=== PATIENT | female | born 1945 | race African-American/Black ===

== ENCOUNTER 2019-12-16 10:31 | Inpatient (IN) | payer BC, MEDICARE ==
[~2019-12-16] VITALS: Ht 157.5 cm; Wt 82.4 kg
[~2019-12-16 10:31] MED LIST: GLYB2.5T2 PO; LISI1TAB37 PO; LORA10TA68 PO; LOVA20TA2 PO; METF500T16 PO; ONDA4TAB7 PO; OXYC1TAB15 PO; RANI-376 PO
[2019-12-16] MEDS ORDERED: IV NORMAL SALINE 1000ML BAG 1,000 ML IV ONE ×2 (11:15→15:15)
[2019-12-16] MEDS ORDERED: PIPERACILLIN/TAZOBACTAM 3.375 GM in IV NORMAL SALINE 50ML 50 ML IV ONE (11:15)
[2019-12-16 11:18] LABS: BASO # 0.1 x10^3/uL (0.0-0.2); BASO % 1 % (0-3); EOS % 0 % (0-3); HEMATOCRIT 30.5 % (36.0-47.0); LYMPH # 1.4 x10^3/uL (1.0-4.8); LYMPH % 7 % (24-48); MEAN CORPUSCULAR HEMOGLOBIN 30 pg (25-35); MEAN CORPUSCULAR HGB CONC 33 g/dL (31-37); MEAN CORPUSCULAR VOLUME 93 fL (79-100); MONO # 0.7 x10^3/uL (0.0-1.1); MONO % 4 % (0-9); NEUT # 16.3 x10^3/uL (1.8-7.7); NEUT % 88 % (31-73); PLATELET COUNT 464 x10^3/uL (140-400); RED CELL DISTRIBUTION WIDTH 14.7 % (11.5-14.5); WHITE BLOOD COUNT 18.5 x10^3/uL (4.0-11.0)
[2019-12-16 11:25] LABS: BILIRUBIN,URINE LARGE (NEG); CLARITY,URINE CLOUDY; COLOR,URINE ORANGE; NITRITE,URINE NEGATIVE (NEG); PROTEIN,URINE 30 mg/dL (NEG-TRACE)
[2019-12-16 11:29] LABS: CALCIUM 8.5 mg/dL (8.5-10.1); CREATININE 1.3 mg/dL (0.6-1.0); GFR 48.4
[2019-12-16 11:35] LABS: ALBUMIN 1.9 g/dL (3.4-5.0); ALBUMIN/GLOBULIN RATIO 0.3 (1.0-1.7); TOTAL BILIRUBIN 0.5 mg/dL (0.2-1.0); TOTAL PROTEIN 7.5 g/dL (6.4-8.2)
[2019-12-16 11:48] LABS: BACTERIA,URINE MANY /HPF (0-FEW); HYALINE CASTS, URINE MANY /HPF; RBC,URINE OCC /HPF (0-2)
--- NOTE | 2019-12-16 12:04 | RAD ---
Examination: 2 views of the right ankle and 3 views of the right foot HISTORY: History of infection COMPARISON: None available FINDINGS: There is mild displaced oblique fracture of the distal fibula above the level of the ankle joint. Moderate joint space loss identified in the ankle joint and the tarsometatarsal and metatarsophalangeal joints. Small inferior calcaneal enthesophyte identified. Probable amputation changes identified in the distal phalanx of the second toe however examination is limited due to positioning. Moderate amount of air identified in the soft tissue of the forefoot. IMPRESSION: 1. Moderate amount of soft tissue identified identified in the forefoot. Soft tissue infection/osteomyelitis not completely excluded. Recommend MRI for further evaluation. 2. Mild displaced oblique fracture of the distal fibula. Electronically signed by: Kenneth Hammond MD (12/16/2019 12:00 PM) [id number]
[2019-12-16 12:17] LABS: % BANDS 6 % (0-9); % LYMPHS 8 % (24-48); % MONOS 4 % (0-10); % SEGS 82 % (35-66); PLT ESTIMATE INCREASED (ADEQUATE)
--- NOTE | 2019-12-16 13:16 | PHYS DOC ---
Past Medical History Past Medical History: Hypertension Past Surgical History: Cholecystectomy, Hysterectomy Smoking Status: Former Smoker Alcohol Use: Occasionally Drug Use: None General Adult EDM: Chief Complaint: WEAKNESS/GENERALIZED HPI: HPI: Patient is 74-year-old female who presents to the emergency room after falling and not being able to get up. Patient states that she used her walker yesterday and her knee buckled under her. She fell onto the ground and was not able to get herself back up. She states she typically walks fine. She denies any pain. Of note patient also has necrotic toes. Patient states that she feels like they have been healing. They have been this way for months. She states the wound on her heel is finally healing. She feels like she is taking care of her self fine. She states she used to be a diabetic but she is cured. Review of Systems: Review of Systems: General: Denies fever, chills, sweats, fatigue Eyes: Denies drainage, blurred vision, eye redness HENT: Denies rhinorrhea, sore throat, earache Respiratory: Denies cough, shortness of breath, wheezing Cardiac: Denies edema, palpitations, chest pain GI: Denies abdominal pain, Nausea, vomiting MSK: Denies back pain, neck pain Skin: Denies rash, jaundice Neuro: Denies headache, dizziness reports generalized weakness Psychiatric: Denies SI/HI Heart Score: Risk Factors: Risk Factors: DM, Current or recent (<one month) smoker, HTN, HLP, family history of CAD, obesity. Risk Scores: Score 0 - 3: 2.5% MACE over next 6 weeks - Discharge Home Score 4 - 6: 20.3% MACE over next 6 weeks - Admit for Clinical Observation Score 7 - 10: 72.7% MACE over next 6 weeks - Early Invasive Strategies Current Medications: Current Medications Medications (Trade) Dose Ordered Sig/Arnaud Start Time Stop Time Status Last Admin Dose Admin Piperacillin Sod/ Tazobactam Sod 3.375 gm/Sodium Chloride 50 ml @ 100 mls/hr 1X ONCE 12/16/19 11:15 12/16/19 11:44 DC 12/16/19 11:26 100 MLS/HR Sodium Chloride 1,000 ml @ 1,000 mls/hr 1X ONCE 12/16/19 11:15 12/16/19 12:14 DC 12/16/19 11:25 1,000 MLS/HR Allergies: Allergies: Allergies Coded Allergies Type Severity Reaction Last Updated Verified No Known Drug Allergies 01/18/16 No Physical Exam: PE: General: Awake, alert, NAD. Well Nourished, well hydrated. Cooperative HEENT: Atraumatic, EOMI, PERRL, airway patent, moist oral mucosa Neck: Supple, trachea midline Respiratory: CTA bilaterally, normal effort, no wheezing/crackles CV: RRR, no murmur, cap refill <2 GI: Soft, nondistended, nontender, no masses MSK: No obvious deformities Skin: Warm, dry. R ankle: 3x4cm scabbed over deep wound. R foot: 1st toe with erythema, swelling, foul drainage. 2nd and 3rd toe necrotic and bone visible. 4th toe with erythema. Neuro: A&O x3, speech NL, sensory and motor grossly intact, no focal deficits Psych: Normal affect, normal mood, not suicidal or homicidal Current Patient Data: Labs: Laboratory Tests Test 12/16/19 11:04 White Blood Count 18.5 x10^3/uL (4.0-11.0) H Red Blood Count 3.30 x10^6/uL (3.50-5.40) L Hemoglobin 10.0 g/dL (12.0-15.5) L Hematocrit 30.5 % (36.0-47.0) L Mean Corpuscular Volume 93 fL (79-100) Mean Corpuscular Hemoglobin 30 pg (25-35) Mean Corpuscular Hemoglobin Concent 33 g/dL (31-37) Red Cell Distribution Width 14.7 % (11.5-14.5) H Platelet Count 464 x10^3/uL (140-400) H Neutrophils (%) (Auto) 88 % (31-73) H Lymphocytes (%) (Auto) 7 % (24-48) L Monocytes (%) (Auto) 4 % (0-9) Eosinophils (%) (Auto) 0 % (0-3) Basophils (%) (Auto) 1 % (0-3) Neutrophils # (Auto) 16.3 x10^3/uL (1.8-7.7) H Lymphocytes # (Auto) 1.4 x10^3/uL (1.0-4.8) Monocytes # (Auto) 0.7 x10^3/uL (0.0-1.1) Eosinophils # (Auto) 0.0 x10^3/uL (0.0-0.7) Basophils # (Auto) 0.1 x10^3/uL (0.0-0.2) Segmented Neutrophils % 82 % (35-66) H Band Neutrophils % 6 % (0-9) Lymphocytes % 8 % (24-48) L Monocytes % 4 % (0-10) Platelet Estimate Increased (ADEQUATE) Urine Collection Type U cath Urine Color [place] Urine Clarity Cloudy Urine pH 5.0 (<5.0-8.0) Urine Specific [place] 1.025 (1.000-1.030) Urine Protein 30 mg/dL (NEG-TRACE) Urine Glucose (UA) Negative mg/dL (NEG) Urine Ketones (Stick) Trace mg/dL (NEG) Urine Blood Negative (NEG) Urine Nitrite Negative (NEG) Urine Bilirubin Large (NEG) Urine Urobilinogen Dipstick 1.0 mg/dL (0.2 mg/dL) Urine Leukocyte Esterase Trace (NEG) Urine RBC Occ /HPF (0-2) Urine WBC 5-10 /HPF (0-4) Urine Bacteria Many /HPF (0-FEW) Urine Hyaline Casts Many /HPF Sodium Level 143 mmol/L (136-145) Potassium Level 4.0 mmol/L (3.5-5.1) Chloride Level 104 mmol/L (98-107) Carbon Dioxide Level 22 mmol/L (21-32) Anion Gap 17 (6-14) H Blood Urea Nitrogen 32 mg/dL (7-20) H Creatinine 1.3 mg/dL (0.6-1.0) H Estimated GFR (Cockcroft-Gault) 48.4 BUN/Creatinine Ratio 25 (6-20) H Glucose Level 225 mg/dL (70-99) H Calcium Level 8.5 mg/dL (8.5-10.1) Total Bilirubin 0.5 mg/dL (0.2-1.0) Aspartate Amino Transferase (AST) 25 U/L (15-37) Alanine Aminotransferase (ALT) 34 U/L (14-59) Alkaline Phosphatase 135 U/L (46-116) H Creatine Kinase 33 U/L (26-192) Troponin I Quantitative < 0.017 ng/mL (0.000-0.055) Total Protein 7.5 g/dL (6.4-8.2) Albumin 1.9 g/dL (3.4-5.0) L Albumin/Globulin Ratio 0.3 (1.0-1.7) L Laboratory Tests 12/16/19 11:04 Laboratory Tests 12/16/19 11:04 Vital Signs: Vital Signs Date Time Temp Pulse Resp B/P (MAP) Pulse Ox O2 Delivery O2 Flow Rate FiO2 12/16/19 11:15 97.8 84 18 139/66 (90) 98 Room Air 97.8 EKG: EKG: [] Radiology/Procedures: Radiology/Procedures: [] Course & Med Decision Making: Course & Med Decision Making Pertinent Labs and Imaging studies reviewed. (See chart for details) Patient 74-year-old female who presents the emergency room after falling and being on the ground for 24 hours. Patient is not taking any medications because she feels that she no longer has diabetes. Patient's right foot has necrotic toes and a deep likely pressure ulcer that is scabbed over on the right heel. This time I am concerned that she is unable to take care of herself at home. X- rays were done of the foot and ankle. Patient was given Zosyn for necrotic toes. I discussed the case with Dr. Franklin the on-call orthopedic surgeon who will evaluate the patient. Patient will be admitted to Dr. stephens. Black Disclaimer: Black Disclaimer: This electronic medical record was generated, in whole or in part, using a voice recognition dictation system. Departure Departure Impression: Primary Impression: Necrotic toes Additional Impressions: Wound infection Weakness Disposition: ADMITTED INPATIENT Condition: STABLE Referrals: SHERRIE ZAMBRANO MD (PCP) Justicifation of Admission Dx: Justifications for Admission: Justification of Admission Dx: Yes DUNCAN MERCER MD Dec 16, 2019 13:15
[2019-12-16 15:00] VITALS: BP 159/70
[2019-12-16] MEDS ORDERED: DEXTROSE 50% 25 GM / 50ML DISP.SYRIN. IV PRN (15:15)
[2019-12-16] MEDS ORDERED: PIP/TAZO PER PHARMACY MC PRN (15:15)
--- NOTE | 2019-12-16 15:57 | EKG ---
[facility] [address] [place] [address] Test Date: 2019-12-16 Test Time: 10:37:27 Pat Name: MICHEAL WANG Department: Room: Gender: F [employer]: : 1945 Requested By: DUNCAN MERCER Order Number: [id number] Reading MD: Measurements Intervals [place] Rate: 84 P: 56 DC: 142 QRS: -1 QRSD: 78 T: 36 QT: 378 QTc: 450 Interpretive Statements SINUS RHYTHM LEFTWARD AXIS QRS(T) CONTOUR ABNORMALITY CONSISTENT WITH INFERIOR INFARCT PROBABLY OLD ABNORMAL ECG RI6.02 No previous ECG available for comparison
[2019-12-16] MEDS ORDERED: oxyCODONE/APAP 5/325 1 TAB TABLET PO SCH (16:00)
[2019-12-16] MEDS ORDERED: hydroCHLOROthiazide 12.5 MG CAPSULE PO SCH (16:00)
[2019-12-16] MEDS ORDERED: CETIRIZINE HCL 10 MG TABLET. PO SCH (16:00)
[2019-12-16] MEDS ORDERED: LISINOPRIL 20 MG TABLET PO SCH (16:00)
[2019-12-16] MEDS: INSULIN LISPRO 300 UNITS/3 ML VIAL. SQ SCH (16:48)
[2019-12-16] MEDS: ONDANSETRON ODT 4 MG TAB.RAPDIS. PO SCH ×2 (16:53→23:21)
[2019-12-16] MEDS: PIPERACILLIN/TAZOBACTAM 2.25 GM in IV NORMAL SALINE 50ML 50 ML IV SCH ×2 (17:26→23:21)
--- NOTE | 2019-12-16 17:38 | PDOC1 ---
History and Physical Date of Admission Date of Admission DATE: 12/16/19 TIME: 17:33 Source Source: Chart review, Patient History of Present Illness History of Present Illness Ms. Patton, is 74-year-old female who presents to the emergency room after falling and not being able to get up. Patient states that she used her walker yesterday and her knee buckled under her. She fell onto the ground and was not able to get herself back up. She states she typically walks fine. She denies any pain. Of note patient also has necrotic toes. Patient states that she feels like they have been healing. They have been this way for months. She s tates the wound on her heel is finally healing. She feels like she is taking care of herself fine. She states she used to be a diabeti Past Medical History Past Medical History she reports no current history, she bought a book "curing diabetes' and she cured herself of her diabetes, "I have no chronic medical problems" Cardiovascular: HTN Endocrine: Diabetes Social History Smoke: Quit (years ago) ALCOHOL: none (since her htday 3 mos ago) Drugs: None Current Problem List Problem List Problems Medical Problems: (1) Necrotic toes Status: Acute (2) Weakness Status: Acute (3) Wound infection Status: Acute Current Medications Current Medications Current Medications Piperacillin Sod/ Tazobactam Sod 3.375 gm/Sodium Chloride 50 ml @ 100 mls/hr 1X ONCE IV Last administered on 12/16/19at 11:26; Start 12/16/19 at 11:15; Stop 12/16/19 at 11:44; Status DC Sodium Chloride 1,000 ml @ 1,000 mls/hr 1X ONCE IV Last administered on 12/16/19at 11:25; Start 12/16/19 at 11:15; Stop 12/16/19 at 12:14; Status DC Oxycodone/ Acetaminophen (Percocet 5/325) 1 tab Q4HRS PO ; Start 12/16/19 at 16:00 Lisinopril (Prinivil) 20 mg DAILY PO ; Start 12/16/19 at 16:00; Stop 12/16/19 at 16:22; Status DC Cetirizine HCl (ZyrTEC) 10 mg DAILY PO ; Start 12/16/19 at 16:00; Stop 12/16/19 at 16:22; Status DC Atorvastatin Calcium (Lipitor) 5 mg QHS PO ; Start 12/16/19 at 21:00; Stop 12/16/19 at 16:22; Status DC Ondansetron HCl (Zofran Odt) 4 mg Q6HRS PO ; Start 12/16/19 at 18:00 Non-Formulary Medication (Ranitidine Hcl (Zantac)) 1 tab BID PO ; Start 12/16/19 at 21:00; Stop 12/16/19 at 16:22; Status DC Piperacillin Sod/ Tazobactam Sod (Zosyn Per Pharmacy) 1 each PRN DAILY PRN MC SEE COMMENTS; Start 12/16/19 at 15:15 Sodium Chloride 1,000 ml @ 100 mls/hr 1X ONCE IV Last administered on 12/16/19at 16:43; Start 12/16/19 at 15:15; Stop 12/17/19 at 01:14 Insulin Human Lispro (HumaLOG) 0-9 UNITS TIDWMEALS SQ Last administered on 12/16/19at 16:48; Start 12/16/19 at 17:00 Dextrose (Dextrose 50%-Water Syringe) 12.5 gm PRN Q15MIN PRN IV SEE COMMENTS; Start 12/16/19 at 15:15 Insulin Glargine (Lantus Syringe) 10 unit QHS SQ ; Start 12/16/19 at 21:00 Piperacillin Sod/ Tazobactam Sod 3.375 gm/Sodium Chloride 50 ml @ 100 mls/hr Q6HRS IV ; Start 12/16/19 at 18:00; Status Cancel Piperacillin Sod/ Tazobactam Sod 2.25 gm/Sodium Chloride 50 ml @ 100 mls/hr Q6HRS IV Last administered on 12/16/19at 17:26; Start 12/16/19 at 18:00 Hydrochlorothiazide (Microzide) 12.5 mg DAILY PO ; Start 12/16/19 at 16:00; Stop 12/16/19 at 16:22; Status DC Active Scripts Active Zofran (Ondansetron Hcl) 4 Mg Tablet 1 Tab PO Q6HRS Percocet 5-325 Mg Tablet (Oxycodone/Acetaminophen) 1 Each Tablet 1-2 Tab PO Q4-6HRS Allergies Allergies: Coded Allergies: No Known Drug Allergies (Unverified , 01/18/16) ROS General: YES: Chills, Fatigue; No: Night Sweats, Malaise, Appetite, Other Physical Exam Physical Exam cantankerous General: Alert, Oriented X3, Cooperative, No acute distress HEENT: Atraumatic, PERRLA Lungs: Clear to auscultation Heart: S1S2, RRR Skin: Other (distal 1/3, of forefoot is black and complete eschar, and looks like it has been that way for awhile. 3 toes nearly auto amputated, ) Vitals Vitals Vital Signs Date Time Temp Pulse Resp B/P (MAP) Pulse Ox O2 Delivery O2 Flow Rate FiO2 12/16/19 15:00 97.9 70 18 159/70 (99) 100 Room Air 97.9 Labs Labs Laboratory Tests Test 12/16/19 11:04 12/16/19 16:40 White Blood Count 18.5 x10^3/uL (4.0-11.0) Red Blood Count 3.30 x10^6/uL (3.50-5.40) Hemoglobin 10.0 g/dL (12.0-15.5) Hematocrit 30.5 % (36.0-47.0) Mean Corpuscular Volume 93 fL (79-100) Mean Corpuscular Hemoglobin 30 pg (25-35) Mean Corpuscular Hemoglobin Concent 33 g/dL (31-37) Red Cell Distribution Width 14.7 % (11.5-14.5) Platelet Count 464 x10^3/uL (140-400) Neutrophils (%) (Auto) 88 % (31-73) Lymphocytes (%) (Auto) 7 % (24-48) Monocytes (%) (Auto) 4 % (0-9) Eosinophils (%) (Auto) 0 % (0-3) Basophils (%) (Auto) 1 % (0-3) Neutrophils # (Auto) 16.3 x10^3/uL (1.8-7.7) Lymphocytes # (Auto) 1.4 x10^3/uL (1.0-4.8) Monocytes # (Auto) 0.7 x10^3/uL (0.0-1.1) Eosinophils # (Auto) 0.0 x10^3/uL (0.0-0.7) Basophils # (Auto) 0.1 x10^3/uL (0.0-0.2) Segmented Neutrophils % 82 % (35-66) Band Neutrophils % 6 % (0-9) Lymphocytes % 8 % (24-48) Monocytes % 4 % (0-10) Platelet Estimate Increased (ADEQUATE) Urine Collection Type U cath Urine Color [place] Urine Clarity Cloudy Urine pH 5.0 (<5.0-8.0) Urine Specific [place] 1.025 (1.000-1.030) Urine Protein 30 mg/dL (NEG-TRACE) Urine Glucose (UA) Negative mg/dL (NEG) Urine Ketones (Stick) Trace mg/dL (NEG) Urine Blood Negative (NEG) Urine Nitrite Negative (NEG) Urine Bilirubin Large (NEG) Urine Urobilinogen Dipstick 1.0 mg/dL (0.2 mg/dL) Urine Leukocyte Esterase Trace (NEG) Urine RBC Occ /HPF (0-2) Urine WBC 5-10 /HPF (0-4) Urine Bacteria Many /HPF (0-FEW) Urine Hyaline Casts Many /HPF Sodium Level 143 mmol/L (136-145) Potassium Level 4.0 mmol/L (3.5-5.1) Chloride Level 104 mmol/L (98-107) Carbon Dioxide Level 22 mmol/L (21-32) Anion Gap 17 (6-14) Blood Urea Nitrogen 32 mg/dL (7-20) Creatinine 1.3 mg/dL (0.6-1.0) Estimated GFR (Cockcroft-Gault) 48.4 BUN/Creatinine Ratio 25 (6-20) Glucose Level 225 mg/dL (70-99) Calcium Level 8.5 mg/dL (8.5-10.1) Total Bilirubin 0.5 mg/dL (0.2-1.0) Aspartate Amino Transf (AST/SGOT) 25 U/L (15-37) Alanine Aminotransferase (ALT/SGPT) 34 U/L (14-59) Alkaline Phosphatase 135 U/L (46-116) Creatine Kinase 33 U/L (26-192) Troponin I Quantitative < 0.017 ng/mL (0.000-0.055) Total Protein 7.5 g/dL (6.4-8.2) Albumin 1.9 g/dL (3.4-5.0) Albumin/Globulin Ratio 0.3 (1.0-1.7) Glucose (Fingerstick) 192 mg/dL (70-99) Laboratory Tests Test 12/16/19 11:04 12/16/19 16:40 White Blood Count 18.5 x10^3/uL (4.0-11.0) Red Blood Count 3.30 x10^6/uL (3.50-5.40) Hemoglobin 10.0 g/dL (12.0-15.5) Hematocrit 30.5 % (36.0-47.0) Mean Corpuscular Volume 93 fL (79-100) Mean Corpuscular Hemoglobin 30 pg (25-35) Mean Corpuscular Hemoglobin Concent 33 g/dL (31-37) Red Cell Distribution Width 14.7 % (11.5-14.5) Platelet Count 464 x10^3/uL (140-400) Neutrophils (%) (Auto) 88 % (31-73) Lymphocytes (%) (Auto) 7 % (24-48) Monocytes (%) (Auto) 4 % (0-9) Eosinophils (%) (Auto) 0 % (0-3) Basophils (%) (Auto) 1 % (0-3) Neutrophils # (Auto) 16.3 x10^3/uL (1.8-7.7) Lymphocytes # (Auto) 1.4 x10^3/uL (1.0-4.8) Monocytes # (Auto) 0.7 x10^3/uL (0.0-1.1) Eosinophils # (Auto) 0.0 x10^3/uL (0.0-0.7) Basophils # (Auto) 0.1 x10^3/uL (0.0-0.2) Segmented Neutrophils % 82 % (35-66) Band Neutrophils % 6 % (0-9) Lymphocytes % 8 % (24-48) Monocytes % 4 % (0-10) Platelet Estimate Increased (ADEQUATE) Urine Collection Type U cath Urine Color [place] Urine Clarity Cloudy Urine pH 5.0 (<5.0-8.0) Urine Specific [place] 1.025 (1.000-1.030) Urine Protein 30 mg/dL (NEG-TRACE) Urine Glucose (UA) Negative mg/dL (NEG) Urine Ketones (Stick) Trace mg/dL (NEG) Urine Blood Negative (NEG) Urine Nitrite Negative (NEG) Urine Bilirubin Large (NEG) Urine Urobilinogen Dipstick 1.0 mg/dL (0.2 mg/dL) Urine Leukocyte Esterase Trace (NEG) Urine RBC Occ /HPF (0-2) Urine WBC 5-10 /HPF (0-4) Urine Bacteria Many /HPF (0-FEW) Urine Hyaline Casts Many /HPF Sodium Level 143 mmol/L (136-145) Potassium Level 4.0 mmol/L (3.5-5.1) Chloride Level 104 mmol/L (98-107) Carbon Dioxide Level 22 mmol/L (21-32) Anion Gap 17 (6-14) Blood Urea Nitrogen 32 mg/dL (7-20) Creatinine 1.3 mg/dL (0.6-1.0) Estimated GFR (Cockcroft-Gault) 48.4 BUN/Creatinine Ratio 25 (6-20) Glucose Level 225 mg/dL (70-99) Calcium Level 8.5 mg/dL (8.5-10.1) Total Bilirubin 0.5 mg/dL (0.2-1.0) Aspartate Amino Transf (AST/SGOT) 25 U/L (15-37) Alanine Aminotransferase (ALT/SGPT) 34 U/L (14-59) Alkaline Phosphatase 135 U/L (46-116) Creatine Kinase 33 U/L (26-192) Troponin I Quantitative < 0.017 ng/mL (0.000-0.055) Total Protein 7.5 g/dL (6.4-8.2) Albumin 1.9 g/dL (3.4-5.0) Albumin/Globulin Ratio 0.3 (1.0-1.7) Glucose (Fingerstick) 192 mg/dL (70-99) VTE Prophylaxis Ordered VTE Prophylaxis Devices: No VTE Pharmacological Prophylaxi: Yes Assessment/Plan Assessment/Plan fall, weakness, cannot walk, will order pt and ot DM2, poor control she is off meds, denies any problem cognitive decline or other, she denies any med problem eschar foot and toes, ischemic injury, dry gangrene, consult ortho, is malodorous, IV zosyn given, will contineu admit Justicifation of Admission Dx: Justifications for Admission: Justification of Admission Dx: Yes SYED ROSADO MD Dec 16, 2019 17:38
[2019-12-16] MEDS ORDERED: HEPARIN for SUB-Q USE 5,000 UNIT/ML VIAL. SQ ONE (17:45)
[2019-12-16] MEDS ORDERED: PIPERACILLIN/TAZOBACTAM 3.375 GM in IV NORMAL SALINE 50ML 50 ML IV SCH (18:00)
[2019-12-16] MEDS: oxyCODONE/APAP 5/325 1 TAB TABLET PO PRN ×2 (18:47→23:22)
[2019-12-16 19:00] VITALS: BP 138/66
[2019-12-16] MEDS: INSULIN GLARGINE SYRINGE. SQ SCH (20:33)
[2019-12-16] MEDS ORDERED: NON FORMULARY ITEM (Ranitidine Hcl (Zantac) 1 TAB) PO SCH (21:00)
[2019-12-16] MEDS ORDERED: ATORVASTATIN CALCIUM 10 MG TABLET. PO SCH (21:00)
[2019-12-16 23:00] VITALS: BP 113/62
[2019-12-17 03:00] VITALS: BP 140/96
[2019-12-17] MEDS: ONDANSETRON ODT 4 MG TAB.RAPDIS. PO SCH ×3 (06:00→17:14)
[2019-12-17] MEDS: PIPERACILLIN/TAZOBACTAM 2.25 GM in IV NORMAL SALINE 50ML 50 ML IV SCH ×4 (06:29→23:58)
[2019-12-17 07:59] VITALS: BP 123/66
[2019-12-17 08:20] LABS: BASO # 0.1 x10^3/uL (0.0-0.2); BASO % 0 % (0-3); EOS # 0.2 x10^3/uL (0.0-0.7); EOS % 1 % (0-3); HEMATOCRIT 28.1 % (36.0-47.0); HEMOGLOBIN 9.1 g/dL (12.0-15.5); LYMPH # 1.6 x10^3/uL (1.0-4.8); LYMPH % 12 % (24-48); MEAN CORPUSCULAR HEMOGLOBIN 30 pg (25-35); MEAN CORPUSCULAR HGB CONC 32 g/dL (31-37); MEAN CORPUSCULAR VOLUME 91 fL (79-100); MONO # 0.5 x10^3/uL (0.0-1.1); MONO % 4 % (0-9); NEUT # 10.6 x10^3/uL (1.8-7.7); NEUT % 82 % (31-73); PLATELET COUNT 409 x10^3/uL (140-400); RED BLOOD COUNT 3.09 x10^6/uL (3.50-5.40); RED CELL DISTRIBUTION WIDTH 14.6 % (11.5-14.5); WHITE BLOOD COUNT 12.9 x10^3/uL (4.0-11.0)
[2019-12-17] MEDS: INSULIN LISPRO 300 UNITS/3 ML VIAL. SQ SCH ×3 (08:24→17:13)
[2019-12-17] MEDS: MORPHINE SULFATE 4 MG/ML VIAL. IV PRN (08:33)
[2019-12-17 08:38] LABS: ALBUMIN 1.4 g/dL (3.4-5.0); ALBUMIN/GLOBULIN RATIO 0.3 (1.0-1.7); CALCIUM 7.8 mg/dL (8.5-10.1); CREATININE 1.8 mg/dL (0.6-1.0); GFR 33.3; POTASSIUM 3.5 mmol/L (3.5-5.1); TOTAL BILIRUBIN 0.4 mg/dL (0.2-1.0); TOTAL PROTEIN 6.9 g/dL (6.4-8.2)
[2019-12-17] MEDS: IV RINGERS,LACTATED 1000ML 1,000 ML IV SCH ×2 (10:24→21:30)
--- NOTE | 2019-12-17 10:29 | PDOC ---
PROGRESS NOTES Date of Service: DATE: 12/17/19 TIME: 10:27 Chief Complaint Chief Complaint falls, worsening weakness, cannot walk, DM2, poor control she is off meds, denies any problem cognitive decline eschar foot and toes, ischemic injury, dry gangrene, consult ortho, History of Present Illness History of Present Illness I discussed with her that her best benefit may be a BKA, she thnks these gangrenous areas over her achillies and on her forefoot will heal with time, I told her that is very unlikely and her best benefit would be an aggressive surgery, waiting for Ortho eval. Vitals Vitals Vital Signs Date Time Temp Pulse Resp B/P (MAP) Pulse Ox O2 Delivery O2 Flow Rate FiO2 12/17/19 09:00 16 Room Air 12/17/19 07:59 97.4 65 123/66 (85) 97 97.4 Physical Exam General: Alert, Oriented X3, Cooperative, No acute distress Heart: Normal S1 Lungs: Wheezing Extremities: No clubbing, No cyanosis Skin: No breakdown, Other (distal 1/3, of forefoot is black and complete eschar, and looks like it has been that way for awhile. 3 toes nearly auto amputated, ) Labs LABS Laboratory Tests Test 12/16/19 11:04 12/16/19 16:40 12/16/19 20:18 12/17/19 07:37 White Blood Count 18.5 x10^3/uL (4.0-11.0) Red Blood Count 3.30 x10^6/uL (3.50-5.40) Hemoglobin 10.0 g/dL (12.0-15.5) Hematocrit 30.5 % (36.0-47.0) Mean Corpuscular Volume 93 fL (79-100) Mean Corpuscular Hemoglobin 30 pg (25-35) Mean Corpuscular Hemoglobin Concent 33 g/dL (31-37) Red Cell Distribution Width 14.7 % (11.5-14.5) Platelet Count 464 x10^3/uL (140-400) Neutrophils (%) (Auto) 88 % (31-73) Lymphocytes (%) (Auto) 7 % (24-48) Monocytes (%) (Auto) 4 % (0-9) Eosinophils (%) (Auto) 0 % (0-3) Basophils (%) (Auto) 1 % (0-3) Neutrophils # (Auto) 16.3 x10^3/uL (1.8-7.7) Lymphocytes # (Auto) 1.4 x10^3/uL (1.0-4.8) Monocytes # (Auto) 0.7 x10^3/uL (0.0-1.1) Eosinophils # (Auto) 0.0 x10^3/uL (0.0-0.7) Basophils # (Auto) 0.1 x10^3/uL (0.0-0.2) Segmented Neutrophils % 82 % (35-66) Band Neutrophils % 6 % (0-9) Lymphocytes % 8 % (24-48) Monocytes % 4 % (0-10) Platelet Estimate Increased (ADEQUATE) Urine Collection Type U cath Urine Color Randall Urine Clarity Cloudy Urine pH 5.0 (<5.0-8.0) Urine Specific [place] 1.025 (1.000-1.030) Urine Protein 30 mg/dL (NEG-TRACE) Urine Glucose (UA) Negative mg/dL (NEG) Urine Ketones (Stick) Trace mg/dL (NEG) Urine Blood Negative (NEG) Urine Nitrite Negative (NEG) Urine Bilirubin Large (NEG) Urine Urobilinogen Dipstick 1.0 mg/dL (0.2 mg/dL) Urine Leukocyte Esterase Trace (NEG) Urine RBC Occ /HPF (0-2) Urine WBC 5-10 /HPF (0-4) Urine Bacteria Many /HPF (0-FEW) Urine Hyaline Casts Many /HPF Sodium Level 143 mmol/L (136-145) Potassium Level 4.0 mmol/L (3.5-5.1) Chloride Level 104 mmol/L (98-107) Carbon Dioxide Level 22 mmol/L (21-32) Anion Gap 17 (6-14) Blood Urea Nitrogen 32 mg/dL (7-20) Creatinine 1.3 mg/dL (0.6-1.0) Estimated GFR (Cockcroft-Gault) 48.4 BUN/Creatinine Ratio 25 (6-20) Glucose Level 225 mg/dL (70-99) Calcium Level 8.5 mg/dL (8.5-10.1) Total Bilirubin 0.5 mg/dL (0.2-1.0) Aspartate Amino Transf (AST/SGOT) 25 U/L (15-37) Alanine Aminotransferase (ALT/SGPT) 34 U/L (14-59) Alkaline Phosphatase 135 U/L (46-116) Creatine Kinase 33 U/L (26-192) Troponin I Quantitative < 0.017 ng/mL (0.000-0.055) Total Protein 7.5 g/dL (6.4-8.2) Albumin 1.9 g/dL (3.4-5.0) Albumin/Globulin Ratio 0.3 (1.0-1.7) Glucose (Fingerstick) 192 mg/dL (70-99) 166 mg/dL (70-99) 226 mg/dL (70-99) Test 12/17/19 07:50 White Blood Count 12.9 x10^3/uL (4.0-11.0) Red Blood Count 3.09 x10^6/uL (3.50-5.40) Hemoglobin 9.1 g/dL (12.0-15.5) Hematocrit 28.1 % (36.0-47.0) Mean Corpuscular Volume 91 fL (79-100) Mean Corpuscular Hemoglobin 30 pg (25-35) Mean Corpuscular Hemoglobin Concent 32 g/dL (31-37) Red Cell Distribution Width 14.6 % (11.5-14.5) Platelet Count 409 x10^3/uL (140-400) Neutrophils (%) (Auto) 82 % (31-73) Lymphocytes (%) (Auto) 12 % (24-48) Monocytes (%) (Auto) 4 % (0-9) Eosinophils (%) (Auto) 1 % (0-3) Basophils (%) (Auto) 0 % (0-3) Neutrophils # (Auto) 10.6 x10^3/uL (1.8-7.7) Lymphocytes # (Auto) 1.6 x10^3/uL (1.0-4.8) Monocytes # (Auto) 0.5 x10^3/uL (0.0-1.1) Eosinophils # (Auto) 0.2 x10^3/uL (0.0-0.7) Basophils # (Auto) 0.1 x10^3/uL (0.0-0.2) Sodium Level 139 mmol/L (136-145) Potassium Level 3.5 mmol/L (3.5-5.1) Chloride Level 104 mmol/L (98-107) Carbon Dioxide Level 25 mmol/L (21-32) Anion Gap 10 (6-14) Blood Urea Nitrogen 42 mg/dL (7-20) Creatinine 1.8 mg/dL (0.6-1.0) Estimated GFR (Cockcroft-Gault) 33.3 BUN/Creatinine Ratio 23 (6-20) Glucose Level 235 mg/dL (70-99) Calcium Level 7.8 mg/dL (8.5-10.1) Total Bilirubin 0.4 mg/dL (0.2-1.0) Aspartate Amino Transf (AST/SGOT) 26 U/L (15-37) Alanine Aminotransferase (ALT/SGPT) 29 U/L (14-59) Alkaline Phosphatase 104 U/L (46-116) Total Protein 6.9 g/dL (6.4-8.2) Albumin 1.4 g/dL (3.4-5.0) Albumin/Globulin Ratio 0.3 (1.0-1.7) Review of Systems Review of Systems no pain weakness Assessment and Plan Assessmemt and Plan Problems Medical Problems: (1) Necrotic toes Status: Acute (2) Weakness Status: Acute (3) Wound infection Status: Acute Comment Review of Relevant I have reviewed the following items da (where applicable) has been applied. Labs Laboratory Tests Test 12/16/19 11:04 12/16/19 16:40 12/16/19 20:18 12/17/19 07:37 White Blood Count 18.5 x10^3/uL (4.0-11.0) Red Blood Count 3.30 x10^6/uL (3.50-5.40) Hemoglobin 10.0 g/dL (12.0-15.5) Hematocrit 30.5 % (36.0-47.0) Mean Corpuscular Volume 93 fL (79-100) Mean Corpuscular Hemoglobin 30 pg (25-35) Mean Corpuscular Hemoglobin Concent 33 g/dL (31-37) Red Cell Distribution Width 14.7 % (11.5-14.5) Platelet Count 464 x10^3/uL (140-400) Neutrophils (%) (Auto) 88 % (31-73) Lymphocytes (%) (Auto) 7 % (24-48) Monocytes (%) (Auto) 4 % (0-9) Eosinophils (%) (Auto) 0 % (0-3) Basophils (%) (Auto) 1 % (0-3) Neutrophils # (Auto) 16.3 x10^3/uL (1.8-7.7) Lymphocytes # (Auto) 1.4 x10^3/uL (1.0-4.8) Monocytes # (Auto) 0.7 x10^3/uL (0.0-1.1) Eosinophils # (Auto) 0.0 x10^3/uL (0.0-0.7) Basophils # (Auto) 0.1 x10^3/uL (0.0-0.2) Segmented Neutrophils % 82 % (35-66) Band Neutrophils % 6 % (0-9) Lymphocytes % 8 % (24-48) Monocytes % 4 % (0-10) Platelet Estimate Increased (ADEQUATE) Urine Collection Type U cath Urine Color Randall Urine Clarity Cloudy Urine pH 5.0 (<5.0-8.0) Urine Specific [place] 1.025 (1.000-1.030) Urine Protein 30 mg/dL (NEG-TRACE) Urine Glucose (UA) Negative mg/dL (NEG) Urine Ketones (Stick) Trace mg/dL (NEG) Urine Blood Negative (NEG) Urine Nitrite Negative (NEG) Urine Bilirubin Large (NEG) Urine Urobilinogen Dipstick 1.0 mg/dL (0.2 mg/dL) Urine Leukocyte Esterase Trace (NEG) Urine RBC Occ /HPF (0-2) Urine WBC 5-10 /HPF (0-4) Urine Bacteria Many /HPF (0-FEW) Urine Hyaline Casts Many /HPF Sodium Level 143 mmol/L (136-145) Potassium Level 4.0 mmol/L (3.5-5.1) Chloride Level 104 mmol/L (98-107) Carbon Dioxide Level 22 mmol/L (21-32) Anion Gap 17 (6-14) Blood Urea Nitrogen 32 mg/dL (7-20) Creatinine 1.3 mg/dL (0.6-1.0) Estimated GFR (Cockcroft-Gault) 48.4 BUN/Creatinine Ratio 25 (6-20) Glucose Level 225 mg/dL (70-99) Calcium Level 8.5 mg/dL (8.5-10.1) Total Bilirubin 0.5 mg/dL (0.2-1.0) Aspartate Amino Transf (AST/SGOT) 25 U/L (15-37) Alanine Aminotransferase (ALT/SGPT) 34 U/L (14-59) Alkaline Phosphatase 135 U/L (46-116) Creatine Kinase 33 U/L (26-192) Troponin I Quantitative < 0.017 ng/mL (0.000-0.055) Total Protein 7.5 g/dL (6.4-8.2) Albumin 1.9 g/dL (3.4-5.0) Albumin/Globulin Ratio 0.3 (1.0-1.7) Glucose (Fingerstick) 192 mg/dL (70-99) 166 mg/dL (70-99) 226 mg/dL (70-99) Test 12/17/19 07:50 White Blood Count 12.9 x10^3/uL (4.0-11.0) Red Blood Count 3.09 x10^6/uL (3.50-5.40) Hemoglobin 9.1 g/dL (12.0-15.5) Hematocrit 28.1 % (36.0-47.0) Mean Corpuscular Volume 91 fL (79-100) Mean Corpuscular Hemoglobin 30 pg (25-35) Mean Corpuscular Hemoglobin Concent 32 g/dL (31-37) Red Cell Distribution Width 14.6 % (11.5-14.5) Platelet Count 409 x10^3/uL (140-400) Neutrophils (%) (Auto) 82 % (31-73) Lymphocytes (%) (Auto) 12 % (24-48) Monocytes (%) (Auto) 4 % (0-9) Eosinophils (%) (Auto) 1 % (0-3) Basophils (%) (Auto) 0 % (0-3) Neutrophils # (Auto) 10.6 x10^3/uL (1.8-7.7) Lymphocytes # (Auto) 1.6 x10^3/uL (1.0-4.8) Monocytes # (Auto) 0.5 x10^3/uL (0.0-1.1) Eosinophils # (Auto) 0.2 x10^3/uL (0.0-0.7) Basophils # (Auto) 0.1 x10^3/uL (0.0-0.2) Sodium Level 139 mmol/L (136-145) Potassium Level 3.5 mmol/L (3.5-5.1) Chloride Level 104 mmol/L (98-107) Carbon Dioxide Level 25 mmol/L (21-32) Anion Gap 10 (6-14) Blood Urea Nitrogen 42 mg/dL (7-20) Creatinine 1.8 mg/dL (0.6-1.0) Estimated GFR (Cockcroft-Gault) 33.3 BUN/Creatinine Ratio 23 (6-20) Glucose Level 235 mg/dL (70-99) Calcium Level 7.8 mg/dL (8.5-10.1) Total Bilirubin 0.4 mg/dL (0.2-1.0) Aspartate Amino Transf (AST/SGOT) 26 U/L (15-37) Alanine Aminotransferase (ALT/SGPT) 29 U/L (14-59) Alkaline Phosphatase 104 U/L (46-116) Total Protein 6.9 g/dL (6.4-8.2) Albumin 1.4 g/dL (3.4-5.0) Albumin/Globulin Ratio 0.3 (1.0-1.7) Laboratory Tests Test 12/16/19 11:04 12/16/19 16:40 12/16/19 20:18 12/17/19 07:37 White Blood Count 18.5 x10^3/uL (4.0-11.0) Red Blood Count 3.30 x10^6/uL (3.50-5.40) Hemoglobin 10.0 g/dL (12.0-15.5) Hematocrit 30.5 % (36.0-47.0) Mean Corpuscular Volume 93 fL (79-100) Mean Corpuscular Hemoglobin 30 pg (25-35) Mean Corpuscular Hemoglobin Concent 33 g/dL (31-37) Red Cell Distribution Width 14.7 % (11.5-14.5) Platelet Count 464 x10^3/uL (140-400) Neutrophils (%) (Auto) 88 % (31-73) Lymphocytes (%) (Auto) 7 % (24-48) Monocytes (%) (Auto) 4 % (0-9) Eosinophils (%) (Auto) 0 % (0-3) Basophils (%) (Auto) 1 % (0-3) Neutrophils # (Auto) 16.3 x10^3/uL (1.8-7.7) Lymphocytes # (Auto) 1.4 x10^3/uL (1.0-4.8) Monocytes # (Auto) 0.7 x10^3/uL (0.0-1.1) Eosinophils # (Auto) 0.0 x10^3/uL (0.0-0.7) Basophils # (Auto) 0.1 x10^3/uL (0.0-0.2) Segmented Neutrophils % 82 % (35-66) Band Neutrophils % 6 % (0-9) Lymphocytes % 8 % (24-48) Monocytes % 4 % (0-10) Platelet Estimate Increased (ADEQUATE) Urine Collection Type U cath Urine Color [place] Urine Clarity Cloudy Urine pH 5.0 (<5.0-8.0) Urine Specific [place] 1.025 (1.000-1.030) Urine Protein 30 mg/dL (NEG-TRACE) Urine Glucose (UA) Negative mg/dL (NEG) Urine Ketones (Stick) Trace mg/dL (NEG) Urine Blood Negative (NEG) Urine Nitrite Negative (NEG) Urine Bilirubin Large (NEG) Urine Urobilinogen Dipstick 1.0 mg/dL (0.2 mg/dL) Urine Leukocyte Esterase Trace (NEG) Urine RBC Occ /HPF (0-2) Urine WBC 5-10 /HPF (0-4) Urine Bacteria Many /HPF (0-FEW) Urine Hyaline Casts Many /HPF Sodium Level 143 mmol/L (136-145) Potassium Level 4.0 mmol/L (3.5-5.1) Chloride Level 104 mmol/L (98-107) Carbon Dioxide Level 22 mmol/L (21-32) Anion Gap 17 (6-14) Blood Urea Nitrogen 32 mg/dL (7-20) Creatinine 1.3 mg/dL (0.6-1.0) Estimated GFR (Cockcroft-Gault) 48.4 BUN/Creatinine Ratio 25 (6-20) Glucose Level 225 mg/dL (70-99) Calcium Level 8.5 mg/dL (8.5-10.1) Total Bilirubin 0.5 mg/dL (0.2-1.0) Aspartate Amino Transf (AST/SGOT) 25 U/L (15-37) Alanine Aminotransferase (ALT/SGPT) 34 U/L (14-59) Alkaline Phosphatase 135 U/L (46-116) Creatine Kinase 33 U/L (26-192) Troponin I Quantitative < 0.017 ng/mL (0.000-0.055) Total Protein 7.5 g/dL (6.4-8.2) Albumin 1.9 g/dL (3.4-5.0) Albumin/Globulin Ratio 0.3 (1.0-1.7) Glucose (Fingerstick) 192 mg/dL (70-99) 166 mg/dL (70-99) 226 mg/dL (70-99) Test 12/17/19 07:50 White Blood Count 12.9 x10^3/uL (4.0-11.0) Red Blood Count 3.09 x10^6/uL (3.50-5.40) Hemoglobin 9.1 g/dL (12.0-15.5) Hematocrit 28.1 % (36.0-47.0) Mean Corpuscular Volume 91 fL (79-100) Mean Corpuscular Hemoglobin 30 pg (25-35) Mean Corpuscular Hemoglobin Concent 32 g/dL (31-37) Red Cell Distribution Width 14.6 % (11.5-14.5) Platelet Count 409 x10^3/uL (140-400) Neutrophils (%) (Auto) 82 % (31-73) Lymphocytes (%) (Auto) 12 % (24-48) Monocytes (%) (Auto) 4 % (0-9) Eosinophils (%) (Auto) 1 % (0-3) Basophils (%) (Auto) 0 % (0-3) Neutrophils # (Auto) 10.6 x10^3/uL (1.8-7.7) Lymphocytes # (Auto) 1.6 x10^3/uL (1.0-4.8) Monocytes # (Auto) 0.5 x10^3/uL (0.0-1.1) Eosinophils # (Auto) 0.2 x10^3/uL (0.0-0.7) Basophils # (Auto) 0.1 x10^3/uL (0.0-0.2) Sodium Level 139 mmol/L (136-145) Potassium Level 3.5 mmol/L (3.5-5.1) Chloride Level 104 mmol/L (98-107) Carbon Dioxide Level 25 mmol/L (21-32) Anion Gap 10 (6-14) Blood Urea Nitrogen 42 mg/dL (7-20) Creatinine 1.8 mg/dL (0.6-1.0) Estimated GFR (Cockcroft-Gault) 33.3 BUN/Creatinine Ratio 23 (6-20) Glucose Level 235 mg/dL (70-99) Calcium Level 7.8 mg/dL (8.5-10.1) Total Bilirubin 0.4 mg/dL (0.2-1.0) Aspartate Amino Transf (AST/SGOT) 26 U/L (15-37) Alanine Aminotransferase (ALT/SGPT) 29 U/L (14-59) Alkaline Phosphatase 104 U/L (46-116) Total Protein 6.9 g/dL (6.4-8.2) Albumin 1.4 g/dL (3.4-5.0) Albumin/Globulin Ratio 0.3 (1.0-1.7) Medications Current Medications Piperacillin Sod/ Tazobactam Sod 3.375 gm/Sodium Chloride 50 ml @ 100 mls/hr 1X ONCE IV Last administered on 12/16/19at 11:26; Start 12/16/19 at 11:15; Stop 12/16/19 at 11:44; Status DC Sodium Chloride 1,000 ml @ 1,000 mls/hr 1X ONCE IV Last administered on 12/16/19at 11:25; Start 12/16/19 at 11:15; Stop 12/16/19 at 12:14; Status DC Oxycodone/ Acetaminophen (Percocet 5/325) 1 tab Q4HRS PO ; Start 12/16/19 at 16:00; Stop 12/16/19 at 18:36; Status DC Lisinopril (Prinivil) 20 mg DAILY PO ; Start 12/16/19 at 16:00; Stop 12/16/19 at 16:22; Status DC Cetirizine HCl (ZyrTEC) 10 mg DAILY PO ; Start 12/16/19 at 16:00; Stop 12/16/19 at 16:22; Status DC Atorvastatin Calcium (Lipitor) 5 mg QHS PO ; Start 12/16/19 at 21:00; Stop 12/16/19 at 16:22; Status DC Ondansetron HCl (Zofran Odt) 4 mg Q6HRS PO Last administered on 12/16/19at 23:21; Start 12/16/19 at 18:00 Non-Formulary Medication (Ranitidine Hcl (Zantac)) 1 tab BID PO ; Start 12/16/19 at 21:00; Stop 12/16/19 at 16:22; Status DC Piperacillin Sod/ Tazobactam Sod (Zosyn Per Pharmacy) 1 each PRN DAILY PRN MC SEE COMMENTS; Start 12/16/19 at 15:15 Sodium Chloride 1,000 ml @ 100 mls/hr 1X ONCE IV Last administered on 12/16/19at 16:43; Start 12/16/19 at 15:15; Stop 12/17/19 at 01:14; Status DC Insulin Human Lispro (HumaLOG) 0-9 UNITS TIDWMEALS SQ Last administered on 12/17/19at 08:24; Start 12/16/19 at 17:00 Dextrose (Dextrose 50%-Water Syringe) 12.5 gm PRN Q15MIN PRN IV SEE COMMENTS; Start 12/16/19 at 15:15 Insulin Glargine (Lantus Syringe) 10 unit QHS SQ Last administered on 12/16/19at 20:33; Start 12/16/19 at 21:00 Piperacillin Sod/ Tazobactam Sod 3.375 gm/Sodium Chloride 50 ml @ 100 mls/hr Q6HRS IV ; Start 12/16/19 at 18:00; Status Cancel Piperacillin Sod/ Tazobactam Sod 2.25 gm/Sodium Chloride 50 ml @ 100 mls/hr Q6HRS IV Last administered on 12/17/19at 06:29; Start 12/16/19 at 18:00 Hydrochlorothiazide (Microzide) 12.5 mg DAILY PO ; Start 12/16/19 at 16:00; Stop 12/16/19 at 16:22; Status DC Heparin Sodium (Porcine) (Heparin Sodium) 5,000 unit 1X ONCE SQ Last administered on 12/16/19at 17:50; Start 12/16/19 at 17:45; Stop 12/16/19 at 17:46; Status DC Oxycodone/ Acetaminophen (Percocet 5/325) 1 tab PRN Q4HRS PRN PO PAIN Last administered on 12/16/19at 23:22; Start 12/16/19 at 18:45 Morphine Sulfate (Morphine Sulfate) 4 mg PRN Q2HR PRN IV PAIN Last administered on 12/17/19at 08:33; Start 12/16/19 at 19:45 Ringer's Solution 1,000 ml @ 100 mls/hr Q10H IV Last administered on 12/17/19at 10:24; Start 12/17/19 at 10:30 Active Scripts Active Zofran (Ondansetron Hcl) 4 Mg Tablet 1 Tab PO Q6HRS Percocet 5-325 Mg Tablet (Oxycodone/Acetaminophen) 1 Each Tablet 1-2 Tab PO Q4-6HRS Vitals/I & O Vital Sign - Last 24 Hours 12/16/19 12/16/19 12/16/19 12/16/19 11:15 12:04 13:04 14:04 Temp 97.8 97.8 Pulse 84 76 74 74 Resp 18 23 23 20 B/P (MAP) 139/66 (90) Pulse Ox 98 98 98 98 O2 Delivery Room Air 12/16/19 12/16/19 12/16/19 12/16/19 14:34 15:00 18:15 18:47 Temp 97.9 97.9 Pulse 72 70 Resp 20 18 16 B/P (MAP) 159/70 (99) Pulse Ox 98 100 O2 Delivery Room Air Room Air Room Air 12/16/19 12/16/19 12/16/19 12/16/19 19:00 19:47 20:00 23:00 Temp 98.2 98.4 98.2 98.4 Pulse 71 75 Resp 18 14 18 B/P (MAP) 138/66 (90) 113/62 (79) Pulse Ox 95 97 O2 Delivery Room Air Room Air Room Air Room Air 12/16/19 12/17/19 12/17/19 12/17/19 23:22 00:30 03:00 07:59 Temp 98.5 97.4 98.5 97.4 Pulse 68 65 Resp 16 16 18 16 B/P (MAP) 140/96 (111) 123/66 (85) Pulse Ox 96 97 O2 Delivery Room Air Room Air Room Air Room Air 12/17/19 12/17/19 12/17/19 08:00 08:33 09:00 Resp 16 16 O2 Delivery Room Air Room Air Room Air Intake and Output 12/16/19 12/16/19 12/17/19 15:00 23:00 07:00 Intake Total 2830 ml 500 ml Balance 2830 ml 500 ml Justicifation of Admission Dx: Justifications for Admission: Justification of Admission Dx: Yes SYED ROSADO MD Dec 17, 2019 10:29
[2019-12-17 11:02] VITALS: BP 98/47
--- NOTE | 2019-12-17 13:51 | PDOC2 ---
CONSULT Date of Consult Date of Consult DATE: 12/17/19 TIME: 13:46 Reason for Consult Reason for Consult: necrotic toes and foot Referring Physician Referring Physician: Lester Identification/Chief Complaint Chief Complaint fell and couldn't get up Source Source: Caregiver, Chart review, Patient History of Present Illness Reason for Visit: 74 year old who fell at home and couldn't get up. Despite the fact that her forefoot is black and her toes nearly autoamputated, she thinks things are healing and is not willing to consent to amputation surgery. As best she can recall the foot started to get bad about 2 months ago after a pedicure. She still had a piece of skin or nail that was bothering her and she cut it herself "too short". She is very concerned about the full-thickness ulceration over the Achilles, and thinks that if we would "cut that open, or cut it out" (the ulcer) on the back of her leg, that her toes would then heal. I spoke to her at length about my recommendation for below-knee amputation and the reasons that lower level amputation would not heal, but she is just not ready to proceed with consent for that. I also spoke by phone to the patient's 94-year-old mother whom the patient lives with, and discussed my recommendations and reasoning. Past Medical History Cardiovascular: HTN Endocrine: Diabetes Social History Quit (years ago) ALCOHOL: none (since her htday 3 mos ago) Drugs: None Lives: with Family Current Problem List Problem List Problems Medical Problems: (1) Necrotic toes Status: Acute (2) Weakness Status: Acute (3) Wound infection Status: Acute Current Medications Current Medications Current Medications Piperacillin Sod/ Tazobactam Sod 3.375 gm/Sodium Chloride 50 ml @ 100 mls/hr 1X ONCE IV Last administered on 12/16/19at 11:26; Start 12/16/19 at 11:15; Stop 12/16/19 at 11:44; Status DC Sodium Chloride 1,000 ml @ 1,000 mls/hr 1X ONCE IV Last administered on 12/16/19at 11:25; Start 12/16/19 at 11:15; Stop 12/16/19 at 12:14; Status DC Oxycodone/ Acetaminophen (Percocet 5/325) 1 tab Q4HRS PO ; Start 12/16/19 at 16:00; Stop 12/16/19 at 18:36; Status DC Lisinopril (Prinivil) 20 mg DAILY PO ; Start 12/16/19 at 16:00; Stop 12/16/19 at 16:22; Status DC Cetirizine HCl (ZyrTEC) 10 mg DAILY PO ; Start 12/16/19 at 16:00; Stop 12/16/19 at 16:22; Status DC Atorvastatin Calcium (Lipitor) 5 mg QHS PO ; Start 12/16/19 at 21:00; Stop 12/16/19 at 16:22; Status DC Ondansetron HCl (Zofran Odt) 4 mg Q6HRS PO Last administered on 12/16/19at 23:21; Start 12/16/19 at 18:00 Non-Formulary Medication (Ranitidine Hcl (Zantac)) 1 tab BID PO ; Start 12/16/19 at 21:00; Stop 12/16/19 at 16:22; Status DC Piperacillin Sod/ Tazobactam Sod (Zosyn Per Pharmacy) 1 each PRN DAILY PRN MC SEE COMMENTS; Start 12/16/19 at 15:15 Sodium Chloride 1,000 ml @ 100 mls/hr 1X ONCE IV Last administered on 12/16/19 at 16:43; Start 12/16/19 at 15:15; Stop 12/17/19 at 01:14; Status DC Insulin Human Lispro (HumaLOG) 0-9 UNITS TIDWMEALS SQ Last administered on 12/17/19at 08:24; Start 12/16/19 at 17:00 Dextrose (Dextrose 50%-Water Syringe) 12.5 gm PRN Q15MIN PRN IV SEE COMMENTS; Start 12/16/19 at 15:15 Insulin Glargine (Lantus Syringe) 10 unit QHS SQ Last administered on 12/16/19at 20:33; Start 12/16/19 at 21:00 Piperacillin Sod/ Tazobactam Sod 3.375 gm/Sodium Chloride 50 ml @ 100 mls/hr Q6HRS IV ; Start 12/16/19 at 18:00; Status Cancel Piperacillin Sod/ Tazobactam Sod 2.25 gm/Sodium Chloride 50 ml @ 100 mls/hr Q6HRS IV Last administered on 12/17/19at 11:35; Start 12/16/19 at 18:00 Hydrochlorothiazide (Microzide) 12.5 mg DAILY PO ; Start 12/16/19 at 16:00; Stop 12/16/19 at 16:22; Status DC Heparin Sodium (Porcine) (Heparin Sodium) 5,000 unit 1X ONCE SQ Last administered on 12/16/19at 17:50; Start 12/16/19 at 17:45; Stop 12/16/19 at 17:46; Status DC Oxycodone/ Acetaminophen (Percocet 5/325) 1 tab PRN Q4HRS PRN PO PAIN Last administered on 12/16/19at 23:22; Start 12/16/19 at 18:45 Morphine Sulfate (Morphine Sulfate) 4 mg PRN Q2HR PRN IV PAIN Last administered on 12/17/19at 08:33; Start 12/16/19 at 19:45 Ringer's Solution 1,000 ml @ 100 mls/hr Q10H IV Last administered on 12/17/19at 10:24; Start 12/17/19 at 10:30 Active Scripts Active Zofran (Ondansetron Hcl) 4 Mg Tablet 1 Tab PO Q6HRS Percocet 5-325 Mg Tablet (Oxycodone/Acetaminophen) 1 Each Tablet 1-2 Tab PO Q4-6HRS Allergies Allergies: Coded Allergies: No Known Drug Allergies (Unverified , 01/18/16) ROS Review of System General: Denies fever. Admits to chills and fatigue. Also reports thirst. Eyes: Denies drainage, blurred vision, eye redness HENT: Denies rhinorrhea, sore throat, earache Respiratory: Denies cough, shortness of breath, wheezing Cardiac: Denies edema, palpitations, chest pain GI: Denies abdominal pain, Nausea, vomiting MSK: Denies back pain, neck pain Skin: Denies rash, jaundice Neuro: Denies headache, dizziness reports generalized weakness Psychiatric: Denies SI/HI Physical Exam General: Alert, Cooperative, Other (multiple missing teeth, not quite edentulous) HEENT: Atraumatic Lungs: Normal air movement Heart: Regular rate Abdomen: Soft Extremities: Other (The right foot has grossly normal alignment. The second third and fourth toes are completely necrotic with dry gangrene into the midfoot dorsally and plantarly. There is an odor but not severeI dont believe theres wet gangrene or gas. There is some ischemia and discoloration of the great toe and fifth toe and they are also likely nonviable. Despite the lateral malleolus fracture, there is minimal lateral malleolus swelling or tenderness. There is no ankle joint deformity. There is full-thickness dry gangrene along the plantar aspect of the foot with some overlying loose skin, and unfortunately the proximal extent of the dry gangrene on the plantar foot would prevent transm etatarsal amputation. There is a full-thickness ulceration with dry necrotic blackened tissue at the Achilles, possible tendon involvement. Pulses are not palpable. She reports slight light touch sensation. I believe these gangrene and ulcer changes are related more to diabetic ischemia than to diabetic neuropathy.) Neuro: Normal speech, Normal tone Psych/Mental Status: Mood NL Vitals VITALS Vital Signs Date Time Temp Pulse Resp B/P (MAP) Pulse Ox O2 Delivery O2 Flow Rate FiO2 12/17/19 11:02 97.8 71 16 98/47 (64) 95 Room Air 97.8 Labs Labs Laboratory Tests Test 12/16/19 11:04 12/16/19 16:40 12/16/19 20:18 12/17/19 07:37 White Blood Count 18.5 x10^3/uL (4.0-11.0) Red Blood Count 3.30 x10^6/uL (3.50-5.40) Hemoglobin 10.0 g/dL (12.0-15.5) Hematocrit 30.5 % (36.0-47.0) Mean Corpuscular Volume 93 fL (79-100) Mean Corpuscular Hemoglobin 30 pg (25-35) Mean Corpuscular Hemoglobin Concent 33 g/dL (31-37) Red Cell Distribution Width 14.7 % (11.5-14.5) Platelet Count 464 x10^3/uL (140-400) Neutrophils (%) (Auto) 88 % (31-73) Lymphocytes (%) (Auto) 7 % (24-48) Monocytes (%) (Auto) 4 % (0-9) Eosinophils (%) (Auto) 0 % (0-3) Basophils (%) (Auto) 1 % (0-3) Neutrophils # (Auto) 16.3 x10^3/uL (1.8-7.7) Lymphocytes # (Auto) 1.4 x10^3/uL (1.0-4.8) Monocytes # (Auto) 0.7 x10^3/uL (0.0-1.1) Eosinophils # (Auto) 0.0 x10^3/uL (0.0-0.7) Basophils # (Auto) 0.1 x10^3/uL (0.0-0.2) Segmented Neutrophils % 82 % (35-66) Band Neutrophils % 6 % (0-9) Lymphocytes % 8 % (24-48) Monocytes % 4 % (0-10) Platelet Estimate Increased (ADEQUATE) Urine Collection Type U cath Urine Color [place] Urine Clarity Cloudy Urine pH 5.0 (<5.0-8.0) Urine Specific [place] 1.025 (1.000-1.030) Urine Protein 30 mg/dL (NEG-TRACE) Urine Glucose (UA) Negative mg/dL (NEG) Urine Ketones (Stick) Trace mg/dL (NEG) Urine Blood Negative (NEG) Urine Nitrite Negative (NEG) Urine Bilirubin Large (NEG) Urine Urobilinogen Dipstick 1.0 mg/dL (0.2 mg/dL) Urine Leukocyte Esterase Trace (NEG) Urine RBC Occ /HPF (0-2) Urine WBC 5-10 /HPF (0-4) Urine Bacteria Many /HPF (0-FEW) Urine Hyaline Casts Many /HPF Sodium Level 143 mmol/L (136-145) Potassium Level 4.0 mmol/L (3.5-5.1) Chloride Level 104 mmol/L (98-107) Carbon Dioxide Level 22 mmol/L (21-32) Anion Gap 17 (6-14) Blood Urea Nitrogen 32 mg/dL (7-20) Creatinine 1.3 mg/dL (0.6-1.0) Estimated GFR (Cockcroft-Gault) 48.4 BUN/Creatinine Ratio 25 (6-20) Glucose Level 225 mg/dL (70-99) Calcium Level 8.5 mg/dL (8.5-10.1) Total Bilirubin 0.5 mg/dL (0.2-1.0) Aspartate Amino Transf (AST/SGOT) 25 U/L (15-37) Alanine Aminotransferase (ALT/SGPT) 34 U/L (14-59) Alkaline Phosphatase 135 U/L (46-116) Creatine Kinase 33 U/L (26-192) Troponin I Quantitative < 0.017 ng/mL (0.000-0.055) Total Protein 7.5 g/dL (6.4-8.2) Albumin 1.9 g/dL (3.4-5.0) Albumin/Globulin Ratio 0.3 (1.0-1.7) Glucose (Fingerstick) 192 mg/dL (70-99) 166 mg/dL (70-99) 226 mg/dL (70-99) Test 12/17/19 07:50 12/17/19 11:38 White Blood Count 12.9 x10^3/uL (4.0-11.0) Red Blood Count 3.09 x10^6/uL (3.50-5.40) Hemoglobin 9.1 g/dL (12.0-15.5) Hematocrit 28.1 % (36.0-47.0) Mean Corpuscular Volume 91 fL (79-100) Mean Corpuscular Hemoglobin 30 pg (25-35) Mean Corpuscular Hemoglobin Concent 32 g/dL (31-37) Red Cell Distribution Width 14.6 % (11.5-14.5) Platelet Count 409 x10^3/uL (140-400) Neutrophils (%) (Auto) 82 % (31-73) Lymphocytes (%) (Auto) 12 % (24-48) Monocytes (%) (Auto) 4 % (0-9) Eosinophils (%) (Auto) 1 % (0-3) Basophils (%) (Auto) 0 % (0-3) Neutrophils # (Auto) 10.6 x10^3/uL (1.8-7.7) Lymphocytes # (Auto) 1.6 x10^3/uL (1.0-4.8) Monocytes # (Auto) 0.5 x10^3/uL (0.0-1.1) Eosinophils # (Auto) 0.2 x10^3/uL (0.0-0.7) Basophils # (Auto) 0.1 x10^3/uL (0.0-0.2) Sodium Level 139 mmol/L (136-145) Potassium Level 3.5 mmol/L (3.5-5.1) Chloride Level 104 mmol/L (98-107) Carbon Dioxide Level 25 mmol/L (21-32) Anion Gap 10 (6-14) Blood Urea Nitrogen 42 mg/dL (7-20) Creatinine 1.8 mg/dL (0.6-1.0) Estimated GFR (Cockcroft-Gault) 33.3 BUN/Creatinine Ratio 23 (6-20) Glucose Level 235 mg/dL (70-99) Calcium Level 7.8 mg/dL (8.5-10.1) Total Bilirubin 0.4 mg/dL (0.2-1.0) Aspartate Amino Transf (AST/SGOT) 26 U/L (15-37) Alanine Aminotransferase (ALT/SGPT) 29 U/L (14-59) Alkaline Phosphatase 104 U/L (46-116) Total Protein 6.9 g/dL (6.4-8.2) Albumin 1.4 g/dL (3.4-5.0) Albumin/Globulin Ratio 0.3 (1.0-1.7) Glucose (Fingerstick) 127 mg/dL (70-99) Laboratory Tests Test 12/16/19 16:40 12/16/19 20:18 12/17/19 07:37 12/17/19 07:50 Glucose (Fingerstick) 192 mg/dL (70-99) 166 mg/dL (70-99) 226 mg/dL (70-99) White Blood Count 12.9 x10^3/uL (4.0-11.0) Red Blood Count 3.09 x10^6/uL (3.50-5.40) Hemoglobin 9.1 g/dL (12.0-15.5) Hematocrit 28.1 % (36.0-47.0) Mean Corpuscular Volume 91 fL (79-100) Mean Corpuscular Hemoglobin 30 pg (25-35) Mean Corpuscular Hemoglobin Concent 32 g/dL (31-37) Red Cell Distribution Width 14.6 % (11.5-14.5) Platelet Count 409 x10^3/uL (140-400) Neutrophils (%) (Auto) 82 % (31-73) Lymphocytes (%) (Auto) 12 % (24-48) Monocytes (%) (Auto) 4 % (0-9) Eosinophils (%) (Auto) 1 % (0-3) Basophils (%) (Auto) 0 % (0-3) Neutrophils # (Auto) 10.6 x10^3/uL (1.8-7.7) Lymphocytes # (Auto) 1.6 x10^3/uL (1.0-4.8) Monocytes # (Auto) 0.5 x10^3/uL (0.0-1.1) Eosinophils # (Auto) 0.2 x10^3/uL (0.0-0.7) Basophils # (Auto) 0.1 x10^3/uL (0.0-0.2) Sodium Level 139 mmol/L (136-145) Potassium Level 3.5 mmol/L (3.5-5.1) Chloride Level 104 mmol/L (98-107) Carbon Dioxide Level 25 mmol/L (21-32) Anion Gap 10 (6-14) Blood Urea Nitrogen 42 mg/dL (7-20) Creatinine 1.8 mg/dL (0.6-1.0) Estimated GFR (Cockcroft-Gault) 33.3 BUN/Creatinine Ratio 23 (6-20) Glucose Level 235 mg/dL (70-99) Calcium Level 7.8 mg/dL (8.5-10.1) Total Bilirubin 0.4 mg/dL (0.2-1.0) Aspartate Amino Transf (AST/SGOT) 26 U/L (15-37) Alanine Aminotransferase (ALT/SGPT) 29 U/L (14-59) Alkaline Phosphatase 104 U/L (46-116) Total Protein 6.9 g/dL (6.4-8.2) Albumin 1.4 g/dL (3.4-5.0) Albumin/Globulin Ratio 0.3 (1.0-1.7) Test 12/17/19 11:38 Glucose (Fingerstick) 127 mg/dL (70-99) Images Images Report reviewed, images independently reviewed, right ankle and right foot. Swelling, distal fibula fracture, osteopenia. PATIENT: MICHEAL WANG ACCOUNT: [id number] : 1945 LOCATION: ER AGE: 74 SEX: F EXAM STATUS: PRE ER ORD. PHYSICIAN: DUNCAN MERCER MD REASON: infection PROCEDURE: ANKLE RIGHT 2V Examination: 2 views of the right ankle and 3 views of the right foot HISTORY: History of infection COMPARISON: None available FINDINGS: There is mild displaced oblique fracture of the distal fibula above the level of the ankle joint. Moderate joint space loss identified in the ankle joint and the tarsometatarsal and metatarsophalangeal joints. Small inferior calcaneal enthesophyte identified. Probable amputation changes identified in the distal phalanx of the second toe however examination is limited due to positioning. Moderate amount of air identified in the soft tissue of the forefoot. IMPRESSION: 1. Moderate amount of soft tissue identified identified in the forefoot. Soft tissue infection/osteomyelitis not completely excluded. Recommend MRI for further evaluation. 2. Mild displaced oblique fracture of the distal fibula. Electronically signed by: Kenneth Hammond MD (12/16/2019 12:00 PM) [id number] DICTATED and SIGNED BY: KENNETH HAMMOND MD DATE: 12/16/19 1200 Assessment/Plan Assessment/Plan necrotic toes and forefoot. open wound with exposed Achilles lateral malleolus fracture probably will need BKA. Will order vascular studies to assess if she can heal a BKA I spoke to the patient at length. My recommendation is below-knee amputation. I understand this is a lot to process, especially since her expectation was limb preservation, maybe losing 2 toes. Her idea of excising the Achilles ulcer and allowing the forefoot and toes to heal is not a reasonable approach. She does not seem demented or confused about this, but she's not willing to consent to surgery at this time. She is still dehydrated with elevated BUN and creatinine. Her vascular study has been done, but not yet reported. I am NOT recommending surgery tomorrow. It is to her benefit to have her blood sugar under better control, be rehydrated, and also to consent to surgery. I offered her a second opinion with vascular surgery but she did not seem very interested in that. She did ask about photographs or images of how a below-knee amputation prosthesis would look. I printed out several images from the Internet of patients with BKA prostheses, and printed and gave her the [facility] below- knee amputation patient guide. I spoke at length to the patient's mother by telephone about my recommendations. I will speak to her further and hopefully she will consent to below-knee amputation which we can do Thursday or Thursday if she agrees. She can have the second opinion if she desires. TERRA GAYLE MD Dec 17, 2019 13:50
[2019-12-17] MEDS: oxyCODONE/APAP 5/325 1 TAB TABLET PO PRN ×2 (14:18→21:46)
[2019-12-17 15:18] VITALS: BP 115/53
[2019-12-17 19:11] VITALS: BP 134/61
[2019-12-17] MEDS: LACTOBACILLUS RHAMNOSUS GG 1 CAPSULE. PO SCH (21:31)
[2019-12-17] MEDS: INSULIN GLARGINE SYRINGE. SQ SCH (21:35)
[2019-12-17 23:10] VITALS: BP 129/58
--- NOTE | 2019-12-18 00:40 | RAD ---
INDICATION: Reason: necrotic foot, assess proximal flow and potential for healing, BKA / Spl. Instructions: / History: COMPARISON: None. FINDINGS: Spectral Doppler, grayscale and color ultrasound images obtained through right leg arterial system. Calcific atherosclerosis is seen within the vasculature. Triphasic waveform within the right common femoral artery with monophasic waveforms seen within the superficial femoral as well as the popliteal artery with tardus parvus morphology and poor flow. There is very little flow seen within the posterior tibial artery with a very monophasic waveform. No flow is seen within the peroneal artery. IMPRESSION: * Multifocal atherosclerotic disease with progressive severe peripheral vascular disease with monophasic waveforms seen within the superficial femoral and popliteal artery with tardus parvus waveform consistent with hemodynamically significant stenosis. Within the calf some of the vessels have no flow. Electronically signed by: oRnal Anguiano MD (12/18/2019 12:38 AM) [id number]
[2019-12-18 02:35] VITALS: BP 143/68
[2019-12-18 05:43] LABS: HEMOGLOBIN A1C 8.2 % (4.8-5.6)
[2019-12-18] MEDS: ONDANSETRON ODT 4 MG TAB.RAPDIS. PO SCH ×4 (06:05→17:15)
[2019-12-18] MEDS: PIPERACILLIN/TAZOBACTAM 2.25 GM in IV NORMAL SALINE 50ML 50 ML IV SCH ×3 (06:06→17:44)
[2019-12-18] MEDS: oxyCODONE/APAP 5/325 1 TAB TABLET PO PRN ×3 (07:31→21:29)
[2019-12-18] MEDS: IV RINGERS,LACTATED 1000ML 1,000 ML IV SCH ×2 (07:31→14:28)
[2019-12-18 07:59] VITALS: BP 147/65
[2019-12-18] MEDS: INSULIN LISPRO 300 UNITS/3 ML VIAL. SQ SCH ×3 (08:00→16:45)
[2019-12-18] MEDS: LACTOBACILLUS RHAMNOSUS GG 1 CAPSULE. PO SCH ×2 (09:38→21:22)
[2019-12-18 11:59] VITALS: BP 133/58
--- NOTE | 2019-12-18 13:34 | PDOC ---
PROGRESS NOTES Date of Service: DATE: 12/18/19 TIME: 13:32 Chief Complaint Chief Complaint falls, worsening weakness, cannot walk, DM2, poor control she is off meds, denies any problem cognitive decline - dementia likely eschar foot and toes, ischemic injury, dry gangrene, - needs BKA, History of Present Illness History of Present Illness She did not recall what she spoke with Dr. Olivo about yesterday when I reminded her she said "no, we are not doing that" so, I asked her what she wanted to do, and she gave me a long discussion of "medicine to heal" I told her again, it wont heal. maybe 25 minute talk, gangrenous areas over her achillies and on her forefoot Vitals Vitals Vital Signs Date Time Temp Pulse Resp B/P (MAP) Pulse Ox O2 Delivery O2 Flow Rate FiO2 12/18/19 13:26 16 Room Air 12/18/19 11:59 97.7 74 133/58 (83) 97 97.7 Physical Exam General: Alert, Cooperative, Other (multiple missing teeth, not quite edentulous) Heart: Regular rate Lungs: Wheezing Abdomen: Soft Extremities: Other (The right foot has grossly normal alignment. The second third and fourth toes are completely necrotic with dry gangrene into the midfoot dorsally and plantarly. There is an odor but not severeI dont believe theres wet gangrene or gas. There is some ischemia and discoloration of the great toe and fifth toe and they are also likely nonviable. Despite the lateral malleolus fracture, there is minimal lateral malleolus swelling or tenderness. There is n o ankle joint deformity. There is full-thickness dry gangrene along the plantar aspect of the foot with some overlying loose skin, and unfortunately the proximal extent of the dry gangrene on the plantar foot would prevent transmetatarsal amputation. There is a full-thickness ulceration with dry necrotic blackened tissue at the Achilles, possible tendon involvement. Pulses are not palpable. She reports slight light touch sensation. I believe these gangrene and ulcer changes are related more to diabetic ischemia than to diabetic neuropathy.) Skin: No breakdown, Other (distal 1/3, of forefoot is black and complete eschar, and looks like it has been that way for awhile. 3 toes nearly auto amputated, ) Labs LABS Laboratory Tests Test 12/17/19 17:05 12/17/19 20:16 12/18/19 07:56 12/18/19 08:05 Glucose (Fingerstick) 197 mg/dL (70-99) 135 mg/dL (70-99) 92 mg/dL (70-99) C-Reactive Protein, Quantitative 99.8 mg/L (0-3.3) Test 12/18/19 12:18 Glucose (Fingerstick) 144 mg/dL (70-99) Review of Systems Review of Systems mikaela was able to stand today for the first time, Assessment and Plan Assessmemt and Plan Problems Medical Problems: (1) Necrotic toes Status: Acute (2) Weakness Status: Acute (3) Wound infection Status: Acute Comment Review of Relevant I have reviewed the following items da (where applicable) has been applied. Labs Laboratory Tests Test 12/16/19 16:40 12/16/19 20:18 12/17/19 07:37 12/17/19 07:50 Glucose (Fingerstick) 192 mg/dL (70-99) 166 mg/dL (70-99) 226 mg/dL (70-99) White Blood Count 12.9 x10^3/uL (4.0-11.0) Red Blood Count 3.09 x10^6/uL (3.50-5.40) Hemoglobin 9.1 g/dL (12.0-15.5) Hematocrit 28.1 % (36.0-47.0) Mean Corpuscular Volume 91 fL (79-100) Mean Corpuscular Hemoglobin 30 pg (25-35) Mean Corpuscular Hemoglobin Concent 32 g/dL (31-37) Red Cell Distribution Width 14.6 % (11.5-14.5) Platelet Count 409 x10^3/uL (140-400) Neutrophils (%) (Auto) 82 % (31-73) Lymphocytes (%) (Auto) 12 % (24-48) Monocytes (%) (Auto) 4 % (0-9) Eosinophils (%) (Auto) 1 % (0-3) Basophils (%) (Auto) 0 % (0-3) Neutrophils # (Auto) 10.6 x10^3/uL (1.8-7.7) Lymphocytes # (Auto) 1.6 x10^3/uL (1.0-4.8) Monocytes # (Auto) 0.5 x10^3/uL (0.0-1.1) Eosinophils # (Auto) 0.2 x10^3/uL (0.0-0.7) Basophils # (Auto) 0.1 x10^3/uL (0.0-0.2) Sodium Level 139 mmol/L (136-145) Potassium Level 3.5 mmol/L (3.5-5.1) Chloride Level 104 mmol/L (98-107) Carbon Dioxide Level 25 mmol/L (21-32) Anion Gap 10 (6-14) Blood Urea Nitrogen 42 mg/dL (7-20) Creatinine 1.8 mg/dL (0.6-1.0) Estimated GFR (Cockcroft-Gault) 33.3 BUN/Creatinine Ratio 23 (6-20) Glucose Level 235 mg/dL (70-99) Hemoglobin A1c 8.2 % (4.8-5.6) Calcium Level 7.8 mg/dL (8.5-10.1) Total Bilirubin 0.4 mg/dL (0.2-1.0) Aspartate Amino Transf (AST/SGOT) 26 U/L (15-37) Alanine Aminotransferase (ALT/SGPT) 29 U/L (14-59) Alkaline Phosphatase 104 U/L (46-116) Total Protein 6.9 g/dL (6.4-8.2) Albumin 1.4 g/dL (3.4-5.0) Albumin/Globulin Ratio 0.3 (1.0-1.7) Test 12/17/19 11:38 12/17/19 17:05 12/17/19 20:16 12/18/19 07:56 Glucose (Fingerstick) 127 mg/dL (70-99) 197 mg/dL (70-99) 135 mg/dL (70-99) 92 mg/dL (70-99) Test 12/18/19 08:05 12/18/19 12:18 C-Reactive Protein, Quantitative 99.8 mg/L (0-3.3) Glucose (Fingerstick) 144 mg/dL (70-99) Laboratory Tests Test 12/17/19 17:05 8/15/20 20:16 12/18/19 07:56 12/18/19 08:05 Glucose (Fingerstick) 197 mg/dL (70-99) 135 mg/dL (70-99) 92 mg/dL (70-99) C-Reactive Protein, Quantitative 99.8 mg/L (0-3.3) Test 12/18/19 12:18 Glucose (Fingerstick) 144 mg/dL (70-99) Microbiology 12/16/19 Blood Culture - Preliminary, Resulted NO GROWTH AFTER 2 DAYS Medications Current Medications Piperacillin Sod/ Tazobactam Sod 3.375 gm/Sodium Chloride 50 ml @ 100 mls/hr 1X ONCE IV Last administered on 12/16/19at 11:26; Start 12/16/19 at 11:15; Stop 12/16/19 at 11:44; Status DC Sodium Chloride 1,000 ml @ 1,000 mls/hr 1X ONCE IV Last administered on 12/16/19at 11:25; Start 12/16/19 at 11:15; Stop 12/16/19 at 12:14; Status DC Oxycodone/ Acetaminophen (Percocet 5/325) 1 tab Q4HRS PO ; Start 12/16/19 at 16:00; Stop 12/16/19 at 18:36; Status DC Lisinopril (Prinivil) 20 mg DAILY PO ; Start 12/16/19 at 16:00; Stop 12/16/19 at 16:22; Status DC Cetirizine HCl (ZyrTEC) 10 mg DAILY PO ; Start 12/16/19 at 16:00; Stop 12/16/19 at 16:22; Status DC Atorvastatin Calcium (Lipitor) 5 mg QHS PO ; Start 12/16/19 at 21:00; Stop 12/16/19 at 16:22; Status DC Ondansetron HCl (Zofran Odt) 4 mg Q6HRS PO Last administered on 12/18/19at 06:05; Start 12/16/19 at 18:00 Non-Formulary Medication (Ranitidine Hcl (Zantac)) 1 tab BID PO ; Start 12/16/19 at 21:00; Stop 12/16/19 at 16:22; Status DC Piperacillin Sod/ Tazobactam Sod (Zosyn Per Pharmacy) 1 each PRN DAILY PRN MC SEE COMMENTS; Start 12/16/19 at 15:15 Sodium Chloride 1,000 ml @ 100 mls/hr 1X ONCE IV Last administered on 12/16/19at 16:43; Start 12/16/19 at 15:15; Stop 12/17/19 at 01:14; Status DC Insulin Human Lispro (HumaLOG) 0-9 UNITS TIDWMEALS SQ Last administered on 12/17/19at 17:13; Start 12/16/19 at 17:00 Dextrose (Dextrose 50%-Water Syringe) 12.5 gm PRN Q15MIN PRN IV SEE COMMENTS; Start 12/16/19 at 15:15 Insulin Glargine (Lantus Syringe) 10 unit QHS SQ Last administered on 12/17/19at 21:35; Start 12/16/19 at 21:00 Piperacillin Sod/ Tazobactam Sod 3.375 gm/Sodium Chloride 50 ml @ 100 mls/hr Q6HRS IV ; Start 12/16/19 at 18:00; Status Cancel Piperacillin Sod/ Tazobactam Sod 2.25 gm/Sodium Chloride 50 ml @ 100 mls/hr Q6HRS IV Last administered on 12/18/19at 11:32; Start 12/16/19 at 18:00 Hydrochlorothiazide (Microzide) 12.5 mg DAILY PO ; Start 12/16/19 at 16:00; Stop 12/16/19 at 16:22; Status DC Heparin Sodium (Porcine) (Heparin Sodium) 5,000 unit 1X ONCE SQ Last administered on 12/16/19at 17:50; Start 12/16/19 at 17:45; Stop 12/16/19 at 17:46; Status DC Oxycodone/ Acetaminophen (Percocet 5/325) 1 tab PRN Q4HRS PRN PO PAIN Last administered on 12/18/19at 12:24; Start 12/16/19 at 18:45 Morphine Sulfate (Morphine Sulfate) 4 mg PRN Q2HR PRN IV PAIN Last administered on 12/17/19at 08:33; Start 12/16/19 at 19:45 Ringer's Solution 1,000 ml @ 100 mls/hr Q10H IV Last administered on 12/18/19at 07:31; Start 12/17/19 at 10:30 Lactobacillus Rhamnosus (Culturelle) 1 cap BID PO Last administered on 12/18/19at 09:38; Start 12/17/19 at 21:00 Active Scripts Active Zofran (Ondansetron Hcl) 4 Mg Tablet 1 Tab PO Q6HRS Percocet 5-325 Mg Tablet (Oxycodone/Acetaminophen) 1 Each Tablet 1-2 Tab PO Q4-6HRS Vitals/I & O Vital Sign - Last 24 Hours 12/17/19 12/17/19 12/17/19 12/17/19 14:18 15:18 19:11 20:00 Temp 97.6 97.7 97.6 97.7 Pulse 68 70 Resp 16 18 18 B/P (MAP) 115/53 (73) 134/61 (85) Pulse Ox 94 97 O2 Delivery Room Air Room Air Room Air Room Air 12/17/19 12/17/19 12/17/19 12/18/19 21:46 22:46 23:10 02:35 Temp 98.3 98.5 98.3 98.5 Pulse 65 70 Resp 16 16 18 18 B/P (MAP) 129/58 (81) 143/68 (93) Pulse Ox 97 97 96 95 O2 Delivery Room Air Room Air Room Air Room Air 12/18/19 12/18/19 12/18/19 12/18/19 07:31 07:59 08:00 09:09 Temp 97.8 97.8 Pulse 75 Resp 16 18 16 B/P (MAP) 147/65 (92) Pulse Ox 95 O2 Delivery Room Air Room Air Room Air Room Air 12/18/19 12/18/19 12/18/19 11:59 12:24 13:26 Temp 97.7 97.7 Pulse 74 Resp 18 16 16 B/P (MAP) 133/58 (83) Pulse Ox 97 O2 Delivery Room Air Room Air Room Air Intake and Output 12/17/19 12/17/19 12/18/19 15:00 23:00 07:00 Intake Total 250 ml Balance 250 ml Justicifation of Admission Dx: Justifications for Admission: Justification of Admission Dx: Yes SYED ROSADO MD Dec 18, 2019 13:34
[2019-12-18 15:27] LABS: HEMATOCRIT 30.7 % (36.0-47.0); HEMOGLOBIN 9.9 g/dL (12.0-15.5); RED BLOOD COUNT 3.34 x10^6/uL (3.50-5.40); WHITE BLOOD COUNT 13.5 x10^3/uL (4.0-11.0)
[2019-12-18 15:37] LABS: ALBUMIN 1.4 g/dL (3.4-5.0); ALBUMIN/GLOBULIN RATIO 0.2 (1.0-1.7); CALCIUM 8.2 mg/dL (8.5-10.1); CREATININE 1.5 mg/dL (0.6-1.0); GFR 41.1; POTASSIUM 3.2 mmol/L (3.5-5.1); TOTAL BILIRUBIN 0.4 mg/dL (0.2-1.0); TOTAL PROTEIN 7.1 g/dL (6.4-8.2)
[2019-12-18 15:59] VITALS: BP 138/46
[2019-12-18 19:22] VITALS: BP 116/62
[2019-12-18] MEDS: INSULIN GLARGINE SYRINGE. SQ SCH (21:28)
[2019-12-18 23:00] VITALS: BP 122/70
[2019-12-19] MEDS: PIPERACILLIN/TAZOBACTAM 2.25 GM in IV NORMAL SALINE 50ML 50 ML IV SCH ×5 (00:09→23:21)
[2019-12-19 03:05] VITALS: BP 146/71
[2019-12-19] MEDS: IV RINGERS,LACTATED 1000ML 1,000 ML IV SCH ×3 (03:08→23:21)
[2019-12-19 05:32] LABS: CALCIUM 7.4 mg/dL (8.5-10.1); CREATININE 1.1 mg/dL (0.6-1.0); GFR 58.7; POTASSIUM 3.6 mmol/L (3.5-5.1)
[2019-12-19] MEDS: ONDANSETRON ODT 4 MG TAB.RAPDIS. PO SCH ×3 (05:50→11:43)
[2019-12-19] MEDS: INSULIN LISPRO 300 UNITS/3 ML VIAL. SQ SCH ×3 (08:00→17:00)
[2019-12-19 08:38] VITALS: BP 143/62
[2019-12-19] MEDS: LACTOBACILLUS RHAMNOSUS GG 1 CAPSULE. PO SCH ×2 (09:14→19:42)
[2019-12-19 11:00] VITALS: BP 138/96
--- NOTE | 2019-12-19 11:49 | PDOC2 ---
CONSULT Date of Service Date of Service DATE: 12/19/19 TIME: 11:30 Reason for Consult Reason for Consult: PVD, Right foot gangrene Referring Physician Referring Physician: Dr. Franklin Identification/Chief Complaint Chief Complaint Right ankle pain Source Source: Chart review, Patient History of Present Illness Reason for Visit: This is a 74-year-old female who presented to the emergency room after sustaining a fall, she was noted to have necrotic toes on her right foot as well as an ankle ulceration with necrosis. Patient states that approximately 3 mo nths ago she went to the [facility] a pedicure when she got home she noted a piece of skin that was loose she states she trimmed this and noted some bleeding. She states this was healing fine, so she decided to get another pedicure and was instructed to see a doctor with regards to her foot. She denies any pain in her foot or toes. She does complain of pain in her ankle with some limited mobility. She denies any recent fever, chills or fatigue. States she is able to walk with minimal assistance. She states she has had diabetes in the past but not currently being treated for such. Patient was seen and evaluated by orthopedics and they are recommending a below-knee amputation. We have been asked to see the patient with regards to an abnormal arterial ultrasound. Patient's arterial ultrasound demonstrates triphasic waveform within the right common femoral artery with monophasic waveforms seen distally. There is very little flow seen within the posterior tibial artery with a very monophasic waveform. No flow is seen within the peroneal artery. She does not want an amputation of her leg. She denies any recent fever, chills or fatigue. She denies any visual disturbances. She denies any nausea or vomiting and states she is in "fine health". Past Medical History Cardiovascular: HTN Endocrine: Diabetes Past Surgical History Past Surgical History: Cholecystectomy, Hysterectomy Social History No ALCOHOL: none (since her birhtday 3 mos ago) Drugs: None Lives: with Family Current Problem List Problem List Problems Medical Problems: (1) Necrotic toes Status: Acute (2) Weakness Status: Acute (3) Wound infection Status: Acute Current Medications Current Medications Current Medications Piperacillin Sod/ Tazobactam Sod 3.375 gm/Sodium Chloride 50 ml @ 100 mls/hr 1X ONCE IV Last administered on 12/16/19at 11:26; Start 12/16/19 at 11:15; Stop 12/16/19 at 11:44; Status DC Sodium Chloride 1,000 ml @ 1,000 mls/hr 1X ONCE IV Last administered on 12/16/19at 11:25; Start 12/16/19 at 11:15; Stop 12/16/19 at 12:14; Status DC Oxycodone/ Acetaminophen (Percocet 5/325) 1 tab Q4HRS PO ; Start 12/16/19 at 16:00; Stop 12/16/19 at 18:36; Status DC Lisinopril (Prinivil) 20 mg DAILY PO ; Start 12/16/19 at 16:00; Stop 12/16/19 at 16:22; Status DC Cetirizine HCl (ZyrTEC) 10 mg DAILY PO ; Start 12/16/19 at 16:00; Stop 12/16/19 at 16:22; Status DC Atorvastatin Calcium (Lipitor) 5 mg QHS PO ; Start 12/16/19 at 21:00; Stop 12/16/19 at 16:22; Status DC Ondansetron HCl (Zofran Odt) 4 mg Q6HRS PO Last administered on 12/19/19at 05:50; Start 12/16/19 at 18:00 Non-Formulary Medication (Ranitidine Hcl (Zantac)) 1 tab BID PO ; Start 12/16/19 at 21:00; Stop 12/16/19 at 16:22; Status DC Piperacillin Sod/ Tazobactam Sod (Zosyn Per Pharmacy) 1 each PRN DAILY PRN [facility] SEE COMMENTS; Start 12/16/19 at 15:15 Sodium Chloride 1,000 ml @ 100 mls/hr 1X ONCE IV Last administered on 12/15at 16:43; Start 12/16/19 at 15:15; Stop 12/17/19 at 01:14; Status DC Insulin Human Lispro (HumaLOG) 0-9 UNITS TIDWMEALS SQ Last administered on 12/18/19at 16:45; Start 12/16/19 at 17:00 Dextrose (Dextrose 50%-Water Syringe) 12.5 gm PRN Q15MIN PRN IV SEE COMMENTS; Start 12/16/19 at 15:15 Insulin Glargine (Lantus Syringe) 10 unit QHS SQ Last administered on 12/18/19at 21:28; Start 12/16/19 at 21:00 Piperacillin Sod/ Tazobactam Sod 3.375 gm/Sodium Chloride 50 ml @ 100 mls/hr Q6HRS IV ; Start 12/16/19 at 18:00; Status Cancel Piperacillin Sod/ Tazobactam Sod 2.25 gm/Sodium Chloride 50 ml @ 100 mls/hr Q6HRS IV Last administered on 12/19/19at 05:50; Start 12/16/19 at 18:00 Hydrochlorothiazide (Microzide) 12.5 mg DAILY PO ; Start 12/16/19 at 16:00; Stop 12/16/19 at 16:22; Status DC Heparin Sodium (Porcine) (Heparin Sodium) 5,000 unit 1X ONCE SQ Last administered on 12/16/19at 17:50; Start 12/16/19 at 17:45; Stop 12/16/19 at 17:46; Status DC Oxycodone/ Acetaminophen (Percocet 5/325) 1 tab PRN Q4HRS PRN PO PAIN Last administered on 12/18/19at 21:29; Start 12/16/19 at 18:45 Morphine Sulfate (Morphine Sulfate) 4 mg PRN Q2HR PRN IV PAIN Last administered on 12/17/19at 08:33; Start 12/16/19 at 19:45 Ringer's Solution 1,000 ml @ 100 mls/hr Q10H IV Last administered on 12/19/19at 03:08; Start 12/17/19 at 10:30 Lactobacillus Rhamnosus (Culturelle) 1 cap BID PO Last administered on 12/19/19a t 09:14; Start 12/17/19 at 21:00 Active Scripts Active Zofran (Ondansetron Hcl) 4 Mg Tablet 1 Tab PO Q6HRS Percocet 5-325 Mg Tablet (Oxycodone/Acetaminophen) 1 Each Tablet 1-2 Tab PO Q4-6HRS Allergies Allergies: Coded Allergies: No Known Drug Allergies (Unverified , 01/18/16) ROS Review of System Constitutional: Denies fever or chills Eyes: Denies any visual disturbances HENT: Denies nasal congestion or sore throat Respiratory: Denies cough or shortness of breath Cardiovascular: Denies any palpitations or chest pain GI: Denies abdominal pain, nausea, vomiting, bloody stools or diarrhea : Denies dysuria or hematuria Musculoskeletal: As per HPI Integument: As per HPI Neurologic: No gross deficits Endocrine: Diabetes Physical Exam Physical Exam Gen.: Alert and oriented -3. Cardiac: Heart rate regular. Normal carotid pulses. Lungs: CTA, nonlabored respirations. Abdomen: Soft, nontender, nondistended, no palpable masses. Extremities: 2+ bilateral radial and femoral pulses, 2+ left DP pulse, unable to appreciate right DP or PT. Skin: Forefoot necrosis with gangrene to include toes 1-3, plantar necrosis to include all toes. Necrotic ulcer overlying Achilles tendon with fluctuance. Erythema and swelling in forefoot. Malodorous. Neurological: Motor function with limited right foot dorsiflexion. Sensation intact Vitals VITALS Vital Signs Date Time Temp Pulse Resp B/P (MAP) Pulse Ox O2 Delivery O2 Flow Rate FiO2 12/19/19 08:38 99.0 78 20 143/62 (89) 93 Room Air 99.0 Labs Labs Laboratory Tests Test 12/17/19 11:38 12/17/19 17:05 12/17/19 20:16 12/18/19 07:56 Glucose (Fingerstick) 127 mg/dL (70-99) 197 mg/dL (70-99) 135 mg/dL (70-99) 92 mg/dL (70-99) Test 12/18/19 08:05 12/18/19 12:18 12/18/19 16:21 12/18/19 20:38 White Blood Count 13.5 x10^3/uL (4.0-11.0) Red Blood Count 3.34 x10^6/uL (3.50-5.40) Hemoglobin 9.9 g/dL (12.0-15.5) Hematocrit 30.7 % (36.0-47.0) Mean Corpuscular Volume 92 fL (79-100) Mean Corpuscular Hemoglobin 30 pg (25-35) Mean Corpuscular Hemoglobin Concent 32 g/dL (31-37) Red Cell Distribution Width 15.0 % (11.5-14.5) Platelet Count 432 x10^3/uL (140-400) Sodium Level 139 mmol/L (136-145) Potassium Level 3.2 mmol/L (3.5-5.1) Chloride Level 103 mmol/L (98-107) Carbon Dioxide Level 23 mmol/L (21-32) Anion Gap 13 (6-14) Blood Urea Nitrogen 34 mg/dL (7-20) Creatinine 1.5 mg/dL (0.6-1.0) Estimated GFR (Cockcroft-Gault) 41.1 BUN/Creatinine Ratio 23 (6-20) Glucose Level 83 mg/dL (70-99) Calcium Level 8.2 mg/dL (8.5-10.1) Total Bilirubin 0.4 mg/dL (0.2-1.0) Aspartate Amino Transf (AST/SGOT) 15 U/L (15-37) Alanine Aminotransferase (ALT/SGPT) 23 U/L (14-59) Alkaline Phosphatase 110 U/L (46-116) C-Reactive Protein, Quantitative 99.8 mg/L (0-3.3) Total Protein 7.1 g/dL (6.4-8.2) Albumin 1.4 g/dL (3.4-5.0) Albumin/Globulin Ratio 0.2 (1.0-1.7) Glucose (Fingerstick) 144 mg/dL (70-99) 172 mg/dL (70-99) 123 mg/dL (70-99) Test 12/19/19 04:00 12/19/19 08:07 Sodium Level 140 mmol/L (136-145) Potassium Level 3.6 mmol/L (3.5-5.1) Chloride Level 105 mmol/L (98-107) Carbon Dioxide Level 24 mmol/L (21-32) Anion Gap 11 (6-14) Blood Urea Nitrogen 26 mg/dL (7-20) Creatinine 1.1 mg/dL (0.6-1.0) Estimated GFR (Cockcroft-Gault) 58.7 Glucose Level 90 mg/dL (70-99) Calcium Level 7.4 mg/dL (8.5-10.1) Glucose (Fingerstick) 85 mg/dL (70-99) Laboratory Tests Test 12/18/19 12:18 12/18/19 16:21 12/18/19 20:38 12/19/19 04:00 Glucose (Fingerstick) 144 mg/dL (70-99) 172 mg/dL (70-99) 123 mg/dL (70-99) Sodium Level 140 mmol/L (136-145) Potassium Level 3.6 mmol/L (3.5-5.1) Chloride Level 105 mmol/L (98-107) Carbon Dioxide Level 24 mmol/L (21-32) Anion Gap 11 (6-14) Blood Urea Nitrogen 26 mg/dL (7-20) Creatinine 1.1 mg/dL (0.6-1.0) Estimated GFR (Cockcroft-Gault) 58.7 Glucose Level 90 mg/dL (70-99) Calcium Level 7.4 mg/dL (8.5-10.1) Test 12/19/19 08:07 Glucose (Fingerstick) 85 mg/dL (70-99) Images Images Reviewed Assessment/Plan Assessment/Plan 74-year-old female with right foot ischemia and necrotic toes extending into forefoot. Ultrasound demonstrates diminished arterial flow in the lower extremity below the knee. Agree that she has significant tissue loss and may benefit from left below-knee amputation. It is uncertain if she has enough arterial flow to heal a left below-knee amputation and may benefit from angiogram and percutaneous intervention in the event she is willing to proceed with the amputation or debridement. I discussed at length with the patient the severity of her disease and necrosis and she is still at this point unwilling to consider amputation. I discussed with her that forefoot amputation may not be reasonable considering the amount of tissue loss on the plantar surface of her foot. In addition she has a large necrotic ulcer overlying her achilles tendon with some limited function. Recommend continued antibiotics and protective measures will add Rooke boot. Will discuss history and physical examination with Dr. Kruger, he will review images and we will make additional recommendations. JAVON SOARES APRN Dec 19, 2019 11:49
[2019-12-19 15:00] VITALS: BP 158/54
[2019-12-19] MEDS ORDERED: IOHEXOL 350 MG/ML 100 ML VIAL. IV ONE (15:00)
[2019-12-19] MEDS ORDERED: ONDANSETRON ODT 4 MG TAB.RAPDIS. PO PRN (15:00)
--- NOTE | 2019-12-19 15:41 | PDOC ---
Provider Note Provider Note I reviewed the CTA AARO. She has diffuse atherosclerotic plaque. She has at least 2 areas of high grade stenosis of the right SFA. There is also segmental occlusion of the left tibioperoneal trunk. She had in-line flow via left AT to the foot. She would likely benefit from angiogram and possible intervention to augment healing potential of a right below knee amputation if she agrees in the future. I will discuss with her and her mother. 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 Justicifation of Admission Dx: Justifications for Admission: Justification of Admission Dx: Yes ANDRAE ARCHER MD Dec 19, 2019 15:41
--- NOTE | 2019-12-19 17:10 | PDOC ---
PROGRESS NOTES Date of Service: DATE: 12/19/19 TIME: 17:05 Chief Complaint Chief Complaint falls, worsening weakness, cannot walk, DM2, poor control she is off meds, denies any problem cognitive decline - dementia likely eschar foot and toes, ischemic injury, dry gangrene, - needs BKA, History of Present Illness History of Present Illness Spoke with patient at bedside about the prognosis of her right foot. She is adimant about wanting to pursue other option to preserve and heal her foot. I discussed with patient that her best option is to proceed with right BKA, and she would be agreeable to this only as a last resort. I tried for some time to i mpart onto the patient that we are at the point of last resort. Vitals Vitals Vital Signs Date Time Temp Pulse Resp B/P (MAP) Pulse Ox O2 Delivery O2 Flow Rate FiO2 12/19/19 15:00 99.5 79 24 158/54 (88) 96 Room Air 99.5 Physical Exam General: Alert, Cooperative, Other (multiple missing teeth, not quite edentulous) Heart: Regular rate Lungs: Wheezing Abdomen: Soft Extremities: Other (The right foot has grossly normal alignment. The second t hird and fourth toes are completely necrotic with dry gangrene into the midfoot dorsally and plantarly. There is an odor but not severeI dont believe theres wet gangrene or gas. There is some ischemia and discoloration of the great toe and fifth toe and they are also likely nonviable. Despite the lateral malleolus fracture, there is minimal lateral malleolus swelling or tenderness. There is no ankle joint deformity. There is full-thickness dry gangrene along the plantar aspect of the foot with some overlying loose skin, and unfortunately the proximal extent of the dry gangrene on the plantar foot would prevent transmetatarsal amputation. There is a full-thickness ulceration with dry necrotic blackened tissue at the Achilles, possible tendon involvement. Pulses are not palpable. She reports slight light touch sensation. I believe these gangrene and ulcer changes are related more to diabetic ischemia than to diabetic neuropathy.) Skin: No breakdown, Other (distal 1/3, of forefoot is black and complete eschar, and looks like it has been that way for awhile. 3 toes nearly auto amputated, ) Labs LABS Laboratory Tests Test 12/18/19 20:38 12/19/19 04:00 12/19/19 08:07 12/19/19 11:29 Glucose (Fingerstick) 123 mg/dL (70-99) 85 mg/dL (70-99) 118 mg/dL (70-99) Sodium Level 140 mmol/L (136-145) Potassium Level 3.6 mmol/L (3.5-5.1) Chloride Level 105 mmol/L (98-107) Carbon Dioxide Level 24 mmol/L (21-32) Anion Gap 11 (6-14) Blood Urea Nitrogen 26 mg/dL (7-20) Creatinine 1.1 mg/dL (0.6-1.0) Estimated GFR (Cockcroft-Gault) 58.7 Glucose Level 90 mg/dL (70-99) Calcium Level 7.4 mg/dL (8.5-10.1) Test 12/19/19 16:49 Glucose (Fingerstick) 143 mg/dL (70-99) Review of Systems Review of Systems Right foot weakness. No foot pain, no fever, no nausea. Assessment and Plan Assessmemt and Plan Problems Medical Problems: (1) Necrotic toes Status: Acute (2) Weakness Status: Acute (3) Wound infection Status: Acute Comment Review of Relevant I have reviewed the following items da (where applicable) has been applied. Labs Laboratory Tests Test 12/17/19 20:16 12/18/19 07:56 12/18/19 08:05 12/18/19 12:18 Glucose (Fingerstick) 135 mg/dL (70-99) 92 mg/dL (70-99) 144 mg/dL (70-99) White Blood Count 13.5 x10^3/uL (4.0-11.0) Red Blood Count 3.34 x10^6/uL (3.50-5.40) Hemoglobin 9.9 g/dL (12.0-15.5) Hematocrit 30.7 % (36.0-47.0) Mean Corpuscular Volume 92 fL (79-100) Mean Corpuscular Hemoglobin 30 pg (25-35) Mean Corpuscular Hemoglobin Concent 32 g/dL (31-37) Red Cell Distribution Width 15.0 % (11.5-14.5) Platelet Count 432 x10^3/uL (140-400) Sodium Level 139 mmol/L (136-145) Potassium Level 3.2 mmol/L (3.5-5.1) Chloride Level 103 mmol/L (98-107) Carbon Dioxide Level 23 mmol/L (21-32) Anion Gap 13 (6-14) Blood Urea Nitrogen 34 mg/dL (7-20) Creatinine 1.5 mg/dL (0.6-1.0) Estimated GFR (Cockcroft-Gault) 41.1 BUN/Creatinine Ratio 23 (6-20) Glucose Level 83 mg/dL (70-99) Calcium Level 8.2 mg/dL (8.5-10.1) Total Bilirubin 0.4 mg/dL (0.2-1.0) Aspartate Amino Transf (AST/SGOT) 15 U/L (15-37) Alanine Aminotransferase (ALT/SGPT) 23 U/L (14-59) Alkaline Phosphatase 110 U/L (46-116) C-Reactive Protein, Quantitative 99.8 mg/L (0-3.3) Total Protein 7.1 g/dL (6.4-8.2) Albumin 1.4 g/dL (3.4-5.0) Albumin/Globulin Ratio 0.2 (1.0-1.7) 25-Hydroxy Vitamin D Total 20.2 ng/mL (30-100) Test 12/18/19 16:21 12/18/19 20:38 12/19/19 04:00 12/19/19 08:07 Glucose (Fingerstick) 172 mg/dL (70-99) 123 mg/dL (70-99) 85 mg/dL (70-99) Sodium Level 140 mmol/L (136-145) Potassium Level 3.6 mmol/L (3.5-5.1) Chloride Level 105 mmol/L (98-107) Carbon Dioxide Level 24 mmol/L (21-32) Anion Gap 11 (6-14) Blood Urea Nitrogen 26 mg/dL (7-20) Creatinine 1.1 mg/dL (0.6-1.0) Estimated GFR (Cockcroft-Gault) 58.7 Glucose Level 90 mg/dL (70-99) Calcium Level 7.4 mg/dL (8.5-10.1) Test 12/19/19 11:29 12/19/19 16:49 Glucose (Fingerstick) 118 mg/dL (70-99) 143 mg/dL (70-99) Laboratory Tests Test 12/18/19 20:38 12/19/19 04:00 12/19/19 08:07 12/19/19 11:29 Glucose (Fingerstick) 123 mg/dL (70-99) 85 mg/dL (70-99) 118 mg/dL (70-99) Sodium Level 140 mmol/L (136-145) Potassium Level 3.6 mmol/L (3.5-5.1) Chloride Level 105 mmol/L (98-107) Carbon Dioxide Level 24 mmol/L (21-32) Anion Gap 11 (6-14) Blood Urea Nitrogen 26 mg/dL (7-20) Creatinine 1.1 mg/dL (0.6-1.0) Estimated GFR (Cockcroft-Gault) 58.7 Glucose Level 90 mg/dL (70-99) Calcium Level 7.4 mg/dL (8.5-10.1) Test 12/19/19 16:49 Glucose (Fingerstick) 143 mg/dL (70-99) Microbiology 12/16/19 Blood Culture - Preliminary, Resulted NO GROWTH AFTER 3 DAYS Medications Current Medications Piperacillin Sod/ Tazobactam Sod 3.375 gm/Sodium Chloride 50 ml @ 100 mls/hr 1X ONCE IV Last administered on 12/16/19at 11:26; Start 12/16/19 at 11:15; Stop 12/16/19 at 11:44; Status DC Sodium Chloride 1,000 ml @ 1,000 mls/hr 1X ONCE IV Last administered on 12/15at 11:25; Start 12/16/19 at 11:15; Stop 12/16/19 at 12:14; Status DC Oxycodone/ Acetaminophen (Percocet 5/325) 1 tab Q4HRS PO ; Start 12/16/19 at 16:00; Stop 12/16/19 at 18:36; Status DC Lisinopril (Prinivil) 20 mg DAILY PO ; Start 12/16/19 at 16:00; Stop 12/16/19 at 16:22; Status DC Cetirizine HCl (ZyrTEC) 10 mg DAILY PO ; Start 12/16/19 at 16:00; Stop 12/16/19 at 16:22; Status DC Atorvastatin Calcium (Lipitor) 5 mg QHS PO ; Start 12/16/19 at 21:00; Stop 12/16/19 at 16:22; Status DC Ondansetron HCl (Zofran Odt) 4 mg Q6HRS PO Last administered on 12/19/19at 05:50; Start 12/16/19 at 18:00; Stop 12/19/19 at 14:48; Status DC Non-Formulary Medication (Ranitidine Hcl (Zantac)) 1 tab BID PO ; Start 12/16/19 at 21:00; Stop 12/16/19 at 16:22; Status DC Piperacillin Sod/ Tazobactam Sod (Zosyn Per Pharmacy) 1 each PRN DAILY PRN MC SEE COMMENTS; Start 12/16/19 at 15:15 Sodium Chloride 1,000 ml @ 100 mls/hr 1X ONCE IV Last administered on 12/16/19at 16:43; Start 12/16/19 at 15:15; Stop 12/17/19 at 01:14; Status DC Insulin Human Lispro (HumaLOG) 0-9 UNITS TIDWMEALS SQ Last administered on 12/18/19at 16:45; Start 12/16/19 at 17:00 Dextrose (Dextrose 50%-Water Syringe) 12.5 gm PRN Q15MIN PRN IV SEE COMMENTS; Start 12/16/19 at 15:15 Insulin Glargine (Lantus Syringe) 10 unit QHS SQ Last administered on 12/18/19at 21:28; Start 12/16/19 at 21:00 Piperacillin Sod/ Tazobactam Sod 3.375 gm/Sodium Chloride 50 ml @ 100 mls/hr Q6HRS IV ; Start 12/16/19 at 18:00; Status Cancel Piperacillin Sod/ Tazobactam Sod 2.25 gm/Sodium Chloride 50 ml @ 100 mls/hr Q6HRS IV Last administered on 12/19/19at 16:43; Start 12/16/19 at 18:00 Hydrochlorothiazide (Microzide) 12.5 mg DAILY PO ; Start 12/16/19 at 16:00; Stop 12/16/19 at 16:22; Status DC Heparin Sodium (Porcine) (Heparin Sodium) 5,000 unit 1X ONCE SQ Last administered on 12/16/19at 17:50; Start 12/16/19 at 17:45; Stop 12/16/19 at 17:46; Status DC Oxycodone/ Acetaminophen (Percocet 5/325) 1 tab PRN Q4HRS PRN PO PAIN Last administered on 12/18/19at 21:29; Start 12/16/19 at 18:45 Morphine Sulfate (Morphine Sulfate) 4 mg PRN Q2HR PRN IV PAIN Last administered on 12/17/19at 08:33; Start 12/16/19 at 19:45 Ringer's Solution 1,000 ml @ 100 mls/hr Q10H IV Last administered on 12/19/19at 11:57; Start 12/17/19 at 10:30 Lactobacillus Rhamnosus (Culturelle) 1 cap BID PO Last administered on 12/19/19at 09:14; Start 12/17/19 at 21:00 Ondansetron HCl (Zofran Odt) 4 mg PRN Q6HRS PRN PO NAUSEA; Start 12/19/19 at 15:00 Iohexol (Omnipaque 350 Mg/ml) 80 ml 1X ONCE IV Last administered on 12/19/19at 15:08; Start 12/19/19 at 15:00; Stop 12/19/19 at 15:01; Status DC Active Scripts Active Zofran (Ondansetron Hcl) 4 Mg Tablet 1 Tab PO Q6HRS Percocet 5-325 Mg Tablet (Oxycodone/Acetaminophen) 1 Each Tablet 1-2 Tab PO Q4-6HRS Vitals/I & O Vital Sign - Last 24 Hours 12/18/19 12/18/19 12/18/19 12/18/19 19:22 20:00 21:29 22:29 Temp 98.8 98.8 Pulse 73 Resp 20 16 16 B/P (MAP) 116/62 (80) Pulse Ox 91 91 91 O2 Delivery Room Air Room Air Room Air Room Air 12/18/19 12/19/19 12/19/19 12/19/19 23:00 03:05 08:00 08:38 Temp 98.4 98.5 99.0 98.4 98.5 99.0 Pulse 68 78 78 Resp 18 16 20 B/P (MAP) 122/70 (87) 146/71 (96) 143/62 (89) Pulse Ox 95 93 93 O2 Delivery Room Air Room Air Room Air Room Air 12/19/19 12/19/19 11:00 15:00 Temp 98.8 99.5 98.8 99.5 Pulse 77 79 Resp 20 24 B/P (MAP) 138/96 (110) 158/54 (88) Pulse Ox 95 96 O2 Delivery Room Air Room Air Intake and Output 12/18/19 12/18/19 12/19/19 15:00 23:00 07:00 Intake Total 120 ml 200 ml 500 ml Balance 120 ml 200 ml 500 ml Justicifation of Admission Dx: Justifications for Admission: Justification of Admission Dx: Yes KRISHAN GARBER MD Dec 19, 2019 17:10
[2019-12-19 19:00] VITALS: BP 117/47
[2019-12-19] MEDS: oxyCODONE/APAP 5/325 1 TAB TABLET PO PRN (19:43)
[2019-12-19] MEDS: INSULIN GLARGINE SYRINGE. SQ SCH (19:46)
[2019-12-19 23:00] VITALS: BP 119/57
[2019-12-20] VITALS (16 sets, daily range): BP systolic 124–166; BP diastolic 55–111
[2019-12-20 04:51] LABS: BASO # 0.1 x10^3/uL (0.0-0.2); BASO % 0 % (0-3); EOS # 0.3 x10^3/uL (0.0-0.7); EOS % 2 % (0-3); HEMATOCRIT 26.7 % (36.0-47.0); HEMOGLOBIN 8.8 g/dL (12.0-15.5); LYMPH # 2.3 x10^3/uL (1.0-4.8); LYMPH % 16 % (24-48); MEAN CORPUSCULAR HEMOGLOBIN 30 pg (25-35); MEAN CORPUSCULAR HGB CONC 33 g/dL (31-37); MEAN CORPUSCULAR VOLUME 91 fL (79-100); MONO # 0.8 x10^3/uL (0.0-1.1); MONO % 6 % (0-9); NEUT # 10.9 x10^3/uL (1.8-7.7); NEUT % 76 % (31-73); PLATELET COUNT 333 x10^3/uL (140-400); RED BLOOD COUNT 2.93 x10^6/uL (3.50-5.40); RED CELL DISTRIBUTION WIDTH 14.8 % (11.5-14.5); WHITE BLOOD COUNT 14.2 x10^3/uL (4.0-11.0)
[2019-12-20 05:07] LABS: CALCIUM 7.6 mg/dL (8.5-10.1); CREATININE 0.9 mg/dL (0.6-1.0); GFR 74.1; POTASSIUM 3.3 mmol/L (3.5-5.1)
[2019-12-20] MEDS: PIPERACILLIN/TAZOBACTAM 2.25 GM in IV NORMAL SALINE 50ML 50 ML IV SCH ×3 (06:05→16:43)
[2019-12-20] MEDS: INSULIN LISPRO 300 UNITS/3 ML VIAL. SQ SCH ×3 (07:53→17:00)
[2019-12-20] MEDS: LACTOBACILLUS RHAMNOSUS GG 1 CAPSULE. PO SCH ×2 (07:54→20:16)
[2019-12-20] MEDS: IV RINGERS,LACTATED 1000ML 1,000 ML IV SCH (08:10)
[2019-12-20 08:11] LABS: PROTHROMBIN TIME PATIENT 16.1 SEC (11.7-14.0)
--- NOTE | 2019-12-20 08:11 | PDOC ---
Provider Note Date of Service: DATE: 12/20/19 TIME: 08:06 Provider Note Provider Note Vascular S: Patient seen and examined in room. States her right foot pain is 4/10, no pain left foot. O: Awake and alert VSS, afebrile Right foot unchanged, extensive gangrene into forefoot and over Achilles tendon. Mild erythema in forefoot. Left foot warm, 1+ DP. Callous plantar surface. Item Value Date Time Hemoglobin 8.8 g/dL L 12/20/19 0300 White Blood Count 14.2 x10^3/uL H 12/20/19 0300 Hematocrit 26.7 % L 12/20/19 0300 Creatinine 0.9 mg/dL 12/20/19 0300 A/P: PVD, Right foot gangrene. Diabetes CTA reviewed: She has diffuse atherosclerotic plaque. She has at least 2 areas of high grade stenosis of the right SFA. There is also segmental occlusion of the left tibioperoneal trunk. She had in-line flow via left AT to the foot. She would likely benefit from angiogram and possible intervention to augment healing potential of a right below knee amputation if she agrees in the future. Discussed with patient and she is willing to proceed. Scheduled with IR, tent atively planned for today. Creatinine improved. Continue protective measures to right foot. Will make additional recommendations pending Angiogram. Justicifation of Admission Dx: Justifications for Admission: Justification of Admission Dx: Yes JAVON SOARES APRN Dec 20, 2019 08:11
[2019-12-20] MEDS: MORPHINE SULFATE 4 MG/ML VIAL. IV PRN (08:33)
--- NOTE | 2019-12-20 08:46 | RAD ---
EXAM: CTA abdomen, pelvis and lower extremities with and without contrast. HISTORY: Right foot gangrene, left lower extremity wound. TECHNIQUE: CT of the abdomen, pelvis and lower extremities was performed before and after the intravenous administration of iodinated contrast. Three-dimensional reconstructions were also performed. One or more of the following individualized dose reduction techniques were utilized for this examination: 1. Automated exposure control. 2. Adjustment of the mA and/or kV according to patient size. 3. Use of iterative reconstruction technique. COMPARISON: None. FINDINGS: There are small bilateral pleural effusions with bibasilar atelectasis. Bone windows demonstrate an oblique nondisplaced fracture of the right lateral malleolus. There is extensive soft tissue gas throughout the plantar soft tissues of the right forefoot and midfoot, extending into the interosseous spaces of the first through fourth rays. There are changes of left first metatarsal osteotomy. The gallbladder is surgically absent. The liver, adrenal glands, pancreas, spleen and kidneys are unremarkable. There are no pathologically enlarged lymph nodes. The uterus is surgically absent. Fluid throughout the colon is consistent with diarrhea. Sigmoid diverticulosis is mild. There is no small bowel obstruction. Uncalcified plaquing within the celiac axis does not result in hemodynamically significant stenosis. The superior and inferior mesenteric artery are patent. There is severe stenosis at the origin of the left renal artery. There is only mild stenosis at the origin of the right renal artery. There is mild infrarenal abdominal aortic ectasia without aneurysmal dilatation. Maximum diameter is 2.0 cm. There are moderate to severe diffuse atherosclerotic calcifications of the aortoiliac systems. There is multifocal mild stenosis within the external and internal iliac arteries. Both common femoral arteries are moderately diseased without significant stenosis. There is multifocal severe stenosis of the superficial femoral arteries on the right greater than left. There is a focal severe stenosis within the right proximal popliteal artery. There are moderate stenoses more distally. There is multifocal mild to moderate stenosis in the left popliteal artery. On the right, there is severe stenosis within the tibioperoneal trunk. There also appears to be severe stenosis at the origin of the anterior tibial artery. All 3 runoff vessels are patent more distally. The dorsalis pedis and common plantar arteries are patent. On the left, the tibioperoneal trunk is occluded. The posterior tibial and peroneal arteries reconstitute just distal to this and are patent through the ankle. The dorsalis pedis and common plantar arteries are patent. IMPRESSION: 1. Multifocal severe stenoses within the right superficial femoral and popliteal arteries. 2. Multifocal moderate to severe stenoses within the left superficial femoral artery. 3. The tibioperoneal trunks are severely stenotic on the right and occluded on the left. Beyond proximal stenoses, all 3 runoff vessels are patent bilaterally. 4. Extensive soft tissue gas throughout the right forefoot and midfoot consistent with gangrene/fasciitis. 5. Nondisplaced fracture of the right lateral malleolus. 6. Severe stenosis at the origin of the left renal artery. Mild stenosis on the right. 7. Correlate for diarrhea. Electronically signed by: Isela Cuevas MD (12/20/2019 8:43 AM) [id number]
[2019-12-20] MEDS ORDERED: LIDOCAINE WITH 8.4% SOD BICARB 3 ML DISP.SYRIN. ONE (11:59)
[2019-12-20] MEDS ORDERED: IODIXANOL 320 MG/ML 100 ML VIAL. ONE (11:59)
[2019-12-20] MEDS ORDERED: HEPARIN for ARTERIAL LINE 1,500 ML ONE (11:59)
[2019-12-20] MEDS ORDERED: MIDAZOLAM HCL/PF 2 MG/2 ML VIAL. ONE (12:34)
[2019-12-20] MEDS ORDERED: HEPARIN for IV BOLUS 10,000 UNIT/10 ML VIAL. ONE (12:34)
[2019-12-20] MEDS ORDERED: fentaNYL PF VIAL 100 MCG/2 ML VIAL ONE (12:34)
[2019-12-20] MEDS ORDERED: IODIXANOL 320 MG/ML 100 ML VIAL. IART ONE (13:30)
[2019-12-20] MEDS ORDERED: HEPARIN for IV BOLUS 10,000 UNIT/10 ML VIAL. IV ONE (13:30)
[2019-12-20] MEDS ORDERED: MIDAZOLAM HCL/PF 2 MG/2 ML VIAL. IV ONE (13:30)
[2019-12-20] MEDS ORDERED: LIDOCAINE WITH 8.4% SOD BICARB 3 ML DISP.SYRIN. IJ ONE (13:30)
[2019-12-20] MEDS ORDERED: fentaNYL PF VIAL 100 MCG/2 ML VIAL IV ONE (13:30)
[2019-12-20] MEDS ORDERED: CONTRAST GIVEN. MC PRN (13:45)
--- NOTE | 2019-12-20 15:54 | PDOC ---
PROGRESS NOTES Date of Service: DATE: 12/20/19 TIME: 15:37 Chief Complaint Chief Complaint falls, worsening weakness, cannot walk, DM2, poor control she is off meds, denies any problem cognitive decline - dementia likely eschar foot and toes, ischemic injury, dry gangrene ( needs BKA) History of Present Illness History of Present Illness Patient reportedly with 2 stents to her right SFA. She denies any significant pain. Vitals Vitals Vital Signs Date Time Temp Pulse Resp B/P (MAP) Pulse Ox O2 Delivery O2 Flow Rate FiO2 12/20/19 15:00 98.3 67 18 141/60 (87) 98 Room Air 98.3 12/20/19 14:03 2.0 Physical Exam General: Alert, Cooperative, Other (multiple missing teeth, not quite edentulous) Heart: Regular rate Lungs: Wheezing Abdomen: Soft Extremities: Other (The right foot has grossly normal alignment. The second third and fourth toes are completely necrotic with dry gangrene into the midfoot dorsally and plantarly. There is an odor but not severeI dont believe theres wet gangrene or gas. There is some ischemia and discoloration of the great toe and fifth toe and they are also likely nonviable. Despite the lateral malleolus fracture, there is minimal lateral malleolus swelling or tenderness. There is no ankle joint deformity. There is full-thickness dry gangrene along the plantar aspect of the foot with some overlying loose skin, and unfortunately the proximal extent of the dry gangrene on the plantar foot would prevent transmetatarsal amputation. There is a full-thickness ulceration with dry necrotic blackened tissue at the Achilles, possible tendon involvement. Pulses are not palpable. She reports slight light touch sensation. I believe these gangrene and ulcer changes are related more to diabetic ischemia than to diabetic neuropathy.) Skin: No breakdown, Other (distal 1/3, of forefoot is black and complete eschar, and looks like it has been that way for awhile. 3 toes nearly auto amputated, ) Labs LABS Laboratory Tests Test 12/19/19 16:49 12/19/19 19:41 12/20/19 03:00 12/20/19 07:22 Glucose (Fingerstick) 143 mg/dL (70-99) 146 mg/dL (70-99) 85 mg/dL (70-99) White Blood Count 14.2 x10^3/uL (4.0-11.0) Red Blood Count 2.93 x10^6/uL (3.50-5.40) Hemoglobin 8.8 g/dL (12.0-15.5) Hematocrit 26.7 % (36.0-47.0) Mean Corpuscular Volume 91 fL (79-100) Mean Corpuscular Hemoglobin 30 pg (25-35) Mean Corpuscular Hemoglobin Concent 33 g/dL (31-37) Red Cell Distribution Width 14.8 % (11.5-14.5) Platelet Count 333 x10^3/uL (140-400) Neutrophils (%) (Auto) 76 % (31-73) Lymphocytes (%) (Auto) 16 % (24-48) Monocytes (%) (Auto) 6 % (0-9) Eosinophils (%) (Auto) 2 % (0-3) Basophils (%) (Auto) 0 % (0-3) Neutrophils # (Auto) 10.9 x10^3/uL (1.8-7.7) Lymphocytes # (Auto) 2.3 x10^3/uL (1.0-4.8) Monocytes # (Auto) 0.8 x10^3/uL (0.0-1.1) Eosinophils # (Auto) 0.3 x10^3/uL (0.0-0.7) Basophils # (Auto) 0.1 x10^3/uL (0.0-0.2) Prothrombin Time 16.1 SEC (11.7-14.0) Prothromb Time International Ratio 1.3 (0.8-1.1) Activated Partial Thromboplast Time 47 SEC (24-38) Sodium Level 142 mmol/L (136-145) Potassium Level 3.3 mmol/L (3.5-5.1) Chloride Level 106 mmol/L (98-107) Carbon Dioxide Level 27 mmol/L (21-32) Anion Gap 9 (6-14) Blood Urea Nitrogen 17 mg/dL (7-20) Creatinine 0.9 mg/dL (0.6-1.0) Estimated GFR (Cockcroft-Gault) 74.1 Glucose Level 78 mg/dL (70-99) Calcium Level 7.6 mg/dL (8.5-10.1) Test 12/20/19 11:23 Glucose (Fingerstick) 71 mg/dL (70-99) Review of Systems Review of Systems Right foot weakness. No foot pain, no fever, no nausea. Assessment and Plan Assessmemt and Plan Problems Medical Problems: (1) Necrotic toes Status: Acute (2) Weakness Status: Acute (3) Wound infection Status: Acute (4) Severe malnutrition Status: Acute (5) DORA - vasomotor nephropathy Status: Acute Comment Review of Relevant I have reviewed the following items da (where applicable) has been applied. Labs Laboratory Tests Test 12/18/19 16:21 12/18/19 20:38 12/19/19 04:00 12/19/19 08:07 Glucose (Fingerstick) 172 mg/dL (70-99) 123 mg/dL (70-99) 85 mg/dL (70-99) Sodium Level 140 mmol/L (136-145) Potassium Level 3.6 mmol/L (3.5-5.1) Chloride Level 105 mmol/L (98-107) Carbon Dioxide Level 24 mmol/L (21-32) Anion Gap 11 (6-14) Blood Urea Nitrogen 26 mg/dL (7-20) Creatinine 1.1 mg/dL (0.6-1.0) Estimated GFR (Cockcroft-Gault) 58.7 Glucose Level 90 mg/dL (70-99) Calcium Level 7.4 mg/dL (8.5-10.1) Test 12/19/19 11:29 12/19/19 16:49 12/19/19 19:41 12/20/19 03:00 Glucose (Fingerstick) 118 mg/dL (70-99) 143 mg/dL (70-99) 146 mg/dL (70-99) White Blood Count 14.2 x10^3/uL (4.0-11.0) Red Blood Count 2.93 x10^6/uL (3.50-5.40) Hemoglobin 8.8 g/dL (12.0-15.5) Hematocrit 26.7 % (36.0-47.0) Mean Corpuscular Volume 91 fL (79-100) Mean Corpuscular Hemoglobin 30 pg (25-35) Mean Corpuscular Hemoglobin Concent 33 g/dL (31-37) Red Cell Distribution Width 14.8 % (11.5-14.5) Platelet Count 333 x10^3/uL (140-400) Neutrophils (%) (Auto) 76 % (31-73) Lymphocytes (%) (Auto) 16 % (24-48) Monocytes (%) (Auto) 6 % (0-9) Eosinophils (%) (Auto) 2 % (0-3) Basophils (%) (Auto) 0 % (0-3) Neutrophils # (Auto) 10.9 x10^3/uL (1.8-7.7) Lymphocytes # (Auto) 2.3 x10^3/uL (1.0-4.8) Monocytes # (Auto) 0.8 x10^3/uL (0.0-1.1) Eosinophils # (Auto) 0.3 x10^3/uL (0.0-0.7) Basophils # (Auto) 0.1 x10^3/uL (0.0-0.2) Prothrombin Time 16.1 SEC (11.7-14.0) Prothromb Time International Ratio 1.3 (0.8-1.1) Activated Partial Thromboplast Time 47 SEC (24-38) Sodium Level 142 mmol/L (136-145) Potassium Level 3.3 mmol/L (3.5-5.1) Chloride Level 106 mmol/L (98-107) Carbon Dioxide Level 27 mmol/L (21-32) Anion Gap 9 (6-14) Blood Urea Nitrogen 17 mg/dL (7-20) Creatinine 0.9 mg/dL (0.6-1.0) Estimated GFR (Cockcroft-Gault) 74.1 Glucose Level 78 mg/dL (70-99) Calcium Level 7.6 mg/dL (8.5-10.1) Test 12/20/19 07:22 12/20/19 11:23 Glucose (Fingerstick) 85 mg/dL (70-99) 71 mg/dL (70-99) Laboratory Tests Test 12/19/19 16:49 12/19/19 19:41 12/20/19 03:00 12/20/19 07:22 Glucose (Fingerstick) 143 mg/dL (70-99) 146 mg/dL (70-99) 85 mg/dL (70-99) White Blood Count 14.2 x10^3/uL (4.0-11.0) Red Blood Count 2.93 x10^6/uL (3.50-5.40) Hemoglobin 8.8 g/dL (12.0-15.5) Hematocrit 26.7 % (36.0-47.0) Mean Corpuscular Volume 91 fL (79-100) Mean Corpuscular Hemoglobin 30 pg (25-35) Mean Corpuscular Hemoglobin Concent 33 g/dL (31-37) Red Cell Distribution Width 14.8 % (11.5-14.5) Platelet Count 333 x10^3/uL (140-400) Neutrophils (%) (Auto) 76 % (31-73) Lymphocytes (%) (Auto) 16 % (24-48) Monocytes (%) (Auto) 6 % (0-9) Eosinophils (%) (Auto) 2 % (0-3) Basophils (%) (Auto) 0 % (0-3) Neutrophils # (Auto) 10.9 x10^3/uL (1.8-7.7) Lymphocytes # (Auto) 2.3 x10^3/uL (1.0-4.8) Monocytes # (Auto) 0.8 x10^3/uL (0.0-1.1) Eosinophils # (Auto) 0.3 x10^3/uL (0.0-0.7) Basophils # (Auto) 0.1 x10^3/uL (0.0-0.2) Prothrombin Time 16.1 SEC (11.7-14.0) Prothromb Time International Ratio 1.3 (0.8-1.1) Activated Partial Thromboplast Time 47 SEC (24-38) Sodium Level 142 mmol/L (136-145) Potassium Level 3.3 mmol/L (3.5-5.1) Chloride Level 106 mmol/L (98-107) Carbon Dioxide Level 27 mmol/L (21-32) Anion Gap 9 (6-14) Blood Urea Nitrogen 17 mg/dL (7-20) Creatinine 0.9 mg/dL (0.6-1.0) Estimated GFR (Cockcroft-Gault) 74.1 Glucose Level 78 mg/dL (70-99) Calcium Level 7.6 mg/dL (8.5-10.1) Test 12/20/19 11:23 Glucose (Fingerstick) 71 mg/dL (70-99) Microbiology 12/16/19 Blood Culture - Preliminary, Resulted NO GROWTH AFTER 4 DAYS Medications Current Medications Piperacillin Sod/ Tazobactam Sod 3.375 gm/Sodium Chloride 50 ml @ 100 mls/hr 1X ONCE IV Last administered on 12/16/19at 11:26; Start 12/16/19 at 11:15; Stop 12/16/19 at 11:44; Status DC Sodium Chloride 1,000 ml @ 1,000 mls/hr 1X ONCE IV Last administered on 12/16/19at 11:25; Start 12/16/19 at 11:15; Stop 12/16/19 at 12:14; Status DC Oxycodone/ Acetaminophen (Percocet 5/325) 1 tab Q4HRS PO ; Start 12/16/19 at 16:00; Stop 12/16/19 at 18:36; Status DC Lisinopril (Prinivil) 20 mg DAILY PO ; Start 12/16/19 at 16:00; Stop 12/16/19 at 16:22; Status DC Cetirizine HCl (ZyrTEC) 10 mg DAILY PO ; Start 12/16/19 at 16:00; Stop 12/16/19 at 16:22; Status DC Atorvastatin Calcium (Lipitor) 5 mg QHS PO ; Start 12/16/19 at 21:00; Stop 12/16/19 at 16:22; Status DC Ondansetron HCl (Zofran Odt) 4 mg Q6HRS PO Last administered on 12/19/19at 05:50; Start 12/16/19 at 18:00; Stop 12/19/19 at 14:48; Status DC Non-Formulary Medication (Ranitidine Hcl (Zantac)) 1 tab BID PO ; Start 12/16/19 at 21:00; Stop 12/16/19 at 16:22; Status DC Piperacillin Sod/ Tazobactam Sod (Zosyn Per Pharmacy) 1 each PRN DAILY PRN MC SEE COMMENTS; Start 12/16/19 at 15:15 Sodium Chloride 1,000 ml @ 100 mls/hr 1X ONCE IV Last administered on 12/16/19at 16:43; Start 12/16/19 at 15:15; Stop 12/17/19 at 01:14; Status DC Insulin Human Lispro (HumaLOG) 0-9 UNITS TIDWMEALS SQ Last administered on 12/18/19at 16:45; Start 12/16/19 at 17:00 Dextrose (Dextrose 50%-Water Syringe) 12.5 gm PRN Q15MIN PRN IV SEE COMMENTS; Start 12/16/19 at 15:15 Insulin Glargine (Lantus Syringe) 10 unit QHS SQ Last administered on 12/19/19at 19:46; Start 12/16/19 at 21:00 Piperacillin Sod/ Tazobactam Sod 3.375 gm/Sodium Chloride 50 ml @ 100 mls/hr Q6HRS IV ; Start 12/16/19 at 18:00; Status Cancel Piperacillin Sod/ Tazobactam Sod 2.25 gm/Sodium Chloride 50 ml @ 100 mls/hr Q6HRS IV Last administered on 12/20/19at 11:16; Start 12/16/19 at 18:00 Hydrochlorothiazide (Microzide) 12.5 mg DAILY PO ; Start 12/16/19 at 16:00; Stop 12/16/19 at 16:22; Status DC Heparin Sodium (Porcine) (Heparin Sodium) 5,000 unit 1X ONCE SQ Last administered on 12/16/19at 17:50; Start 12/16/19 at 17:45; Stop 12/16/19 at 17:46; Status DC Oxycodone/ Acetaminophen (Percocet 5/325) 1 tab PRN Q4HRS PRN PO PAIN Last administered on 12/19/19at 19:43; Start 12/16/19 at 18:45 Morphine Sulfate (Morphine Sulfate) 4 mg PRN Q2HR PRN IV PAIN Last administered on 12/20/19at 08:33; Start 12/16/19 at 19:45 Ringer's Solution 1,000 ml @ 100 mls/hr Q10H IV Last administered on 12/20/19at 08:10; Start 12/17/19 at 10:30 Lactobacillus Rhamnosus (Culturelle) 1 cap BID PO Last administered on 12/19/19at 19:42; Start 12/17/19 at 21:00 Ondansetron HCl (Zofran Odt) 4 mg PRN Q6HRS PRN PO NAUSEA; Start 12/19/19 at 15:00 Iohexol (Omnipaque 350 Mg/ml) 80 ml 1X ONCE IV Last administered on 12/19/19at 15:08; Start 12/19/19 at 15:00; Stop 12/19/19 at 15:01; Status DC Lidocaine HCl (Buffered Lidocaine 1%) 3 ml STK-MED ONCE .ROUTE ; Start 12/20/19 at 11:59; Stop 12/20/19 at 11:59; Status DC Iodixanol (Visipaque 320) 100 ml STK-MED ONCE .ROUTE ; Start 12/20/19 at 11:59; Stop 12/20/19 at 11:59; Status DC Heparin Sodium/ Sodium Chloride 1,500 ml @ As Directed STK-MED ONCE .ROUTE ; Start 12/20/19 at 11:59; Stop 12/20/19 at 11:59; Status DC Midazolam HCl (Versed) 2 mg STK-MED ONCE .ROUTE ; Start 12/20/19 at 12:34; Stop 12/20/19 at 12:34; Status DC Fentanyl Citrate (Fentanyl 2ml Vial) 100 mcg STK-MED ONCE .ROUTE ; Start 12/20/19 at 12:34; Stop 12/20/19 at 12:34; Status DC Heparin Sodium (Porcine) (Heparin Sodium) 10,000 unit STK-MED ONCE .ROUTE ; Start 12/20/19 at 12:34; Stop 12/20/19 at 12:34; Status DC Heparin Sodium/ Sodium Chloride (HEPARIN for ARTERIAL LINE FLUSH) 1,000 unit 1X ONCE IART Last administered on 12/20/19at 13:56; Start 12/20/19 at 13:30; Stop 12/20/19 at 13:42; Status DC Heparin Sodium/ Sodium Chloride (HEPARIN for ARTERIAL LINE FLUSH) 1,000 unit 1X ONCE IART Last administered on 12/20/19at 13:57; Start 12/20/19 at 13:30; Stop 12/20/19 at 13:42; Status DC Lidocaine HCl (Buffered Lidocaine 1%) 3 ml 1X ONCE IJ Last administered on 12/20/19at 13:55; Start 12/20/19 at 13:30; Stop 12/20/19 at 13:42; Status DC Midazolam HCl (Versed) 2 mg 1X ONCE IV Last administered on 12/20/19 13:58; Start 12/20/19 at 13:30; Stop 12/20/19 at 13:42; Status DC Fentanyl Citrate (Fentanyl 2ml Vial) 100 mcg 1X ONCE IV Last administered on 12/20/19 13:58; Start 12/20/19 at 13:30; Stop 12/20/19 at 13:42; Status DC Iodixanol (Visipaque 320) 100 ml 1X ONCE IART Last administered on 12/20/19at 13:55; Start 12/20/19 at 13:30; Stop 12/20/19 at 13:42; Status DC Heparin Sodium (Porcine) (Heparin Sodium) 5,000 unit 1X ONCE IV Last administered on 12/20/19 13:59; Start 12/20/19 at 13:30; Stop 12/20/19 at 13:4 2; Status DC Heparin Sodium/ Sodium Chloride (HEPARIN for ARTERIAL LINE FLUSH) 1,000 unit 1X ONCE IV Last administered on 12/20/19at 13:57; Start 12/20/19 at 13:30; Stop 12/20/19 at 13:42; Status DC Info (CONTRAST GIVEN -- Rx MONITORING) 1 each PRN DAILY PRN MC SEE COMMENTS; Start 12/20/19 at 13:45; Stop 12/22/19 at 13:44 Active Scripts Active Zofran (Ondansetron Hcl) 4 Mg Tablet 1 Tab PO Q6HRS Percocet 5-325 Mg Tablet (Oxycodone/Acetaminophen) 1 Each Tablet 1-2 Tab PO Q4-6HRS Vitals/I & O Vital Sign - Last 24 Hours 12/19/19 12/19/19 12/19/19 12/19/19 19:00 19:43 20:00 20:43 Temp 99.8 99.8 Pulse 79 Resp 18 16 14 B/P (MAP) 117/47 (70) Pulse Ox 94 O2 Delivery Room Air Room Air Room Air Room Air 12/19/19 12/20/19 12/20/19 12/20/19 23:00 03:00 07:00 07:47 Temp 98.3 98.7 98.4 98.3 98.7 98.4 Pulse 65 70 75 Resp 18 18 18 B/P (MAP) 119/57 (77) 140/61 (87) 143/66 (91) Pulse Ox 98 98 95 O2 Delivery Room Air Room Air Room Air Room Air 12/20/19 12/20/19 12/20/19 12/20/19 08:33 09:36 11:00 13:58 Temp 97.8 97.8 Pulse 73 Resp 16 20 B/P (MAP) 138/78 (98) Pulse Ox 95 95 98 100 O2 Delivery Room Air Room Air Room Air Nasal Cannula O2 Flow Rate 2.0 12/20/19 12/20/19 14:03 15:00 Temp 98.3 98.3 Pulse 69 67 Resp 18 B/P (MAP) 141/60 (87) Pulse Ox 100 98 O2 Delivery Nasal Cannula Room Air O2 Flow Rate 2.0 Intake and Output 12/19/19 12/19/19 12/20/19 15:00 23:00 07:00 Intake Total 200 ml 800 ml Balance 200 ml 800 ml Justicifation of Admission Dx: Justifications for Admission: Justification of Admission Dx: Yes KRISHAN GARBER MD Dec 20, 2019 15:54
--- NOTE | 2019-12-20 16:27 | RAD ---
12/20/2019 1. Pelvic angiogram 2. Right lower extremity angiography including injections from the common femoral artery, superficial femoral artery, and tibial peroneal trunk 3. Treatment for segment mid right SFA C2 with placement of self-expanding stent 4. Treatment of chronic CT O at the junction of the right SFA and popliteal artery with placement of self-expanding stent 5. Balloon angioplasty of the tibial peroneal trunk Indication: Patient is a 74-year-old female with a large necrotic wound. Prior CTA demonstrates multifocal stenoses in the right SFA and tibial peroneal trunk Discussion The procedure was explained in its entirety to the patient or the patients designated operations support representative by a member of the treatment team, including a discussion of the risks, benefits and commonly accepted alternatives to the procedure, as well as the expected consequences of no therapy whatsoever. Discussion of the risks included, but was not limited to, those that are most frequent and those that are rare but possibly severe or life-threatening, as well as the possibility of unforeseen complications. All elements of maximal sterile barrier technique including the use of a cap, mask, sterile gown, sterile gloves, large sterile sheet, appropriate hand hygiene, and 2% chlorhexidine for cutaneous antisepsis (or acceptable alternative antiseptic per current guidelines) were followed for this procedure. Left groin is prepped and draped using sterile barrier technique. 1% lidocaine was administered for local anesthesia. Ultrasound demonstrates left common femoral artery calcified patent. The artery was accessed using micropuncture technique and direct ultrasound guidance. Reference ultrasound images were saved the medical record. A 5 Welsh vascular sheath was placed. An Omni flush catheter was advanced into the inferior abdominal aorta. Pelvic angiography was performed demonstrating no hemodynamically significant stenosis. Tortuosity of the distal bowel aorta noted. Omni flush catheter was directed into the right common femoral artery. Right lower extremity angiography was performed. There is mild stenosis of the proximal SFA does not appear to be flow-limiting. There is a chronic total occlusion of the mid right SFA with multiple collaterals. CT pelvis very short segment. There is no other chronic total occlusion at the junction of the SFA and [id number] popliteal artery. There is high-grade stenosis of the tibial peroneal trunk extending into the posterior tibial artery. Otherwise runoff vessels appear relatively intact. The occlusions and stenoses were traversed. A 6 mm x 80 mm self expanding stent was placed in the mid right SFA. This is post dilated to 6 mm. A 6 mm x 3 cm self-expanding stent was placed in the distalmost SFA extending to the [id number] popliteal artery, again post dilated to 6 mm. Balloon angioplasty of the tibial peroneal trunk was performed with 3 mm balloon. This resulted in significantly improved morphology and flow. Relatively robust flow to the foot was seen following intervention. Angiography of the left lower extremity was performed demonstrating the puncture site in the mid left common femoral artery without significant narrowing. Left SFA is irregular without high-grade stenosis. There is single vessel runoff to the left foot via the anterior tibial artery and dorsalis pedis artery. A minx device was deployed. Hemostasis was achieved. No immediate complications were identified. Total fluoroscopy time:: 18.1 Minutes Dose area product: 157 Gycm2 The procedures performed under conscious sedation including continuous cardiopulmonary monitoring via dedicated sedation nurse. Cehf-di-heic sedation time: 87 minutes Impression: 1. Chronic total occlusion mid right SFA, and at the junction of the SFA and popliteal artery treated with placement of self-expanding stents 2. Balloon angioplasty of the tibial peroneal trunk 3. Left lower extremity angiography demonstrates single vessel runoff via the anterior tibial artery/dorsalis pedis artery
[2019-12-20] MEDS: oxyCODONE/APAP 5/325 1 TAB TABLET PO PRN (20:17)
[2019-12-20] MEDS: INSULIN GLARGINE SYRINGE. SQ SCH (21:01)
[2019-12-21] MEDS: PIPERACILLIN/TAZOBACTAM 2.25 GM in IV NORMAL SALINE 50ML 50 ML IV SCH ×5 (00:02→23:32)
[2019-12-21 03:00] VITALS: BP 130/51
[2019-12-21 07:00] VITALS: BP 137/55
[2019-12-21 07:26] LABS: BASO % 0 % (0-3); EOS # 0.2 x10^3/uL (0.0-0.7); EOS % 2 % (0-3); HEMOGLOBIN 8.3 g/dL (12.0-15.5); LYMPH # 1.8 x10^3/uL (1.0-4.8); LYMPH % 14 % (24-48); MEAN CORPUSCULAR HEMOGLOBIN 30 pg (25-35); MEAN CORPUSCULAR HGB CONC 33 g/dL (31-37); MEAN CORPUSCULAR VOLUME 91 fL (79-100); MONO # 0.8 x10^3/uL (0.0-1.1); MONO % 6 % (0-9); NEUT # 10.2 x10^3/uL (1.8-7.7); NEUT % 78 % (31-73); PLATELET COUNT 320 x10^3/uL (140-400); RED BLOOD COUNT 2.76 x10^6/uL (3.50-5.40); RED CELL DISTRIBUTION WIDTH 14.8 % (11.5-14.5); WHITE BLOOD COUNT 13.2 x10^3/uL (4.0-11.0)
[2019-12-21] MEDS: INSULIN LISPRO 300 UNITS/3 ML VIAL. SQ SCH ×3 (07:54→16:52)
[2019-12-21 08:09] LABS: CALCIUM 7.6 mg/dL (8.5-10.1); CREATININE 0.8 mg/dL (0.6-1.0); GFR 84.8; POTASSIUM 3.2 mmol/L (3.5-5.1)
--- NOTE | 2019-12-21 08:15 | PDOC ---
Provider Note Date of Service: DATE: 12/21/19 TIME: 08:11 Provider Note Provider Note Vascular Angiogram 12/20/2019 Impression: 1. Chronic total occlusion mid right SFA, and at the junction of the SFA and popliteal artery treated with placement of self-expanding stents 2. Balloon angioplasty of the tibial peroneal trunk 3. Left lower extremity angiography demonstrates single vessel runoff via the anterior tibial artery/dorsalis pedis artery Patient is status post angiogram. Angioplasty performed. The patient should have adequate perfusion to heal a right below-knee amputation. Will defer to Ortho. At present patient is still refusing below-knee amputation. Patient has single-vessel runoff to her left foot, she does have a small callus on the plantar surface. Recommend protective measures and continue to monitor this closely. We will sign off. Justicifation of Admission Dx: Justifications for Admission: Justification of Admission Dx: Yes JAVON SOARES LEAKAGE TESTER Dec 21, 2019 08:15
[2019-12-21] MEDS: LACTOBACILLUS RHAMNOSUS GG 1 CAPSULE. PO SCH ×2 (08:46→21:27)
[2019-12-21] MEDS: CLOPIDOGREL BISULFATE 75 MG TABLET PO SCH (08:46)
[2019-12-21] MEDS: oxyCODONE/APAP 5/325 1 TAB TABLET PO PRN ×3 (08:46→21:27)
[2019-12-21 11:00] VITALS: BP 149/66
[2019-12-21] MEDS: NYSTATIN TOPICAL POWDER 15GM BOTTLE. TP SCH ×2 (12:12→21:00)
[2019-12-21 15:00] VITALS: BP 133/67
[2019-12-21 19:00] VITALS: BP 145/59
--- NOTE | 2019-12-21 19:01 | PDOC ---
PROGRESS NOTES Date of Service: DATE: 12/21/19 TIME: 19:01 Chief Complaint Chief Complaint falls, worsening weakness, cannot walk, DM2, poor control she is off meds, denies any problem cognitive decline - dementia likely eschar foot and toes, ischemic injury, dry gangrene ( needs BKA) History of Present Illness History of Present Illness Patient reportedly with 2 stents to her right SFA. She denies any significant pain. Vitals Vitals Vital Signs Date Time Temp Pulse Resp B/P (MAP) Pulse Ox O2 Delivery O2 Flow Rate FiO2 12/21/19 15:34 97 Room Air 12/21/19 15:00 98.3 68 16 133/67 (89) 98.3 12/20/19 14:03 2.0 Physical Exam General: Alert, Cooperative, Other (multiple missing teeth, not quite edentulous) Heart: Regular rate Lungs: Wheezing Abdomen: Soft Extremities: Other (The right foot has grossly normal alignment. The second third and fourth toes are completely necrotic with dry gangrene into the midfoot dorsally and plantarly. There is an odor but not severeI dont believe theres wet gangrene or gas. There is some ischemia and discoloration of the great toe and fifth toe and they are also likely nonviable. Despite the lateral malleolus fracture, there is minimal lateral malleolus swelling or tenderness. There is no ankle joint deformity. There is full-thickness dry gangrene along the plantar aspect of the foot with some overlying loose skin, and unfortunately the proximal extent of the dry gangrene on the plantar foot would prevent tra nsmetatarsal amputation. There is a full-thickness ulceration with dry necrotic blackened tissue at the Achilles, possible tendon involvement. Pulses are not palpable. She reports slight light touch sensation. I believe these gangrene and ulcer changes are related more to diabetic ischemia than to diabetic neuropathy.) Skin: No breakdown, Other (distal 1/3, of forefoot is black and complete eschar, and looks like it has been that way for awhile. 3 toes nearly auto amputated, ) Labs LABS Laboratory Tests Test 12/20/19 20:19 12/21/19 03:00 12/21/19 07:49 12/21/19 07:55 Glucose (Fingerstick) 126 mg/dL (70-99) 68 mg/dL (70-99) 70 mg/dL (70-99) White Blood Count 13.2 x10^3/uL (4.0-11.0) Red Blood Count 2.76 x10^6/uL (3.50-5.40) Hemoglobin 8.3 g/dL (12.0-15.5) Hematocrit 25.0 % (36.0-47.0) Mean Corpuscular Volume 91 fL (79-100) Mean Corpuscular Hemoglobin 30 pg (25-35) Mean Corpuscular Hemoglobin Concent 33 g/dL (31-37) Red Cell Distribution Width 14.8 % (11.5-14.5) Platelet Count 320 x10^3/uL (140-400) Neutrophils (%) (Auto) 78 % (31-73) Lymphocytes (%) (Auto) 14 % (24-48) Monocytes (%) (Auto) 6 % (0-9) Eosinophils (%) (Auto) 2 % (0-3) Basophils (%) (Auto) 0 % (0-3) Neutrophils # (Auto) 10.2 x10^3/uL (1.8-7.7) Lymphocytes # (Auto) 1.8 x10^3/uL (1.0-4.8) Monocytes # (Auto) 0.8 x10^3/uL (0.0-1.1) Eosinophils # (Auto) 0.2 x10^3/uL (0.0-0.7) Basophils # (Auto) 0.0 x10^3/uL (0.0-0.2) Sodium Level 142 mmol/L (136-145) Potassium Level 3.2 mmol/L (3.5-5.1) Chloride Level 106 mmol/L (98-107) Carbon Dioxide Level 27 mmol/L (21-32) Anion Gap 9 (6-14) Blood Urea Nitrogen 11 mg/dL (7-20) Creatinine 0.8 mg/dL (0.6-1.0) Estimated GFR (Cockcroft-Gault) 84.8 Glucose Level 57 mg/dL (70-99) Calcium Level 7.6 mg/dL (8.5-10.1) Test 12/21/19 11:46 12/21/19 16:50 Glucose (Fingerstick) 97 mg/dL (70-99) 140 mg/dL (70-99) Assessment and Plan Assessmemt and Plan Problems Medical Problems: (1) Necrotic toes Status: Acute (2) Weakness Status: Acute (3) Wound infection Status: Acute Comment Review of Relevant I have reviewed the following items da (where applicable) has been applied. Labs Laboratory Tests Test 12/19/19 19:41 12/20/19 03:00 12/20/19 07:22 12/20/19 11:23 Glucose (Fingerstick) 146 mg/dL (70-99) 85 mg/dL (70-99) 71 mg/dL (70-99) White Blood Count 14.2 x10^3/uL (4.0-11.0) Red Blood Count 2.93 x10^6/uL (3.50-5.40) Hemoglobin 8.8 g/dL (12.0-15.5) Hematocrit 26.7 % (36.0-47.0) Mean Corpuscular Volume 91 fL (79-100) Mean Corpuscular Hemoglobin 30 pg (25-35) Mean Corpuscular Hemoglobin Concent 33 g/dL (31-37) Red Cell Distribution Width 14.8 % (11.5-14.5) Platelet Count 333 x10^3/uL (140-400) Neutrophils (%) (Auto) 76 % (31-73) Lymphocytes (%) (Auto) 16 % (24-48) Monocytes (%) (Auto) 6 % (0-9) Eosinophils (%) (Auto) 2 % (0-3) Basophils (%) (Auto) 0 % (0-3) Neutrophils # (Auto) 10.9 x10^3/uL (1.8-7.7) Lymphocytes # (Auto) 2.3 x10^3/uL (1.0-4.8) Monocytes # (Auto) 0.8 x10^3/uL (0.0-1.1) Eosinophils # (Auto) 0.3 x10^3/uL (0.0-0.7) Basophils # (Auto) 0.1 x10^3/uL (0.0-0.2) Prothrombin Time 16.1 SEC (11.7-14.0) Prothromb Time International Ratio 1.3 (0.8-1.1) Activated Partial Thromboplast Time 47 SEC (24-38) Sodium Level 142 mmol/L (136-145) Potassium Level 3.3 mmol/L (3.5-5.1) Chloride Level 106 mmol/L (98-107) Carbon Dioxide Level 27 mmol/L (21-32) Anion Gap 9 (6-14) Blood Urea Nitrogen 17 mg/dL (7-20) Creatinine 0.9 mg/dL (0.6-1.0) Estimated GFR (Cockcroft-Gault) 74.1 Glucose Level 78 mg/dL (70-99) Calcium Level 7.6 mg/dL (8.5-10.1) Test 12/20/19 16:47 12/20/19 20:19 12/21/19 03:00 12/21/19 07:49 Glucose (Fingerstick) 125 mg/dL (70-99) 126 mg/dL (70-99) 68 mg/dL (70-99) White Blood Count 13.2 x10^3/uL (4.0-11.0) Red Blood Count 2.76 x10^6/uL (3.50-5.40) Hemoglobin 8.3 g/dL (12.0-15.5) Hematocrit 25.0 % (36.0-47.0) Mean Corpuscular Volume 91 fL (79-100) Mean Corpuscular Hemoglobin 30 pg (25-35) Mean Corpuscular Hemoglobin Concent 33 g/dL (31-37) Red Cell Distribution Width 14.8 % (11.5-14.5) Platelet Count 320 x10^3/uL (140-400) Neutrophils (%) (Auto) 78 % (31-73) Lymphocytes (%) (Auto) 14 % (24-48) Monocytes (%) (Auto) 6 % (0-9) Eosinophils (%) (Auto) 2 % (0-3) Basophils (%) (Auto) 0 % (0-3) Neutrophils # (Auto) 10.2 x10^3/uL (1.8-7.7) Lymphocytes # (Auto) 1.8 x10^3/uL (1.0-4.8) Monocytes # (Auto) 0.8 x10^3/uL (0.0-1.1) Eosinophils # (Auto) 0.2 x10^3/uL (0.0-0.7) Basophils # (Auto) 0.0 x10^3/uL (0.0-0.2) Sodium Level 142 mmol/L (136-145) Potassium Level 3.2 mmol/L (3.5-5.1) Chloride Level 106 mmol/L (98-107) Carbon Dioxide Level 27 mmol/L (21-32) Anion Gap 9 (6-14) Blood Urea Nitrogen 11 mg/dL (7-20) Creatinine 0.8 mg/dL (0.6-1.0) Estimated GFR (Cockcroft-Gault) 84.8 Glucose Level 57 mg/dL (70-99) Calcium Level 7.6 mg/dL (8.5-10.1) Test 12/21/19 07:55 12/21/19 11:46 12/21/19 16:50 Glucose (Fingerstick) 70 mg/dL (70-99) 97 mg/dL (70-99) 140 mg/dL (70-99) Laboratory Tests Test 12/20/19 20:19 12/21/19 03:00 12/21/19 07:49 12/21/19 07:55 Glucose (Fingerstick) 126 mg/dL (70-99) 68 mg/dL (70-99) 70 mg/dL (70-99) White Blood Count 13.2 x10^3/uL (4.0-11.0) Red Blood Count 2.76 x10^6/uL (3.50-5.40) Hemoglobin 8.3 g/dL (12.0-15.5) Hematocrit 25.0 % (36.0-47.0) Mean Corpuscular Volume 91 fL (79-100) Mean Corpuscular Hemoglobin 30 pg (25-35) Mean Corpuscular Hemoglobin Concent 33 g/dL (31-37) Red Cell Distribution Width 14.8 % (11.5-14.5) Platelet Count 320 x10^3/uL (140-400) Neutrophils (%) (Auto) 78 % (31-73) Lymphocytes (%) (Auto) 14 % (24-48) Monocytes (%) (Auto) 6 % (0-9) Eosinophils (%) (Auto) 2 % (0-3) Basophils (%) (Auto) 0 % (0-3) Neutrophils # (Auto) 10.2 x10^3/uL (1.8-7.7) Lymphocytes # (Auto) 1.8 x10^3/uL (1.0-4.8) Monocytes # (Auto) 0.8 x10^3/uL (0.0-1.1) Eosinophils # (Auto) 0.2 x10^3/uL (0.0-0.7) Basophils # (Auto) 0.0 x10^3/uL (0.0-0.2) Sodium Level 142 mmol/L (136-145) Potassium Level 3.2 mmol/L (3.5-5.1) Chloride Level 106 mmol/L (98-107) Carbon Dioxide Level 27 mmol/L (21-32) Anion Gap 9 (6-14) Blood Urea Nitrogen 11 mg/dL (7-20) Creatinine 0.8 mg/dL (0.6-1.0) Estimated GFR (Cockcroft-Gault) 84.8 Glucose Level 57 mg/dL (70-99) Calcium Level 7.6 mg/dL (8.5-10.1) Test 12/21/19 11:46 12/21/19 16:50 Glucose (Fingerstick) 97 mg/dL (70-99) 140 mg/dL (70-99) Microbiology 12/16/19 Blood Culture - Final, Complete NO GROWTH AFTER 5 DAYS Medications Current Medications Piperacillin Sod/ Tazobactam Sod 3.375 gm/Sodium Chloride 50 ml @ 100 mls/hr 1X ONCE IV Last administered on 12/16/19at 11:26; Start 12/16/19 at 11:15; Stop 12/16/19 at 11:44; Status DC Sodium Chloride 1,000 ml @ 1,000 mls/hr 1X ONCE IV Last administered on 12/16/19at 11:25; Start 12/16/19 at 11:15; Stop 12/16/19 at 12:14; Status DC Oxycodone/ Acetaminophen (Percocet 5/325) 1 tab Q4HRS PO ; Start 12/16/19 at 16:00; Stop 12/16/19 at 18:36; Status DC Lisinopril (Prinivil) 20 mg DAILY PO ; Start 12/16/19 at 16:00; Stop 12/16/19 at 16:22; Status DC Cetirizine HCl (ZyrTEC) 10 mg DAILY PO ; Start 12/16/19 at 16:00; Stop 12/16/19 at 16:22; Status DC Atorvastatin Calcium (Lipitor) 5 mg QHS PO ; Start 12/16/19 at 21:00; Stop 12/16/19 at 16:22; Status DC Ondansetron HCl (Zofran Odt) 4 mg Q6HRS PO Last administered on 12/19/19at 05:50; Start 12/16/19 at 18:00; Stop 12/19/19 at 14:48; Status DC Non-Formulary Medication (Ranitidine Hcl (Zantac)) 1 tab BID PO ; Start 12/16/19 at 21:00; Stop 12/16/19 at 16:22; Status DC Piperacillin Sod/ Tazobactam Sod (Zosyn Per Pharmacy) 1 each PRN DAILY PRN MC SEE COMMENTS; Start 12/16/19 at 15:15 Sodium Chloride 1,000 ml @ 100 mls/hr 1X ONCE IV Last administered on 12/16/19at 16:43; Start 12/16/19 at 15:15; Stop 12/17/19 at 01:14; Status DC Insulin Human Lispro (HumaLOG) 0-9 UNITS TIDWMEALS SQ Last administered on 12/18/19at 16:45; Start 12/16/19 at 17:00 Dextrose (Dextrose 50%-Water Syringe) 12.5 gm PRN Q15MIN PRN IV SEE COMMENTS; Start 12/16/19 at 15:15 Insulin Glargine (Lantus Syringe) 10 unit QHS SQ Last administered on 12/20/19at 21:01; Start 12/16/19 at 21:00 Piperacillin Sod/ Tazobactam Sod 3.375 gm/Sodium Chloride 50 ml @ 100 mls/hr Q6HRS IV ; Start 12/16/19 at 18:00; Status Cancel Piperacillin Sod/ Tazobactam Sod 2.25 gm/Sodium Chloride 50 ml @ 100 mls/hr Q6HRS IV Last administered on 12/21/19at 16:16; Start 12/16/19 at 18:00 Hydrochlorothiazide (Microzide) 12.5 mg DAILY PO ; Start 12/16/19 at 16:00; Stop 12/16/19 at 16:22; Status DC Heparin Sodium (Porcine) (Heparin Sodium) 5,000 unit 1X ONCE SQ Last administered on 12/16/19at 17:50; Start 12/16/19 at 17:45; Stop 12/16/19 at 17:46; Status DC Oxycodone/ Acetaminophen (Percocet 5/325) 1 tab PRN Q4HRS PRN PO PAIN Last administered on 12/21/19at 14:44; Start 12/16/19 at 18:45 Morphine Sulfate (Morphine Sulfate) 4 mg PRN Q2HR PRN IV PAIN Last administered on 12/20/19at 08:33; Start 12/16/19 at 19:45 Ringer's Solution 1,000 ml @ 100 mls/hr Q10H IV Last administered on 12/20/19at 08:10; Start 12/17/19 at 10:30; Stop 12/20/19 at 15:47; Status DC Lactobacillus Rhamnosus (Culturelle) 1 cap BID PO Last administered on 12/21/19at 08:46; Start 12/17/19 at 21:00 Ondansetron HCl (Zofran Odt) 4 mg PRN Q6HRS PRN PO NAUSEA; Start 12/19/19 at 15:00 Iohexol (Omnipaque 350 Mg/ml) 80 ml 1X ONCE IV Last administered on 12/19/19at 15:08; Start 12/19/19 at 15:00; Stop 12/19/19 at 15:01; Status DC Lidocaine HCl (Buffered Lidocaine 1%) 3 ml STK-MED ONCE .ROUTE ; Start 12/20/19 at 11:59; Stop 12/20/19 at 11:59; Status DC Iodixanol (Visipaque 320) 100 ml STK-MED ONCE .ROUTE ; Start 12/20/19 at 11:59; Stop 12/20/19 at 11:59; Status DC Heparin Sodium/ Sodium Chloride 1,500 ml @ As Directed STK-MED ONCE .ROUTE ; Start 12/20/19 at 11:59; Stop 12/20/19 at 11:59; Status DC Midazolam HCl (Versed) 2 mg STK-MED ONCE .ROUTE ; Start 12/20/19 at 12:34; Stop 12/20/19 at 12:34; Status DC Fentanyl Citrate (Fentanyl 2ml Vial) 100 mcg STK-MED ONCE .ROUTE ; Start 12/20/19 at 12:34; Stop 12/20/19 at 12:34; Status DC Heparin Sodium (Porcine) (Heparin Sodium) 10,000 unit STK-MED ONCE .ROUTE ; Start 12/20/19 at 12:34; Stop 12/20/19 at 12:34; Status DC Heparin Sodium/ Sodium Chloride (HEPARIN for ARTERIAL LINE FLUSH) 1,000 unit 1X ONCE IART Last administered on 12/20/19at 13:56; Start 12/20/19 at 13:30; Stop 12/20/19 at 13:42; Status DC Heparin Sodium/ Sodium Chloride (HEPARIN for ARTERIAL LINE FLUSH) 1,000 unit 1X ONCE IART Last administered on 12/20/19at 13:57; Start 12/20/19 at 13:30; Stop 12/20/19 at 13:42; Status DC Lidocaine HCl (Buffered Lidocaine 1%) 3 ml 1X ONCE IJ Last administered on 12/20/19at 13:55; Start 12/20/19 at 13:30; Stop 12/20/19 at 13:42; Status DC Midazolam HCl (Versed) 2 mg 1X ONCE IV Last administered on 12/20/19at 13:58; Start 12/20/19 at 13:30; Stop 12/20/19 at 13:42; Status DC Fentanyl Citrate (Fentanyl 2ml Vial) 100 mcg 1X ONCE IV Last administered on 12/20/19at 13:58; Start 12/20/19 at 13:30; Stop 12/20/19 at 13:42; Status DC Iodixanol (Visipaque 320) 100 ml 1X ONCE IART Last administered on 12/20/19at 13:55; Start 12/20/19 at 13:30; Stop 12/20/19 at 13:42; Status DC Heparin Sodium (Porcine) (Heparin Sodium) 5,000 unit 1X ONCE IV Last administered on 12/20/19at 13:59; Start 12/20/19 at 13:30; Stop 12/20/19 at 13:42; Status DC Heparin Sodium/ Sodium Chloride (HEPARIN for ARTERIAL LINE FLUSH) 1,000 unit 1X ONCE IV Last administered on 12/20/19at 13:57; Start 12/20/19 at 13:30; Stop 12/20/19 at 13:42; Status DC Info (CONTRAST GIVEN -- Rx MONITORING) 1 each PRN DAILY PRN MC SEE COMMENTS; Start 12/20/19 at 13:45; Stop 12/22/19 at 13:44 Clopidogrel Bisulfate (Plavix) 75 mg DAILYWBKFT PO Last administered on 12/21/19at 08:46; Start 12/21/19 at 08:00 Nystatin (Nystop) 1 maryam BID TP Last administered on 12/21/19at 12:12; Start 12/21/19 at 12:00 Active Scripts Active Zofran (Ondansetron Hcl) 4 Mg Tablet 1 Tab PO Q6HRS Percocet 5-325 Mg Tablet (Oxycodone/Acetaminophen) 1 Each Tablet 1-2 Tab PO Q 4-6HRS Vitals/I & O Vital Sign - Last 24 Hours 12/20/19 12/20/19 12/20/19 12/20/19 20:00 20:17 21:32 23:00 Temp 98.4 98.4 Pulse 75 Resp 14 16 24 B/P (MAP) 124/55 (78) Pulse Ox 95 O2 Delivery Room Air Room Air Room Air Room Air 12/21/19 12/21/19 12/21/19 12/21/19 03:00 07:00 07:50 08:46 Temp 98.4 98.4 98.4 98.4 Pulse 68 72 Resp 16 18 B/P (MAP) 130/51 (77) 137/55 (82) Pulse Ox 97 96 96 O2 Delivery Room Air Room Air Room Air Room Air 12/21/19 12/21/19 12/21/19 12/21/19 09:33 11:00 14:44 15:00 Temp 98.3 98.3 98.3 98.3 Pulse 69 68 Resp 18 16 B/P (MAP) 149/66 (93) 133/67 (89) Pulse Ox 96 97 97 98 O2 Delivery Room Air Room Air Room Air Room Air 12/21/19 15:34 Pulse Ox 97 O2 Delivery Room Air Intake and Output 12/20/19 12/20/19 12/21/19 15:00 23:00 07:00 Intake Total 800 ml 200 ml Balance 800 ml 200 ml Justicifation of Admission Dx: Justifications for Admission: Justification of Admission Dx: Yes KRISHAN GARBER MD Dec 21, 2019 19:01
[2019-12-21] MEDS: INSULIN GLARGINE SYRINGE. SQ SCH (21:54)
[2019-12-21 23:00] VITALS: BP 104/83
[2019-12-22 03:00] VITALS: BP 147/61
[2019-12-22 06:03] LABS: CALCIUM 6.9 mg/dL (8.5-10.1); CREATININE 0.8 mg/dL (0.6-1.0); GFR 84.8; POTASSIUM 3.2 mmol/L (3.5-5.1)
[2019-12-22] MEDS: PIPERACILLIN/TAZOBACTAM 2.25 GM in IV NORMAL SALINE 50ML 50 ML IV SCH ×3 (06:34→18:08)
[2019-12-22 07:00] VITALS: BP 168/47
[2019-12-22 07:31] LABS: BASO % 0 % (0-3); EOS # 0.3 x10^3/uL (0.0-0.7); EOS % 3 % (0-3); HEMATOCRIT 25.1 % (36.0-47.0); HEMOGLOBIN 8.3 g/dL (12.0-15.5); LYMPH # 1.7 x10^3/uL (1.0-4.8); LYMPH % 15 % (24-48); MEAN CORPUSCULAR HEMOGLOBIN 30 pg (25-35); MEAN CORPUSCULAR HGB CONC 33 g/dL (31-37); MEAN CORPUSCULAR VOLUME 90 fL (79-100); MONO # 0.7 x10^3/uL (0.0-1.1); MONO % 7 % (0-9); NEUT # 8.5 x10^3/uL (1.8-7.7); NEUT % 76 % (31-73); PLATELET COUNT 319 x10^3/uL (140-400); RED BLOOD COUNT 2.78 x10^6/uL (3.50-5.40); WHITE BLOOD COUNT 11.2 x10^3/uL (4.0-11.0)
[2019-12-22] MEDS: INSULIN LISPRO 300 UNITS/3 ML VIAL. SQ SCH ×3 (08:00→16:35)
[2019-12-22] MEDS: CLOPIDOGREL BISULFATE 75 MG TABLET PO SCH (09:31)
[2019-12-22] MEDS: LACTOBACILLUS RHAMNOSUS GG 1 CAPSULE. PO SCH ×2 (09:31→21:11)
[2019-12-22] MEDS: NYSTATIN TOPICAL POWDER 15GM BOTTLE. TP SCH ×2 (09:32→21:12)
[2019-12-22] MEDS: oxyCODONE/APAP 5/325 1 TAB TABLET PO PRN ×3 (09:45→21:11)
[2019-12-22 11:00] VITALS: BP 144/66
--- NOTE | 2019-12-22 12:33 | PDOC ---
PROGRESS NOTES Date of Service: DATE: 12/22/19 TIME: 12:29 Chief Complaint Chief Complaint falls, worsening weakness, cannot walk, DM2, poor control she is off meds, denies any problem cognitive decline - dementia likely eschar foot and toes, ischemic injury, dry gangrene ( needs BKA) History of Present Illness History of Present Illness Patient has been working with physical therapy, and managed 3 steps unassisted today. Her goals remain the same, to walk on her own without any amputation. We discussed the difficulty that we will have placing her in a longterm facility with her foot in its current condition. Vitals Vitals Vital Signs Date Time Temp Pulse Resp B/P (MAP) Pulse Ox O2 Delivery O2 Flow Rate FiO2 12/22/19 11:00 98.6 84 18 144/66 (92) 98 Room Air 98.6 Physical Exam General: Alert, Cooperative, Other (multiple missing teeth, not quite edentulous) Heart: Regular rate Lungs: Wheezing Abdomen: Soft Extremities: Other (The right foot has grossly normal alignment. The second third and fourth toes are completely necrotic with dry gangrene into the midfoot dorsally and plantarly. There is an odor but not severeI dont believe theres wet gangrene or gas. There is some ischemia and discoloration of the great toe and fifth toe and they are also likely nonviable. Despite the lateral malleolus fracture, there is minimal lateral malleolus swelling or tenderness. There is no ankle joint deformity. There is full-thickness dry gangrene along the sarita ntar aspect of the foot with some overlying loose skin, and unfortunately the proximal extent of the dry gangrene on the plantar foot would prevent transmetatarsal amputation. There is a full-thickness ulceration with dry necrotic blackened tissue at the Achilles, possible tendon involvement. Pulses are not palpable. She reports slight light touch sensation. I believe these gangrene and ulcer changes are related more to diabetic ischemia than to diabetic neuropathy.) Skin: No breakdown, Other (distal 1/3, of forefoot is black and complete eschar, and looks like it has been that way for awhile. 3 toes nearly auto amputated, ) Labs LABS Laboratory Tests Test 12/21/19 16:50 12/21/19 21:25 12/22/19 04:45 12/22/19 07:52 Glucose (Fingerstick) 140 mg/dL (70-99) 134 mg/dL (70-99) 133 mg/dL (70-99) White Blood Count 11.2 x10^3/uL (4.0-11.0) Red Blood Count 2.78 x10^6/uL (3.50-5.40) Hemoglobin 8.3 g/dL (12.0-15.5) Hematocrit 25.1 % (36.0-47.0) Mean Corpuscular Volume 90 fL (79-100) Mean Corpuscular Hemoglobin 30 pg (25-35) Mean Corpuscular Hemoglobin Concent 33 g/dL (31-37) Red Cell Distribution Width 15.0 % (11.5-14.5) Platelet Count 319 x10^3/uL (140-400) Neutrophils (%) (Auto) 76 % (31-73) Lymphocytes (%) (Auto) 15 % (24-48) Monocytes (%) (Auto) 7 % (0-9) Eosinophils (%) (Auto) 3 % (0-3) Basophils (%) (Auto) 0 % (0-3) Neutrophils # (Auto) 8.5 x10^3/uL (1.8-7.7) Lymphocytes # (Auto) 1.7 x10^3/uL (1.0-4.8) Monocytes # (Auto) 0.7 x10^3/uL (0.0-1.1) Eosinophils # (Auto) 0.3 x10^3/uL (0.0-0.7) Basophils # (Auto) 0.0 x10^3/uL (0.0-0.2) Sodium Level 139 mmol/L (136-145) Potassium Level 3.2 mmol/L (3.5-5.1) Chloride Level 104 mmol/L (98-107) Carbon Dioxide Level 27 mmol/L (21-32) Anion Gap 8 (6-14) Blood Urea Nitrogen 9 mg/dL (7-20) Creatinine 0.8 mg/dL (0.6-1.0) Estimated GFR (Cockcroft-Gault) 84.8 Glucose Level 173 mg/dL (70-99) Calcium Level 6.9 mg/dL (8.5-10.1) Test 12/22/19 11:32 Glucose (Fingerstick) 137 mg/dL (70-99) Review of Systems Review of Systems Denies pain, denies fever, denies chills, denies nausea. Assessment and Plan Assessmemt and Plan Problems Medical Problems: (1) Necrotic toes Status: Acute (2) Weakness Status: Acute (3) Wound infection Status: Acute (4) Severe Malnutrition Status: Acute on Chronic (5) DORA Vasomotor Nephropathy Status: Acute Plan: Patient requires further inpatient stay for further management and recommendations for safe plan of care. Comment Review of Relevant I have reviewed the following items da (where applicable) has been applied. Labs Laboratory Tests Test 12/20/19 16:47 12/20/19 20:19 12/21/19 03:00 12/21/19 07:49 Glucose (Fingerstick) 125 mg/dL (70-99) 126 mg/dL (70-99) 68 mg/dL (70-99) White Blood Count 13.2 x10^3/uL (4.0-11.0) Red Blood Count 2.76 x10^6/uL (3.50-5.40) Hemoglobin 8.3 g/dL (12.0-15.5) Hematocrit 25.0 % (36.0-47.0) Mean Corpuscular Volume 91 fL (79-100) Mean Corpuscular Hemoglobin 30 pg (25-35) Mean Corpuscular Hemoglobin Concent 33 g/dL (31-37) Red Cell Distribution Width 14.8 % (11.5-14.5) Platelet Count 320 x10^3/uL (140-400) Neutrophils (%) (Auto) 78 % (31-73) Lymphocytes (%) (Auto) 14 % (24-48) Monocytes (%) (Auto) 6 % (0-9) Eosinophils (%) (Auto) 2 % (0-3) Basophils (%) (Auto) 0 % (0-3) Neutrophils # (Auto) 10.2 x10^3/uL (1.8-7.7) Lymphocytes # (Auto) 1.8 x10^3/uL (1.0-4.8) Monocytes # (Auto) 0.8 x10^3/uL (0.0-1.1) Eosinophils # (Auto) 0.2 x10^3/uL (0.0-0.7) Basophils # (Auto) 0.0 x10^3/uL (0.0-0.2) Sodium Level 142 mmol/L (136-145) Potassium Level 3.2 mmol/L (3.5-5.1) Chloride Level 106 mmol/L (98-107) Carbon Dioxide Level 27 mmol/L (21-32) Anion Gap 9 (6-14) Blood Urea Nitrogen 11 mg/dL (7-20) Creatinine 0.8 mg/dL (0.6-1.0) Estimated GFR (Cockcroft-Gault) 84.8 Glucose Level 57 mg/dL (70-99) Calcium Level 7.6 mg/dL (8.5-10.1) Test 12/21/19 07:55 12/21/19 11:46 12/21/19 16:50 12/21/19 21:25 Glucose (Fingerstick) 70 mg/dL (70-99) 97 mg/dL (70-99) 140 mg/dL (70-99) 134 mg/dL (70-99) Test 12/22/19 04:45 12/22/19 07:52 12/22/19 11:32 White Blood Count 11.2 x10^3/uL (4.0-11.0) Red Blood Count 2.78 x10^6/uL (3.50-5.40) Hemoglobin 8.3 g/dL (12.0-15.5) Hematocrit 25.1 % (36.0-47.0) Mean Corpuscular Volume 90 fL (79-100) Mean Corpuscular Hemoglobin 30 pg (25-35) Mean Corpuscular Hemoglobin Concent 33 g/dL (31-37) Red Cell Distribution Width 15.0 % (11.5-14.5) Platelet Count 319 x10^3/uL (140-400) Neutrophils (%) (Auto) 76 % (31-73) Lymphocytes (%) (Auto) 15 % (24-48) Monocytes (%) (Auto) 7 % (0-9) Eosinophils (%) (Auto) 3 % (0-3) Basophils (%) (Auto) 0 % (0-3) Neutrophils # (Auto) 8.5 x10^3/uL (1.8-7.7) Lymphocytes # (Auto) 1.7 x10^3/uL (1.0-4.8) Monocytes # (Auto) 0.7 x10^3/uL (0.0-1.1) Eosinophils # (Auto) 0.3 x10^3/uL (0.0-0.7) Basophils # (Auto) 0.0 x10^3/uL (0.0-0.2) Sodium Level 139 mmol/L (136-145) Potassium Level 3.2 mmol/L (3.5-5.1) Chloride Level 104 mmol/L (98-107) Carbon Dioxide Level 27 mmol/L (21-32) Anion Gap 8 (6-14) Blood Urea Nitrogen 9 mg/dL (7-20) Creatinine 0.8 mg/dL (0.6-1.0) Estimated GFR (Cockcroft-Gault) 84.8 Glucose Level 173 mg/dL (70-99) Calcium Level 6.9 mg/dL (8.5-10.1) Glucose (Fingerstick) 133 mg/dL (70-99) 137 mg/dL (70-99) Laboratory Tests Test 12/21/19 16:50 12/21/19 21:25 12/22/19 04:45 12/22/19 07:52 Glucose (Fingerstick) 140 mg/dL (70-99) 134 mg/dL (70-99) 133 mg/dL (70-99) White Blood Count 11.2 x10^3/uL (4.0-11.0) Red Blood Count 2.78 x10^6/uL (3.50-5.40) Hemoglobin 8.3 g/dL (12.0-15.5) Hematocrit 25.1 % (36.0-47.0) Mean Corpuscular Volume 90 fL (79-100) Mean Corpuscular Hemoglobin 30 pg (25-35) Mean Corpuscular Hemoglobin Concent 33 g/dL (31-37) Red Cell Distribution Width 15.0 % (11.5-14.5) Platelet Count 319 x10^3/uL (140-400) Neutrophils (%) (Auto) 76 % (31-73) Lymphocytes (%) (Auto) 15 % (24-48) Monocytes (%) (Auto) 7 % (0-9) Eosinophils (%) (Auto) 3 % (0-3) Basophils (%) (Auto) 0 % (0-3) Neutrophils # (Auto) 8.5 x10^3/uL (1.8-7.7) Lymphocytes # (Auto) 1.7 x10^3/uL (1.0-4.8) Monocytes # (Auto) 0.7 x10^3/uL (0.0-1.1) Eosinophils # (Auto) 0.3 x10^3/uL (0.0-0.7) Basophils # (Auto) 0.0 x10^3/uL (0.0-0.2) Sodium Level 139 mmol/L (136-145) Potassium Level 3.2 mmol/L (3.5-5.1) Chloride Level 104 mmol/L (98-107) Carbon Dioxide Level 27 mmol/L (21-32) Anion Gap 8 (6-14) Blood Urea Nitrogen 9 mg/dL (7-20) Creatinine 0.8 mg/dL (0.6-1.0) Estimated GFR (Cockcroft-Gault) 84.8 Glucose Level 173 mg/dL (70-99) Calcium Level 6.9 mg/dL (8.5-10.1) Test 12/22/19 11:32 Glucose (Fingerstick) 137 mg/dL (70-99) Microbiology 12/16/19 Blood Culture - Final, Complete NO GROWTH AFTER 5 DAYS Medications Current Medications Piperacillin Sod/ Tazobactam Sod 3.375 gm/Sodium Chloride 50 ml @ 100 mls/hr 1X ONCE IV Last administered on 12/16/19at 11:26; Start 12/16/19 at 11:15; Stop 12/16/19 at 11:44; Status DC Sodium Chloride 1,000 ml @ 1,000 mls/hr 1X ONCE IV Last administered on 12/16/19at 11:25; Start 12/16/19 at 11:15; Stop 12/16/19 at 12:14; Status DC Oxycodone/ Acetaminophen (Percocet 5/325) 1 tab Q4HRS PO ; Start 12/16/19 at 16:00; Stop 12/16/19 at 18:36; Status DC Lisinopril (Prinivil) 20 mg DAILY PO ; Start 12/16/19 at 16:00; Stop 12/16/19 at 16:22; Status DC Cetirizine HCl (ZyrTEC) 10 mg DAILY PO ; Start 12/16/19 at 16:00; Stop 12/16/19 at 16:22; Status DC Atorvastatin Calcium (Lipitor) 5 mg QHS PO ; Start 12/16/19 at 21:00; Stop 12/16/19 at 16:22; Status DC Ondansetron HCl (Zofran Odt) 4 mg Q6HRS PO Last administered on 12/19/19at 05:50; Start 12/16/19 at 18:00; Stop 12/19/19 at 14:48; Status DC Non-Formulary Medication (Ranitidine Hcl (Zantac)) 1 tab BID PO ; Start 12/16/19 at 21:00; Stop 12/16/19 at 16:22; Status DC Piperacillin Sod/ Tazobactam Sod (Zosyn Per Pharmacy) 1 each PRN DAILY PRN MC SEE COMMENTS; Start 12/16/19 at 15:15 Sodium Chloride 1,000 ml @ 100 mls/hr 1X ONCE IV Last administered on 12/16/19 at 16:43; Start 12/16/19 at 15:15; Stop 12/17/19 at 01:14; Status DC Insulin Human Lispro (HumaLOG) 0-9 UNITS TIDWMEALS SQ Last administered on 12/18/19at 16:45; Start 12/16/19 at 17:00 Dextrose (Dextrose 50%-Water Syringe) 12.5 gm PRN Q15MIN PRN IV SEE COMMENTS; Start 12/16/19 at 15:15 Insulin Glargine (Lantus Syringe) 10 unit QHS SQ Last administered on 12/21/19at 21:54; Start 12/16/19 at 21:00 Piperacillin Sod/ Tazobactam Sod 3.375 gm/Sodium Chloride 50 ml @ 100 mls/hr Q6HRS IV ; Start 12/16/19 at 18:00; Status Cancel Piperacillin Sod/ Tazobactam Sod 2.25 gm/Sodium Chloride 50 ml @ 100 mls/hr Q6HRS IV Last administered on 12/22/19at 06:34; Start 12/16/19 at 18:00 Hydrochlorothiazide (Microzide) 12.5 mg DAILY PO ; Start 12/16/19 at 16:00; Stop 12/16/19 at 16:22; Status DC Heparin Sodium (Porcine) (Heparin Sodium) 5,000 unit 1X ONCE SQ Last administered on 12/16/19at 17:50; Start 12/16/19 at 17:45; Stop 12/16/19 at 17:46; Status DC Oxycodone/ Acetaminophen (Percocet 5/325) 1 tab PRN Q4HRS PRN PO PAIN Last administered on 12/22/19at 09:45; Start 12/16/19 at 18:45 Morphine Sulfate (Morphine Sulfate) 4 mg PRN Q2HR PRN IV PAIN Last administered on 12/20/19at 08:33; Start 12/16/19 at 19:45 Ringer's Solution 1,000 ml @ 100 mls/hr Q10H IV Last administered on 12/20/19at 08:10; Start 12/17/19 at 10:30; Stop 12/20/19 at 15:47; Status DC Lactobacillus Rhamnosus (Culturelle) 1 cap BID PO Last administered on 12/22/19at 09:31; Start 12/17/19 at 21:00 Ondansetron HCl (Zofran Odt) 4 mg PRN Q6HRS PRN PO NAUSEA; Start 12/19/19 at 15:00 Iohexol (Omnipaque 350 Mg/ml) 80 ml 1X ONCE IV Last administered on 12/19/19at 15:08; Start 12/19/19 at 15:00; Stop 12/19/19 at 15:01; Status DC Lidocaine HCl (Buffered Lidocaine 1%) 3 ml STK-MED ONCE .ROUTE ; Start 12/20/19 at 11:59; Stop 12/20/19 at 11:59; Status DC Iodixanol (Visipaque 320) 100 ml STK-MED ONCE .ROUTE ; Start 12/20/19 at 11:59; Stop 12/20/19 at 11:59; Status DC Heparin Sodium/ Sodium Chloride 1,500 ml @ As Directed STK-MED ONCE .ROUTE ; Start 12/20/19 at 11:59; Stop 12/20/19 at 11:59; Status DC Midazolam HCl (Versed) 2 mg STK-MED ONCE .ROUTE ; Start 12/20/19 at 12:34; Stop 12/20/19 at 12:34; Status DC Fentanyl Citrate (Fentanyl 2ml Vial) 100 mcg STK-MED ONCE .ROUTE ; Start 12/20/19 at 12:34; Stop 12/20/19 at 12:34; Status DC Heparin Sodium (Porcine) (Heparin Sodium) 10,000 unit STK-MED ONCE .ROUTE ; Start 12/20/19 at 12:34; Stop 12/20/19 at 12:34; Status DC Heparin Sodium/ Sodium Chloride (HEPARIN for ARTERIAL LINE FLUSH) 1,000 unit 1X ONCE IART Last administered on 12/20/19at 13:56; Start 12/20/19 at 13:30; Stop 12/20/19 at 13:42; Status DC Heparin Sodium/ Sodium Chloride (HEPARIN for ARTERIAL LINE FLUSH) 1,000 unit 1X ONCE IART Last administered on 12/20/19at 13:57; Start 12/20/19 at 13:30; Stop 12/20/19 at 13:42; Status DC Lidocaine HCl (Buffered Lidocaine 1%) 3 ml 1X ONCE IJ Last administered on 12/20/19at 13:55; Start 12/20/19 at 13:30; Stop 12/20/19 at 13:42; Status DC Midazolam HCl (Versed) 2 mg 1X ONCE IV Last administered on 12/20/19at 13:58; Start 12/20/19 at 13:30; Stop 12/20/19 at 13:42; Status DC Fentanyl Citrate (Fentanyl 2ml Vial) 100 mcg 1X ONCE IV Last administered on 12/20/19at 13:58; Start 12/20/19 at 13:30; Stop 12/20/19 at 13:42; Status DC Iodixanol (Visipaque 320) 100 ml 1X ONCE IART Last administered on 12/20/19at 13:55; Start 12/20/19 at 13:30; Stop 12/20/19 at 13:42; Status DC Heparin Sodium (Porcine) (Heparin Sodium) 5,000 unit 1X ONCE IV Last administered on 12/20/19at 13:59; Start 12/20/19 at 13:30; Stop 12/20/19 at 13:42; Status DC Heparin Sodium/ Sodium Chloride (HEPARIN for ARTERIAL LINE FLUSH) 1,000 unit 1X ONCE IV Last administered on 12/20/19at 13:57; Start 12/20/19 at 13:30; Stop 12/20/19 at 13:42; Status DC Info (CONTRAST GIVEN -- Rx MONITORING) 1 each PRN DAILY PRN MC SEE COMMENTS; Start 12/20/19 at 13:45; Stop 12/22/19 at 13:44 Clopidogrel Bisulfate (Plavix) 75 mg DAILYWBKFT PO Last administered on 12/22/19at 09:31; Start 12/21/19 at 08:00 Nystatin (Nystop) 1 maryam BID TP Last administered on 12/22/19at 09:32; Start 12/21/19 at 12:00 Active Scripts Active Zofran (Ondansetron Hcl) 4 Mg Tablet 1 Tab PO Q6HRS Percocet 5-325 Mg Tablet (Oxycodone/Acetaminophen) 1 Each Tablet 1-2 Tab PO Q4-6HRS Vitals/I & O Vital Sign - Last 24 Hours 12/21/19 12/21/19 12/21/19 12/21/19 14:44 15:00 15:34 19:00 Temp 98.3 98.7 98.3 98.7 Pulse 68 76 Resp 16 16 B/P (MAP) 133/67 (89) 145/59 (87) Pulse Ox 97 98 97 96 O2 Delivery Room Air Room Air Room Air Room Air 12/21/19 12/21/19 12/21/19 12/21/19 20:00 21:27 22:27 23:00 Temp 98.7 98.7 Pulse 78 Resp 16 B/P (MAP) 104/83 (90) Pulse Ox 97 O2 Delivery Room Air Room Air Room Air Room Air 12/22/19 12/22/19 12/22/19 12/22/19 03:00 07:00 09:45 10:45 Temp 98.7 98.6 98.7 98.6 Pulse 72 82 Resp 16 18 B/P (MAP) 147/61 (89) 168/47 (87) Pulse Ox 98 96 O2 Delivery Room Air Room Air Room Air Room Air 12/22/19 11:00 Temp 98.6 98.6 Pulse 84 Resp 18 B/P (MAP) 144/66 (92) Pulse Ox 98 O2 Delivery Room Air Intake and Output 12/21/19 12/21/19 12/22/19 15:00 23:00 07:00 Intake Total 150 ml 250 ml Balance 150 ml 250 ml Justicifation of Admission Dx: Justifications for Admission: Justification of Admission Dx: Yes KRISHAN GARBER MD Dec 22, 2019 12:33
[2019-12-22 15:00] VITALS: BP 130/64
--- NOTE | 2019-12-22 15:43 | NUR ---
Wound/Ostomy Care Wound Type/Assessment: Consult for right foot DFU, right Achilles DFU and left great toe DFU. R foot is blackened, necrotic, soft area to plantar foot with brown drainage, foul smell. R achilles has slough and eschar, black, foul smelling. Left great toe with darken callous. coccyx/buttocks is pink but not open, calazime applied for protection. Treatment Recommendations/Plan: All wounds painted with Betadine. Right foot was covered with abd and kerlix and Rooke boot. Left great toe JONNY. Education provided: Attempted to educate pt on risk for sepsis if she refuses surgery, pt is in denial about severity of her foot wound and wants to obtain second opinion to save her foot. PU ulcer prevention education done as well. Offloading surface/device: Purple wedge, pillows to elevate legs, Rooke boot to right foot. Recommended Referrals/Tests: pt is refusing vascular/ortho recommendations for BKA. Per pt,she would like to transfer to a different hospital/facility where they don,t recommend amputation to her right foot as she believes she can heal it. Discharge Recommendations for dressings:
--- NOTE | 2019-12-22 16:21 | NUR ---
will follow up tomorrow 12/22, will have Dr. Jacquelin nowak.
[2019-12-22 19:47] VITALS: BP 128/62
[2019-12-22] MEDS ORDERED: INSULIN LISPRO 300 UNITS/3 ML VIAL. SQ ONE (21:15)
[2019-12-22] MEDS: INSULIN GLARGINE SYRINGE. SQ SCH (21:19)
[2019-12-22 23:34] VITALS: BP 137/59
[2019-12-23] MEDS: PIPERACILLIN/TAZOBACTAM 2.25 GM in IV NORMAL SALINE 50ML 50 ML IV SCH ×4 (00:14→17:49)
[2019-12-23 03:23] VITALS: BP 150/71
[2019-12-23] MEDS: oxyCODONE/APAP 5/325 1 TAB TABLET PO PRN ×5 (06:33→22:35)
[2019-12-23 07:00] VITALS: BP 172/79
[2019-12-23] MEDS: INSULIN LISPRO 300 UNITS/3 ML VIAL. SQ SCH ×3 (08:00→17:00)
[2019-12-23] MEDS: MULTIVITAMIN with MINERAL TABLET. PO SCH (08:33)
[2019-12-23] MEDS: CLOPIDOGREL BISULFATE 75 MG TABLET PO SCH (08:33)
[2019-12-23] MEDS: LACTOBACILLUS RHAMNOSUS GG 1 CAPSULE. PO SCH ×2 (08:33→20:56)
[2019-12-23] MEDS: NYSTATIN TOPICAL POWDER 15GM BOTTLE. TP SCH ×2 (08:34→21:06)
[2019-12-23 10:05] LABS: BASO # 0.1 x10^3/uL (0.0-0.2); BASO % 1 % (0-3); EOS # 0.2 x10^3/uL (0.0-0.7); EOS % 2 % (0-3); HEMOGLOBIN 8.4 g/dL (12.0-15.5); LYMPH # 1.7 x10^3/uL (1.0-4.8); LYMPH % 14 % (24-48); MEAN CORPUSCULAR HEMOGLOBIN 30 pg (25-35); MEAN CORPUSCULAR HGB CONC 33 g/dL (31-37); MEAN CORPUSCULAR VOLUME 90 fL (79-100); MONO # 0.7 x10^3/uL (0.0-1.1); MONO % 5 % (0-9); NEUT # 10.1 x10^3/uL (1.8-7.7); NEUT % 79 % (31-73); PLATELET COUNT 386 x10^3/uL (140-400); RED BLOOD COUNT 2.79 x10^6/uL (3.50-5.40); RED CELL DISTRIBUTION WIDTH 14.9 % (11.5-14.5); WHITE BLOOD COUNT 12.8 x10^3/uL (4.0-11.0)
[2019-12-23 10:15] LABS: CALCIUM 7.4 mg/dL (8.5-10.1); CREATININE 0.7 mg/dL (0.6-1.0); POTASSIUM 3.4 mmol/L (3.5-5.1)
[2019-12-23 11:00] VITALS: BP 113/56
--- NOTE | 2019-12-23 14:18 | PDOC ---
PROGRESS NOTES Date of Service: DATE: 12/23/19 TIME: 14:03 Chief Complaint Chief Complaint falls, worsening weakness, cannot walk, DM2, poor control she is off meds, denies any problem cognitive decline - dementia likely eschar foot and toes, ischemic injury, dry gangrene ( needs BKA) History of Present Illness History of Present Illness I met with patient, her mother, case management, licensed social worker, and her brother and [id number] via phone to discuss her options since she is declining definitive treatment for her necrotic foot. Patient remains adamant about not having foot amputation. Greater than 35 minutes was spent counseling and coordinating her care. She denies significant pain, denies fever, denies chills, denies nausea. Vitals Vitals Vital Signs Date Time Temp Pulse Resp B/P (MAP) Pulse Ox O2 Delivery O2 Flow Rate FiO2 12/23/19 11:40 Room Air 12/23/19 11:00 98.7 88 20 113/56 (75) 95 98.7 Physical Exam General: Alert, Cooperative, Other (multiple missing teeth, not quite edentulous) Heart: Regular rate Lungs: Wheezing Abdomen: Soft Extremities: Other (The right foot has grossly normal alignment. The second third and fourth toes are completely necrotic with dry gangrene into the midfoot dorsally and plantarly. There is an odor but not severeI dont believe theres wet gangrene or gas. There is some ischemia and discoloration of the great toe and fifth toe and they are also likely nonviable. Despite the lateral malleolus fracture, there is minimal lateral malleolus swelling or tenderness. There is no ankle joint deformity. There is full-thickness dry gangrene along the plantar aspect of the foot with some overlying loose skin, and unfortunately the proximal extent of the dry gangrene on the plantar foot would prevent transmetatarsal amputation. There is a full-thickness ulceration with dry necrotic blackened tissue at the Achilles, possible tendon involvement. Pulses are not palpable. She reports slight light touch sensation. I believe these gangrene and ulcer changes are related more to diabetic ischemia than to diabetic neuropathy.) Skin: No breakdown, Other (distal 1/3, of forefoot is black and complete eschar, and looks like it has been that way for awhile. 3 toes nearly auto amputated, ) Labs LABS Laboratory Tests Test 12/22/19 16:30 12/22/19 20:41 12/23/19 08:13 12/23/19 09:15 Glucose (Fingerstick) 176 mg/dL (70-99) 249 mg/dL (70-99) 123 mg/dL (70-99) White Blood Count 12.8 x10^3/uL (4.0-11.0) Red Blood Count 2.79 x10^6/uL (3.50-5.40) Hemoglobin 8.4 g/dL (12.0-15.5) Hematocrit 25.0 % (36.0-47.0) Mean Corpuscular Volume 90 fL (79-100) Mean Corpuscular Hemoglobin 30 pg (25-35) Mean Corpuscular Hemoglobin Concent 33 g/dL (31-37) Red Cell Distribution Width 14.9 % (11.5-14.5) Platelet Count 386 x10^3/uL (140-400) Neutrophils (%) (Auto) 79 % (31-73) Lymphocytes (%) (Auto) 14 % (24-48) Monocytes (%) (Auto) 5 % (0-9) Eosinophils (%) (Auto) 2 % (0-3) Basophils (%) (Auto) 1 % (0-3) Neutrophils # (Auto) 10.1 x10^3/uL (1.8-7.7) Lymphocytes # (Auto) 1.7 x10^3/uL (1.0-4.8) Monocytes # (Auto) 0.7 x10^3/uL (0.0-1.1) Eosinophils # (Auto) 0.2 x10^3/uL (0.0-0.7) Basophils # (Auto) 0.1 x10^3/uL (0.0-0.2) Sodium Level 140 mmol/L (136-145) Potassium Level 3.4 mmol/L (3.5-5.1) Chloride Level 104 mmol/L (98-107) Carbon Dioxide Level 30 mmol/L (21-32) Anion Gap 6 (6-14) Blood Urea Nitrogen 7 mg/dL (7-20) Creatinine 0.7 mg/dL (0.6-1.0) Estimated GFR (Cockcroft-Gault) 99.0 Glucose Level 132 mg/dL (70-99) Calcium Level 7.4 mg/dL (8.5-10.1) Test 12/23/19 11:40 Glucose (Fingerstick) 152 mg/dL (70-99) Assessment and Plan Assessmemt and Plan Problems Medical Problems: (1) Necrotic toes Status: Acute (2) Weakness Status: Acute (3) Wound infection Status: Acute Plan:Counseled patient on her poor prognosis if she does not proceed with surge ry. I offered the option of pursuing second opinions at other outside facilities should she require inpatient treatment in the future. Patient was offered home health, but she would need to pay [id number] if she requires [id number] care. Greater than 50% of my time, and roughly 35 minutes, was spent counseling coordinating patient's care Comment Review of Relevant I have reviewed the following items da (where applicable) has been applied. Labs Laboratory Tests Test 12/21/19 16:50 12/21/19 21:25 12/22/19 04:45 12/22/19 07:52 Glucose (Fingerstick) 140 mg/dL (70-99) 134 mg/dL (70-99) 133 mg/dL (70-99) White Blood Count 11.2 x10^3/uL (4.0-11.0) Red Blood Count 2.78 x10^6/uL (3.50-5.40) Hemoglobin 8.3 g/dL (12.0-15.5) Hematocrit 25.1 % (36.0-47.0) Mean Corpuscular Volume 90 fL (79-100) Mean Corpuscular Hemoglobin 30 pg (25-35) Mean Corpuscular Hemoglobin Concent 33 g/dL (31-37) Red Cell Distribution Width 15.0 % (11.5-14.5) Platelet Count 319 x10^3/uL (140-400) Neutrophils (%) (Auto) 76 % (31-73) Lymphocytes (%) (Auto) 15 % (24-48) Monocytes (%) (Auto) 7 % (0-9) Eosinophils (%) (Auto) 3 % (0-3) Basophils (%) (Auto) 0 % (0-3) Neutrophils # (Auto) 8.5 x10^3/uL (1.8-7.7) Lymphocytes # (Auto) 1.7 x10^3/uL (1.0-4.8) Monocytes # (Auto) 0.7 x10^3/uL (0.0-1.1) Eosinophils # (Auto) 0.3 x10^3/uL (0.0-0.7) Basophils # (Auto) 0.0 x10^3/uL (0.0-0.2) Sodium Level 139 mmol/L (136-145) Potassium Level 3.2 mmol/L (3.5-5.1) Chloride Level 104 mmol/L (98-107) Carbon Dioxide Level 27 mmol/L (21-32) Anion Gap 8 (6-14) Blood Urea Nitrogen 9 mg/dL (7-20) Creatinine 0.8 mg/dL (0.6-1.0) Estimated GFR (Cockcroft-Gault) 84.8 Glucose Level 173 mg/dL (70-99) Calcium Level 6.9 mg/dL (8.5-10.1) Test 12/22/19 11:32 12/22/19 16:30 12/22/19 20:41 12/23/19 08:13 Glucose (Fingerstick) 137 mg/dL (70-99) 176 mg/dL (70-99) 249 mg/dL (70-99) 123 mg/dL (70-99) Test 12/23/19 09:15 12/23/19 11:40 White Blood Count 12.8 x10^3/uL (4.0-11.0) Red Blood Count 2.79 x10^6/uL (3.50-5.40) Hemoglobin 8.4 g/dL (12.0-15.5) Hematocrit 25.0 % (36.0-47.0) Mean Corpuscular Volume 90 fL (79-100) Mean Corpuscular Hemoglobin 30 pg (25-35) Mean Corpuscular Hemoglobin Concent 33 g/dL (31-37) Red Cell Distribution Width 14.9 % (11.5-14.5) Platelet Count 386 x10^3/uL (140-400) Neutrophils (%) (Auto) 79 % (31-73) Lymphocytes (%) (Auto) 14 % (24-48) Monocytes (%) (Auto) 5 % (0-9) Eosinophils (%) (Auto) 2 % (0-3) Basophils (%) (Auto) 1 % (0-3) Neutrophils # (Auto) 10.1 x10^3/uL (1.8-7.7) Lymphocytes # (Auto) 1.7 x10^3/uL (1.0-4.8) Monocytes # (Auto) 0.7 x10^3/uL (0.0-1.1) Eosinophils # (Auto) 0.2 x10^3/uL (0.0-0.7) Basophils # (Auto) 0.1 x10^3/uL (0.0-0.2) Sodium Level 140 mmol/L (136-145) Potassium Level 3.4 mmol/L (3.5-5.1) Chloride Level 104 mmol/L (98-107) Carbon Dioxide Level 30 mmol/L (21-32) Anion Gap 6 (6-14) Blood Urea Nitrogen 7 mg/dL (7-20) Creatinine 0.7 mg/dL (0.6-1.0) Estimated GFR (Cockcroft-Gault) 99.0 Glucose Level 132 mg/dL (70-99) Calcium Level 7.4 mg/dL (8.5-10.1) Glucose (Fingerstick) 152 mg/dL (70-99) Laboratory Tests Test 12/22/19 16:30 12/22/19 20:41 12/23/19 08:13 12/23/19 09:15 Glucose (Fingerstick) 176 mg/dL (70-99) 249 mg/dL (70-99) 123 mg/dL (70-99) White Blood Count 12.8 x10^3/uL (4.0-11.0) Red Blood Count 2.79 x10^6/uL (3.50-5.40) Hemoglobin 8.4 g/dL (12.0-15.5) Hematocrit 25.0 % (36.0-47.0) Mean Corpuscular Volume 90 fL (79-100) Mean Corpuscular Hemoglobin 30 pg (25-35) Mean Corpuscular Hemoglobin Concent 33 g/dL (31-37) Red Cell Distribution Width 14.9 % (11.5-14.5) Platelet Count 386 x10^3/uL (140-400) Neutrophils (%) (Auto) 79 % (31-73) Lymphocytes (%) (Auto) 14 % (24-48) Monocytes (%) (Auto) 5 % (0-9) Eosinophils (%) (Auto) 2 % (0-3) Basophils (%) (Auto) 1 % (0-3) Neutrophils # (Auto) 10.1 x10^3/uL (1.8-7.7) Lymphocytes # (Auto) 1.7 x10^3/uL (1.0-4.8) Monocytes # (Auto) 0.7 x10^3/uL (0.0-1.1) Eosinophils # (Auto) 0.2 x10^3/uL (0.0-0.7) Basophils # (Auto) 0.1 x10^3/uL (0.0-0.2) Sodium Level 140 mmol/L (136-145) Potassium Level 3.4 mmol/L (3.5-5.1) Chloride Level 104 mmol/L (98-107) Carbon Dioxide Level 30 mmol/L (21-32) Anion Gap 6 (6-14) Blood Urea Nitrogen 7 mg/dL (7-20) Creatinine 0.7 mg/dL (0.6-1.0) Estimated GFR (Cockcroft-Gault) 99.0 Glucose Level 132 mg/dL (70-99) Calcium Level 7.4 mg/dL (8.5-10.1) Test 12/23/19 11:40 Glucose (Fingerstick) 152 mg/dL (70-99) Microbiology 12/16/19 Blood Culture - Final, Complete NO GROWTH AFTER 5 DAYS Medications Current Medications Piperacillin Sod/ Tazobactam Sod 3.375 gm/Sodium Chloride 50 ml @ 100 mls/hr 1X ONCE IV Last administered on 12/16/19at 11:26; Start 12/16/19 at 11:15; Stop 12/16/19 at 11:44; Status DC Sodium Chloride 1,000 ml @ 1,000 mls/hr 1X ONCE IV Last administered on 12/16/19at 11:25; Start 12/16/19 at 11:15; Stop 12/16/19 at 12:14; Status DC Oxycodone/ Acetaminophen (Percocet 5/325) 1 tab Q4HRS PO ; Start 12/16/19 at 16:00; Stop 12/16/19 at 18:36; Status DC Lisinopril (Prinivil) 20 mg DAILY PO ; Start 12/16/19 at 16:00; Stop 12/16/19 at 16:22; Status DC Cetirizine HCl (ZyrTEC) 10 mg DAILY PO ; Start 12/16/19 at 16:00; Stop 12/16/19 at 16:22; Status DC Atorvastatin Calcium (Lipitor) 5 mg QHS PO ; Start 12/16/19 at 21:00; Stop 12/16/19 at 16:22; Status DC Ondansetron HCl (Zofran Odt) 4 mg Q6HRS PO Last administered on 12/19/19at 05:50; Start 12/16/19 at 18:00; Stop 12/19/19 at 14:48; Status DC Non-Formulary Medication (Ranitidine Hcl (Zantac)) 1 tab BID PO ; Start 12/16/19 at 21:00; Stop 12/16/19 at 16:22; Status DC Piperacillin Sod/ Tazobactam Sod (Zosyn Per Pharmacy) 1 each PRN DAILY PRN MC SEE COMMENTS; Start 12/16/19 at 15:15 Sodium Chloride 1,000 ml @ 100 mls/hr 1X ONCE IV Last administered on 12/16/19at 16:43; Start 12/16/19 at 15:15; Stop 12/17/19 at 01:14; Status DC Insulin Human Lispro (HumaLOG) 0-9 UNITS TIDWMEALS SQ Last administered on 12/18/19at 16:45; Start 12/16/19 at 17:00 Dextrose (Dextrose 50%-Water Syringe) 12.5 gm PRN Q15MIN PRN IV SEE COMMENTS; Start 12/16/19 at 15:15 Insulin Glargine (Lantus Syringe) 10 unit QHS SQ Last administered on 12/22/19at 21:19; Start 12/16/19 at 21:00 Piperacillin Sod/ Tazobactam Sod 3.375 gm/Sodium Chloride 50 ml @ 100 mls/hr Q6HRS IV ; Start 12/16/19 at 18:00; Status Cancel Piperacillin Sod/ Tazobactam Sod 2.25 gm/Sodium Chloride 50 ml @ 100 mls/hr Q6HRS IV Last administered on 12/23/19at 12:48; Start 12/16/19 at 18:00 Hydrochlorothiazide (Microzide) 12.5 mg DAILY PO ; Start 12/16/19 at 16:00; Stop 12/16/19 at 16:22; Status DC Heparin Sodium (Porcine) (Heparin Sodium) 5,000 unit 1X ONCE SQ Last administered on 12/16/19at 17:50; Start 12/16/19 at 17:45; Stop 12/16/19 at 17:46; Status DC Oxycodone/ Acetaminophen (Percocet 5/325) 1 tab PRN Q4HRS PRN PO PAIN Last administered on 12/23/19at 10:40; Start 12/16/19 at 18:45 Morphine Sulfate (Morphine Sulfate) 4 mg PRN Q2HR PRN IV PAIN Last administered on 12/20/19at 08:33; Start 12/16/19 at 19:45 Ringer's Solution 1,000 ml @ 100 mls/hr Q10H IV Last administered on 12/20/19at 08:10; Start 12/17/19 at 10:30; Stop 12/20/19 at 15:47; Status DC Lactobacillus Rhamnosus (Culturelle) 1 cap BID PO Last administered on 12/23/19at 08:33; Start 12/17/19 at 21:00 Ondansetron HCl (Zofran Odt) 4 mg PRN Q6HRS PRN PO NAUSEA; Start 12/19/19 at 15:00 Iohexol (Omnipaque 350 Mg/ml) 80 ml 1X ONCE IV Last administered on 12/19/19at 15:08; Start 12/19/19 at 15:00; Stop 12/19/19 at 15:01; Status DC Lidocaine HCl (Buffered Lidocaine 1%) 3 ml STK-MED ONCE .ROUTE ; Start 12/20/19 at 11:59; Stop 12/20/19 at 11:59; Status DC Iodixanol (Visipaque 320) 100 ml STK-MED ONCE .ROUTE ; Start 12/20/19 at 11:59; Stop 12/20/19 at 11:59; Status DC Heparin Sodium/ Sodium Chloride 1,500 ml @ As Directed STK-MED ONCE .ROUTE ; Start 12/20/19 at 11:59; Stop 12/20/19 at 11:59; Status DC Midazolam HCl (Versed) 2 mg STK-MED ONCE .ROUTE ; Start 12/20/19 at 12:34; Stop 12/20/19 at 12:34; Status DC Fentanyl Citrate (Fentanyl 2ml Vial) 100 mcg STK-MED ONCE .ROUTE ; Start 12/20/19 at 12:34; Stop 12/20/19 at 12:34; Status DC Heparin Sodium (Porcine) (Heparin Sodium) 10,000 unit STK-MED ONCE .ROUTE ; Start 12/20/19 at 12:34; Stop 12/20/19 at 12:34; Status DC Heparin Sodium/ Sodium Chloride (HEPARIN for ARTERIAL LINE FLUSH) 1,000 unit 1X ONCE IART Last administered on 12/20/19at 13:56; Start 12/20/19 at 13:30; Stop 12/20/19 at 13:42; Status DC Heparin Sodium/ Sodium Chloride (HEPARIN for ARTERIAL LINE FLUSH) 1,000 unit 1X ONCE IART Last administered on 12/20/19at 13:57; Start 12/20/19 at 13:30; Stop 12/20/19 at 13:42; Status DC Lidocaine HCl (Buffered Lidocaine 1%) 3 ml 1X ONCE IJ Last administered on 12/20/19at 13:55; Start 12/20/19 at 13:30; Stop 12/20/19 at 13:42; Status DC Midazolam HCl (Versed) 2 mg 1X ONCE IV Last administered on 12/20/19at 13:58; Start 12/20/19 at 13:30; Stop 12/20/19 at 13:42; Status DC Fentanyl Citrate (Fentanyl 2ml Vial) 100 mcg 1X ONCE IV Last administered on 12/20/19at 13:58; Start 12/20/19 at 13:30; Stop 12/20/19 at 13:42; Status DC Iodixanol (Visipaque 320) 100 ml 1X ONCE IART Last administered on 12/20/19at 13:55; Start 12/20/19 at 13:30; Stop 12/20/19 at 13:42; Status DC Heparin Sodium (Porcine) (Heparin Sodium) 5,000 unit 1X ONCE IV Last administered on 12/20/19at 13:59; Start 12/20/19 at 13:30; Stop 12/20/19 at 13:42; Status DC Heparin Sodium/ Sodium Chloride (HEPARIN for ARTERIAL LINE FLUSH) 1,000 unit 1X ONCE IV Last administered on 12/20/19at 13:57; Start 12/20/19 at 13:30; Stop 12/20/19 at 13:42; Status DC Info (CONTRAST GIVEN -- Rx MONITORING) 1 each PRN DAILY PRN MC SEE COMMENTS; Start 12/20/19 at 13:45; Stop 12/22/19 at 13:44; Status DC Clopidogrel Bisulfate (Plavix) 75 mg DAILYWBKFT PO Last administered on 12/23/19at 08:33; Start 12/21/19 at 08:00 Nystatin (Nystop) 1 maryam BID TP Last administered on 12/23/19at 08:34; Start 12/21/19 at 12:00 Multivitamins (Thera M Plus) 1 tab DAILY PO Last administered on 12/23/19at 08:33; Start 12/23/19 at 09:00 Insulin Human Lispro (HumaLOG) 3 units 1X ONCE SQ Last administered on 12/22/19at 21:15; Start 12/22/19 at 21:15; Stop 12/22/19 at 21:16; Status DC Active Scripts Active Zofran (Ondansetron Hcl) 4 Mg Tablet 1 Tab PO Q6HRS Percocet 5-325 Mg Tablet (Oxycodone/Acetaminophen) 1 Each Tablet 1-2 Tab PO Q4-6HRS Vitals/I & O Vital Sign - Last 24 Hours 12/22/19 12/22/19 12/22/19 12/22/19 15:00 16:25 17:25 19:47 Temp 98.6 99.7 98.6 99.7 Pulse 78 89 Resp 18 18 B/P (MAP) 130/64 (86) 128/62 (84) Pulse Ox 97 96 O2 Delivery Room Air Room Air Room Air Room Air 12/22/19 12/22/19 12/22/19 12/22/19 20:00 21:11 22:11 23:34 Temp 98.7 98.7 Pulse 78 Resp 18 B/P (MAP) 137/59 (85) Pulse Ox 97 O2 Delivery Room Air Room Air Room Air Room Air 12/23/19 12/23/19 12/23/19 12/23/19 03:23 06:33 07:00 07:30 Temp 98.8 98.7 98.8 98.7 Pulse 80 86 Resp 18 18 B/P (MAP) 150/71 (97) 172/79 (110) Pulse Ox 97 O2 Delivery Room Air Room Air Room Air Room Air 12/23/19 12/23/19 12/23/19 12/23/19 08:00 10:40 11:00 11:40 Temp 98.7 98.7 Pulse 88 Resp 20 B/P (MAP) 113/56 (75) Pulse Ox 95 O2 Delivery Room Air Room Air Room Air Room Air Intake and Output 12/22/19 12/22/19 12/23/19 15:00 23:00 07:00 Intake Total 180 ml Balance 180 ml Justicifation of Admission Dx: Justifications for Admission: Justification of Admission Dx: Yes KRISHAN AGRBER MD Dec 23, 2019 14:18
[2019-12-23 15:00] VITALS: BP 134/56
--- NOTE | 2019-12-23 15:13 | PDOC2 ---
Chief Complaint: Chief Complaint: Pt fell and presented to ER where gangrenous foot ulcer was diagnosed with leukocytosis. Problems: (1) Gangrene associated with type 2 diabetes mellitus (2) Gangrene due to arterial insufficiency (3) Wound infection (4) Necrotic toes Vital Signs: Vital Signs: Vital Signs Date Time Temp Pulse Resp B/P (MAP) Pulse Ox O2 Delivery O2 Flow Rate FiO2 12/22/19 07:00 98.6 82 18 168/47 (87) 96 Room Air 98.6 Vital Signs Date Time Temp Pulse Resp B/P (MAP) Pulse Ox O2 Delivery O2 Flow Rate FiO2 12/23/19 11:40 Room Air 12/23/19 11:00 98.7 88 20 113/56 (75) 95 98.7 Allergies: Allergies: Allergies Coded Allergies Type Severity Reaction Last Updated Verified No Known Drug Allergies 01/18/16 No Medications: Home Meds Active Scripts Ondansetron Hcl (ZOFRAN) 4 Mg Tablet, 1 TAB PO Q6HRS, #13 TAB Prov:CARLOZ LEGER MD 11/15/15 Oxycodone/Apap 5-325 (PERCOCET 5-325 MG TABLET ) 1 Each Tablet, 1-2 TAB PO Q4- 6HRS, #23 TAB Prov:CARLOZ LEGER MD 11/15/15 Discontinued Reported Medications Lisinopril/Hydrochlorothiazide (LISINOPRIL-HCTZ 20-12.5 MG TAB) 1 Each Tablet, 1 TAB PO DAILY, #30 TAB 5 Refills 11/15/15 Lovastatin (LOVASTATIN) 20 Mg Tablet, 10 MG PO HS, TAB 11/15/15 Metformin Hcl (METFORMIN HCL) 500 Mg Tablet, 1 TAB PO BID, #60 TAB 3 Refills 11/15/15 Ranitidine Hcl (ZANTAC) 150 Mg Tablet, 1 TAB PO BID, #60 TAB 3 Refills 11/15/15 Loratadine (CLARITIN) 10 Mg Tablet, 1 TAB PO DAILY, #30 TAB 5 Refills 11/15/15 Glyburide (GLYBURIDE) 2.5 Mg Tablet, 1 TAB PO DAILY, #30 TAB 5 Refills 11/15/15 Date of Onset 74 yo admitted several days ago due to gangrenous right forefoot after pt presented to ED due to weakness and a fall. She has a history of diabetes. She states she cured the diabetes and no longer has it. PMH type 2 diabetes, HTN Family History Cousin has diabetes and has had toes amputated Physical Exam - Wound #1 Wound Exam Location of Modifier: Right Body Site: Foot Associated Signs/Symptoms: Hot, Drainage, Bruising, Odor Drainage Amount: Minimal Drainage Description: Serosanguineous Odor: Foul Odor (Odor is appreciated immediately upon entering the room) Surrounding Tissue Appearance: edematous (Pitting edema, warm to touch, dusky all the way up her ankle to distal pretibial leg) Wound Description: skin (Skin is actually mostly intact but absolutely black with fluctuance on plantar forefoot. The distal second toe is dangling, attached only by some thick, hard skin) Grade Olivarez: 4 Photograph Taken: Yes A/P Severe right forefoot gangrene with involvement of the plantar foot all the way to the heel. There is gangrene of the posterior heel/achilles tendon as well. The angiography shows extensive RLE atherosclorosis. I agree with consultants that BKA is the only viable option. I explained this to the pt. I explained to her that without the amputation there is no good option we can offer. Just giving antibiotics will not be helpful and therefore is not an option we can offer. I explained that without appropriate treatment, including amputation, she could in a few days to a few weeks. She stated: "I don't believe that. It is just some skin and I can live with that and I don't appreciate your scare tactics. The patient states she knows that "everyone of you think I will without an amputation but I don't think so." I believe this patient does not believe and has a thought process that precludes her from understanding. I spoke with her cousin Sharon and sent her a photo per smart phone. Sharon and the pt's mother have both told the patient she should go ahead and accept the amputation. Ms. English yan stated that "This is the first time I have considered getting an amputation" and wants to talk with the surgeon. We dressed the wound with absorptive dressings and I will communicate this update with Dr Franklin or his partners. Problems: (1) Gangrene associated with type 2 diabetes mellitus (2) Gangrene due to arterial insufficiency (3) Wound infection (4) Necrotic toes JOHNNY RODRIGUEZ MD Dec 23, 2019 15:13
[2019-12-23 19:15] VITALS: BP 134/71
[2019-12-23] MEDS: INSULIN GLARGINE SYRINGE. SQ SCH (21:05)
[2019-12-23 23:30] VITALS: BP 140/58
[2019-12-24] MEDS: PIPERACILLIN/TAZOBACTAM 2.25 GM in IV NORMAL SALINE 50ML 50 ML IV SCH ×4 (00:09→18:11)
[2019-12-24 03:00] VITALS: BP 144/65
[2019-12-24] MEDS: oxyCODONE/APAP 5/325 1 TAB TABLET PO PRN ×3 (06:48→20:48)
[2019-12-24 06:56] LABS: CREATININE 0.8 mg/dL (0.6-1.0); GFR 84.8; POTASSIUM 3.8 mmol/L (3.5-5.1)
[2019-12-24 07:00] VITALS: BP 162/77
[2019-12-24 07:31] LABS: BASO # 0.1 x10^3/uL (0.0-0.2); BASO % 1 % (0-3); EOS # 0.3 x10^3/uL (0.0-0.7); EOS % 2 % (0-3); HEMATOCRIT 24.1 % (36.0-47.0); LYMPH # 2.5 x10^3/uL (1.0-4.8); LYMPH % 21 % (24-48); MEAN CORPUSCULAR HEMOGLOBIN 30 pg (25-35); MEAN CORPUSCULAR HGB CONC 33 g/dL (31-37); MEAN CORPUSCULAR VOLUME 90 fL (79-100); MONO # 0.6 x10^3/uL (0.0-1.1); MONO % 5 % (0-9); NEUT # 8.3 x10^3/uL (1.8-7.7); NEUT % 71 % (31-73); PLATELET COUNT 398 x10^3/uL (140-400); RED BLOOD COUNT 2.68 x10^6/uL (3.50-5.40); WHITE BLOOD COUNT 11.7 x10^3/uL (4.0-11.0)
[2019-12-24] MEDS: INSULIN LISPRO 300 UNITS/3 ML VIAL. SQ SCH ×3 (08:00→18:40)
[2019-12-24] MEDS: LACTOBACILLUS RHAMNOSUS GG 1 CAPSULE. PO SCH ×2 (09:02→20:47)
[2019-12-24] MEDS: CLOPIDOGREL BISULFATE 75 MG TABLET PO SCH (09:02)
[2019-12-24] MEDS: MULTIVITAMIN with MINERAL TABLET. PO SCH (09:02)
[2019-12-24] MEDS: NYSTATIN TOPICAL POWDER 15GM BOTTLE. TP SCH ×2 (09:03→20:49)
[2019-12-24 11:00] VITALS: BP 150/70
[2019-12-24 15:00] VITALS: BP 115/52
[2019-12-24] MEDS ORDERED: ACETAMINOPHEN 325 MG TABLET. PO PRN (15:30)
--- NOTE | 2019-12-24 17:27 | PDOC ---
GENERAL General: Patient examined chart reviewed today is hospital day 9 for this patient with a nonhealing right foot gangrene for which she has been extremely reluctant to proceed with definitive treatment. She has under gone right lower extremity angioplasty this week with successful vascularization in preparation for a right below the knee amputation. She tells me she is feeling fine still ambivalent about proceeding with amputation. She has a strong relationship with her boyfriend of 1 year and she is hoping that he will be able to see her through this. She has a lot of stories tonight about how she met him. We will reconsult Dr. Motley to evaluate for right below the knee amputation for definitive treatment for the necrotic right foot. We will continue current management otherwise. Total time today is 30 minutes with greater than 50% in counseling and coordination of care most of which in discussion with patient. Problems: (1) Gangrene associated with type 2 diabetes mellitus (2) Gangrene due to arterial insufficiency VITAL SIGNS Vital Signs/I&O: Vital Signs Date Time Temp Pulse Resp B/P (MAP) Pulse Ox O2 Delivery O2 Flow Rate FiO2 12/24/19 15:00 98.7 82 18 115/52 (73) 94 Room Air 98.7 I & O 12/23/19 12/23/19 12/24/19 15:00 23:00 07:00 Intake Total 250 ml Balance 250 ml In general the patient is pleasant alert and oriented x3 no acute distress HEENT exam is unremarkable Chest is clear to auscultation Heart S1-S2 normal regular rate and rhythm no murmurs or gallops are noted Abdomen soft nontender nondistended no masses organomegaly noted Extremity exam is notable for that her right lower extremity is in a [place] boot which was not removed ALLERGIES Allergies: Allergies Coded Allergies Type Severity Reaction Last Updated Verified No Known Drug Allergies 01/18/16 No MEDS Medications: Current Medications Medications (Trade) Dose Ordered Sig/Arnaud Start Time Stop Time Status Last Admin Dose Admin Acetaminophen (Tylenol) 650 mg PRN Q4HRS PRN 12/24/19 15:30 Atorvastatin Calcium (Lipitor) 5 mg QHS 12/16/19 21:00 12/16/19 16:22 DC Cetirizine HCl (ZyrTEC) 10 mg DAILY 12/16/19 16:00 12/16/19 16:22 DC Clopidogrel Bisulfate (Plavix) 75 mg DAILYWBKFT 12/21/19 08:00 12/24/19 09:02 Dextrose (Dextrose 50%-Water Syringe) 12.5 gm PRN Q15MIN PRN 12/16/19 15:15 Fentanyl Citrate (Fentanyl 2ml Vial) 100 mcg 1X ONCE 12/20/19 13:30 12/20/19 13:42 DC 12/20/19 13:58 Heparin Sodium (Porcine) (Heparin Sodium) 5,000 unit 1X ONCE 12/20/19 13:30 12/20/19 13:42 DC 12/20/19 13:59 Heparin Sodium/ Sodium Chloride (HEPARIN for ARTERIAL LINE FLUSH) 1,000 unit 1X ONCE 12/20/19 13:30 12/20/19 13:42 DC 12/20/19 13:57 Hydrochlorothiazide (Microzide) 12.5 mg DAILY 12/16/19 16:00 12/16/19 16:22 DC Info (CONTRAST GIVEN -- Rx MONITORING) 1 each PRN DAILY PRN 12/20/19 13:45 12/22/19 13:44 DC Insulin Glargine (Lantus Syringe) 10 unit QHS 12/16/19 21:00 12/23/19 21:05 Insulin Human Lispro (HumaLOG) 3 units 1X ONCE 12/22/19 21:15 12/22/19 21:16 DC 12/22/19 21:15 Iodixanol (Visipaque 320) 100 ml 1X ONCE 12/20/19 13:30 12/20/19 13:42 DC 12/20/19 13:55 Iohexol (Omnipaque 350 Mg/ml) 80 ml 1X ONCE 12/19/19 15:00 12/19/19 15:01 DC 12/19/19 15:08 Lactobacillus Rhamnosus (Culturelle) 1 cap BID 12/17/19 21:00 12/24/19 09:02 Lidocaine HCl (Buffered Lidocaine 1%) 3 ml 1X ONCE 12/20/19 13:30 12/20/19 13:42 DC 12/20/19 13:55 Lisinopril (Prinivil) 20 mg DAILY 12/16/19 16:00 12/16/19 16:22 DC Midazolam HCl (Versed) 2 mg 1X ONCE 12/20/19 13:30 12/20/19 13:42 DC 12/20/19 13:58 Morphine Sulfate (Morphine Sulfate) 4 mg PRN Q2HR PRN 12/16/19 19:45 12/20/19 08:33 Multivitamins (Thera M Plus) 1 tab DAILY 12/23/19 09:00 12/24/19 09:02 Non-Formulary Medication (Ranitidine Hcl (Zantac)) 1 tab BID 12/16/19 21:00 12/16/19 16:22 DC Nystatin (Nystop) 1 maryam BID 12/21/19 12:00 12/24/19 09:03 Ondansetron HCl (Zofran Odt) 4 mg PRN Q6HRS PRN 12/19/19 15:00 Oxycodone/ Acetaminophen (Percocet 5/325) 1 tab PRN Q4HRS PRN 12/16/19 18:45 12/24/19 14:50 Piperacillin Sod/ Tazobactam Sod (Zosyn Per Pharmacy) 1 each PRN DAILY PRN 12/16/19 15:15 Piperacillin Sod/ Tazobactam Sod 2.25 gm/Sodium Chloride 50 ml @ 100 mls/hr Q6HRS 12/16/19 18:00 12/24/19 13:41 Piperacillin Sod/ Tazobactam Sod 3.375 gm/Sodium Chloride 50 ml @ 100 mls/hr Q6HRS 12/16/19 18:00 Cancel Ringer's Solution 1,000 ml @ 100 mls/hr Q10H 12/17/19 10:30 12/20/19 15:47 DC 12/20/19 08:10 Sodium Chloride 1,000 ml @ 100 mls/hr 1X ONCE 12/16/19 15:15 12/17/19 01:14 DC 12/16/19 16:43 LAB Lab: Laboratory Tests Test 12/23/19 20:42 12/24/19 06:10 12/24/19 07:50 12/24/19 13:51 Glucose (Fingerstick) 161 mg/dL (70-99) H 97 mg/dL (70-99) 110 mg/dL (70-99) H White Blood Count 11.7 x10^3/uL (4.0-11.0) H Red Blood Count 2.68 x10^6/uL (3.50-5.40) L Hemoglobin 8.0 g/dL (12.0-15.5) L Hematocrit 24.1 % (36.0-47.0) L Mean Corpuscular Volume 90 fL (79-100) Mean Corpuscular Hemoglobin 30 pg (25-35) Mean Corpuscular Hemoglobin Concent 33 g/dL (31-37) Red Cell Distribution Width 15.0 % (11.5-14.5) H Platelet Count 398 x10^3/uL (140-400) Neutrophils (%) (Auto) 71 % (31-73) Lymphocytes (%) (Auto) 21 % (24-48) L Monocytes (%) (Auto) 5 % (0-9) Eosinophils (%) (Auto) 2 % (0-3) Basophils (%) (Auto) 1 % (0-3) Neutrophils # (Auto) 8.3 x10^3/uL (1.8-7.7) H Lymphocytes # (Auto) 2.5 x10^3/uL (1.0-4.8) Monocytes # (Auto) 0.6 x10^3/uL (0.0-1.1) Eosinophils # (Auto) 0.3 x10^3/uL (0.0-0.7) Basophils # (Auto) 0.1 x10^3/uL (0.0-0.2) Sodium Level 142 mmol/L (136-145) Potassium Level 3.8 mmol/L (3.5-5.1) Chloride Level 106 mmol/L (98-107) Carbon Dioxide Level 28 mmol/L (21-32) Anion Gap 8 (6-14) Blood Urea Nitrogen 12 mg/dL (7-20) Creatinine 0.8 mg/dL (0.6-1.0) Estimated GFR (Cockcroft-Gault) 84.8 Glucose Level 96 mg/dL (70-99) Calcium Level 7.0 mg/dL (8.5-10.1) L Test 12/24/19 17:13 Glucose (Fingerstick) 155 mg/dL (70-99) H Laboratory Tests 12/24/19 06:10 Laboratory Tests 12/24/19 06:10 ASSESSMENT & PLAN A&P Plan as noted above This note was created using Dragon [employer] and may have omissions and/or errors due to the nature of real-time voice oil lease operator. Justicifation of Admission Dx: Justifications for Admission: Justification of Admission Dx: Yes GERARDO MONK MD Dec 24, 2019 17:27
[2019-12-24 19:00] VITALS: BP 142/63
--- NOTE | 2019-12-24 19:24 | PDOC ---
PROGRESS NOTES Date of Service DATE: 12/24/19 TIME: 18:51 Subjective Subjective Problems overnight: Kaya stated that she has decided to go on with amputation of her ankle and voiced many concerns about how she was going to get around later as she lives alone and would have to have somebody look after her at night and on further discussion with her she expected and entire team of doctors to come in today to discuss her treatment. She seems to be in no distress but was very scattered as I was talking to her Objective Vital Signs Vital Signs Date Time Temp Pulse Resp B/P (MAP) Pulse Ox O2 Delivery O2 Flow Rate FiO2 12/24/19 16:00 94 Room Air 12/24/19 15:00 98.7 82 18 115/52 (73) 98.7 12/20/19 14:03 2.0 Physical Exam On examination of her right foot and ankle she has necrotic toes and a full- thickness skin defect over her distal Achilles with necrosis Labs Laboratory Tests Test 12/22/19 20:41 12/23/19 08:13 12/23/19 09:15 12/23/19 11:40 Glucose (Fingerstick) 249 mg/dL (70-99) 123 mg/dL (70-99) 152 mg/dL (70-99) White Blood Count 12.8 x10^3/uL (4.0-11.0) Red Blood Count 2.79 x10^6/uL (3.50-5.40) Hemoglobin 8.4 g/dL (12.0-15.5) Hematocrit 25.0 % (36.0-47.0) Mean Corpuscular Volume 90 fL (79-100) Mean Corpuscular Hemoglobin 30 pg (25-35) Mean Corpuscular Hemoglobin Concent 33 g/dL (31-37) Red Cell Distribution Width 14.9 % (11.5-14.5) Platelet Count 386 x10^3/uL (140-400) Neutrophils (%) (Auto) 79 % (31-73) Lymphocytes (%) (Auto) 14 % (24-48) Monocytes (%) (Auto) 5 % (0-9) Eosinophils (%) (Auto) 2 % (0-3) Basophils (%) (Auto) 1 % (0-3) Neutrophils # (Auto) 10.1 x10^3/uL (1.8-7.7) Lymphocytes # (Auto) 1.7 x10^3/uL (1.0-4.8) Monocytes # (Auto) 0.7 x10^3/uL (0.0-1.1) Eosinophils # (Auto) 0.2 x10^3/uL (0.0-0.7) Basophils # (Auto) 0.1 x10^3/uL (0.0-0.2) Sodium Level 140 mmol/L (136-145) Potassium Level 3.4 mmol/L (3.5-5.1) Chloride Level 104 mmol/L (98-107) Carbon Dioxide Level 30 mmol/L (21-32) Anion Gap 6 (6-14) Blood Urea Nitrogen 7 mg/dL (7-20) Creatinine 0.7 mg/dL (0.6-1.0) Estimated GFR (Cockcroft-Gault) 99.0 Glucose Level 132 mg/dL (70-99) Calcium Level 7.4 mg/dL (8.5-10.1) Test 12/23/19 16:53 12/23/19 20:42 12/24/19 06:10 12/24/19 07:50 Glucose (Fingerstick) 148 mg/dL (70-99) 161 mg/dL (70-99) 97 mg/dL (70-99) White Blood Count 11.7 x10^3/uL (4.0-11.0) Red Blood Count 2.68 x10^6/uL (3.50-5.40) Hemoglobin 8.0 g/dL (12.0-15.5) Hematocrit 24.1 % (36.0-47.0) Mean Corpuscular Volume 90 fL (79-100) Mean Corpuscular Hemoglobin 30 pg (25-35) Mean Corpuscular Hemoglobin Concent 33 g/dL (31-37) Red Cell Distribution Width 15.0 % (11.5-14.5) Platelet Count 398 x10^3/uL (140-400) Neutrophils (%) (Auto) 71 % (31-73) Lymphocytes (%) (Auto) 21 % (24-48) Monocytes (%) (Auto) 5 % (0-9) Eosinophils (%) (Auto) 2 % (0-3) Basophils (%) (Auto) 1 % (0-3) Neutrophils # (Auto) 8.3 x10^3/uL (1.8-7.7) Lymphocytes # (Auto) 2.5 x10^3/uL (1.0-4.8) Monocytes # (Auto) 0.6 x10^3/uL (0.0-1.1) Eosinophils # (Auto) 0.3 x10^3/uL (0.0-0.7) Basophils # (Auto) 0.1 x10^3/uL (0.0-0.2) Sodium Level 142 mmol/L (136-145) Potassium Level 3.8 mmol/L (3.5-5.1) Chloride Level 106 mmol/L (98-107) Carbon Dioxide Level 28 mmol/L (21-32) Anion Gap 8 (6-14) Blood Urea Nitrogen 12 mg/dL (7-20) Creatinine 0.8 mg/dL (0.6-1.0) Estimated GFR (Cockcroft-Gault) 84.8 Glucose Level 96 mg/dL (70-99) Calcium Level 7.0 mg/dL (8.5-10.1) Test 12/24/19 13:51 12/24/19 17:13 Glucose (Fingerstick) 110 mg/dL (70-99) 155 mg/dL (70-99) Laboratory Tests Test 12/23/19 20:42 12/24/19 06:10 12/24/19 07:50 12/24/19 13:51 Glucose (Fingerstick) 161 mg/dL (70-99) 97 mg/dL (70-99) 110 mg/dL (70-99) White Blood Count 11.7 x10^3/uL (4.0-11.0) Red Blood Count 2.68 x10^6/uL (3.50-5.40) Hemoglobin 8.0 g/dL (12.0-15.5) Hematocrit 24.1 % (36.0-47.0) Mean Corpuscular Volume 90 fL (79-100) Mean Corpuscular Hemoglobin 30 pg (25-35) Mean Corpuscular Hemoglobin Concent 33 g/dL (31-37) Red Cell Distribution Width 15.0 % (11.5-14.5) Platelet Count 398 x10^3/uL (140-400) Neutrophils (%) (Auto) 71 % (31-73) Lymphocytes (%) (Auto) 21 % (24-48) Monocytes (%) (Auto) 5 % (0-9) Eosinophils (%) (Auto) 2 % (0-3) Basophils (%) (Auto) 1 % (0-3) Neutrophils # (Auto) 8.3 x10^3/uL (1.8-7.7) Lymphocytes # (Auto) 2.5 x10^3/uL (1.0-4.8) Monocytes # (Auto) 0.6 x10^3/uL (0.0-1.1) Eosinophils # (Auto) 0.3 x10^3/uL (0.0-0.7) Basophils # (Auto) 0.1 x10^3/uL (0.0-0.2) Sodium Level 142 mmol/L (136-145) Potassium Level 3.8 mmol/L (3.5-5.1) Chloride Level 106 mmol/L (98-107) Carbon Dioxide Level 28 mmol/L (21-32) Anion Gap 8 (6-14) Blood Urea Nitrogen 12 mg/dL (7-20) Creatinine 0.8 mg/dL (0.6-1.0) Estimated GFR (Cockcroft-Gault) 84.8 Glucose Level 96 mg/dL (70-99) Calcium Level 7.0 mg/dL (8.5-10.1) Test 12/24/19 17:13 Glucose (Fingerstick) 155 mg/dL (70-99) Assessment Assessment Gangrenous right foot and ulceration over distal Achilles, previous vascular intervention Plan Plan of Care I was called by Dr. Roper to evaluate the patient as they were doing wound care and finally talked her into below knee amputation as was previously recommended after her admission a week prior. As this was the first that I had assessed the patient after Dr. Franklin previously evaluating her and vascular surgery performing an intervention to improve her circulation to the right lower extremity, I noted some concerning observations by her previous providers including Dr. Andre in the emergency department that reported that the patient stated that she had diabetes but was now cured and that the right foot has been getting a lot better despite clearly black necrotic toes and a nonhealing wound on her ankle over the Achilles tendon. Likewise Dr. Roper observed that she frequently displays magical thinking. I discussed at length with her the previous providers documentation that a below knee amputation was recommended and vascular surgery felt that after their intervention that an amputation would heal at that level but signed off on her further care. I therefore discussed at length with her that I think below-knee amputation is certainly reasonable based on the appearance of the foot and the other provider's recommendations. She seemed to have no comprehension of what the procedure entails or what she would go through afterward so I spent over 30 minutes discussing with her the procedure itself and described what length of the bone cut would be performed that about a handsbreadth below the tibial tubercle and that her stump would be a little bit longer than that based on muscle and skin brought around for padding. Further we then talked about getting the stump to heal up and getting any swelling out of the area likely with a stump dip tanker and eventually fitting a prosthesis. We also discussed the increased energy requirements of ambulation with the prosthesis, specifically that it would take about 40% more energy to walk around in this condition with a prosthesis than what she was doing prior to her foot condition. This may require reevaluation of her preparations for daily activities. I had to clarify multiple times as I went along with this discussion the specific points that I had just made. Frankly, she seemed to be somewhat detached from reality and very scattered from the subject of her amputation and expected challenges through her recovery. For example, after I got done describing the amputation and answering her question that her leg lengths would be equal after the prosthetic fitting, she described that she was having her ankle removed. I had previously explained repeatedly what the procedure was like the specific length of her leg and stump and she insisted that she was told before that only her ankle would be removed. I again had to explain repeatedly that the procedure is not performed at that level because there would be an adequate tissue coverage to allow her to bear weight and the tissue would likely break down. The area has to be padded with muscle to allow fitting of a prosthesis. She seemed repeatedly stuck on this point that she was told by somebody else that it would be down by her ankle. Likewise throughout our conversation despite my best efforts at attempting to cover these issues and clarify with her, I felt that we were not achieving adequate understanding of the procedure and implications. I indicated that beyond my explanation that further clarification of the prosthesis could be outlined by [facility] orthopedics personnel, and that while I attempted to clarify her ongoing home issues to the best of my ability, that the correctional casework specialist would be the best resource to advise her what might be available in terms of assistance for her or potentially other living accommodations based on her ability to get up and around and safely function at home or in another setting. Finally, as I was about to leave the room after answering her questions to the best of my ability, she called the nurse to move her dinner tray in front of her which was in easy reach. I told her I would be happy to assist her with moving her tray and did so. She still insisted on calling the nurse because she had requested cream of wheat rather than oatmeal. I pointed out to her that she can call the phone to dietary and they would be happy to bring a replacement up for her. I observed that she really will need to take a lot more accountability for arranging for her ability to care for herself at home and consider that very carefully because she does not appear to take any accountability to perform the simplest of tasks that she can readily do here. I am not at all convinced that she is approaching her decision making with any reasonable rational process based on her response to my discussion of the surgery and its aftermath, or for that matter and arranging for her ongoing care. I am therefore uncomfortable at her consent to perform the amputation procedure and suggest some ongoing counseling or even perhaps psychological evaluation as she does not really display comprehension of the ongoing process based on my review of the medical records and discussion with her. I informed Dr. Franklin and her nurse of this concern as well. Justicifation of Admission Dx: Justifications for Admission: Justification of Admission Dx: N/A CHELI MURRIETA MD Dec 24, 2019 19:24
[2019-12-24] MEDS: INSULIN GLARGINE SYRINGE. SQ SCH (21:26)
[2019-12-24 23:00] VITALS: BP 141/62
[2019-12-25] MEDS: PIPERACILLIN/TAZOBACTAM 2.25 GM in IV NORMAL SALINE 50ML 50 ML IV SCH ×5 (00:14→23:42)
[2019-12-25] MEDS: oxyCODONE/APAP 5/325 1 TAB TABLET PO PRN ×4 (01:17→20:58)
[2019-12-25 03:00] VITALS: BP 151/67
[2019-12-25 07:00] VITALS: BP 151/73
[2019-12-25] MEDS: INSULIN LISPRO 300 UNITS/3 ML VIAL. SQ SCH ×3 (08:00→16:54)
--- NOTE | 2019-12-25 08:00 | NUR ---
awake . states that she is going to have surgery to amputate her foot. ivf infusing as tko rate. keven coffman remains in placce
[2019-12-25 08:07] LABS: BASO # 0.1 x10^3/uL (0.0-0.2); BASO % 1 % (0-3); EOS # 0.3 x10^3/uL (0.0-0.7); EOS % 2 % (0-3); HEMATOCRIT 24.2 % (36.0-47.0); LYMPH # 2.6 x10^3/uL (1.0-4.8); LYMPH % 23 % (24-48); MEAN CORPUSCULAR HEMOGLOBIN 30 pg (25-35); MEAN CORPUSCULAR HGB CONC 33 g/dL (31-37); MEAN CORPUSCULAR VOLUME 90 fL (79-100); MONO # 0.6 x10^3/uL (0.0-1.1); MONO % 6 % (0-9); NEUT # 7.8 x10^3/uL (1.8-7.7); NEUT % 69 % (31-73); PLATELET COUNT 426 x10^3/uL (140-400); RED CELL DISTRIBUTION WIDTH 15.1 % (11.5-14.5); WHITE BLOOD COUNT 11.3 x10^3/uL (4.0-11.0)
[2019-12-25] MEDS: LACTOBACILLUS RHAMNOSUS GG 1 CAPSULE. PO SCH ×2 (08:21→20:58)
[2019-12-25] MEDS: CLOPIDOGREL BISULFATE 75 MG TABLET PO SCH (08:21)
[2019-12-25] MEDS: MULTIVITAMIN with MINERAL TABLET. PO SCH (08:21)
[2019-12-25 08:22] LABS: CALCIUM 7.5 mg/dL (8.5-10.1); CREATININE 0.7 mg/dL (0.6-1.0)
[2019-12-25] MEDS: NYSTATIN TOPICAL POWDER 15GM BOTTLE. TP SCH ×2 (08:22→21:01)
[2019-12-25 11:00] VITALS: BP 115/61
--- NOTE | 2019-12-25 11:44 | PDOC ---
GENERAL General: Patient examined chart reviewed seen with nursing and nurses aide at bedside she had a large incontinent stool and is having a meal hygiene currently. She continues to be very ambivalent about her amputation but knows that it needs to happen. I spoke with Dr. Petty who saw her last night and wrote a very thorough assessment. I share his concerns about her focus and ability to learn self-care after the amputation. Nonetheless she is cognitively intact and able to engage in decision making and has decided to proceed with the amputation. She will need a lot of assistance following that and certainly a [place] [facility] stay to learn to be independent. She is in agreement with this plan. It sounds like Dr. Franklin will be doing the surgery either tomorrow or Thursday. Continue current management otherwise. Total time today is 30 minutes with greater than 50% in counseling and coordination of care most of which in discussion with patient and team. Problems: (1) Gangrene associated with type 2 diabetes mellitus (2) Gangrene due to arterial insufficiency VITAL SIGNS Vital Signs/I&O: Vital Signs Date Time Temp Pulse Resp B/P (MAP) Pulse Ox O2 Delivery O2 Flow Rate FiO2 12/25/19 08:00 Room Air 12/25/19 07:00 98.6 79 18 151/73 (99) 97 98.6 I & O 12/24/19 12/24/19 12/25/19 15:00 23:00 07:00 Intake Total 480 ml 480 ml Balance 480 ml 480 ml In general the patient is very chatty pleasant has a lot of questions per her usual demeanor in no acute distress. She just had incontinence of watery stool and is getting cleaned during her evaluation Chest is clear to auscultation Heart S1-S2 normal regular rate and rhythm no murmurs or gallops are noted Extremity exam is unchanged from prior ALLERGIES Allergies: Allergies Coded Allergies Type Severity Reaction Last Updated Verified No Known Drug Allergies 01/18/16 No MEDS Medications: Current Medications Medications (Trade) Dose Ordered Sig/Arnaud Start Time Stop Time Status Last Admin Dose Admin Acetaminophen (Tylenol) 650 mg PRN Q4HRS PRN 12/24/19 15:30 Atorvastatin Calcium (Lipitor) 5 mg QHS 12/16/19 21:00 12/16/19 16:22 DC Cetirizine HCl (ZyrTEC) 10 mg DAILY 12/16/19 16:00 12/16/19 16:22 DC Clopidogrel Bisulfate (Plavix) 75 mg DAILYWBKFT 12/21/19 08:00 12/25/19 08:21 Dextrose (Dextrose 50%-Water Syringe) 12.5 gm PRN Q15MIN PRN 12/16/19 15:15 Fentanyl Citrate (Fentanyl 2ml Vial) 100 mcg 1X ONCE 12/20/19 13:30 12/20/19 13:42 DC 12/20/19 13:58 Heparin Sodium (Porcine) (Heparin Sodium) 5,000 unit 1X ONCE 12/20/19 13:30 12/20/19 13:42 DC 12/20/19 13:59 Heparin Sodium/ Sodium Chloride (HEPARIN for ARTERIAL LINE FLUSH) 1,000 unit 1X ONCE 12/20/19 13:30 12/20/19 13:42 DC 12/20/19 13:57 Hydrochlorothiazide (Microzide) 12.5 mg DAILY 12/16/19 16:00 12/16/19 16:22 DC Info (CONTRAST GIVEN -- Rx MONITORING) 1 each PRN DAILY PRN 12/20/19 13:45 12/22/19 13:44 DC Insulin Glargine (Lantus Syringe) 10 unit QHS 12/16/19 21:00 12/24/19 21:26 Insulin Human Lispro (HumaLOG) 3 units 1X ONCE 12/22/19 21:15 12/22/19 21:16 DC 12/22/19 21:15 Iodixanol (Visipaque 320) 100 ml 1X ONCE 12/20/19 13:30 12/20/19 13:42 DC 12/20/19 13:55 Iohexol (Omnipaque 350 Mg/ml) 80 ml 1X ONCE 12/19/19 15:00 12/19/19 15:01 DC 12/19/19 15:08 Lactobacillus Rhamnosus (Culturelle) 1 cap BID 12/17/19 21:00 12/25/19 08:21 Lidocaine HCl (Buffered Lidocaine 1%) 3 ml 1X ONCE 12/20/19 13:30 12/20/19 13:42 DC 12/20/19 13:55 Lisinopril (Prinivil) 20 mg DAILY 12/16/19 16:00 12/16/19 16:22 DC Midazolam HCl (Versed) 2 mg 1X ONCE 12/20/19 13:30 12/20/19 13:42 DC 12/20/19 13:58 Morphine Sulfate (Morphine Sulfate) 4 mg PRN Q2HR PRN 12/16/19 19:45 12/20/19 08:33 Multivitamins (Thera M Plus) 1 tab DAILY 12/23/19 09:00 12/25/19 08:21 Non-Formulary Medication (Ranitidine Hcl (Zantac)) 1 tab BID 12/16/19 21:00 12/16/19 16:22 DC Nystatin (Nystop) 1 maryam BID 12/21/19 12:00 12/25/19 08:22 Ondansetron HCl (Zofran Odt) 4 mg PRN Q6HRS PRN 12/19/19 15:00 Oxycodone/ Acetaminophen (Percocet 5/325) 1 tab PRN Q4HRS PRN 12/16/19 18:45 12/25/19 01:17 Piperacillin Sod/ Tazobactam Sod (Zosyn Per Pharmacy) 1 each PRN DAILY PRN 12/16/19 15:15 Piperacillin Sod/ Tazobactam Sod 2.25 gm/Sodium Chloride 50 ml @ 100 mls/hr Q6HRS 12/16/19 18:00 12/25/19 05:59 Piperacillin Sod/ Tazobactam Sod 3.375 gm/Sodium Chloride 50 ml @ 100 mls/hr Q6HRS 12/16/19 18:00 Cancel Ringer's Solution 1,000 ml @ 100 mls/hr Q10H 12/17/19 10:30 12/20/19 15:47 DC 12/20/19 08:10 Sodium Chloride 1,000 ml @ 100 mls/hr 1X ONCE 12/16/19 15:15 12/17/19 01:14 DC 12/16/19 16:43 LAB Lab: Laboratory Tests Test 12/24/19 13:51 12/24/19 17:13 12/24/19 20:22 12/25/19 07:15 Glucose (Fingerstick) 110 mg/dL (70-99) H 155 mg/dL (70-99) H 72 mg/dL (70-99) White Blood Count 11.3 x10^3/uL (4.0-11.0) H Red Blood Count 2.70 x10^6/uL (3.50-5.40) L Hemoglobin 8.0 g/dL (12.0-15.5) L Hematocrit 24.2 % (36.0-47.0) L Mean Corpuscular Volume 90 fL (79-100) Mean Corpuscular Hemoglobin 30 pg (25-35) Mean Corpuscular Hemoglobin Concent 33 g/dL (31-37) Red Cell Distribution Width 15.1 % (11.5-14.5) H Platelet Count 426 x10^3/uL (140-400) H Neutrophils (%) (Auto) 69 % (31-73) Lymphocytes (%) (Auto) 23 % (24-48) L Monocytes (%) (Auto) 6 % (0-9) Eosinophils (%) (Auto) 2 % (0-3) Basophils (%) (Auto) 1 % (0-3) Neutrophils # (Auto) 7.8 x10^3/uL (1.8-7.7) H Lymphocytes # (Auto) 2.6 x10^3/uL (1.0-4.8) Monocytes # (Auto) 0.6 x10^3/uL (0.0-1.1) Eosinophils # (Auto) 0.3 x10^3/uL (0.0-0.7) Basophils # (Auto) 0.1 x10^3/uL (0.0-0.2) Sodium Level 141 mmol/L (136-145) Potassium Level 4.0 mmol/L (3.5-5.1) Chloride Level 105 mmol/L (98-107) Carbon Dioxide Level 27 mmol/L (21-32) Anion Gap 9 (6-14) Blood Urea Nitrogen 12 mg/dL (7-20) Creatinine 0.7 mg/dL (0.6-1.0) Estimated GFR (Cockcroft-Gault) 99.0 Glucose Level 68 mg/dL (70-99) L Calcium Level 7.5 mg/dL (8.5-10.1) L Test 12/25/19 07:34 12/25/19 09:35 12/25/19 11:22 Glucose (Fingerstick) 63 mg/dL (70-99) L 121 mg/dL (70-99) H 119 mg/dL (70-99) H Laboratory Tests 12/25/19 07:15 Laboratory Tests 12/25/19 07:15 ASSESSMENT & PLAN A&P Plan as noted above This note was created using [employer] and may have omissions and/or errors due to the nature of real-time voice margin analyst. Justicifation of Admission Dx: Justifications for Admission: Justification of Admission Dx: N/A GERARDO MONK MD Dec 25, 2019 11:44
[2019-12-25 15:00] VITALS: BP 120/62
--- NOTE | 2019-12-25 16:07 | NUR ---
mother at bedside. continues to be incontinent of urine and stool. am care completed. instructed when she needs to urinate or have a bowel movement and not to lay in the wet. rita care given / orange cream applied. rectal area is becoming reddened and sore. . informed to call us prior to needing to void or call us when she urinated so we can change her right away; she will try but cant always tell when she urinated
[2019-12-25 19:00] VITALS: BP 144/49
[2019-12-25] MEDS: INSULIN GLARGINE SYRINGE. SQ SCH (20:58)
[2019-12-25 23:00] VITALS: BP 138/63
[2019-12-26] MEDS: oxyCODONE/APAP 5/325 1 TAB TABLET PO PRN ×4 (01:32→18:09)
[2019-12-26 03:00] VITALS: BP 136/75
[2019-12-26] MEDS: PIPERACILLIN/TAZOBACTAM 2.25 GM in IV NORMAL SALINE 50ML 50 ML IV SCH ×3 (06:04→18:09)
[2019-12-26 07:00] VITALS: BP 140/65
[2019-12-26 07:58] LABS: BASO # 0.1 x10^3/uL (0.0-0.2); BASO % 1 % (0-3); EOS # 0.2 x10^3/uL (0.0-0.7); EOS % 2 % (0-3); HEMATOCRIT 22.8 % (36.0-47.0); HEMOGLOBIN 7.7 g/dL (12.0-15.5); LYMPH # 2.2 x10^3/uL (1.0-4.8); LYMPH % 22 % (24-48); MEAN CORPUSCULAR HEMOGLOBIN 31 pg (25-35); MEAN CORPUSCULAR HGB CONC 34 g/dL (31-37); MEAN CORPUSCULAR VOLUME 90 fL (79-100); MONO # 0.5 x10^3/uL (0.0-1.1); MONO % 5 % (0-9); NEUT # 6.9 x10^3/uL (1.8-7.7); NEUT % 69 % (31-73); PLATELET COUNT 428 x10^3/uL (140-400); RED BLOOD COUNT 2.53 x10^6/uL (3.50-5.40); RED CELL DISTRIBUTION WIDTH 15.4 % (11.5-14.5); WHITE BLOOD COUNT 9.9 x10^3/uL (4.0-11.0)
[2019-12-26] MEDS: INSULIN LISPRO 300 UNITS/3 ML VIAL. SQ SCH ×3 (08:00→17:00)
[2019-12-26 08:50] LABS: ALBUMIN 1.1 g/dL (3.4-5.0); ALBUMIN/GLOBULIN RATIO 0.2 (1.0-1.7); CALCIUM 7.5 mg/dL (8.5-10.1); CREATININE 0.8 mg/dL (0.6-1.0); GFR 84.8; POTASSIUM 3.7 mmol/L (3.5-5.1); TOTAL BILIRUBIN 0.2 mg/dL (0.2-1.0); TOTAL PROTEIN 6.1 g/dL (6.4-8.2)
[2019-12-26] MEDS: LACTOBACILLUS RHAMNOSUS GG 1 CAPSULE. PO SCH ×2 (10:21→20:55)
[2019-12-26] MEDS: CLOPIDOGREL BISULFATE 75 MG TABLET PO SCH (10:21)
[2019-12-26] MEDS: MULTIVITAMIN with MINERAL TABLET. PO SCH (10:21)
[2019-12-26] MEDS: NYSTATIN TOPICAL POWDER 15GM BOTTLE. TP SCH ×2 (10:23→20:55)
[2019-12-26 11:00] VITALS: BP 143/70
--- NOTE | 2019-12-26 11:51 | PDOC ---
[employer] PROGRESS NOTE Date of Service DOS: DATE: 12/26/19 TIME: 11:46 Chief Complaint Chief Complaint falls, worsening weakness, cannot walk, DM2, poor control she is off meds, denies any problem cognitive decline - dementia likely eschar foot and toes, ischemic injury, dry gangrene ( needs BKA) History of Present Illness History of Present Illness 12/26/2019 Patient was seen and examined Discussed with nurse Patient was alert and talkative during exam Vitals/I&O Vitals/I&O: Vital Signs Date Time Temp Pulse Resp B/P (MAP) Pulse Ox O2 Delivery O2 Flow Rate FiO2 12/26/19 11:00 98.9 82 18 143/70 (94) 96 Room Air 98.9 I & O 12/25/19 12/25/19 12/26/19 15:00 23:00 07:00 Intake Total 960 ml 480 ml Balance 960 ml 480 ml Physical Exam General: Alert, Cooperative, Other (multiple missing teeth, not quite edentulous) Heart: Regular rate Lungs: Wheezing Abdomen: Soft Extremities: Other (The right foot has grossly normal alignment. The second third and fourth toes are completely necrotic with dry gangrene into the midfoot dorsally and plantarly. There is an odor but not severeI dont believe theres wet gangrene or gas. There is some ischemia and discoloration of the great toe and fifth toe and they are also likely nonviable. Despite the lateral malleolus fracture, there is minimal lateral malleolus swelling or tenderness. There is no ankle joint deformity. There is full-thickness dry gangrene along the plantar aspect of the foot with some overlying loose skin, and unfortunately the proximal extent of the dry gangrene on the plantar foot would prevent transmetatarsal amputation. There is a full-thickness ulceration with dry necrotic blackened tissue at the Achilles, possible tendon involvement. Pulses are not palpable. She reports slight light touch sensation. I believe these gangrene and ulcer changes are related more to diabetic ischemia than to diabetic neuropathy.) Skin: No breakdown, Other (distal 1/3, of forefoot is black and complete eschar, and looks like it has been that way for awhile. 3 toes nearly auto amputated, ) Labs Labs: Laboratory Tests Test 12/25/19 16:31 12/25/19 20:18 12/26/19 07:10 12/26/19 07:27 Glucose (Fingerstick) 124 mg/dL (70-99) 135 mg/dL (70-99) 77 mg/dL (70-99) White Blood Count 9.9 x10^3/uL (4.0-11.0) Red Blood Count 2.53 x10^6/uL (3.50-5.40) Hemoglobin 7.7 g/dL (12.0-15.5) Hematocrit 22.8 % (36.0-47.0) Mean Corpuscular Volume 90 fL (79-100) Mean Corpuscular Hemoglobin 31 pg (25-35) Mean Corpuscular Hemoglobin Concent 34 g/dL (31-37) Red Cell Distribution Width 15.4 % (11.5-14.5) Platelet Count 428 x10^3/uL (140-400) Neutrophils (%) (Auto) 69 % (31-73) Lymphocytes (%) (Auto) 22 % (24-48) Monocytes (%) (Auto) 5 % (0-9) Eosinophils (%) (Auto) 2 % (0-3) Basophils (%) (Auto) 1 % (0-3) Neutrophils # (Auto) 6.9 x10^3/uL (1.8-7.7) Lymphocytes # (Auto) 2.2 x10^3/uL (1.0-4.8) Monocytes # (Auto) 0.5 x10^3/uL (0.0-1.1) Eosinophils # (Auto) 0.2 x10^3/uL (0.0-0.7) Basophils # (Auto) 0.1 x10^3/uL (0.0-0.2) Sodium Level 140 mmol/L (136-145) Potassium Level 3.7 mmol/L (3.5-5.1) Chloride Level 105 mmol/L (98-107) Carbon Dioxide Level 27 mmol/L (21-32) Anion Gap 8 (6-14) Blood Urea Nitrogen 12 mg/dL (7-20) Creatinine 0.8 mg/dL (0.6-1.0) Estimated GFR (Cockcroft-Gault) 84.8 BUN/Creatinine Ratio 15 (6-20) Glucose Level 78 mg/dL (70-99) Calcium Level 7.5 mg/dL (8.5-10.1) Total Bilirubin 0.2 mg/dL (0.2-1.0) Aspartate Amino Transf (AST/SGOT) 10 U/L (15-37) Alanine Aminotransferase (ALT/SGPT) 7 U/L (14-59) Alkaline Phosphatase 90 U/L (46-116) Total Protein 6.1 g/dL (6.4-8.2) Albumin 1.1 g/dL (3.4-5.0) Albumin/Globulin Ratio 0.2 (1.0-1.7) Test 12/26/19 10:56 Glucose (Fingerstick) 108 mg/dL (70-99) Review of Systems Review of Systems: Patient denies weakness. Patient denies nausea. Assessment and Plan Assessmemt and Plan Assessment Medical Problems: (1) Necrotic toes Status: Acute (2) Weakness Status: Acute (3) Wound infection Status: Acute Plan Wound care Continue IV antibiotics Awaiting possible surgery Home meds DVT prophylaxis Full code Appreciate subspecialist input Comment Review of Relevant I have reviewed the following items da (where applicable) has been applied. POLA RAY III DO Dec 26, 2019 11:51
[2019-12-26 15:00] VITALS: BP 132/60
--- NOTE | 2019-12-26 17:05 | PDOC1 ---
History & Psych Evaluation Date of Service: DOS: DATE: 12/26/19 TIME: 16:48 Source: Source: Caregiver, Chart review, Patient Identification: Identification She is a 74-year-old female with no prior psychiatric history with necrotic toe and wound infection. Chief Complaint: Chief Complaint Capacity evaluation to make medical decision regarding below-knee amputation History of Present Illness: HPI: She is a 74-year-old female with no prior psychiatric history seen for initial psychiatric assessment. She is admitted with wound infection and gangrenous toe. Initially she refused for amputation which was recommended in patient's best interest. However, she is in agreement to go on with the procedure and mad e up her mind. Upon interview, she appears pleasant and cooperative. Stating, she has made up her mind to go with the amputation procedure to save her life and further complication. States, initially she was afraid that what her life going to be after amputation. Likely, she was in denial due to the stress of losing a limb or part of it. States, she was worried about how her life would be following amputation, she will be disabled, she would not be able to do things that she used to do and not sure how her boyfriend can accept it. She was worried whether or not her boyfriend going to stay with her. States, she talked to different women and cousins in the family and 1 of her cousin convinced her with the procedure. She is adamant that she is excepting this procedure not under any pressure but with full knowledge of risk, benefits, of the procedure. Not only she has made up her mind she knows about prosthesis that could help her. Additionally, she is making herself ready for the next phase of her life following amputation. Also having future plans to use prosthesis and visit different places like [place] which she has not been seen before. She denies any depression or anxiety. Denies auditory or visual hallucinations. She denies suicidal or homicidal thoughts. States, when she made her mind and took the decision she was sad for couple of days with down feeling. However she is recovering. No evidence of alyx or hypomania. Past Psychiatric History: She denies past psychiatric history of mental health challenges or admission. No history of suicidal ideation or suicidal attempt. Past Medical History: Please see medical chart for details Family History: She denies family history of psychiatric illness. Social History: Social History: She is an ex-smoker. Denies history of alcohol abuse. Denies history of illicit substance use. She denies legal issues. She has substantial family support. Current Medications: Current Medications Current Medications Medications (Trade) Dose Ordered Sig/Arnaud Start Time Stop Time Status Last Admin Dose Admin Acetaminophen (Tylenol) 650 mg PRN Q4HRS PRN 12/24/19 15:30 Atorvastatin Calcium (Lipitor) 5 mg QHS 12/16/19 21:00 12/16/19 16:22 DC Cetirizine HCl (ZyrTEC) 10 mg DAILY 12/16/19 16:00 12/16/19 16:22 DC Clopidogrel Bisulfate (Plavix) 75 mg DAILYWBKFT 12/21/19 08:00 12/26/19 10:21 75 MG Dextrose (Dextrose 50%-Water Syringe) 12.5 gm PRN Q15MIN PRN 12/16/19 15:15 Fentanyl Citrate (Fentanyl 2ml Vial) 100 mcg 1X ONCE 12/20/19 13:30 12/20/19 13:42 DC 12/20/19 13:58 100 MCG Heparin Sodium (Porcine) (Heparin Sodium) 5,000 unit 1X ONCE 12/20/19 13:30 12/20/19 13:42 DC 12/20/19 13:59 5,000 UNIT Heparin Sodium/ Sodium Chloride (HEPARIN for ARTERIAL LINE FLUSH) 1,000 unit 1X ONCE 12/20/19 13:30 12/20/19 13:42 DC 12/20/19 13:57 1,000 UNIT Hydrochlorothiazide (Microzide) 12.5 mg DAILY 12/16/19 16:00 12/16/19 16:22 DC Info (CONTRAST GIVEN -- Rx MONITORING) 1 each PRN DAILY PRN 12/20/19 13:45 12/22/19 13:44 DC Insulin Glargine (Lantus Syringe) 10 unit QHS 12/16/19 21:00 12/25/19 20:58 10 UNIT Insulin Human Lispro (HumaLOG) 3 units 1X ONCE 12/22/19 21:15 12/22/19 21:16 DC 12/22/19 21:15 3 UNITS Iodixanol (Visipaque 320) 100 ml 1X ONCE 12/20/19 13:30 12/20/19 13:42 DC 12/20/19 13:55 75 ML Iohexol (Omnipaque 350 Mg/ml) 80 ml 1X ONCE 12/19/19 15:00 12/19/19 15:01 DC 12/19/19 15:08 80 ML Lactobacillus Rhamnosus (Culturelle) 1 cap BID 12/17/19 21:00 12/26/19 10:21 1 CAP Lidocaine HCl (Buffered Lidocaine 1%) 3 ml 1X ONCE 12/20/19 13:30 12/20/19 13:42 DC 12/20/19 13:55 6 ML Lisinopril (Prinivil) 20 mg DAILY 12/16/19 16:00 12/16/19 16:22 DC Midazolam HCl (Versed) 2 mg 1X ONCE 12/20/19 13:30 12/20/19 13:42 DC 12/20/19 13:58 2 MG Morphine Sulfate (Morphine Sulfate) 4 mg PRN Q2HR PRN 12/16/19 19:45 12/20/19 08:33 4 MG Multivitamins (Thera M Plus) 1 tab DAILY 12/23/19 09:00 12/26/19 10:21 1 TAB Non-Formulary Medication (Ranitidine Hcl (Zantac)) 1 tab BID 12/16/19 21:00 12/16/19 16:22 DC Nystatin (Nystop) 1 maryam BID 12/21/19 12:00 12/26/19 10:23 1 MARYAM Ondansetron HCl (Zofran Odt) 4 mg PRN Q6HRS PRN 12/19/19 15:00 Oxycodone/ Acetaminophen (Percocet 5/325) 1 tab PRN Q4HRS PRN 12/16/19 18:45 12/26/19 10:21 1 TAB Piperacillin Sod/ Tazobactam Sod (Zosyn Per Pharmacy) 1 each PRN DAILY PRN 12/16/19 15:15 Piperacillin Sod/ Tazobactam Sod 2.25 gm/Sodium Chloride 50 ml @ 100 mls/hr Q6HRS 12/16/19 18:00 12/26/19 12:39 100 MLS/HR Piperacillin Sod/ Tazobactam Sod 3.375 gm/Sodium Chloride 50 ml @ 100 mls/hr Q6HRS 12/16/19 18:00 Cancel Prochlorperazine Edisylate (Compazine) 5 mg PACU PRN PRN 12/27/19 07:00 12/28/19 06:59 Ringer's Solution 1,000 ml @ 30 mls/hr Q24H 12/27/19 07:00 12/27/19 18:59 Sodium Chloride 1,000 ml @ 100 mls/hr 1X ONCE 12/16/19 15:15 12/17/19 01:14 DC 12/16/19 16:43 100 MLS/HR Allergies: Allergies: Coded Allergies: No Known Drug Allergies (Unverified , 01/18/16) Mental Status Examination: Mental Status Examination Elderly female appears her stated age, fairly groomed fairly nourished Cooperative and interactive Alert and oriented Thought process linear coherent and goal-directed Denies auditory or visual hallucinations No abnormal perception noted Denies suicidal or homicidal thoughts. Mood is fine Affect is euthymic Insight is good Judgment is good Impulse control is good Attention span and concentration good Recent and remote memory intact ROS: 14 point review of system is otherwise negative except for stated above Physical Exam: Refer to Physician's note. 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 focal deficit MSK: No EPS, TDK, or abnormal involuntary movements Vitals: Vitals Vital Signs Date Time Temp Pulse Resp B/P (MAP) Pulse Ox O2 Delivery O2 Flow Rate FiO2 12/26/19 15:00 99.0 70 18 132/60 (84) 96 Room Air 99.0 Labs: Labs Laboratory Tests Test 12/24/19 17:13 12/24/19 20:22 12/25/19 07:15 12/25/19 07:34 Glucose (Fingerstick) 155 mg/dL (70-99) 72 mg/dL (70-99) 63 mg/dL (70-99) White Blood Count 11.3 x10^3/uL (4.0-11.0) Red Blood Count 2.70 x10^6/uL (3.50-5.40) Hemoglobin 8.0 g/dL (12.0-15.5) Hematocrit 24.2 % (36.0-47.0) Mean Corpuscular Volume 90 fL (79-100) Mean Corpuscular Hemoglobin 30 pg (25-35) Mean Corpuscular Hemoglobin Concent 33 g/dL (31-37) Red Cell Distribution Width 15.1 % (11.5-14.5) Platelet Count 426 x10^3/uL (140-400) Neutrophils (%) (Auto) 69 % (31-73) Lymphocytes (%) (Auto) 23 % (24-48) Monocytes (%) (Auto) 6 % (0-9) Eosinophils (%) (Auto) 2 % (0-3) Basophils (%) (Auto) 1 % (0-3) Neutrophils # (Auto) 7.8 x10^3/uL (1.8-7.7) Lymphocytes # (Auto) 2.6 x10^3/uL (1.0-4.8) Monocytes # (Auto) 0.6 x10^3/uL (0.0-1.1) Eosinophils # (Auto) 0.3 x10^3/uL (0.0-0.7) Basophils # (Auto) 0.1 x10^3/uL (0.0-0.2) Sodium Level 141 mmol/L (136-145) Potassium Level 4.0 mmol/L (3.5-5.1) Chloride Level 105 mmol/L (98-107) Carbon Dioxide Level 27 mmol/L (21-32) Anion Gap 9 (6-14) Blood Urea Nitrogen 12 mg/dL (7-20) Creatinine 0.7 mg/dL (0.6-1.0) Estimated GFR (Cockcroft-Gault) 99.0 Glucose Level 68 mg/dL (70-99) Calcium Level 7.5 mg/dL (8.5-10.1) Test 12/25/19 09:35 12/25/19 11:22 12/25/19 16:31 12/25/19 20:18 Glucose (Fingerstick) 121 mg/dL (70-99) 119 mg/dL (70-99) 124 mg/dL (70-99) 135 mg/dL (70-99) Test 12/26/19 07:10 12/26/19 07:27 12/26/19 10:56 12/26/19 16:44 White Blood Count 9.9 x10^3/uL (4.0-11.0) Red Blood Count 2.53 x10^6/uL (3.50-5.40) Hemoglobin 7.7 g/dL (12.0-15.5) Hematocrit 22.8 % (36.0-47.0) Mean Corpuscular Volume 90 fL (79-100) Mean Corpuscular Hemoglobin 31 pg (25-35) Mean Corpuscular Hemoglobin Concent 34 g/dL (31-37) Red Cell Distribution Width 15.4 % (11.5-14.5) Platelet Count 428 x10^3/uL (140-400) Neutrophils (%) (Auto) 69 % (31-73) Lymphocytes (%) (Auto) 22 % (24-48) Monocytes (%) (Auto) 5 % (0-9) Eosinophils (%) (Auto) 2 % (0-3) Basophils (%) (Auto) 1 % (0-3) Neutrophils # (Auto) 6.9 x10^3/uL (1.8-7.7) Lymphocytes # (Auto) 2.2 x10^3/uL (1.0-4.8) Monocytes # (Auto) 0.5 x10^3/uL (0.0-1.1) Eosinophils # (Auto) 0.2 x10^3/uL (0.0-0.7) Basophils # (Auto) 0.1 x10^3/uL (0.0-0.2) Sodium Level 140 mmol/L (136-145) Potassium Level 3.7 mmol/L (3.5-5.1) Chloride Level 105 mmol/L (98-107) Carbon Dioxide Level 27 mmol/L (21-32) Anion Gap 8 (6-14) Blood Urea Nitrogen 12 mg/dL (7-20) Creatinine 0.8 mg/dL (0.6-1.0) Estimated GFR (Cockcroft-Gault) 84.8 BUN/Creatinine Ratio 15 (6-20) Glucose Level 78 mg/dL (70-99) Calcium Level 7.5 mg/dL (8.5-10.1) Total Bilirubin 0.2 mg/dL (0.2-1.0) Aspartate Amino Transf (AST/SGOT) 10 U/L (15-37) Alanine Aminotransferase (ALT/SGPT) 7 U/L (14-59) Alkaline Phosphatase 90 U/L (46-116) Total Protein 6.1 g/dL (6.4-8.2) Albumin 1.1 g/dL (3.4-5.0) Albumin/Globulin Ratio 0.2 (1.0-1.7) Glucose (Fingerstick) 77 mg/dL (70-99) 108 mg/dL (70-99) 136 mg/dL (70-99) Laboratory Tests Test 12/25/19 20:18 12/26/19 07:10 12/26/19 07:27 12/26/19 10:56 Glucose (Fingerstick) 135 mg/dL (70-99) 77 mg/dL (70-99) 108 mg/dL (70-99) White Blood Count 9.9 x10^3/uL (4.0-11.0) Red Blood Count 2.53 x10^6/uL (3.50-5.40) Hemoglobin 7.7 g/dL (12.0-15.5) Hematocrit 22.8 % (36.0-47.0) Mean Corpuscular Volume 90 fL (79-100) Mean Corpuscular Hemoglobin 31 pg (25-35) Mean Corpuscular Hemoglobin Concent 34 g/dL (31-37) Red Cell Distribution Width 15.4 % (11.5-14.5) Platelet Count 428 x10^3/uL (140-400) Neutrophils (%) (Auto) 69 % (31-73) Lymphocytes (%) (Auto) 22 % (24-48) Monocytes (%) (Auto) 5 % (0-9) Eosinophils (%) (Auto) 2 % (0-3) Basophils (%) (Auto) 1 % (0-3) Neutrophils # (Auto) 6.9 x10^3/uL (1.8-7.7) Lymphocytes # (Auto) 2.2 x10^3/uL (1.0-4.8) Monocytes # (Auto) 0.5 x10^3/uL (0.0-1.1) Eosinophils # (Auto) 0.2 x10^3/uL (0.0-0.7) Basophils # (Auto) 0.1 x10^3/uL (0.0-0.2) Sodium Level 140 mmol/L (136-145) Potassium Level 3.7 mmol/L (3.5-5.1) Chloride Level 105 mmol/L (98-107) Carbon Dioxide Level 27 mmol/L (21-32) Anion Gap 8 (6-14) Blood Urea Nitrogen 12 mg/dL (7-20) Creatinine 0.8 mg/dL (0.6-1.0) Estimated GFR (Cockcroft-Gault) 84.8 BUN/Creatinine Ratio 15 (6-20) Glucose Level 78 mg/dL (70-99) Calcium Level 7.5 mg/dL (8.5-10.1) Total Bilirubin 0.2 mg/dL (0.2-1.0) Aspartate Amino Transf (AST/SGOT) 10 U/L (15-37) Alanine Aminotransferase (ALT/SGPT) 7 U/L (14-59) Alkaline Phosphatase 90 U/L (46-116) Total Protein 6.1 g/dL (6.4-8.2) Albumin 1.1 g/dL (3.4-5.0) Albumin/Globulin Ratio 0.2 (1.0-1.7) Test 12/26/19 16:44 Glucose (Fingerstick) 136 mg/dL (70-99) Diagnosis: Diagnosis: 1. Patient has full capacity to make clinical decision regarding her care. 2. Unspecified depression 3. Unspecified anxiety Assessment: Elderly pleasant female who is in agreement to go for below-knee amputation. Her understanding about procedure, risks, benefits, her concern prior to making decision appears to be rational. She made her decision without any pressure and with full understanding. Her thoughts about next phase of life following amputation and preparation, future plans are indicative of her full Capacity to make rational decision regarding her own care as recommended to her by physicians. She does not have any depression or anxiety that are influencing her decision. Plan: Patient has full capacity to make clinical decision. Mentally she is stable enough to make decision. Psychoeducation provided. Supportive psychotherapy provided. Thank you for involving inpatient IRA GARCIA MD Dec 26, 2019 17:05
[2019-12-26 19:00] VITALS: BP 151/72
--- NOTE | 2019-12-26 19:41 | NUR ---
pt refuses to sit on bedside commode for her elimination and also refuses the bedpan. pt states she wants to wet and poop in her diaper and be changed. when asked who will change her while shes home she said im not worried about that. pt bottom is excoriated and very painful, cream applied and frequent diaper changes. will continue to encourage pt to use another method of elimination to prevent further breakdown. pt was informed of further risks and she stated to stop lecturing her and that she doesnt need us to tell her what she needs to do.
[2019-12-26] MEDS: INSULIN GLARGINE SYRINGE. SQ SCH (21:00)
[2019-12-26 22:45] VITALS: BP 135/73
[2019-12-27] VITALS (12 sets, daily range): BP systolic 107–150; BP diastolic 46–68
[2019-12-27] MEDS: PIPERACILLIN/TAZOBACTAM 2.25 GM in IV NORMAL SALINE 50ML 50 ML IV SCH ×2 (00:08→06:18)
[2019-12-27] MEDS: MORPHINE SULFATE 4 MG/ML VIAL. IV PRN ×4 (02:08→15:51)
[2019-12-27] MEDS ORDERED: PROCHLORPERAZINE 10 MG/2 ML VIAL. IV PRN (07:00)
[2019-12-27] MEDS ORDERED: IV RINGERS,LACTATED 1000ML 1,000 ML IV SCH (07:00)
[2019-12-27] MEDS: CLOPIDOGREL BISULFATE 75 MG TABLET PO SCH (08:00)
[2019-12-27] MEDS: INSULIN LISPRO 300 UNITS/3 ML VIAL. SQ SCH ×3 (08:00→17:00)
[2019-12-27] MEDS: MULTIVITAMIN with MINERAL TABLET. PO SCH (09:00)
[2019-12-27] MEDS: LACTOBACILLUS RHAMNOSUS GG 1 CAPSULE. PO SCH ×2 (09:00→20:10)
[2019-12-27] MEDS: NYSTATIN TOPICAL POWDER 15GM BOTTLE. TP SCH ×2 (09:00→20:12)
[2019-12-27] MEDS ORDERED: BUPIVACAINE-EPI 0.25%-1:200000 MPF 30 ML VIAL. ONE (10:01)
[2019-12-27] MEDS ORDERED: fentaNYL PF VIAL 100 MCG/2 ML VIAL ONE ×2 (10:31→12:21)
[2019-12-27] MEDS ORDERED: ONDANSETRON PF 4 MG/2 ML VIAL. ONE (10:50)
[2019-12-27] MEDS ORDERED: PROPOFOL 10 MG/ML (20ML) VIAL. IV ONE (10:50)
[2019-12-27] MEDS ORDERED: LIDOCAINE 2% PF 5 ML VIAL. ONE (10:50)
[2019-12-27] MEDS ORDERED: PHENYLEPHRINE in 0.9% NACL PF 1 MG/10 ML SYRINGE. IV ONE (10:55)
[2019-12-27] MEDS ORDERED: SEVOFLURANE > 120 MINUTES. IH ONE (12:00)
[2019-12-27] MEDS ORDERED: PROCHLORPERAZINE 10 MG/2 ML VIAL. ONE (12:21)
--- NOTE | 2019-12-27 12:34 | PDOC4 ---
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 There is dry gangrene of the foot and toes. She had vascular surgery consultation which recommended below- knee amputation. Arterial workup showed stenosis which was treated by vascular surgery. I recommend a transtibial amputation, also called below-knee amputation. We talked about the potential risks of bleeding, difficulty walking, infection, need for additional amputations or other potential surgical or anesthetic complications. She and I discussed the risks, benefits and alternatives of surgery. All of her questions about surgery were answered and she desires to proceed. Procedure in Detail: The patient was identified in the preoperative holding area. The correct right lower extremity was marked by me. The patient was taken to the operating room where general anesthesia was used. The patient was positioned supine on the operating table. A tourniquet was placed on the upper thigh. The limb was prepared in sterile fashion with Betadine. The patient remains on scheduled antibiotics so no additional antibiotics were used. A timeout procedure was performed. Sterile drapes were applied. An impervious stockinette was placed over the foot up to the level of the ankle. A Coban was used to secure the stockinette. An Esmarch bandage was used to exsanguinate the calf and the thigh, and the tourniquet was inflated to 350 mmHg. Landmarks were noted such as the tibial tubercle. Anterior and posterior incisions were drawn with a skin marker, 15 cm distal to the knee joint line, and 10 cm distal to the tibial tubercle. Rounded fishmouth type flaps were made with the posterior incision one third of the total circumference and the anterior incision two thirds of the total circumference. Skin incisions were made with a #10 scalpel. Bovie electrocautery was used for hemostasis in the subcutaneous tissues. A circumferential skin incision was made at the planned flap incisions, continuing with electrocautery for hemostasis. The fascia was divided circumferentially. Muscle dissection was performed with electrocautery. Vessels were identified and ligated with #2-0 silk free ties and #2-0 silk stick ties on arteries. Nerves were transected sharply with a scalpel after injecting with local anesthetic. The tibia was exposed and the periosteum was elevated proximally using a Garcia elevator. The fibular periosteum was also dissected proximally. A power oscillating saw was now used to transect the tibia 10 cm below the tibial tubercle, with a beveled edge. The fibula was transected 1 centimeter proximal to the tibia with an oblique saw cut. Further dissection was now performed on the posterior aspect of the tibia and fibula, and the specimen was removed. The end of the tibia was smoothed with the saw to a rounded surface. Saline irrigation was used. The tourniquet was released. Silk ties were again used for bleeding. Bovie electrocautery was used a final time for hemostasis. The posterior flap fascia was repaired to the anterior tibial periosteum using #1 PDS [id number] sutures. Additional fascial repair was performed with #1 Vicryl [id number] sutures. A secure fascial repair was obtained. Next the subcutaneous continues tissues were closed first with #2-0 Vicryl by me and my glass ribbon machine operator assistant. My glass ribbon machine operator assistant closed the skin edges with sanjiv. My glass ribbon machine operator assistant applied a sterile dressing with Xeroform, 4 x 4's ABDs, and Kerlix. Needle and sponge counts were correct. There were no apparent complications. TERRA GAYLE MD Dec 27, 2019 12:34
[2019-12-27] MEDS ORDERED: fentaNYL PF VIAL 100 MCG/2 ML VIAL IVP PRN ×3 (12:45→13:00)
[2019-12-27] MEDS: PIPERACILLIN/TAZOBACTAM 3.375 GM in IV NORMAL SALINE 50ML 50 ML IV SCH ×2 (13:22→19:04)
[2019-12-27] MEDS: oxyCODONE/APAP 5/325 1 TAB TABLET PO PRN ×2 (15:51→20:11)
--- NOTE | 2019-12-27 20:23 | PDOC ---
F/U PHYSCH PROG NOTE Subjective: 74-year-old female who is s/p right below-knee amputation is seen for routine follow-up. Progress is reviewed with nursing staff. No major emotional or behavioral breakdown reported. She appears lethargic and in pain. States, she is in distress because of pain and wish her pain could go away. Aside from that, she is somewhat dysphoric likely secondary to the procedure and pain. Denies suicidal or homicidal thoughts. Denies auditory or visual hallucination. No evidence of alyx or hypomania. Objective: Vital Signs: Vital Signs Date Time Temp Pulse Resp B/P (MAP) Pulse Ox O2 Delivery O2 Flow Rate FiO2 12/27/19 20:11 20 96 Room Air 12/27/19 16:30 92 131/68 (89) 12/27/19 12:50 98.0 2.0 98.0 Labs: Laboratory Tests Test 12/26/19 20:48 12/27/19 07:06 12/27/19 09:33 12/27/19 12:38 Glucose (Fingerstick) 151 mg/dL (70-99) H 100 mg/dL (70-99) H 93 mg/dL (70-99) 91 mg/dL (70-99) Test 12/27/19 16:39 Glucose (Fingerstick) 132 mg/dL (70-99) H Medications: Current Medications Medications (Trade) Dose Ordered Sig/Arnaud Start Time Stop Time Status Last Admin Dose Admin Acetaminophen (Tylenol) 650 mg PRN Q4HRS PRN 12/24/19 15:30 Atorvastatin Calcium (Lipitor) 5 mg QHS 12/16/19 21:00 12/16/19 16:22 DC Bupivacaine HCl/ Epinephrine Bitart (Sensorcaine-Epi 0.25%-1:156638 Mpf) 30 ml STK-MED ONCE 12/27/19 10:01 12/27/19 10:01 DC 12/27/19 11:15 30 ML Cetirizine HCl (ZyrTEC) 10 mg DAILY 12/16/19 16:00 12/16/19 16:22 DC Clopidogrel Bisulfate (Plavix) 75 mg DAILYWBKFT 12/21/19 08:00 12/26/19 10:21 75 MG Dextrose (Dextrose 50%-Water Syringe) 12.5 gm PRN Q15MIN PRN 12/16/19 15:15 Fentanyl Citrate (Fentanyl 2ml Vial) 50 mcg PRN Q5MIN PRN 12/27/19 13:00 12/27/19 12:35 50 MCG Heparin Sodium (Porcine) (Heparin Sodium) 5,000 unit 1X ONCE 12/20/19 13:30 12/20/19 13:42 DC 12/20/19 13:59 5,000 UNIT Heparin Sodium/ Sodium Chloride (HEPARIN for ARTERIAL LINE FLUSH) 1,000 unit 1X ONCE 12/20/19 13:30 12/20/19 13:42 DC 12/20/19 13:57 1,000 UNIT Hydrochlorothiazide (Microzide) 12.5 mg DAILY 12/16/19 16:00 12/16/19 16:22 DC Info (CONTRAST GIVEN -- Rx MONITORING) 1 each PRN DAILY PRN 12/20/19 13:45 12/22/19 13:44 DC Insulin Glargine (Lantus Syringe) 10 unit QHS 12/16/19 21:00 12/26/19 21:00 5 UNIT Insulin Human Lispro (HumaLOG) 3 units 1X ONCE 12/22/19 21:15 12/22/19 21:16 DC 12/22/19 21:15 3 UNITS Iodixanol (Visipaque 320) 100 ml 1X ONCE 12/20/19 13:30 12/20/19 13:42 DC 12/20/19 13:55 75 ML Iohexol (Omnipaque 350 Mg/ml) 80 ml 1X ONCE 12/19/19 15:00 12/19/19 15:01 DC 12/19/19 15:08 80 ML Lactobacillus Rhamnosus (Culturelle) 1 cap BID 12/17/19 21:00 12/27/19 20:10 1 CAP Lidocaine HCl (Buffered Lidocaine 1%) 3 ml 1X ONCE 12/20/19 13:30 12/20/19 13:42 DC 12/20/19 13:55 6 ML Lidocaine HCl (Lidocaine Pf 2% Vial) 5 ml STK-MED ONCE 12/27/19 10:50 12/27/19 10:51 DC Lisinopril (Prinivil) 20 mg DAILY 12/16/19 16:00 12/16/19 16:22 DC Midazolam HCl (Versed) 2 mg 1X ONCE 12/20/19 13:30 12/20/19 13:42 DC 12/20/19 13:58 2 MG Morphine Sulfate (Morphine Sulfate) 4 mg PRN Q2HR PRN 12/16/19 19:45 12/27/19 15:51 4 MG Multivitamins (Thera M Plus) 1 tab DAILY 12/23/19 09:00 12/26/19 10:21 1 TAB Non-Formulary Medication (Ranitidine Hcl (Zantac)) 1 tab BID 12/16/19 21:00 12/16/19 16:22 DC Nystatin (Nystop) 1 maryam BID 12/21/19 12:00 12/27/19 20:12 1 MARYAM Ondansetron HCl (Zofran Odt) 4 mg PRN Q6HRS PRN 12/19/19 15:00 Ondansetron HCl (Zofran) 4 mg STK-MED ONCE 12/27/19 10:50 12/27/19 10:51 DC Oxycodone/ Acetaminophen (Percocet 5/325) 2 tab PRN Q4HRS PRN 12/27/19 12:45 12/27/19 20:11 2 TAB Phenylephrine HCl (PHENYLEPHRINE in 0.9% NACL PF) 1 mg STK-MED ONCE 12/27/19 10:55 12/27/19 10:56 DC Piperacillin Sod/ Tazobactam Sod (Zosyn Per Pharmacy) 1 each PRN DAILY PRN 12/16/19 15:15 Piperacillin Sod/ Tazobactam Sod 2.25 gm/Sodium Chloride 50 ml @ 100 mls/hr Q6HRS 12/16/19 18:00 12/27/19 11:00 DC 12/27/19 06:18 100 MLS/HR Piperacillin Sod/ Tazobactam Sod 3.375 gm/Sodium Chloride 50 ml @ 100 mls/hr Q6HRS 12/27/19 12:00 12/27/19 19:04 100 MLS/HR Prochlorperazine Edisylate (Compazine) 10 mg STK-MED ONCE 12/27/19 12:21 12/27/19 12:21 DC Propofol (Diprivan) 200 mg STK-MED ONCE 12/27/19 10:50 12/27/19 10:51 DC Ringer's Solution 1,000 ml @ 30 mls/hr Q24H 12/27/19 07:00 12/27/19 18:59 DC Sevoflurane (Ultane) 90 ml STK-MED ONCE 12/27/19 12:00 12/27/19 12:00 DC Sodium Chloride 1,000 ml @ 100 mls/hr 1X ONCE 12/16/19 15:15 12/17/19 01:14 DC 12/16/19 16:43 100 MLS/HR Physical Exam: Mental Status Exam: Elderly female appears her stated age, fairly groomed fairly nourished Cooperative and interactive Alert and oriented Thought process linear coherent and goal-directed Denies auditory or visual hallucinations No abnormal perception noted Denies suicidal or homicidal thoughts. Mood is fine Affect is euthymic Insight is good Judgment is good Impulse control is good Attention span and concentration good Recent and remote memory intact Physical Exam: Refer to Physician's note. UM RN: No focal deficit MSK: No EPS, TDK, or abnormal involuntary movements Diagnosis: 1. Patient has full capacity to make clinical decision regarding her care. 2. Unspecified depression 3. Unspecified anxiety Assessment: Elderly pleasant female who is in agreement to go for below-knee amputation. Her understanding about procedure, risks, benefits, her concern prior to making decision appears to be rational. She made her decision without any pressure and with full understanding. Her thoughts about next phase of life following amputation and preparation, future plans are indicative of her full Capacity to make rational decision regarding her own care as recommended to her by physicians. She does not have any depression or anxiety that are influencing her decision. Today, she is a little bit dysphoric secondary to pain. Aside from that she is doing fine. Plan: Patient has full capacity to make clinical decision. Mentally she is stable enough to make decision. Psychoeducation provided. Supportive psychotherapy provided. Thank you for involving inpatient IRA GARCIA MD Dec 27, 2019 20:23
[2019-12-27] MEDS: INSULIN GLARGINE SYRINGE. SQ SCH (21:20)
[2019-12-28] MEDS: PIPERACILLIN/TAZOBACTAM 3.375 GM in IV NORMAL SALINE 50ML 50 ML IV SCH ×5 (00:02→23:33)
[2019-12-28] MEDS: oxyCODONE/APAP 5/325 1 TAB TABLET PO PRN ×2 (02:36→08:08)
[2019-12-28 03:00] VITALS: BP 142/67
[2019-12-28 07:00] VITALS: BP 116/64
[2019-12-28] MEDS: INSULIN LISPRO 300 UNITS/3 ML VIAL. SQ SCH ×3 (07:38→17:00)
[2019-12-28] MEDS: MULTIVITAMIN with MINERAL TABLET. PO SCH (08:08)
[2019-12-28] MEDS: LACTOBACILLUS RHAMNOSUS GG 1 CAPSULE. PO SCH ×2 (08:08→20:14)
[2019-12-28] MEDS: CLOPIDOGREL BISULFATE 75 MG TABLET PO SCH (08:08)
[2019-12-28] MEDS: NYSTATIN TOPICAL POWDER 15GM BOTTLE. TP SCH ×2 (08:17→20:17)
--- NOTE | 2019-12-28 09:13 | PDOC ---
[employer] PROGRESS NOTE Date of Service DOS: DATE: 12/28/19 TIME: 09:08 Chief Complaint Chief Complaint falls, worsening weakness, cannot walk, DM2, poor control she is off meds, denies any problem cognitive decline - dementia likely eschar foot and toes, ischemic injury, dry gangrene ( needs BKA) History of Present Illness History of Present Illness 12/28/2019 Patient was seen and examined Patient had clean, dry dressings on surgical site Patient was in NAD Patient endorsed feeling sleepy 12/26/2019 Patient was seen and examined Discussed with nurse Patient was alert and talkative during exam Vitals/I&O Vitals/I&O: Vital Signs Date Time Temp Pulse Resp B/P (MAP) Pulse Ox O2 Delivery O2 Flow Rate FiO2 12/28/19 08:08 Room Air 12/28/19 07:00 100.0 95 18 116/64 (81) 97 100.0 12/27/19 12:50 2.0 I & O 12/27/19 12/27/19 12/28/19 15:00 23:00 07:00 Intake Total 500 ml 200 ml Output Total 200 ml Balance 300 ml 200 ml Physical Exam General: Alert, Cooperative, Other (multiple missing teeth, not quite edentulous) Heart: Regular rate Lungs: Wheezing Abdomen: Soft Extremities: Other (The right foot has grossly normal alignment. The second third and fourth toes are completely necrotic with dry gangrene into the midfoot dorsally and plantarly. There is an odor but not severeI dont believe theres wet gangrene or gas. There is some ischemia and discoloration of the great toe and fifth toe and they are also likely nonviable. Despite the lateral malleolus fracture, there is minimal lateral malleolus swelling or tenderness. There is no ankle joint deformity. There is full-thickness dry gangrene along the plantar aspect of the foot with some overlying loose skin, and unfortunately the proximal extent of the dry gangrene on the plantar foot would prevent transmetatarsal amputation. There is a full-thickness ulceration with dry necrotic blackened tissue at the Achilles, possible tendon involvement. Pulses are not palpable. She reports slight light touch sensation. I believe these gangrene and ulcer changes are related more to diabetic ischemia than to diabetic neuropathy.) Skin: No breakdown, Other (distal 1/3, of forefoot is black and complete eschar, and looks like it has been that way for awhile. 3 toes nearly auto amputated, ) Labs Labs: Laboratory Tests Test 12/27/19 09:33 12/27/19 12:38 12/27/19 16:39 12/27/19 20:35 Glucose (Fingerstick) 93 mg/dL (70-99) 91 mg/dL (70-99) 132 mg/dL (70-99) 136 mg/dL (70-99) Test 12/28/19 07:30 Glucose (Fingerstick) 99 mg/dL (70-99) Review of Systems Review of Systems: Patient denies nausea. Patient denies weakness. Assessment and Plan Assessmemt and Plan Problems Medical Problems: (1) Necrotic toes Status: Acute (2) Weakness Status: Acute (3) Wound infection Status: Acute Assessment Ischemic injury of LE Diabetes mellitus, type 2 Cognitive decline Falls Weakness Plan Pain meds Continue home meds Wound care PT/OT DVT prophylaxis Full code Discharge disposition pending Comment Review of Relevant I have reviewed the following items da (where applicable) has been applied. Medications: Current Medications Medications (Trade) Dose Ordered Sig/Arnaud Route PRN Reason Start Time Stop Time Status Last Admin Dose Admin Bupivacaine HCl/ Epinephrine Bitart (Sensorcaine-Epi 0.25%-1:745953 Mpf) 30 ml STK-MED ONCE .ROUTE 12/27/19 10:01 12/27/19 10:01 DC 12/27/19 11:15 Piperacillin Sod/ Tazobactam Sod 3.375 gm/Sodium Chloride 50 ml @ 100 mls/hr Q6HRS IV 12/27/19 12:00 12/28/19 05:16 Oxycodone/ Acetaminophen (Percocet 5/325) 2 tab PRN Q4HRS PRN PO PAIN SEVERE 12/27/19 12:45 12/28/19 08:08 Fentanyl Citrate (Fentanyl 2ml Vial) While in pacu. PRN Q5MIN PRN IVP PAIN 12/27/19 12:45 12/27/19 12:46 DC 12/27/19 12:24 Fentanyl Citrate (Fentanyl 2ml Vial) 50 mcg PRN Q5MIN PRN IVP PAIN SEVERE 12/27/19 13:00 12/27/19 12:35 POLA RAY III DO Dec 28, 2019 09:13
[2019-12-28 11:00] VITALS: BP 97/45
--- NOTE | 2019-12-28 14:30 | NUR ---
Wound/Ostomy Care Wound Type/Assessment: Wound care follow up for left great toe callous DFU and right foot/ankle DFUs that are now s/p BKA. Upon assesment pt was covered in urine and stool, refuses to use bedpan when offered, briefs and chucks changed, Calazime applied for protection as pt is red and excoriated. Treatment Recommendations/Plan: Left great toe pictured and measured, cleansed with wound wash, hard callous but not open wound, xeroform and gauze applied for protection. R BKA pictured, cleansed with chloraprep, stapples on surgical incision are intact, minimal drainage noted, covered with Xeroform, abd and Kerlix. Education provided: pt educated on PU prevention, reinforcement needed. Pt refused to use bedpan when offered for elimination. Attempted to educate pt on calling nurses if she has an episode of urine or stool in her brief but she did not verbalized understanding. Pt screams for help when turning her to offload. Offloading surface/device: Purple wedge, pillows to float legs Recommended Referrals/Tests: n/a Discharge Recommendations for dressings: continue with orders from ortho for surgical incision. Left great toe callous continue to protect with gauze and tape or bandaid.
[2019-12-28 15:00] VITALS: BP 121/70
[2019-12-28 19:00] VITALS: BP 92/67
[2019-12-28] MEDS: MORPHINE SULFATE 4 MG/ML VIAL. IV PRN (20:15)
[2019-12-28] MEDS: INSULIN GLARGINE SYRINGE. SQ SCH (21:00)
[2019-12-28 23:00] VITALS: BP 125/76
[2019-12-29] VITALS (15 sets, daily range): BP systolic 77–140; BP diastolic 41–77
[2019-12-29 02:19] LABS: BASO # 0.1 x10^3/uL (0.0-0.2); BASO % 1 % (0-3); EOS % 0 % (0-3); LYMPH # 1.6 x10^3/uL (1.0-4.8); LYMPH % 11 % (24-48); MEAN CORPUSCULAR HEMOGLOBIN 30 pg (25-35); MEAN CORPUSCULAR HGB CONC 32 g/dL (31-37); MEAN CORPUSCULAR VOLUME 92 fL (79-100); MONO # 0.8 x10^3/uL (0.0-1.1); MONO % 6 % (0-9); NEUT # 11.5 x10^3/uL (1.8-7.7); NEUT % 82 % (31-73); PLATELET COUNT 475 x10^3/uL (140-400); RED CELL DISTRIBUTION WIDTH 15.1 % (11.5-14.5)
[2019-12-29 02:20] LABS: HEMATOCRIT 16.5 % (36.0-47.0); HEMOGLOBIN 5.3 g/dL (12.0-15.5)
[2019-12-29 02:25] LABS: CALCIUM 7.1 mg/dL (8.5-10.1); CREATININE 0.8 mg/dL (0.6-1.0); GFR 84.8; POTASSIUM 4.1 mmol/L (3.5-5.1)
[2019-12-29] MEDS: MORPHINE SULFATE 4 MG/ML VIAL. IV PRN (04:36)
[2019-12-29] MEDS: PIPERACILLIN/TAZOBACTAM 3.375 GM in IV NORMAL SALINE 50ML 50 ML IV SCH ×3 (06:03→16:41)
[2019-12-29] MEDS: INSULIN LISPRO 300 UNITS/3 ML VIAL. SQ SCH ×3 (07:59→17:00)
[2019-12-29] MEDS: CLOPIDOGREL BISULFATE 75 MG TABLET PO SCH (08:00)
--- NOTE | 2019-12-29 08:54 | PDOC ---
PROGRESS NOTES Date of Service: DATE: 12/29/19 TIME: 08:52 Chief Complaint Chief Complaint impression falls, worsening weakness, cannot walk, DM2, poor control she is off meds, denies any problem cognitive decline - dementia likely Right below-knee amputation (amputation, leg, through tibia and fibula) eschar foot and toes, ischemic injury, dry gangrene ( needs BKA) SEVERE PVD ,Chronic total occlusion mid right SFA, and at the junction of the SFA and popliteal artery treated with placement of self-expanding stents Balloon angioplasty of the tibial peroneal trunk marked post-op animia, transfues 2 units PRBC'S 12/28 38 MIN PT exam, chart review, > 50% of time spent with exam, chart review, pt care coordination dpoa mother, discussed, reviewed form signed 12 min History of Present Illness History of Present Illness 12/29/2019 Patient was seen and examined Patient had clean, dry dressings on surgical site Patient was in NAD sleepy 12/26/2019 Patient was seen and examined Discussed with nurse Patient was alert and talkative during exam Vitals Vitals Vital Signs Date Time Temp Pulse Resp B/P (MAP) Pulse Ox O2 Delivery O2 Flow Rate FiO2 12/29/19 07:00 98.3 84 16 107/54 (71) 94 Room Air 98.3 Physical Exam General: Alert, Cooperative, Other (multiple missing teeth, not quite edentulous) Heart: Regular rate, Normal S1, Normal S2 Lungs: Clear, Wheezing Abdomen: Soft Extremities: Other (The right foot has grossly normal alignment. The second third and fourth toes are completely necrotic with dry gangrene into the midfoot dorsally and plantarly. There is an odor but not severeI dont believe theres wet gangrene or gas. There is some ischemia and discoloration of the great toe and fifth toe and they are also likely nonviable. Despite the lateral malleolus fracture, there is minimal lateral malleolus swelling or tenderness. There is no ankle joint deformity. There is full-thickness dry gangrene along the plantar aspect of the foot with some overlying loose skin, and unfortunately the proximal extent of the dry gangrene on the plantar foot would prevent transmetatarsal amputation. There is a full-thickness ulceration with dry necrotic blackened tissue at the Achilles, possible tendon involvement. Pulses are not palpable. She reports slight light touch sensation. I believe these gangrene and ulcer changes are related more to diabetic ischemia than to diabetic neuropathy.) Skin: No breakdown, Other (distal 1/3, of forefoot is black and complete eschar, and looks like it has been that way for awhile. 3 toes nearly auto amputated, ) Labs LABS 12/20/2019 1. Pelvic angiogram 2. Right lower extremity angiography including injections from the common femoral artery, superficial femoral artery, and tibial peroneal trunk 3. Treatment for segment mid right SFA C2 with placement of self-expanding stent 4. Treatment of chronic CT O at the junction of the right SFA and popliteal artery with placement of self-expanding stent 5. Balloon angioplasty of the tibial peroneal trunk Indication: Patient is a 74-year-old female with a large necrotic wound. Prior CTA demonstrates multifocal stenoses in the right SFA and tibial peroneal trunk Discussion The procedure was explained in its entirety to the patient or the patients designated fraud representative by a member of the treatment team, including a discussion of the risks, benefits and commonly accepted alternatives to the procedure, as well as the expected consequences of no therapy whatsoever. Discussion of the risks included, but was not limited to, those that are most frequent and those that are rare but possibly severe or life-threatening, as well as the possibility of unforeseen complications. All elements of maximal sterile barrier technique including the use of a cap, mask, sterile gown, sterile gloves, large sterile sheet, appropriate hand hygiene, and 2% chlorhexidine for cutaneous antisepsis (or acceptable alternative antiseptic per current guidelines) were followed for this procedure. Left groin is prepped and draped using sterile barrier technique. 1% lidocaine was administered for local anesthesia. Ultrasound demonstrates left common femoral artery calcified patent. The artery was accessed using micropuncture technique and direct ultrasound guidance. Reference ultrasound images were saved the medical record. A 5 Maori vascular sheath was placed. An Omni flush catheter was advanced into the inferior abdominal aorta. Pelvic angiography was performed demonstrating no hemodynamically significant stenosis. Tortuosity of the distal bowel aorta noted. Omni flush catheter was directed into the right common femoral artery. Right lower extremity angiography was performed. There is mild stenosis of the proximal SFA does not appear to be flow-limiting. There is a chronic total occlusion of the mid right SFA with multiple collaterals. CT pelvis very short segment. There is no other chronic total occlusion at the junction of the SFA and [id number] popliteal artery. There is high-grade stenosis of the tibial peroneal trunk extending into the posterior tibial artery. Otherwise runoff vessels appear relatively intact. The occlusions and stenoses were traversed. A 6 mm x 80 mm self expanding stent was placed in the mid right SFA. This is post dilated to 6 mm. A 6 mm x 3 cm self-expanding stent was placed in the distalmost SFA extending to the [id number] popliteal artery, again post dilated to 6 mm. Balloon angioplasty of the tibial peroneal trunk was performed with 3 mm balloon. This resulted in significantly improved morphology and flow. Relatively robust flow to the foot was seen following intervention. Angiography of the left lower extremity was performed demonstrating the puncture site in the mid left common femoral artery without significant narrowing. Left SFA is irregular without high-grade stenosis. There is single vessel runoff to the left foot via the anterior tibial artery and dorsalis pedis artery. A minx device was deployed. Hemostasis was achieved. No immediate complications were identified. Total fluoroscopy time:: 18.1 Minutes Dose area product: 157 Gycm2 The procedures performed under conscious sedation including continuous cardiopulmonary monitoring via dedicated sedation nurse. [id number] sedation time: 87 minutes Impression: 1. Chronic total occlusion mid right SFA, and at the junction of the SFA and popliteal artery treated with placement of self-expanding stents 2. Balloon angioplasty of the tibial peroneal trunk 3. Left lower extremity angiography demonstrates single vessel runoff via the anterior tibial artery/dorsalis pedis artery DICTATED and SIGNED BY: ANIL ROSA MD DATE: 12/20/19 1627 Laboratory Tests Test 12/28/19 11:49 12/28/19 16:51 12/29/19 00:02 12/29/19 00:25 Glucose (Fingerstick) 129 mg/dL (70-99) 178 mg/dL (70-99) 152 mg/dL (70-99) White Blood Count 14.0 x10^3/uL (4.0-11.0) Red Blood Count 1.80 x10^6/uL (3.50-5.40) Hemoglobin 5.3 g/dL (12.0-15.5) Hematocrit 16.5 % (36.0-47.0) Mean Corpuscular Volume 92 fL (79-100) Mean Corpuscular Hemoglobin 30 pg (25-35) Mean Corpuscular Hemoglobin Concent 32 g/dL (31-37) Red Cell Distribution Width 15.1 % (11.5-14.5) Platelet Count 475 x10^3/uL (140-400) Neutrophils (%) (Auto) 82 % (31-73) Lymphocytes (%) (Auto) 11 % (24-48) Monocytes (%) (Auto) 6 % (0-9) Eosinophils (%) (Auto) 0 % (0-3) Basophils (%) (Auto) 1 % (0-3) Neutrophils # (Auto) 11.5 x10^3/uL (1.8-7.7) Lymphocytes # (Auto) 1.6 x10^3/uL (1.0-4.8) Monocytes # (Auto) 0.8 x10^3/uL (0.0-1.1) Eosinophils # (Auto) 0.0 x10^3/uL (0.0-0.7) Basophils # (Auto) 0.1 x10^3/uL (0.0-0.2) Sodium Level 140 mmol/L (136-145) Potassium Level 4.1 mmol/L (3.5-5.1) Chloride Level 107 mmol/L (98-107) Carbon Dioxide Level 26 mmol/L (21-32) Anion Gap 7 (6-14) Blood Urea Nitrogen 8 mg/dL (7-20) Creatinine 0.8 mg/dL (0.6-1.0) Estimated GFR (Cockcroft-Gault) 84.8 Glucose Level 166 mg/dL (70-99) Calcium Level 7.1 mg/dL (8.5-10.1) Test 12/29/19 00:30 12/29/19 07:43 Lactic Acid Level 1.0 mmol/L (0.4-2.0) Glucose (Fingerstick) 132 mg/dL (70-99) Assessment and Plan Assessmemt and Plan Problems Medical Problems: (1) Necrotic toes Status: Acute (2) Weakness Status: Acute (3) Wound infection Status: Acute Operative Note Operative NoteRight below-knee amputation (amputation, leg, through tibia and fibula) Operative Note Date of Procedure: December 27, 2019 Pre-Op Diagnosis: Atherosclerosis of [place] arteries of extremities with gangrene, right leg I70.261 Post-Op Diagnosis: Same Procedure: CPT 70262 Surgeon: Tyrese Franklin MD [place] Architect: Andriy DIAZ Anesthesia: General EBL: 200 mL Specimens Obtained: Right below knee amputation specimen Comment Review of Relevant I have reviewed the following items da (where applicable) has been applied. Labs Laboratory Tests Test 12/27/19 09:33 12/27/19 12:38 12/27/19 16:39 12/27/19 20:35 Glucose (Fingerstick) 93 mg/dL (70-99) 91 mg/dL (70-99) 132 mg/dL (70-99) 136 mg/dL (70-99) Test 12/28/19 07:30 12/28/19 11:49 12/28/19 16:51 12/29/19 00:02 Glucose (Fingerstick) 99 mg/dL (70-99) 129 mg/dL (70-99) 178 mg/dL (70-99) 152 mg/dL (70-99) Test 12/29/19 00:25 12/29/19 00:30 12/29/19 07:43 White Blood Count 14.0 x10^3/uL (4.0-11.0) Red Blood Count 1.80 x10^6/uL (3.50-5.40) Hemoglobin 5.3 g/dL (12.0-15.5) Hematocrit 16.5 % (36.0-47.0) Mean Corpuscular Volume 92 fL (79-100) Mean Corpuscular Hemoglobin 30 pg (25-35) Mean Corpuscular Hemoglobin Concent 32 g/dL (31-37) Red Cell Distribution Width 15.1 % (11.5-14.5) Platelet Count 475 x10^3/uL (140-400) Neutrophils (%) (Auto) 82 % (31-73) Lymphocytes (%) (Auto) 11 % (24-48) Monocytes (%) (Auto) 6 % (0-9) Eosinophils (%) (Auto) 0 % (0-3) Basophils (%) (Auto) 1 % (0-3) Neutrophils # (Auto) 11.5 x10^3/uL (1.8-7.7) Lymphocytes # (Auto) 1.6 x10^3/uL (1.0-4.8) Monocytes # (Auto) 0.8 x10^3/uL (0.0-1.1) Eosinophils # (Auto) 0.0 x10^3/uL (0.0-0.7) Basophils # (Auto) 0.1 x10^3/uL (0.0-0.2) Sodium Level 140 mmol/L (136-145) Potassium Level 4.1 mmol/L (3.5-5.1) Chloride Level 107 mmol/L (98-107) Carbon Dioxide Level 26 mmol/L (21-32) Anion Gap 7 (6-14) Blood Urea Nitrogen 8 mg/dL (7-20) Creatinine 0.8 mg/dL (0.6-1.0) Estimated GFR (Cockcroft-Gault) 84.8 Glucose Level 166 mg/dL (70-99) Calcium Level 7.1 mg/dL (8.5-10.1) Lactic Acid Level 1.0 mmol/L (0.4-2.0) Glucose (Fingerstick) 132 mg/dL (70-99) Laboratory Tests Test 12/28/19 11:49 12/28/19 16:51 12/29/19 00:02 12/29/19 00:25 Glucose (Fingerstick) 129 mg/dL (70-99) 178 mg/dL (70-99) 152 mg/dL (70-99) White Blood Count 14.0 x10^3/uL (4.0-11.0) Red Blood Count 1.80 x10^6/uL (3.50-5.40) Hemoglobin 5.3 g/dL (12.0-15.5) Hematocrit 16.5 % (36.0-47.0) Mean Corpuscular Volume 92 fL (79-100) Mean Corpuscular Hemoglobin 30 pg (25-35) Mean Corpuscular Hemoglobin Concent 32 g/dL (31-37) Red Cell Distribution Width 15.1 % (11.5-14.5) Platelet Count 475 x10^3/uL (140-400) Neutrophils (%) (Auto) 82 % (31-73) Lymphocytes (%) (Auto) 11 % (24-48) Monocytes (%) (Auto) 6 % (0-9) Eosinophils (%) (Auto) 0 % (0-3) Basophils (%) (Auto) 1 % (0-3) Neutrophils # (Auto) 11.5 x10^3/uL (1.8-7.7) Lymphocytes # (Auto) 1.6 x10^3/uL (1.0-4.8) Monocytes # (Auto) 0.8 x10^3/uL (0.0-1.1) Eosinophils # (Auto) 0.0 x10^3/uL (0.0-0.7) Basophils # (Auto) 0.1 x10^3/uL (0.0-0.2) Sodium Level 140 mmol/L (136-145) Potassium Level 4.1 mmol/L (3.5-5.1) Chloride Level 107 mmol/L (98-107) Carbon Dioxide Level 26 mmol/L (21-32) Anion Gap 7 (6-14) Blood Urea Nitrogen 8 mg/dL (7-20) Creatinine 0.8 mg/dL (0.6-1.0) Estimated GFR (Cockcroft-Gault) 84.8 Glucose Level 166 mg/dL (70-99) Calcium Level 7.1 mg/dL (8.5-10.1) Test 12/29/19 00:30 12/29/19 07:43 Lactic Acid Level 1.0 mmol/L (0.4-2.0) Glucose (Fingerstick) 132 mg/dL (70-99) Microbiology 12/16/19 Blood Culture - Final, Complete NO GROWTH AFTER 5 DAYS Medications Current Medications Piperacillin Sod/ Tazobactam Sod 3.375 gm/Sodium Chloride 50 ml @ 100 mls/hr 1X ONCE IV Last administered on 12/16/19at 11:26; Start 12/16/19 at 11:15; Stop 12/16/19 at 11:44; Status DC Sodium Chloride 1,000 ml @ 1,000 mls/hr 1X ONCE IV Last administered on 12/16/19at 11:25; Start 12/16/19 at 11:15; Stop 12/16/19 at 12:14; Status DC Oxycodone/ Acetaminophen (Percocet 5/325) 1 tab Q4HRS PO ; Start 12/16/19 at 16:00; Stop 12/16/19 at 18:36; Status DC Lisinopril (Prinivil) 20 mg DAILY PO ; Start 12/16/19 at 16:00; Stop 12/16/19 at 16:22; Status DC Cetirizine HCl (ZyrTEC) 10 mg DAILY PO ; Start 12/16/19 at 16:00; Stop 12/16/19 at 16:22; Status DC Atorvastatin Calcium (Lipitor) 5 mg QHS PO ; Start 12/16/19 at 21:00; Stop 12/16/19 at 16:22; Status DC Ondansetron HCl (Zofran Odt) 4 mg Q6HRS PO Last administered on 12/19/19at 05:50; Start 12/16/19 at 18:00; Stop 12/19/19 at 14:48; Status DC Non-Formulary Medication (Ranitidine Hcl (Zantac)) 1 tab BID PO ; Start 12/16/19 at 21:00; Stop 12/16/19 at 16:22; Status DC Piperacillin Sod/ Tazobactam Sod (Zosyn Per Pharmacy) 1 each PRN DAILY PRN MC SEE COMMENTS; Start 12/16/19 at 15:15 Sodium Chloride 1,000 ml @ 100 mls/hr 1X ONCE IV Last administered on 12/16/19at 16:43; Start 12/16/19 at 15:15; Stop 12/17/19 at 01:14; Status DC Insulin Human Lispro (HumaLOG) 0-9 UNITS TIDWMEALS SQ Last administered on 12/24/19at 18:40; Start 12/16/19 at 17:00 Dextrose (Dextrose 50%-Water Syringe) 12.5 gm PRN Q15MIN PRN IV SEE COMMENTS; Start 12/16/19 at 15:15 Insulin Glargine (Lantus Syringe) 10 unit QHS SQ Last administered on 12/27/19at 21:20; Start 12/16/19 at 21:00 Piperacillin Sod/ Tazobactam Sod 3.375 gm/Sodium Chloride 50 ml @ 100 mls/hr Q 6HRS IV ; Start 12/16/19 at 18:00; Status Cancel Piperacillin Sod/ Tazobactam Sod 2.25 gm/Sodium Chloride 50 ml @ 100 mls/hr Q 6HRS IV Last administered on 12/27/19at 06:18; Start 12/16/19 at 18:00; Stop 12/27/19 at 11:00; Status DC Hydrochlorothiazide (Microzide) 12.5 mg DAILY PO ; Start 12/16/19 at 16:00; Stop 12/16/19 at 16:22; Status DC Heparin Sodium (Porcine) (Heparin Sodium) 5,000 unit 1X ONCE SQ Last administered on 12/16/19at 17:50; Start 12/16/19 at 17:45; Stop 12/16/19 at 17:46; Status DC Oxycodone/ Acetaminophen (Percocet 5/325) 1 tab PRN Q4HRS PRN PO MODERATE TO SEVERE PAIN Last administered on 12/26/19at 18:09; Start 12/16/19 at 18:45; Stop 12/27/19 at 12:38; Status DC Morphine Sulfate (Morphine Sulfate) 4 mg PRN Q2HR PRN IV PAIN Last administered on 12/29/19at 04:36; Start 12/16/19 at 19:45 Ringer's Solution 1,000 ml @ 100 mls/hr Q10H IV Last administered on 12/20/19at 08:10; Start 12/17/19 at 10:30; Stop 12/20/19 at 15:47; Status DC Lactobacillus Rhamnosus (Culturelle) 1 cap BID PO Last administered on 12/28/19at 20:14; Start 12/17/19 at 21:00 Ondansetron HCl (Zofran Odt) 4 mg PRN Q6HRS PRN PO NAUSEA; Start 12/19/19 at 15:00 Iohexol (Omnipaque 350 Mg/ml) 80 ml 1X ONCE IV Last administered on 12/19/19at 15:08; Start 12/19/19 at 15:00; Stop 12/19/19 at 15:01; Status DC Lidocaine HCl (Buffered Lidocaine 1%) 3 ml STK-MED ONCE .ROUTE ; Start 12/20/19 at 11:59; Stop 12/20/19 at 11:59; Status DC Iodixanol (Visipaque 320) 100 ml STK-MED ONCE .ROUTE ; Start 12/20/19 at 11:59; Stop 12/20/19 at 11:59; Status DC Heparin Sodium/ Sodium Chloride 1,500 ml @ As Directed STK-MED ONCE .ROUTE ; Start 12/20/19 at 11:59; Stop 12/20/19 at 11:59; Status DC Midazolam HCl (Versed) 2 mg STK-MED ONCE .ROUTE ; Start 12/20/19 at 12:34; Stop 12/20/19 at 12:34; Status DC Fentanyl Citrate (Fentanyl 2ml Vial) 100 mcg STK-MED ONCE .ROUTE ; Start 12/20/19 at 12:34; Stop 12/20/19 at 12:34; Status DC Heparin Sodium (Porcine) (Heparin Sodium) 10,000 unit STK-MED ONCE .ROUTE ; Start 12/20/19 at 12:34; Stop 12/20/19 at 12:34; Status DC Heparin Sodium/ Sodium Chloride (HEPARIN for ARTERIAL LINE FLUSH) 1,000 unit 1X ONCE IART Last administered on 12/20/19at 13:56; Start 12/20/19 at 13:30; Stop 12/20/19 at 13:42; Status DC Heparin Sodium/ Sodium Chloride (HEPARIN for ARTERIAL LINE FLUSH) 1,000 unit 1X ONCE IART Last administered on 12/20/19at 13:57; Start 12/20/19 at 13:30; Stop 12/20/19 at 13:42; Status DC Lidocaine HCl (Buffered Lidocaine 1%) 3 ml 1X ONCE IJ Last administered on 12/20/19at 13:55; Start 12/20/19 at 13:30; Stop 12/20/19 at 13:42; Status DC Midazolam HCl (Versed) 2 mg 1X ONCE IV Last administered on 12/20/19at 13:58; Start 12/20/19 at 13:30; Stop 12/20/19 at 13:42; Status DC Fentanyl Citrate (Fentanyl 2ml Vial) 100 mcg 1X ONCE IV Last administered on 12/20/19at 13:58; Start 12/20/19 at 13:30; Stop 12/20/19 at 13:42; Status DC Iodixanol (Visipaque 320) 100 ml 1X ONCE IART Last administered on 12/20/19at 13:55; Start 12/20/19 at 13:30; Stop 12/20/19 at 13:42; Status DC Heparin Sodium (Porcine) (Heparin Sodium) 5,000 unit 1X ONCE IV Last administered on 12/20/19at 13:59; Start 12/20/19 at 13:30; Stop 12/20/19 at 13:42; Status DC Heparin Sodium/ Sodium Chloride (HEPARIN for ARTERIAL LINE FLUSH) 1,000 unit 1X ONCE IV Last administered on 12/20/19at 13:57; Start 12/20/19 at 13:30; Stop 12/20/19 at 13:42; Status DC Info (CONTRAST GIVEN -- Rx MONITORING) 1 each PRN DAILY PRN MC SEE COMMENTS; Start 12/20/19 at 13:45; Stop 12/22/19 at 13:44; Status DC Clopidogrel Bisulfate (Plavix) 75 mg DAILYWBKFT PO Last administered on 12/28/19at 08:08; Start 12/21/19 at 08:00 Nystatin (Nystop) 1 maryam BID TP Last administered on 12/28/19at 20:17; Start 12/21/19 at 12:00 Multivitamins (Thera M Plus) 1 tab DAILY PO Last administered on 12/28/19at 08:08; Start 12/23/19 at 09:00 Insulin Human Lispro (HumaLOG) 3 units 1X ONCE SQ Last administered on 12/22/19at 21:15; Start 12/22/19 at 21:15; Stop 12/22/19 at 21:16; Status DC Acetaminophen (Tylenol) 650 mg PRN Q4HRS PRN PO MILD PAIN / TEMP > 100.3'F Last administered on 12/28/19at 23:45; Start 12/24/19 at 15:30 Ringer's Solution 1,000 ml @ 30 mls/hr Q24H IV ; Start 12/27/19 at 07:00; Stop 12/27/19 at 18:59; Status DC Prochlorperazine Edisylate (Compazine) 5 mg PACU PRN PRN IV NAUSEA, MRX1 Last administered on 12/27/19at 12:25; Start 12/27/19 at 07:00; Stop 12/28/19 at 06:59; Status DC Bupivacaine HCl/ Epinephrine Bitart (Sensorcaine-Epi 0.25%-1:[id number] Mpf) 30 ml STK-MED ONCE .ROUTE Last administered on 12/27/19at 11:15; Start 12/27/19 at 10:01; Stop 12/27/19 at 10:01; Status DC Fentanyl Citrate (Fentanyl 2ml Vial) 100 mcg STK-MED ONCE .ROUTE ; Start 12/27/19 at 10:31; Stop 12/27/19 at 10:31; Status DC Piperacillin Sod/ Tazobactam Sod 3.375 gm/Sodium Chloride 50 ml @ 100 mls/hr Q6HRS IV Last administered on 12/29/19at 06:03; Start 12/27/19 at 12:00 Propofol (Diprivan) 200 mg STK-MED ONCE IV ; Start 12/27/19 at 10:50; Stop 12/27/19 at 10:51; Status DC Lidocaine HCl (Lidocaine Pf 2% Vial) 5 ml STK-MED ONCE .ROUTE ; Start 12/27/19 at 10:50; Stop 12/27/19 at 10:51; Status DC Ondansetron HCl (Zofran) 4 mg STK-MED ONCE .ROUTE ; Start 12/27/19 at 10:50; Stop 12/27/19 at 10:51; Status DC Phenylephrine HCl (PHENYLEPHRINE in 0.9% NACL PF) 1 mg STK-MED ONCE IV ; Start 12/27/19 at 10:55; Stop 12/27/19 at 10:56; Status DC Sevoflurane (Ultane) 90 ml STK-MED ONCE IH ; Start 12/27/19 at 12:00; Stop 12/27/19 at 12:00; Status DC Fentanyl Citrate (Fentanyl 2ml Vial) 100 mcg STK-MED ONCE .ROUTE ; Start 12/27/19 at 12:21; Stop 12/27/19 at 12:21; Status DC Prochlorperazine Edisylate (Compazine) 10 mg STK-MED ONCE .ROUTE ; Start 12/27/19 at 12:21; Stop 12/27/19 at 12:21; Status DC Oxycodone/ Acetaminophen (Percocet 5/325) 1 tab PRN Q4HRS PRN PO PAIN MILD TO MOD; Start 12/27/19 at 12:45 Oxycodone/ Acetaminophen (Percocet 5/325) 2 tab PRN Q4HRS PRN PO PAIN SEVERE Last administered on 12/28/19at 08:08; Start 12/27/19 at 12:45 Fentanyl Citrate (Fentanyl 2ml Vial) While in pacu. PRN Q5MIN PRN IVP PAIN Last administered on 12/27/19at 12:24; Start 12/27/19 at 12:45; Stop 12/27/19 at 12:46; Status DC Fentanyl Citrate (Fentanyl 2ml Vial) 25 mcg PRN Q5MIN PRN IVP PAIN MILD TO MOD; Start 12/27/19 at 12:46 Fentanyl Citrate (Fentanyl 2ml Vial) 50 mcg PRN Q5MIN PRN IVP PAIN SEVERE Last administered on 12/27/19at 12:35; Start 12/27/19 at 13:00 Active Scripts Active Zofran (Ondansetron Hcl) 4 Mg Tablet 1 Tab PO Q6HRS Percocet 5-325 Mg Tablet (Oxycodone/Acetaminophen) 1 Each Tablet 1-2 Tab PO Q4-6HRS Vitals/I & O Vital Sign - Last 24 Hours 12/28/19 12/28/19 12/28/19 12/28/19 09:08 11:00 15:00 19:00 Temp 98.9 101.1 100.6 98.9 101.1 100.6 Pulse 96 105 109 Resp 18 18 18 B/P (MAP) 97/45 (62) 121/70 (87) 92/67 (75) Pulse Ox 95 98 97 O2 Delivery Room Air Room Air Room Air Room Air 12/28/19 12/28/19 12/28/19 12/28/19 20:00 20:15 20:45 23:00 Temp 101.4 101.4 Pulse 105 Resp 20 20 18 B/P (MAP) 125/76 (92) Pulse Ox 98 95 96 O2 Delivery Room Air Room Air Room Air Room Air 12/29/19 12/29/19 12/29/19 12/29/19 03:00 04:36 05:06 07:00 Temp 100.2 98.3 100.2 98.3 Pulse 106 84 Resp 18 20 20 16 B/P (MAP) 124/68 (86) 107/54 (71) Pulse Ox 94 94 94 94 O2 Delivery Room Air Room Air Room Air Room Air Intake and Output 12/28/19 12/28/19 12/29/19 15:00 23:00 07:00 Intake Total 720 ml Balance 720 ml Justicifation of Admission Dx: Justifications for Admission: Justification of Admission Dx: N/A MARIUM FRITZ MD Dec 29, 2019 08:54
--- NOTE | 2019-12-29 10:20 | NUR ---
assumed care at this time. she is sleeping. arouses to name and answers yes/no questions. yells; upon questioning states she is in pain. Addendum: 12/29/19 at 1025 by ERNA HYDE RN Dressing to right stump is clean dry and intact
[2019-12-29] MEDS: NYSTATIN TOPICAL POWDER 15GM BOTTLE. TP SCH ×2 (10:27→21:00)
[2019-12-29] MEDS: LACTOBACILLUS RHAMNOSUS GG 1 CAPSULE. PO SCH ×2 (10:27→21:01)
[2019-12-29] MEDS: MULTIVITAMIN with MINERAL TABLET. PO SCH (10:27)
[2019-12-29] MEDS: oxyCODONE/APAP 5/325 1 TAB TABLET PO PRN ×3 (11:11→21:45)
--- NOTE | 2019-12-29 13:30 | NUR ---
sleeping. family remains at bedside. mother signed consent for Kaya to receive blood. 1st unit packed cell. update given to family
--- NOTE | 2019-12-29 15:00 | NUR ---
awakened from sleep. packed cells continue to infuse. incontinent of stool and urine. cleansed. she yelled frequently and pushed against. did not want to be cleaned. Calmoseptine applied to rita rectal area; blood pressure becomes normotensive
--- NOTE | 2019-12-29 15:44 | NUR ---
BLU asked by Camille to compete a POA for HC with this patient. BLU met with pt who is a/o and able to make needs known. Pt listed her mother Fadumo Hui ([phone]) as the primary agent and her cousin Lisy Ruiz ([phone]) as an alternate agent. POA HC was notarized and a copy was placed on the chart. SW provided original POA for HC and copies to pt and pt's family. No further SW needs at this time.
--- NOTE | 2019-12-29 15:57 | PDOC ---
F/U PHYSCH PROG NOTE Subjective: 74-year-old female seen for follow-up. Progress is reviewed with nursing staff. Reportedly, patient is more confused and somewhat behaviorally disturbed. Previously she was fully alert and oriented. Her disorientation and delirium could be multifactorial including postsurgical and addition of sedatives and narcotics. Objective: 14 point review of system is otherwise negative except for as stated above. Vital Signs: Vital Signs Date Time Temp Pulse Resp B/P (MAP) Pulse Ox O2 Delivery O2 Flow Rate FiO2 12/29/19 15:40 97.9 80 20 140/68 97.9 12/29/19 15:00 96 Room Air Labs: Laboratory Tests Test 12/28/19 16:51 12/29/19 00:02 12/29/19 00:25 12/29/19 00:30 Glucose (Fingerstick) 178 mg/dL (70-99) H 152 mg/dL (70-99) H White Blood Count 14.0 x10^3/uL (4.0-11.0) H Red Blood Count 1.80 x10^6/uL (3.50-5.40) L Hemoglobin 5.3 g/dL (12.0-15.5) *L Hematocrit 16.5 % (36.0-47.0) *L Mean Corpuscular Volume 92 fL (79-100) Mean Corpuscular Hemoglobin 30 pg (25-35) Mean Corpuscular Hemoglobin Concent 32 g/dL (31-37) Red Cell Distribution Width 15.1 % (11.5-14.5) H Platelet Count 475 x10^3/uL (140-400) H Neutrophils (%) (Auto) 82 % (31-73) H Lymphocytes (%) (Auto) 11 % (24-48) L Monocytes (%) (Auto) 6 % (0-9) Eosinophils (%) (Auto) 0 % (0-3) Basophils (%) (Auto) 1 % (0-3) Neutrophils # (Auto) 11.5 x10^3/uL (1.8-7.7) H Lymphocytes # (Auto) 1.6 x10^3/uL (1.0-4.8) Monocytes # (Auto) 0.8 x10^3/uL (0.0-1.1) Eosinophils # (Auto) 0.0 x10^3/uL (0.0-0.7) Basophils # (Auto) 0.1 x10^3/uL (0.0-0.2) Sodium Level 140 mmol/L (136-145) Potassium Level 4.1 mmol/L (3.5-5.1) Chloride Level 107 mmol/L (98-107) Carbon Dioxide Level 26 mmol/L (21-32) Anion Gap 7 (6-14) Blood Urea Nitrogen 8 mg/dL (7-20) Creatinine 0.8 mg/dL (0.6-1.0) Estimated GFR (Cockcroft-Gault) 84.8 Glucose Level 166 mg/dL (70-99) H Calcium Level 7.1 mg/dL (8.5-10.1) L Lactic Acid Level 1.0 mmol/L (0.4-2.0) Test 12/29/19 07:43 12/29/19 10:45 Glucose (Fingerstick) 132 mg/dL (70-99) H 130 mg/dL (70-99) H Laboratory Tests 12/29/19 00:25 Laboratory Tests 12/29/19 00:25 Medications: Current Medications Medications (Trade) Dose Ordered Sig/Arnaud Start Time Stop Time Status Last Admin Dose Admin Acetaminophen (Tylenol) 650 mg PRN Q4HRS PRN 12/24/19 15:30 12/28/19 23:45 650 MG Atorvastatin Calcium (Lipitor) 5 mg QHS 12/16/19 21:00 12/16/19 16:22 DC Bupivacaine HCl/ Epinephrine Bitart (Sensorcaine-Epi 0.25%-1:008053 Mpf) 30 ml STK-MED ONCE 12/27/19 10:01 12/27/19 10:01 DC 12/27/19 11:15 30 ML Cetirizine HCl (ZyrTEC) 10 mg DAILY 12/16/19 16:00 12/16/19 16:22 DC Clopidogrel Bisulfate (Plavix) 75 mg DAILYWBKFT 12/21/19 08:00 12/29/19 08:00 75 MG Dextrose (Dextrose 50%-Water Syringe) 12.5 gm PRN Q15MIN PRN 12/16/19 15:15 Fentanyl Citrate (Fentanyl 2ml Vial) 50 mcg PRN Q5MIN PRN 12/27/19 13:00 12/27/19 12:35 50 MCG Heparin Sodium (Porcine) (Heparin Sodium) 5,000 unit 1X ONCE 12/20/19 13:30 12/20/19 13:42 DC 12/20/19 13:59 5,000 UNIT Heparin Sodium/ Sodium Chloride (HEPARIN for ARTERIAL LINE FLUSH) 1,000 unit 1X ONCE 12/20/19 13:30 12/20/19 13:42 DC 12/20/19 13:57 1,000 UNIT Hydrochlorothiazide (Microzide) 12.5 mg DAILY 12/16/19 16:00 12/16/19 16:22 DC Info (CONTRAST GIVEN -- Rx MONITORING) 1 each PRN DAILY PRN 12/20/19 13:45 12/22/19 13:44 DC Insulin Glargine (Lantus Syringe) 10 unit QHS 12/16/19 21:00 12/27/19 21:20 10 UNIT Insulin Human Lispro (HumaLOG) 3 units 1X ONCE 12/22/19 21:15 12/22/19 21:16 DC 12/22/19 21:15 3 UNITS Iodixanol (Visipaque 320) 100 ml 1X ONCE 12/20/19 13:30 12/20/19 13:42 DC 12/20/19 13:55 75 ML Iohexol (Omnipaque 350 Mg/ml) 80 ml 1X ONCE 12/19/19 15:00 12/19/19 15:01 DC 12/19/19 15:08 80 ML Lactobacillus Rhamnosus (Culturelle) 1 cap BID 12/17/19 21:00 12/29/19 10:27 1 CAP Lidocaine HCl (Buffered Lidocaine 1%) 3 ml 1X ONCE 12/20/19 13:30 12/20/19 13:42 DC 12/20/19 13:55 6 ML Lidocaine HCl (Lidocaine Pf 2% Vial) 5 ml STK-MED ONCE 12/27/19 10:50 12/27/19 10:51 DC Lisinopril (Prinivil) 20 mg DAILY 12/16/19 16:00 12/16/19 16:22 DC Midazolam HCl (Versed) 2 mg 1X ONCE 12/20/19 13:30 12/20/19 13:42 DC 12/20/19 13:58 2 MG Morphine Sulfate (Morphine Sulfate) 4 mg PRN Q2HR PRN 12/16/19 19:45 12/29/19 04:36 4 MG Multivitamins (Thera M Plus) 1 tab DAILY 12/23/19 09:00 12/29/19 10:27 1 TAB Non-Formulary Medication (Ranitidine Hcl (Zantac)) 1 tab BID 12/16/19 21:00 12/16/19 16:22 DC Nystatin (Nystop) 1 maryam BID 12/21/19 12:00 12/29/19 10:27 1 MARYAM Ondansetron HCl (Zofran Odt) 4 mg PRN Q6HRS PRN 12/19/19 15:00 Ondansetron HCl (Zofran) 4 mg STK-MED ONCE 12/27/19 10:50 12/27/19 10:51 DC Oxycodone/ Acetaminophen (Percocet 5/325) 2 tab PRN Q4HRS PRN 12/27/19 12:45 12/28/19 08:08 2 TAB Phenylephrine HCl (PHENYLEPHRINE in 0.9% NACL PF) 1 mg STK-MED ONCE 12/27/19 10:55 12/27/19 10:56 DC Piperacillin Sod/ Tazobactam Sod (Zosyn Per Pharmacy) 1 each PRN DAILY PRN 12/16/19 15:15 Piperacillin Sod/ Tazobactam Sod 2.25 gm/Sodium Chloride 50 ml @ 100 mls/hr Q6HRS 12/16/19 18:00 12/27/19 11:00 DC 12/27/19 06:18 100 MLS/HR Piperacillin Sod/ Tazobactam Sod 3.375 gm/Sodium Chloride 50 ml @ 100 mls/hr Q6HRS 12/27/19 12:00 12/29/19 11:21 100 MLS/HR Prochlorperazine Edisylate (Compazine) 10 mg STK-MED ONCE 12/27/19 12:21 12/27/19 12:21 DC Propofol (Diprivan) 200 mg STK-MED ONCE 12/27/19 10:50 12/27/19 10:51 DC Ringer's Solution 1,000 ml @ 30 mls/hr Q24H 12/27/19 07:00 12/27/19 18:59 DC Sevoflurane (Ultane) 90 ml STK-MED ONCE 12/27/19 12:00 12/27/19 12:00 DC Sodium Chloride 1,000 ml @ 100 mls/hr 1X ONCE 12/16/19 15:15 12/17/19 01:14 DC 12/16/19 16:43 100 MLS/HR Physical Exam: Physical Exam: Refer to Physician's note. [employer]ACHINE [employer]ER: No focal deficit MSK: No EPS, TDK, or abnormal involuntary movements Diagnosis: Diagnosis: 1. Acute delirium, likely hypoactive, postsurgical, multifactorial 2. Unspecified depression 3. Unspecified anxiety Assessment: Elderly pleasant female who is in agreement to go for below-knee amputation. Her understanding about procedure, risks, benefits, her concern prior to making decision appears to be rational. She made her decision without any pressure and with full understanding. Her thoughts about next phase of life following amputation and preparation, future plans are indicative of her full Capacity to make rational decision regarding her own care as recommended to her by physicians. She does not have any depression or anxiety that are influencing her decision. 12/29/2019: Today patient appears delirious, difficult to her to open eyes. Delirium has also been reported by her family who was at the bedside. Plan: Add risperidone 1 mg at bedtime for the resolution of delirium. Risks, benefits, alternatives of the treatment are discussed. Adverse drug reaction of the medications are also discussed. Psychoeducation provided. Supportive psychotherapy provided. Avoid sedatives and hypnotics. Applied delirium protocol. Avoid sundowning during the day or naps. Thank you for involving inpatient IRA GARCIA MD Dec 29, 2019 15:57
--- NOTE | 2019-12-29 17:00 | NUR ---
yells out after mother departs. agrees to take pain medication after meal consumed because she goes to sleep solidly; she agrees and mother agrees.
--- NOTE | 2019-12-29 18:15 | NUR ---
2nd unit of pc began .. sleeping at this time
--- NOTE | 2019-12-29 18:35 | NUR ---
tolerating 2nd unit rate increased to 100 cc hr.
[2019-12-29] MEDS: risperiDONE 1 MG TABLET. PO SCH (21:01)
[2019-12-29] MEDS: INSULIN GLARGINE SYRINGE. SQ SCH (21:09)
[2019-12-30] MEDS: PIPERACILLIN/TAZOBACTAM 3.375 GM in IV NORMAL SALINE 50ML 50 ML IV SCH ×4 (00:24→18:00)
[2019-12-30 03:00] VITALS: BP 117/67
[2019-12-30] MEDS: MORPHINE SULFATE 4 MG/ML VIAL. IV PRN ×2 (05:25→09:04)
[2019-12-30] MEDS: oxyCODONE/APAP 5/325 1 TAB TABLET PO PRN ×3 (05:43→21:37)
[2019-12-30 07:00] VITALS: BP 119/65
[2019-12-30] MEDS: INSULIN LISPRO 300 UNITS/3 ML VIAL. SQ SCH ×3 (08:00→17:00)
[2019-12-30 08:35] LABS: BASO # 0.1 x10^3/uL (0.0-0.2); BASO % 1 % (0-3); EOS # 0.3 x10^3/uL (0.0-0.7); EOS % 2 % (0-3); HEMATOCRIT 26.9 % (36.0-47.0); LYMPH # 1.7 x10^3/uL (1.0-4.8); LYMPH % 16 % (24-48); MEAN CORPUSCULAR HEMOGLOBIN 29 pg (25-35); MEAN CORPUSCULAR HGB CONC 34 g/dL (31-37); MEAN CORPUSCULAR VOLUME 86 fL (79-100); MONO # 0.6 x10^3/uL (0.0-1.1); MONO % 5 % (0-9); NEUT # 8.5 x10^3/uL (1.8-7.7); NEUT % 76 % (31-73); PLATELET COUNT 423 x10^3/uL (140-400); RED BLOOD COUNT 3.14 x10^6/uL (3.50-5.40); RED CELL DISTRIBUTION WIDTH 20.2 % (11.5-14.5); WHITE BLOOD COUNT 11.2 x10^3/uL (4.0-11.0)
[2019-12-30] MEDS: LACTOBACILLUS RHAMNOSUS GG 1 CAPSULE. PO SCH ×2 (08:59→21:00)
[2019-12-30] MEDS: CLOPIDOGREL BISULFATE 75 MG TABLET PO SCH (08:59)
[2019-12-30] MEDS: MULTIVITAMIN with MINERAL TABLET. PO SCH (08:59)
[2019-12-30] MEDS: NYSTATIN TOPICAL POWDER 15GM BOTTLE. TP SCH ×2 (09:00→21:00)
[2019-12-30 09:03] LABS: ALBUMIN 1.3 g/dL (3.4-5.0); ALBUMIN/GLOBULIN RATIO 0.2 (1.0-1.7); CALCIUM 7.6 mg/dL (8.5-10.1); CREATININE 0.9 mg/dL (0.6-1.0); GFR 74.1; POTASSIUM 3.8 mmol/L (3.5-5.1); TOTAL BILIRUBIN 0.5 mg/dL (0.2-1.0); TOTAL PROTEIN 6.8 g/dL (6.4-8.2)
--- NOTE | 2019-12-30 09:34 | PDOC ---
PROGRESS NOTES Date of Service: DATE: 12/30/19 TIME: 09:34 Chief Complaint Chief Complaint impression falls, worsening weakness, cannot walk, DM2, poor control she is off meds, denies any problem cognitive decline - dementia likely Right below-knee amputation (amputation, leg, through tibia and fibula) eschar foot and toes, ischemic injury, dry gangrene ( needs BKA) SEVERE PVD ,Chronic total occlusion mid right SFA, and at the junction of the SFA and popliteal artery treated with placement of self-expanding stents Balloon angioplasty of the tibial peroneal trunk marked post-op animia, transfues 2 units PRBC'S 12/28 36 MIN PT exam, chart review, > 50% of time spent with exam, chart review, pt care coordination dpoa mother, discussed, reviewed form signed 12 min History of Present Illness History of Present Illness 12/30/2019 Patient was seen and examined Patient had clean, dry dressings on surgical site Patient was in NAD less sleepy Add risperidone 1 mg at bedtime for the resolution of delirium. D/W RN 12/26/2019 Patient was seen and examined Discussed with nurse Patient was alert and talkative during exam Vitals Vitals Vital Signs Date Time Temp Pulse Resp B/P (MAP) Pulse Ox O2 Delivery O2 Flow Rate FiO2 12/30/19 09:04 97 Room Air 2.0 12/30/19 07:00 98.9 79 18 119/65 (83) 98.9 Physical Exam General: Alert, Cooperative, Other (multiple missing teeth, not quite edentulous) Heart: Regular rate, Normal S1, Normal S2 Lungs: Clear, Wheezing Abdomen: Soft Extremities: Other (The right foot has grossly normal alignment. The second third and fourth toes are completely necrotic with dry gangrene into the midfoot dorsally and plantarly. There is an odor but not severeI dont believe theres wet gangrene or gas. There is some ischemia and discoloration of the great toe and fifth toe and they are also likely nonviable. Despite the lateral malleolus fracture, there is minimal lateral malleolus swelling or tenderness. There is no ankle joint deformity. There is full-thickness dry gangrene along the plantar aspect of the foot with some overlying loose skin, and unfortunately the proximal extent of the dry gangrene on the plantar foot would prevent transmetatarsal amputation. There is a full-thickness ulceration with dry necrotic blackened tissue at the Achilles, possible tendon involvement. Pulses are not palpable. She reports slight light touch sensation. I believe these gangrene and ulcer changes are related more to diabetic ischemia than to diab etic neuropathy.) Skin: No breakdown, Other (distal 1/3, of forefoot is black and complete eschar, and looks like it has been that way for awhile. 3 toes nearly auto amputated, ) Labs LABS Laboratory Tests Test 12/29/19 10:45 12/29/19 20:44 12/30/19 07:50 12/30/19 08:10 Glucose (Fingerstick) 130 mg/dL (70-99) 156 mg/dL (70-99) 100 mg/dL (70-99) White Blood Count 11.2 x10^3/uL (4.0-11.0) Red Blood Count 3.14 x10^6/uL (3.50-5.40) Hemoglobin 9.0 g/dL (12.0-15.5) Hematocrit 26.9 % (36.0-47.0) Mean Corpuscular Volume 86 fL (79-100) Mean Corpuscular Hemoglobin 29 pg (25-35) Mean Corpuscular Hemoglobin Concent 34 g/dL (31-37) Red Cell Distribution Width 20.2 % (11.5-14.5) Platelet Count 423 x10^3/uL (140-400) Neutrophils (%) (Auto) 76 % (31-73) Lymphocytes (%) (Auto) 16 % (24-48) Monocytes (%) (Auto) 5 % (0-9) Eosinophils (%) (Auto) 2 % (0-3) Basophils (%) (Auto) 1 % (0-3) Neutrophils # (Auto) 8.5 x10^3/uL (1.8-7.7) Lymphocytes # (Auto) 1.7 x10^3/uL (1.0-4.8) Monocytes # (Auto) 0.6 x10^3/uL (0.0-1.1) Eosinophils # (Auto) 0.3 x10^3/uL (0.0-0.7) Basophils # (Auto) 0.1 x10^3/uL (0.0-0.2) Test 12/30/19 08:25 Sodium Level 139 mmol/L (136-145) Potassium Level 3.8 mmol/L (3.5-5.1) Chloride Level 107 mmol/L (98-107) Carbon Dioxide Level 24 mmol/L (21-32) Anion Gap 8 (6-14) Blood Urea Nitrogen 9 mg/dL (7-20) Creatinine 0.9 mg/dL (0.6-1.0) Estimated GFR (Cockcroft-Gault) 74.1 BUN/Creatinine Ratio 10 (6-20) Glucose Level 115 mg/dL (70-99) Calcium Level 7.6 mg/dL (8.5-10.1) Total Bilirubin 0.5 mg/dL (0.2-1.0) Aspartate Amino Transf (AST/SGOT) 17 U/L (15-37) Alanine Aminotransferase (ALT/SGPT) 10 U/L (14-59) Alkaline Phosphatase 87 U/L (46-116) Total Protein 6.8 g/dL (6.4-8.2) Albumin 1.3 g/dL (3.4-5.0) Albumin/Globulin Ratio 0.2 (1.0-1.7) Assessment and Plan Assessmemt and Plan Problems Medical Problems: (1) Necrotic toes Status: Acute (2) Weakness Status: Acute (3) Wound infection Status: Acute CPR (cardiopulmonary resuscitation) Ventilator use Artificial nutrition (tube feeding) and artificial hydration (IV, or intravenous, fluids) Comfort care What is CPR? Cardiopulmonary resuscitation might restore your heartbeat if your heart stops or is in a life-threatening abnormal rhythm. It involves repeatedly pushing on the chest with force, while putting air into the lungs. This force has to be quite strong, and sometimes ribs are broken or a lung collapses. Electric shocks, known as defibrillation, and medicines might also be used as part of the process. The heart of a young, otherwise healthy person might resume beating normally after CPR. Often, CPR does not succeed in older adults who have multiple chronic illnesses or who are already frail. Using a ventilator as emergency treatment. Ventilators are machines that help you breathe. A tube connected to the ventilator is put through the throat into the trachea (windpipe) so the machine can force air into the lungs. Putting the tube down the throat is called intubation. Because the tube is uncomfortable, medicines are often used to keep you sedated while on a ventilator. If you are expected to remain on a ventilator for a long time, a doctor may perform a tracheotomy or "trach" (rhymes with "make"). During this bedside surgery, the tube is inserted directly into the trachea through a hole in the neck. For long- term help with breathing, a trach is more comfortable, and sedation is not needed. People using such a breathing tube are not able to speak without special help because exhaled air does not go past their vocal cords. Using artificial nutrition and hydration near the end of life. If you are not able to eat, you may be fed through a feeding tube that is threaded through the nose down to your stomach. If tube feeding is still needed for an extended period, a feeding tube may be surgically inserted directly into your stomach. Hand feeding (sometimes called assisted oral feeding) is an alternative to tube feeding. This approach may have fewer risks, especially for people with dementia. CPR (cardiopulmonary resuscitation) Ventilator use Artificial nutrition (tube feeding) and artificial hydration (IV, or intravenous, fluids) Comfort care What is CPR? Cardiopulmonary resuscitation might restore your heartbeat if your heart stops or is in a life-threatening abnormal rhythm. It involves repeatedly pushing on the chest with force, while putting air into the lungs. This force has to be quite strong, and sometimes ribs are broken or a lung collapses. Electric shocks, known as defibrillation, and medicines might also be used as part of the process. The heart of a young, otherwise healthy person might resume beating normally after CPR. Often, CPR does not succeed in older adults who have multiple chronic illnesses or who are already frail. Using a ventilator as emergency treatment. Ventilators are machines that help you breathe. A tube connected to the ventilator is put through the throat into the trachea (windpipe) so the machine can force air into the lungs. Putting the tube down the throat is called intubation. Because the tube is uncomfortable, medicines are often used to keep you sedated while on a ventilator. If you are expected to remain on a ventilator for a long time, a doctor may perform a tracheotomy or "trach" (rhymes with "make"). During this bedside surgery, the tube is inserted directly into the trachea through a hole in the neck. For long- term help with breathing, a trach is more comfortable, and sedation is not needed. People using such a breathing tube are not able to speak without special help because exhaled air does not go past their vocal cords. Using artificial nutrition and hydration near the end of life. If you are not able to eat, you may be fed through a feeding tube that is threaded through the nose down to your stomach. If tube feeding is still needed for an extended rita od, a feeding tube may be surgically inserted directly into your stomach. Hand feeding (sometimes called assisted oral feeding) is an alternative to tube feeding. This approach may have fewer risks, especially for people with dementia. If you are not able to drink, you may be provided with IV fluids. These are delivered through a thin plastic tube inserted into a vein. Comment Review of Relevant I have reviewed the following items da (where applicable) has been applied. Labs Laboratory Tests Test 12/28/19 11:49 12/28/19 16:51 12/29/19 00:02 12/29/19 00:25 Glucose (Fingerstick) 129 mg/dL (70-99) 178 mg/dL (70-99) 152 mg/dL (70-99) White Blood Count 14.0 x10^3/uL (4.0-11.0) Red Blood Count 1.80 x10^6/uL (3.50-5.40) Hemoglobin 5.3 g/dL (12.0-15.5) Hematocrit 16.5 % (36.0-47.0) Mean Corpuscular Volume 92 fL (79-100) Mean Corpuscular Hemoglobin 30 pg (25-35) Mean Corpuscular Hemoglobin Concent 32 g/dL (31-37) Red Cell Distribution Width 15.1 % (11.5-14.5) Platelet Count 475 x10^3/uL (140-400) Neutrophils (%) (Auto) 82 % (31-73) Lymphocytes (%) (Auto) 11 % (24-48) Monocytes (%) (Auto) 6 % (0-9) Eosinophils (%) (Auto) 0 % (0-3) Basophils (%) (Auto) 1 % (0-3) Neutrophils # (Auto) 11.5 x10^3/uL (1.8-7.7) Lymphocytes # (Auto) 1.6 x10^3/uL (1.0-4.8) Monocytes # (Auto) 0.8 x10^3/uL (0.0-1.1) Eosinophils # (Auto) 0.0 x10^3/uL (0.0-0.7) Basophils # (Auto) 0.1 x10^3/uL (0.0-0.2) Sodium Level 140 mmol/L (136-145) Potassium Level 4.1 mmol/L (3.5-5.1) Chloride Level 107 mmol/L (98-107) Carbon Dioxide Level 26 mmol/L (21-32) Anion Gap 7 (6-14) Blood Urea Nitrogen 8 mg/dL (7-20) Creatinine 0.8 mg/dL (0.6-1.0) Estimated GFR (Cockcroft-Gault) 84.8 Glucose Level 166 mg/dL (70-99) Calcium Level 7.1 mg/dL (8.5-10.1) Test 12/29/19 00:30 12/29/19 07:43 12/29/19 10:45 12/29/19 20:44 Lactic Acid Level 1.0 mmol/L (0.4-2.0) Glucose (Fingerstick) 132 mg/dL (70-99) 130 mg/dL (70-99) 156 mg/dL (70-99) Test 12/30/19 07:50 12/30/19 08:10 12/30/19 08:25 Glucose (Fingerstick) 100 mg/dL (70-99) White Blood Count 11.2 x10^3/uL (4.0-11.0) Red Blood Count 3.14 x10^6/uL (3.50-5.40) Hemoglobin 9.0 g/dL (12.0-15.5) Hematocrit 26.9 % (36.0-47.0) Mean Corpuscular Volume 86 fL (79-100) Mean Corpuscular Hemoglobin 29 pg (25-35) Mean Corpuscular Hemoglobin Concent 34 g/dL (31-37) Red Cell Distribution Width 20.2 % (11.5-14.5) Platelet Count 423 x10^3/uL (140-400) Neutrophils (%) (Auto) 76 % (31-73) Lymphocytes (%) (Auto) 16 % (24-48) Monocytes (%) (Auto) 5 % (0-9) Eosinophils (%) (Auto) 2 % (0-3) Basophils (%) (Auto) 1 % (0-3) Neutrophils # (Auto) 8.5 x10^3/uL (1.8-7.7) Lymphocytes # (Auto) 1.7 x10^3/uL (1.0-4.8) Monocytes # (Auto) 0.6 x10^3/uL (0.0-1.1) Eosinophils # (Auto) 0.3 x10^3/uL (0.0-0.7) Basophils # (Auto) 0.1 x10^3/uL (0.0-0.2) Sodium Level 139 mmol/L (136-145) Potassium Level 3.8 mmol/L (3.5-5.1) Chloride Level 107 mmol/L (98-107) Carbon Dioxide Level 24 mmol/L (21-32) Anion Gap 8 (6-14) Blood Urea Nitrogen 9 mg/dL (7-20) Creatinine 0.9 mg/dL (0.6-1.0) Estimated GFR (Cockcroft-Gault) 74.1 BUN/Creatinine Ratio 10 (6-20) Glucose Level 115 mg/dL (70-99) Calcium Level 7.6 mg/dL (8.5-10.1) Total Bilirubin 0.5 mg/dL (0.2-1.0) Aspartate Amino Transf (AST/SGOT) 17 U/L (15-37) Alanine Aminotransferase (ALT/SGPT) 10 U/L (14-59) Alkaline Phosphatase 87 U/L (46-116) Total Protein 6.8 g/dL (6.4-8.2) Albumin 1.3 g/dL (3.4-5.0) Albumin/Globulin Ratio 0.2 (1.0-1.7) Laboratory Tests Test 12/29/19 10:45 12/29/19 20:44 12/30/19 07:50 12/30/19 08:10 Glucose (Fingerstick) 130 mg/dL (70-99) 156 mg/dL (70-99) 100 mg/dL (70-99) White Blood Count 11.2 x10^3/uL (4.0-11.0) Red Blood Count 3.14 x10^6/uL (3.50-5.40) Hemoglobin 9.0 g/dL (12.0-15.5) Hematocrit 26.9 % (36.0-47.0) Mean Corpuscular Volume 86 fL (79-100) Mean Corpuscular Hemoglobin 29 pg (25-35) Mean Corpuscular Hemoglobin Concent 34 g/dL (31-37) Red Cell Distribution Width 20.2 % (11.5-14.5) Platelet Count 423 x10^3/uL (140-400) Neutrophils (%) (Auto) 76 % (31-73) Lymphocytes (%) (Auto) 16 % (24-48) Monocytes (%) (Auto) 5 % (0-9) Eosinophils (%) (Auto) 2 % (0-3) Basophils (%) (Auto) 1 % (0-3) Neutrophils # (Auto) 8.5 x10^3/uL (1.8-7.7) Lymphocytes # (Auto) 1.7 x10^3/uL (1.0-4.8) Monocytes # (Auto) 0.6 x10^3/uL (0.0-1.1) Eosinophils # (Auto) 0.3 x10^3/uL (0.0-0.7) Basophils # (Auto) 0.1 x10^3/uL (0.0-0.2) Test 12/30/19 08:25 Sodium Level 139 mmol/L (136-145) Potassium Level 3.8 mmol/L (3.5-5.1) Chloride Level 107 mmol/L (98-107) Carbon Dioxide Level 24 mmol/L (21-32) Anion Gap 8 (6-14) Blood Urea Nitrogen 9 mg/dL (7-20) Creatinine 0.9 mg/dL (0.6-1.0) Estimated GFR (Cockcroft-Gault) 74.1 BUN/Creatinine Ratio 10 (6-20) Glucose Level 115 mg/dL (70-99) Calcium Level 7.6 mg/dL (8.5-10.1) Total Bilirubin 0.5 mg/dL (0.2-1.0) Aspartate Amino Transf (AST/SGOT) 17 U/L (15-37) Alanine Aminotransferase (ALT/SGPT) 10 U/L (14-59) Alkaline Phosphatase 87 U/L (46-116) Total Protein 6.8 g/dL (6.4-8.2) Albumin 1.3 g/dL (3.4-5.0) Albumin/Globulin Ratio 0.2 (1.0-1.7) Microbiology 12/16/19 Blood Culture - Final, Complete NO GROWTH AFTER 5 DAYS Medications Current Medications Piperacillin Sod/ Tazobactam Sod 3.375 gm/Sodium Chloride 50 ml @ 100 mls/hr 1X ONCE IV Last administered on 12/16/19at 11:26; Start 12/16/19 at 11:15; Stop 12/16/19 at 11:44; Status DC Sodium Chloride 1,000 ml @ 1,000 mls/hr 1X ONCE IV Last administered on 12/16/19at 11:25; Start 12/16/19 at 11:15; Stop 12/16/19 at 12:14; Status DC Oxycodone/ Acetaminophen (Percocet 5/325) 1 tab Q4HRS PO ; Start 12/16/19 at 16:00; Stop 12/16/19 at 18:36; Status DC Lisinopril (Prinivil) 20 mg DAILY PO ; Start 12/16/19 at 16:00; Stop 12/16/19 at 16:22; Status DC Cetirizine HCl (ZyrTEC) 10 mg DAILY PO ; Start 12/16/19 at 16:00; Stop 12/16/19 at 16:22; Status DC Atorvastatin Calcium (Lipitor) 5 mg QHS PO ; Start 12/16/19 at 21:00; Stop 12/16/19 at 16:22; Status DC Ondansetron HCl (Zofran Odt) 4 mg Q6HRS PO Last administered on 12/19/19at 05:50; Start 12/16/19 at 18:00; Stop 12/19/19 at 14:48; Status DC Non-Formulary Medication (Ranitidine Hcl (Zantac)) 1 tab BID PO ; Start 12/16/19 at 21:00; Stop 12/16/19 at 16:22; Status DC Piperacillin Sod/ Tazobactam Sod (Zosyn Per Pharmacy) 1 each PRN DAILY PRN MC SEE COMMENTS; Start 12/16/19 at 15:15 Sodium Chloride 1,000 ml @ 100 mls/hr 1X ONCE IV Last administered on 12/16/19at 16:43; Start 12/16/19 at 15:15; Stop 12/17/19 at 01:14; Status DC Insulin Human Lispro (HumaLOG) 0-9 UNITS TIDWMEALS SQ Last administered on 12/29/19at 17:00; Start 12/16/19 at 17:00 Dextrose (Dextrose 50%-Water Syringe) 12.5 gm PRN Q15MIN PRN IV SEE COMMENTS; Start 12/16/19 at 15:15 Insulin Glargine (Lantus Syringe) 10 unit QHS SQ Last administered on 12/29/19at 21:09; Start 12/16/19 at 21:00 Piperacillin Sod/ Tazobactam Sod 3.375 gm/Sodium Chloride 50 ml @ 100 mls/hr Q6HRS IV ; Start 12/16/19 at 18:00; Status Cancel Piperacillin Sod/ Tazobactam Sod 2.25 gm/Sodium Chloride 50 ml @ 100 mls/hr Q6HRS IV Last administered on 12/27/19at 06:18; Start 12/16/19 at 18:00; Stop 12/27/19 at 11:00; Status DC Hydrochlorothiazide (Microzide) 12.5 mg DAILY PO ; Start 12/16/19 at 16:00; Stop 12/16/19 at 16:22; Status DC Heparin Sodium (Porcine) (Heparin Sodium) 5,000 unit 1X ONCE SQ Last administered on 12/16/19at 17:50; Start 12/16/19 at 17:45; Stop 12/16/19 at 17:46; Status DC Oxycodone/ Acetaminophen (Percocet 5/325) 1 tab PRN Q4HRS PRN PO MODERATE TO SEVERE PAIN Last administered on 12/26/19at 18:09; Start 12/16/19 at 18:45; Stop 12/27/19 at 12:38; Status DC Morphine Sulfate (Morphine Sulfate) 4 mg PRN Q2HR PRN IV PAIN Last administered on 12/30/19at 09:04; Start 12/16/19 at 19:45 Ringer's Solution 1,000 ml @ 100 mls/hr Q10H IV Last administered on 12/20/19at 08:10; Start 12/17/19 at 10:30; Stop 12/20/19 at 15:47; Status DC Lactobacillus Rhamnosus (Culturelle) 1 cap BID PO Last administered on 12/30/19at 08:59; Start 12/17/19 at 21:00 Ondansetron HCl (Zofran Odt) 4 mg PRN Q6HRS PRN PO NAUSEA; Start 12/19/19 at 15:00 Iohexol (Omnipaque 350 Mg/ml) 80 ml 1X ONCE IV Last administered on 12/19/19at 15:08; Start 12/19/19 at 15:00; Stop 12/19/19 at 15:01; Status DC Lidocaine HCl (Buffered Lidocaine 1%) 3 ml STK-MED ONCE .ROUTE ; Start 12/20/19 at 11:59; Stop 12/20/19 at 11:59; Status DC Iodixanol (Visipaque 320) 100 ml STK-MED ONCE .ROUTE ; Start 12/20/19 at 11:59; Stop 12/20/19 at 11:59; Status DC Heparin Sodium/ Sodium Chloride 1,500 ml @ As Directed STK-MED ONCE .ROUTE ; Start 12/20/19 at 11:59; Stop 12/20/19 at 11:59; Status DC Midazolam HCl (Versed) 2 mg STK-MED ONCE .ROUTE ; Start 12/20/19 at 12:34; Stop 12/20/19 at 12:34; Status DC Fentanyl Citrate (Fentanyl 2ml Vial) 100 mcg STK-MED ONCE .ROUTE ; Start 12/20/19 at 12:34; Stop 12/20/19 at 12:34; Status DC Heparin Sodium (Porcine) (Heparin Sodium) 10,000 unit STK-MED ONCE .ROUTE ; Start 12/20/19 at 12:34; Stop 12/20/19 at 12:34; Status DC Heparin Sodium/ Sodium Chloride (HEPARIN for ARTERIAL LINE FLUSH) 1,000 unit 1X ONCE IART Last administered on 12/20/19at 13:56; Start 12/20/19 at 13:30; Stop 12/20/19 at 13:42; Status DC Heparin Sodium/ Sodium Chloride (HEPARIN for ARTERIAL LINE FLUSH) 1,000 unit 1X ONCE IART Last administered on 12/20/19 13:57; Start 12/20/19 at 13:30; Stop 12/20/19 at 13:42; Status DC Lidocaine HCl (Buffered Lidocaine 1%) 3 ml 1X ONCE IJ Last administered on 12/20/19 13:55; Start 12/20/19 at 13:30; Stop 12/20/19 at 13:42; Status DC Midazolam HCl (Versed) 2 mg 1X ONCE IV Last administered on 12/20/19 13:58; Start 12/20/19 at 13:30; Stop 12/20/19 at 13:42; Status DC Fentanyl Citrate (Fentanyl 2ml Vial) 100 mcg 1X ONCE IV Last administered on 12/20/19 13:58; Start 12/20/19 at 13:30; Stop 12/20/19 at 13:42; Status DC Iodixanol (Visipaque 320) 100 ml 1X ONCE IART Last administered on 12/20/19 13:55; Start 12/20/19 at 13:30; Stop 12/20/19 at 13:42; Status DC Heparin Sodium (Porcine) (Heparin Sodium) 5,000 unit 1X ONCE IV Last administered on 12/20/19 13:59; Start 12/20/19 at 13:30; Stop 12/20/19 at 13:42; Status DC Heparin Sodium/ Sodium Chloride (HEPARIN for ARTERIAL LINE FLUSH) 1,000 unit 1X ONCE IV Last administered on 12/20/19 13:57; Start 12/20/19 at 13:30; Stop 12/20/19 at 13:42; Status DC Info (CONTRAST GIVEN -- Rx MONITORING) 1 each PRN DAILY PRN MC SEE COMMENTS; Start 12/20/19 at 13:45; Stop 12/22/19 at 13:44; Status DC Clopidogrel Bisulfate (Plavix) 75 mg DAILYWBKFT PO Last administered on 12/30/19at 08:59; Start 12/21/19 at 08:00 Nystatin (Nystop) 1 maryam BID TP Last administered on 12/30/19at 09:00; Start 12/21/19 at 12:00 Multivitamins (Thera M Plus) 1 tab DAILY PO Last administered on 12/30/19at 08:59; Start 12/23/19 at 09:00 Insulin Human Lispro (HumaLOG) 3 units 1X ONCE SQ Last administered on 12/22/19at 21:15; Start 12/22/19 at 21:15; Stop 12/22/19 at 21:16; Status DC Acetaminophen (Tylenol) 650 mg PRN Q4HRS PRN PO JACOBS/TEMP > 100.3'F Last administered on 12/28/19at 23:45; Start 12/24/19 at 15:30 Ringer's Solution 1,000 ml @ 30 mls/hr Q24H IV ; Start 12/27/19 at 07:00; Stop 12/27/19 at 18:59; Status DC Prochlorperazine Edisylate (Compazine) 5 mg PACU PRN PRN IV NAUSEA, MRX1 Last administered on 12/27/19at 12:25; Start 12/27/19 at 07:00; Stop 12/28/19 at 06:59; Status DC Bupivacaine HCl/ Epinephrine Bitart (Sensorcaine-Epi 0.25%-1:011579 Mpf) 30 ml STK-MED ONCE .ROUTE Last administered on 12/27/19at 11:15; Start 12/27/19 at 10:01; Stop 12/27/19 at 10:01; Status DC Fentanyl Citrate (Fentanyl 2ml Vial) 100 mcg STK-MED ONCE .ROUTE ; Start 12/27/19 at 10:31; Stop 12/27/19 at 10:31; Status DC Piperacillin Sod/ Tazobactam Sod 3.375 gm/Sodium Chloride 50 ml @ 100 mls/hr Q6HRS IV Last administered on 12/30/19at 05:43; Start 12/27/19 at 12:00 Propofol (Diprivan) 200 mg STK-MED ONCE IV ; Start 12/27/19 at 10:50; Stop 12/27/19 at 10:51; Status DC Lidocaine HCl (Lidocaine Pf 2% Vial) 5 ml STK-MED ONCE .ROUTE ; Start 12/27/19 at 10:50; Stop 12/27/19 at 10:51; Status DC Ondansetron HCl (Zofran) 4 mg STK-MED ONCE .ROUTE ; Start 12/27/19 at 10:50; Stop 12/27/19 at 10:51; Status DC Phenylephrine HCl (PHENYLEPHRINE in 0.9% NACL PF) 1 mg STK-MED ONCE IV ; Start 12/27/19 at 10:55; Stop 12/27/19 at 10:56; Status DC Sevoflurane (Ultane) 90 ml STK-MED ONCE IH ; Start 12/27/19 at 12:00; Stop 12/27/19 at 12:00; Status DC Fentanyl Citrate (Fentanyl 2ml Vial) 100 mcg STK-MED ONCE .ROUTE ; Start 12/27/19 at 12:21; Stop 12/27/19 at 12:21; Status DC Prochlorperazine Edisylate (Compazine) 10 mg STK-MED ONCE .ROUTE ; Start 12/27/19 at 12:21; Stop 12/27/19 at 12:21; Status DC Oxycodone/ Acetaminophen (Percocet 5/325) 1 tab PRN Q4HRS PRN PO PAIN MILD TO MOD Last administered on 12/30/19at 05:43; Start 12/27/19 at 12:45 Oxycodone/ Acetaminophen (Percocet 5/325) 2 tab PRN Q4HRS PRN PO PAIN SEVERE Last administered on 12/28/19at 08:08; Start 12/27/19 at 12:45 Fentanyl Citrate (Fentanyl 2ml Vial) While in pacu. PRN Q5MIN PRN IVP PAIN Last administered on 12/27/19at 12:24; Start 12/27/19 at 12:45; Stop 12/27/19 at 12:46; Status DC Fentanyl Citrate (Fentanyl 2ml Vial) 25 mcg PRN Q5MIN PRN IVP PAIN MILD TO MOD; Start 12/27/19 at 12:46; Status Cancel Fentanyl Citrate (Fentanyl 2ml Vial) 50 mcg PRN Q5MIN PRN IVP PAIN SEVERE Last administered on 12/27/19at 12:35; Start 12/27/19 at 13:00; Stop 12/30/19 at 09:23; Status DC Risperidone (RisperDAL) 1 mg HS PO Last administered on 12/29/19at 21:01; Start 12/29/19 at 21:00 Active Scripts Active Zofran (Ondansetron Hcl) 4 Mg Tablet 1 Tab PO Q6HRS Percocet 5-325 Mg Tablet (Oxycodone/Acetaminophen) 1 Each Tablet 1-2 Tab PO Q4-6HRS Vitals/I & O Vital Sign - Last 24 Hours 12/29/19 12/29/19 12/29/19 12/29/19 10:32 11:00 12:15 13:24 Temp 98.0 98.7 98.0 98.7 Pulse 80 83 Resp 16 16 B/P (MAP) 105/53 (70) 81/41 Pulse Ox 98 96 O2 Delivery Room Air Room Air Room Air O2 Flow Rate 2.0 12/29/19 12/29/19 12/29/19 12/29/19 13:30 13:45 14:41 15:00 Temp 98.4 98.7 98.6 97.9 98.4 98.7 98.6 97.9 Pulse 89 87 89 80 Resp 16 16 20 18 B/P (MAP) 77/45 85/48 116/57 140/68 (92) Pulse Ox 96 O2 Delivery Room Air 12/29/19 12/29/19 12/29/19 12/29/19 15:40 16:38 18:11 18:32 Temp 97.9 98.8 98.6 98.0 97.9 98.8 98.6 98.0 Pulse 80 43 84 87 Resp 20 20 20 20 B/P (MAP) 140/68 126/55 123/71 118/58 12/29/19 12/29/19 12/29/19 12/29/19 19:45 19:45 20:50 21:45 Temp 98.7 98.7 98.7 98.7 Pulse 92 87 Resp 20 20 20 B/P (MAP) 131/77 113/66 O2 Delivery Room Air Room Air 12/29/19 12/29/19 12/30/19 12/30/19 22:45 23:00 03:00 05:25 Temp 99.5 97.8 99.5 97.8 Pulse 93 79 Resp 20 18 18 20 B/P (MAP) 110/61 (77) 117/67 (84) Pulse Ox 95 97 O2 Delivery Room Air Room Air Room Air Room Air 12/30/19 12/30/19 12/30/19 12/30/19 05:43 05:55 06:43 07:00 Temp 98.9 98.9 Pulse 79 Resp 20 20 20 18 B/P (MAP) 119/65 (83) Pulse Ox 98 O2 Delivery Room Air Room Air Room Air Room Air 12/30/19 12/30/19 08:01 09:04 Pulse Ox 97 97 O2 Delivery Room Air Room Air O2 Flow Rate 2.0 2.0 Intake and Output 12/29/19 12/29/19 12/30/19 15:00 23:00 07:00 Intake Total 374 ml 475 ml 640 ml Balance 374 ml 475 ml 640 ml Justicifation of Admission Dx: Justifications for Admission: Justification of Admission Dx: N/A MARIUM FRITZ MD Dec 30, 2019 09:34
[2019-12-30 11:00] VITALS: BP 115/63
[2019-12-30 11:28] LABS: ANISOCYTOSIS MOD; PLT ESTIMATE ADEQUATE (ADEQUATE)
--- NOTE | 2019-12-30 12:07 | PATHOLOGY ---
[facility] Accession Number: [id number] . 01 Material submitted: . leg - RIGHT BELOW KNEE AMPUTATION. Modifiers: right . 01 Clinical history: . GANGRENE NECROTIC FOOT, WEAKNESS . 02 Diagnosis: Soft tissue and bone "right leg", below the knee amputation: - Ulceration and gangrenous necrosis involving skin and soft tissue. - Atherosclerosis involving anterior and posterior tibial arteries. - Negative for malignancy. (SARI:ayaz; 12/29/2019) MBR 12/29/2019 1640 Local . 02 Electronically signed: . Demian Trevino MD, Pathologist NPI- [id number] . 01 Gross description: . The specimen is received fresh in a red biohazard bag, labeled "aKya Ruano, right below knee amputation". Received is a right below the knee amputation measuring 23.8 cm from heel to toe, 13.5 cm from heel to skin margin, 28.6 cm from heel to tibial bone margin, and 29.9 cm from heel to fibular bone margin. The bone margins are blunt in appearance, consistent with transection, and are grossly unremarkable. The skin and soft tissue margins are viable. All 5 toes are present. Toes 1 through 3 are blackened and mummified in appearance. The second toe is loosely attached by a slight amount of skin. The remainder the epidermal surface is pale gomez to dusky tiwari-gomez and flaky to sloughing in appearance. On the posterior aspect of the specimen just proximal to the medial and lateral malleolus, there is a poorly circumscribed necrotic-appearing lesion measuring 5.3 x 2.5 cm. Sectioning through the anterior and posterior tibial vasculatures reveals pinpoint to patent lumens with a slight amount of calcification. The specimen is submitted representatively as follows: . A1 skin and soft tissue margin A2 help desk representative sections of mummified tissue from dorsal and plantar aspect of foot A3 help desk representative sections from lesion on posterior lower leg between medial and lateral malleolus A4 anterior and posterior tibial vasculatures. (CAA; 12/28/2019) QAC/QA 12/28/2019 1536 Local . 02 Pathologist provided ICD-10: I70.261, L98.499 . 02 CPT . 567011, 301302 Specimen Comment: A courtesy copy of this report has been sent to [phone] Specimen Comment: [id number] Specimen Comment: Report sent to / DR ROSADO Performed at: 01 [facility] [address], [place] [id number] MD Golden Johnson MD Phone: [phone] Performed at: 02 [facility] [address] [place], [place] [id number] MD George Evans MD Phone: [phone]
[2019-12-30 15:00] VITALS: BP 122/68
--- NOTE | 2019-12-30 17:04 | PDOC ---
F/U PHYSCH PROG NOTE Subjective: Elderly female initially seen for capacity evaluation then developed delirium following her surgery. She is seen for routine follow-up. Progress is reviewed with nursing staff. She is more alert and oriented and conversant. She is accompanied by her friends and mother in room. She is conversant and having a pleasant time. Denies suicidal or homicidal thoughts. Denies auditory or visual hallucinations. No evidence of alyx or hypomania. Objective: 14 point review of system is otherwise negative except for as stated above. Vital Signs: Vital Signs Date Time Temp Pulse Resp B/P (MAP) Pulse Ox O2 Delivery O2 Flow Rate FiO2 12/30/19 15:00 98.6 92 18 122/68 (86) 97 Room Air 98.6 12/30/19 13:45 2.0 Labs: Laboratory Tests Test 12/29/19 20:44 12/30/19 07:50 12/30/19 08:10 12/30/19 08:25 Glucose (Fingerstick) 156 mg/dL (70-99) H 100 mg/dL (70-99) H White Blood Count 11.2 x10^3/uL (4.0-11.0) H Red Blood Count 3.14 x10^6/uL (3.50-5.40) L Hemoglobin 9.0 g/dL (12.0-15.5) #L Hematocrit 26.9 % (36.0-47.0) L Mean Corpuscular Volume 86 fL (79-100) # Mean Corpuscular Hemoglobin 29 pg (25-35) Mean Corpuscular Hemoglobin Concent 34 g/dL (31-37) Red Cell Distribution Width 20.2 % (11.5-14.5) H Platelet Count 423 x10^3/uL (140-400) H Neutrophils (%) (Auto) 76 % (31-73) H Lymphocytes (%) (Auto) 16 % (24-48) L Monocytes (%) (Auto) 5 % (0-9) Eosinophils (%) (Auto) 2 % (0-3) Basophils (%) (Auto) 1 % (0-3) Neutrophils # (Auto) 8.5 x10^3/uL (1.8-7.7) H Lymphocytes # (Auto) 1.7 x10^3/uL (1.0-4.8) Monocytes # (Auto) 0.6 x10^3/uL (0.0-1.1) Eosinophils # (Auto) 0.3 x10^3/uL (0.0-0.7) Basophils # (Auto) 0.1 x10^3/uL (0.0-0.2) Platelet Estimate Adequate (ADEQUATE) Anisocytosis Mod Sodium Level 139 mmol/L (136-145) Potassium Level 3.8 mmol/L (3.5-5.1) Chloride Level 107 mmol/L (98-107) Carbon Dioxide Level 24 mmol/L (21-32) Anion Gap 8 (6-14) Blood Urea Nitrogen 9 mg/dL (7-20) Creatinine 0.9 mg/dL (0.6-1.0) Estimated GFR (Cockcroft-Gault) 74.1 BUN/Creatinine Ratio 10 (6-20) Glucose Level 115 mg/dL (70-99) H Calcium Level 7.6 mg/dL (8.5-10.1) L Total Bilirubin 0.5 mg/dL (0.2-1.0) Aspartate Amino Transferase (AST) 17 U/L (15-37) Alanine Aminotransferase (ALT) 10 U/L (14-59) L Alkaline Phosphatase 87 U/L (46-116) Total Protein 6.8 g/dL (6.4-8.2) Albumin 1.3 g/dL (3.4-5.0) L Albumin/Globulin Ratio 0.2 (1.0-1.7) L Test 12/30/19 11:27 12/30/19 16:42 Glucose (Fingerstick) 150 mg/dL (70-99) H 145 mg/dL (70-99) H Laboratory Tests 12/30/19 08:10 Laboratory Tests 12/30/19 08:25 Medications: Current Medications Medications (Trade) Dose Ordered Sig/Arnaud Start Time Stop Time Status Last Admin Dose Admin Acetaminophen (Tylenol) 650 mg PRN Q4HRS PRN 12/24/19 15:30 12/28/19 23:45 650 MG Atorvastatin Calcium (Lipitor) 5 mg QHS 12/16/19 21:00 12/16/19 16:22 DC Bupivacaine HCl/ Epinephrine Bitart (Sensorcaine-Epi 0.25%-1:075773 Mpf) 30 ml STK-MED ONCE 12/27/19 10:01 12/27/19 10:01 DC 12/27/19 11:15 30 ML Cetirizine HCl (ZyrTEC) 10 mg DAILY 12/16/19 16:00 12/16/19 16:22 DC Clopidogrel Bisulfate (Plavix) 75 mg DAILYWBKFT 12/21/19 08:00 12/30/19 08:59 75 MG Dextrose (Dextrose 50%-Water Syringe) 12.5 gm PRN Q15MIN PRN 12/16/19 15:15 Fentanyl Citrate (Fentanyl 2ml Vial) 50 mcg PRN Q5MIN PRN 12/27/19 13:00 12/30/19 09:23 DC 12/27/19 12:35 50 MCG Heparin Sodium (Porcine) (Heparin Sodium) 5,000 unit 1X ONCE 12/20/19 13:30 12/20/19 13:42 DC 12/20/19 13:59 5,000 UNIT Heparin Sodium/ Sodium Chloride (HEPARIN for ARTERIAL LINE FLUSH) 1,000 unit 1X ONCE 12/20/19 13:30 12/20/19 13:42 DC 12/20/19 13:57 1,000 UNIT Hydrochlorothiazide (Microzide) 12.5 mg DAILY 12/16/19 16:00 12/16/19 16:22 DC Info (CONTRAST GIVEN -- Rx MONITORING) 1 each PRN DAILY PRN 12/20/19 13:45 12/22/19 13:44 DC Insulin Glargine (Lantus Syringe) 10 unit QHS 12/16/19 21:00 12/29/19 21:09 10 UNIT Insulin Human Lispro (HumaLOG) 3 units 1X ONCE 12/22/19 21:15 12/22/19 21:16 DC 12/22/19 21:15 3 UNITS Iodixanol (Visipaque 320) 100 ml 1X ONCE 12/20/19 13:30 12/20/19 13:42 DC 12/20/19 13:55 75 ML Iohexol (Omnipaque 350 Mg/ml) 80 ml 1X ONCE 12/19/19 15:00 12/19/19 15:01 DC 12/19/19 15:08 80 ML Lactobacillus Rhamnosus (Culturelle) 1 cap BID 12/17/19 21:00 12/30/19 08:59 1 CAP Lidocaine HCl (Buffered Lidocaine 1%) 3 ml 1X ONCE 12/20/19 13:30 12/20/19 13:42 DC 12/20/19 13:55 6 ML Lidocaine HCl (Lidocaine Pf 2% Vial) 5 ml STK-MED ONCE 12/27/19 10:50 12/27/19 10:51 DC Lisinopril (Prinivil) 20 mg DAILY 12/16/19 16:00 12/16/19 16:22 DC Midazolam HCl (Versed) 2 mg 1X ONCE 12/20/19 13:30 12/20/19 13:42 DC 12/20/19 13:58 2 MG Morphine Sulfate (Morphine Sulfate) 4 mg PRN Q2HR PRN 12/16/19 19:45 12/30/19 09:04 4 MG Multivitamins (Thera M Plus) 1 tab DAILY 12/23/19 09:00 12/30/19 08:59 1 TAB Non-Formulary Medication (Ranitidine Hcl (Zantac)) 1 tab BID 12/16/19 21:00 12/16/19 16:22 DC Nystatin (Nystop) 1 maryam BID 12/21/19 12:00 12/30/19 09:00 1 MARYAM Ondansetron HCl (Zofran Odt) 4 mg PRN Q6HRS PRN 12/19/19 15:00 Ondansetron HCl (Zofran) 4 mg STK-MED ONCE 12/27/19 10:50 12/27/19 10:51 DC Oxycodone/ Acetaminophen (Percocet 5/325) 2 tab PRN Q4HRS PRN 12/27/19 12:45 12/28/19 08:08 2 TAB Phenylephrine HCl (PHENYLEPHRINE in 0.9% NACL PF) 1 mg STK-MED ONCE 12/27/19 10:55 12/27/19 10:56 DC Piperacillin Sod/ Tazobactam Sod (Zosyn Per Pharmacy) 1 each PRN DAILY PRN 12/16/19 15:15 Piperacillin Sod/ Tazobactam Sod 2.25 gm/Sodium Chloride 50 ml @ 100 mls/hr Q6HRS 12/16/19 18:00 12/27/19 11:00 DC 12/27/19 06:18 100 MLS/HR Piperacillin Sod/ Tazobactam Sod 3.375 gm/Sodium Chloride 50 ml @ 100 mls/hr Q6HRS 12/27/19 12:00 12/30/19 12:26 100 MLS/HR Prochlorperazine Edisylate (Compazine) 10 mg STK-MED ONCE 12/27/19 12:21 12/27/19 12:21 DC Propofol (Diprivan) 200 mg STK-MED ONCE 12/27/19 10:50 12/27/19 10:51 DC Ringer's Solution 1,000 ml @ 30 mls/hr Q24H 12/27/19 07:00 12/27/19 18:59 DC Risperidone (RisperDAL) 1 mg HS 12/29/19 21:00 12/29/19 21:01 1 MG Sevoflurane (Ultane) 90 ml STK-MED ONCE 12/27/19 12:00 12/27/19 12:00 DC Sodium Chloride 1,000 ml @ 100 mls/hr 1X ONCE 12/16/19 15:15 12/17/19 01:14 DC 12/16/19 16:43 100 MLS/HR Physical Exam: Mental Status Exam: Elderly female appears her stated age, fairly groomed fairly nourished Cooperative and interactive Alert and oriented Thought process linear coherent and goal-directed Denies auditory or visual hallucinations No abnormal perception noted Denies suicidal or homicidal thoughts. Mood is fine Affect is euthymic Insight is good Judgment is good Impulse control is good Attention span and concentration good Recent and remote memory intact Physical Exam: Refer to Physician's note. 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 Acute delirium, likely hypoactive , postsurgical 2. Unspecified depression 3. Unspecified anxiety Assessment: Elderly pleasant female who is in agreement to go for below-knee amputation. Her understanding about procedure, risks, benefits, her concern prior to making decision appears to be rational. She made her decision without any pressure and with full understanding. Her thoughts about next phase of life following amputation and preparation, future plans are indicative of her full Capacity to make rational decision regarding her own care as recommended to her by physicians. She does not have any depression or anxiety that are influencing her decision. 12/29/2019: Today patient appears delirious, difficult to her to open eyes. Delirium has also been reported by her family who was at the bedside. 12/30/2019 today patient appears a lot better than previous days. She is more alert and oriented likely responding to risperidone. Risperidone can be discontinued once patient is at her baseline. Plan: continue risperidone 1 mg at bedtime for the resolution of delirium. Risks, benefits, alternatives of the treatment are discussed. Adverse drug reaction of the medications are also discussed. Psychoeducation provided. Supportive psychotherapy provided. Avoid sedatives and hypnotics. Applied delirium protocol. Avoid sundowning during the day or naps. Thank you for involving inpatient IRA GARCIA MD Dec 30, 2019 17:04
--- NOTE | 2019-12-30 17:08 | PDOC ---
F/U PHYSCH PROG NOTE Objective: Vital Signs: Vital Signs Date Time Temp Pulse Resp B/P (MAP) Pulse Ox O2 Delivery O2 Flow Rate FiO2 12/30/19 15:00 98.6 92 18 122/68 (86) 97 Room Air 98.6 12/30/19 13:45 2.0 Labs: Laboratory Tests Test 12/29/19 20:44 12/30/19 07:50 12/30/19 08:10 12/30/19 08:25 Glucose (Fingerstick) 156 mg/dL (70-99) H 100 mg/dL (70-99) H White Blood Count 11.2 x10^3/uL (4.0-11.0) H Red Blood Count 3.14 x10^6/uL (3.50-5.40) L Hemoglobin 9.0 g/dL (12.0-15.5) #L Hematocrit 26.9 % (36.0-47.0) L Mean Corpuscular Volume 86 fL (79-100) # Mean Corpuscular Hemoglobin 29 pg (25-35) Mean Corpuscular Hemoglobin Concent 34 g/dL (31-37) Red Cell Distribution Width 20.2 % (11.5-14.5) H Platelet Count 423 x10^3/uL (140-400) H Neutrophils (%) (Auto) 76 % (31-73) H Lymphocytes (%) (Auto) 16 % (24-48) L Monocytes (%) (Auto) 5 % (0-9) Eosinophils (%) (Auto) 2 % (0-3) Basophils (%) (Auto) 1 % (0-3) Neutrophils # (Auto) 8.5 x10^3/uL (1.8-7.7) H Lymphocytes # (Auto) 1.7 x10^3/uL (1.0-4.8) Monocytes # (Auto) 0.6 x10^3/uL (0.0-1.1) Eosinophils # (Auto) 0.3 x10^3/uL (0.0-0.7) Basophils # (Auto) 0.1 x10^3/uL (0.0-0.2) Platelet Estimate Adequate (ADEQUATE) Anisocytosis Mod Sodium Level 139 mmol/L (136-145) Potassium Level 3.8 mmol/L (3.5-5.1) Chloride Level 107 mmol/L (98-107) Carbon Dioxide Level 24 mmol/L (21-32) Anion Gap 8 (6-14) Blood Urea Nitrogen 9 mg/dL (7-20) Creatinine 0.9 mg/dL (0.6-1.0) Estimated GFR (Cockcroft-Gault) 74.1 BUN/Creatinine Ratio 10 (6-20) Glucose Level 115 mg/dL (70-99) H Calcium Level 7.6 mg/dL (8.5-10.1) L Total Bilirubin 0.5 mg/dL (0.2-1.0) Aspartate Amino Transferase (AST) 17 U/L (15-37) Alanine Aminotransferase (ALT) 10 U/L (14-59) L Alkaline Phosphatase 87 U/L (46-116) Total Protein 6.8 g/dL (6.4-8.2) Albumin 1.3 g/dL (3.4-5.0) L Albumin/Globulin Ratio 0.2 (1.0-1.7) L Test 12/30/19 11:27 12/30/19 16:42 Glucose (Fingerstick) 150 mg/dL (70-99) H 145 mg/dL (70-99) H Laboratory Tests 12/30/19 08:10 Laboratory Tests 12/30/19 08:25 Medications: Current Medications Medications (Trade) Dose Ordered Sig/Arnaud Start Time Stop Time Status Last Admin Dose Admin Acetaminophen (Tylenol) 650 mg PRN Q4HRS PRN 12/24/19 15:30 12/28/19 23:45 650 MG Atorvastatin Calcium (Lipitor) 5 mg QHS 12/16/19 21:00 12/16/19 16:22 DC Bupivacaine HCl/ Epinephrine Bitart (Sensorcaine-Epi 0.25%-1:280123 Mpf) 30 ml STK-MED ONCE 12/27/19 10:01 12/27/19 10:01 DC 12/27/19 11:15 30 ML Cetirizine HCl (ZyrTEC) 10 mg DAILY 12/16/19 16:00 12/16/19 16:22 DC Clopidogrel Bisulfate (Plavix) 75 mg DAILYWBKFT 12/21/19 08:00 12/30/19 08:59 75 MG Dextrose (Dextrose 50%-Water Syringe) 12.5 gm PRN Q15MIN PRN 12/16/19 15:15 Fentanyl Citrate (Fentanyl 2ml Vial) 50 mcg PRN Q5MIN PRN 12/27/19 13:00 12/30/19 09:23 DC 12/27/19 12:35 50 MCG Heparin Sodium (Porcine) (Heparin Sodium) 5,000 unit 1X ONCE 12/20/19 13:30 12/20/19 13:42 DC 12/20/19 13:59 5,000 UNIT Heparin Sodium/ Sodium Chloride (HEPARIN for ARTERIAL LINE FLUSH) 1,000 unit 1X ONCE 12/20/19 13:30 12/20/19 13:42 DC 12/20/19 13:57 1,000 UNIT Hydrochlorothiazide (Microzide) 12.5 mg DAILY 12/16/19 16:00 12/16/19 16:22 DC Info (CONTRAST GIVEN -- Rx MONITORING) 1 each PRN DAILY PRN 12/20/19 13:45 12/22/19 13:44 DC Insulin Glargine (Lantus Syringe) 10 unit QHS 12/16/19 21:00 12/29/19 21:09 10 UNIT Insulin Human Lispro (HumaLOG) 3 units 1X ONCE 12/22/19 21:15 12/22/19 21:16 DC 12/22/19 21:15 3 UNITS Iodixanol (Visipaque 320) 100 ml 1X ONCE 12/20/19 13:30 12/20/19 13:42 DC 12/20/19 13:55 75 ML Iohexol (Omnipaque 350 Mg/ml) 80 ml 1X ONCE 12/19/19 15:00 12/19/19 15:01 DC 12/19/19 15:08 80 ML Lactobacillus Rhamnosus (Culturelle) 1 cap BID 12/17/19 21:00 12/30/19 08:59 1 CAP Lidocaine HCl (Buffered Lidocaine 1%) 3 ml 1X ONCE 12/20/19 13:30 12/20/19 13:42 DC 12/20/19 13:55 6 ML Lidocaine HCl (Lidocaine Pf 2% Vial) 5 ml STK-MED ONCE 12/27/19 10:50 12/27/19 10:51 DC Lisinopril (Prinivil) 20 mg DAILY 8/14/20 16:00 12/16/19 16:22 DC Midazolam HCl (Versed) 2 mg 1X ONCE 12/20/19 13:30 12/20/19 13:42 DC 12/20/19 13:58 2 MG Morphine Sulfate (Morphine Sulfate) 4 mg PRN Q2HR PRN 12/16/19 19:45 12/30/19 09:04 4 MG Multivitamins (Thera M Plus) 1 tab DAILY 12/23/19 09:00 12/30/19 08:59 1 TAB Non-Formulary Medication (Ranitidine Hcl (Zantac)) 1 tab BID 12/16/19 21:00 12/16/19 16:22 DC Nystatin (Nystop) 1 maryam BID 12/21/19 12:00 12/30/19 09:00 1 MARYAM Ondansetron HCl (Zofran Odt) 4 mg PRN Q6HRS PRN 12/19/19 15:00 Ondansetron HCl (Zofran) 4 mg STK-MED ONCE 12/27/19 10:50 12/27/19 10:51 DC Oxycodone/ Acetaminophen (Percocet 5/325) 2 tab PRN Q4HRS PRN 12/27/19 12:45 12/28/19 08:08 2 TAB Phenylephrine HCl (PHENYLEPHRINE in 0.9% NACL PF) 1 mg STK-MED ONCE 12/27/19 10:55 12/27/19 10:56 DC Piperacillin Sod/ Tazobactam Sod (Zosyn Per Pharmacy) 1 each PRN DAILY PRN 12/16/19 15:15 Piperacillin Sod/ Tazobactam Sod 2.25 gm/Sodium Chloride 50 ml @ 100 mls/hr Q6HRS 12/16/19 18:00 12/27/19 11:00 DC 12/27/19 06:18 100 MLS/HR Piperacillin Sod/ Tazobactam Sod 3.375 gm/Sodium Chloride 50 ml @ 100 mls/hr Q6HRS 12/27/19 12:00 12/30/19 12:26 100 MLS/HR Prochlorperazine Edisylate (Compazine) 10 mg STK-MED ONCE 12/27/19 12:21 12/27/19 12:21 DC Propofol (Diprivan) 200 mg STK-MED ONCE 12/27/19 10:50 12/27/19 10:51 DC Ringer's Solution 1,000 ml @ 30 mls/hr Q24H 12/27/19 07:00 12/27/19 18:59 DC Risperidone (RisperDAL) 1 mg HS 12/29/19 21:00 12/29/19 21:01 1 MG Sevoflurane (Ultane) 90 ml STK-MED ONCE 12/27/19 12:00 12/27/19 12:00 DC Sodium Chloride 1,000 ml @ 100 mls/hr 1X ONCE 12/16/19 15:15 12/17/19 01:14 DC 12/16/19 16:43 100 MLS/HR Physical Exam: Physical Exam: Refer to Physician's note. 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
[2019-12-30 19:00] VITALS: BP 124/61
[2019-12-30] MEDS: risperiDONE 1 MG TABLET. PO SCH (21:36)
[2019-12-30] MEDS: INSULIN GLARGINE SYRINGE. SQ SCH (21:44)
[2019-12-31 03:00] VITALS: BP 135/72
[2019-12-31] MEDS: oxyCODONE/APAP 5/325 1 TAB TABLET PO PRN ×5 (03:02→22:00)
[2019-12-31] MEDS: PIPERACILLIN/TAZOBACTAM 3.375 GM in IV NORMAL SALINE 50ML 50 ML IV SCH ×4 (06:30→17:53)
[2019-12-31 07:00] VITALS: BP 100/73
[2019-12-31] MEDS: INSULIN LISPRO 300 UNITS/3 ML VIAL. SQ SCH ×3 (08:00→17:00)
[2019-12-31 08:11] LABS: HEMATOCRIT 25.7 % (36.0-47.0); HEMOGLOBIN 8.6 g/dL (12.0-15.5); RED BLOOD COUNT 2.97 x10^6/uL (3.50-5.40); RED CELL DISTRIBUTION WIDTH 19.8 % (11.5-14.5); WHITE BLOOD COUNT 9.7 x10^3/uL (4.0-11.0)
[2019-12-31] MEDS: NYSTATIN TOPICAL POWDER 15GM BOTTLE. TP SCH ×2 (09:07→22:01)
[2019-12-31] MEDS: LACTOBACILLUS RHAMNOSUS GG 1 CAPSULE. PO SCH ×2 (09:07→22:00)
[2019-12-31] MEDS: MULTIVITAMIN with MINERAL TABLET. PO SCH (09:07)
[2019-12-31] MEDS: CLOPIDOGREL BISULFATE 75 MG TABLET PO SCH (09:07)
--- NOTE | 2019-12-31 10:46 | PDOC ---
PROGRESS NOTES Date of Service: DATE: 12/31/19 TIME: 10:46 Chief Complaint Chief Complaint impression falls, worsening weakness, cannot walk, DM2, poor control she is off meds, denies any problem cognitive decline - dementia likely Right below-knee amputation (amputation, leg, through tibia and fibula) eschar foot and toes, ischemic injury, dry gangrene ( needs BKA) SEVERE PVD ,Chronic total occlusion mid right SFA, and at the junction of the SFA and popliteal artery treated with placement of self-expanding stents Balloon angioplasty of the tibial peroneal trunk marked post-op animia, transfues 2 units PRBC'S 12/28 36 MIN PT exam, chart review, > 50% of time spent with exam, chart review, pt care coordination dpoa mother, discussed, reviewed form signed 12 min History of Present Illness History of Present Illness 12/31/2019 Patient was seen and examined Patient had clean, dry dressings on surgical site Patient was in NAD less sleepy Add risperidone 1 mg at bedtime for the resolution of delirium. D/W RN PAIN SLOW TO RESOLVE 12/26/2019 Patient was seen and examined Discussed with nurse Patient was alert and talkative during exam Vitals Vitals Vital Signs Date Time Temp Pulse Resp B/P (MAP) Pulse Ox O2 Delivery O2 Flow Rate FiO2 12/31/19 09:07 Room Air 12/31/19 07:00 98.7 92 18 100/73 (82) 97 98.7 12/30/19 13:45 2.0 Physical Exam General: Alert, Cooperative, Other (multiple missing teeth, not quite edentulous) Heart: Regular rate, Normal S1, Normal S2 Lungs: Clear, Wheezing Abdomen: Soft Extremities: Other (The right foot has grossly normal alignment. The second third and fourth toes are completely necrotic with dry gangrene into the midfoot dorsally and plantarly. There is an odor but not severeI dont believe theres wet gangrene or gas. There is some ischemia and discoloration of the great toe and fifth toe and they are also likely nonviable. Despite the lateral malleolus fracture, there is minimal lateral malleolus swelling or tenderness. There is no ankle joint deformity. There is full-thickness dry gangrene along the plantar aspect of the foot with some overlying loose skin, and unfortunately the proximal extent of the dry gangrene on the plantar foot would prevent transmet atarsal amputation. There is a full-thickness ulceration with dry necrotic blackened tissue at the Achilles, possible tendon involvement. Pulses are not palpable. She reports slight light touch sensation. I believe these gangrene and ulcer changes are related more to diabetic ischemia than to diabetic neuropathy.) Skin: No breakdown, Other (distal 1/3, of forefoot is black and complete eschar, and looks like it has been that way for awhile. 3 toes nearly auto amputated, ) Labs LABS Visit Type * Pt Declined Attempted Visit Details * Per RNOlga, pt apparently sat at eob with nursing staff this am. Pt declined PT this am, but consented to PT this pm. Will plan to check back time permitting. 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 * JACOBO James Laboratory Tests Test 12/30/19 11:27 12/30/19 16:42 12/30/19 21:15 12/31/19 07:12 Glucose (Fingerstick) 150 mg/dL (70-99) 145 mg/dL (70-99) 145 mg/dL (70-99) White Blood Count 9.7 x10^3/uL (4.0-11.0) Red Blood Count 2.97 x10^6/uL (3.50-5.40) Hemoglobin 8.6 g/dL (12.0-15.5) Hematocrit 25.7 % (36.0-47.0) Mean Corpuscular Volume 87 fL (79-100) Mean Corpuscular Hemoglobin 29 pg (25-35) Mean Corpuscular Hemoglobin Concent 33 g/dL (31-37) Red Cell Distribution Width 19.8 % (11.5-14.5) Platelet Count 445 x10^3/uL (140-400) Test 12/31/19 07:52 Glucose (Fingerstick) 103 mg/dL (70-99) Assessment and Plan Assessmemt and Plan Problems Medical Problems: (1) Necrotic toes Status: Acute (2) Weakness Status: Acute (3) Wound infection Status: Acute Comment Review of Relevant I have reviewed the following items da (where applicable) has been applied. Labs Laboratory Tests Test 12/29/19 20:44 12/30/19 07:50 12/30/19 08:10 12/30/19 08:25 Glucose (Fingerstick) 156 mg/dL (70-99) 100 mg/dL (70-99) White Blood Count 11.2 x10^3/uL (4.0-11.0) Red Blood Count 3.14 x10^6/uL (3.50-5.40) Hemoglobin 9.0 g/dL (12.0-15.5) Hematocrit 26.9 % (36.0-47.0) Mean Corpuscular Volume 86 fL (79-100) Mean Corpuscular Hemoglobin 29 pg (25-35) Mean Corpuscular Hemoglobin Concent 34 g/dL (31-37) Red Cell Distribution Width 20.2 % (11.5-14.5) Platelet Count 423 x10^3/uL (140-400) Neutrophils (%) (Auto) 76 % (31-73) Lymphocytes (%) (Auto) 16 % (24-48) Monocytes (%) (Auto) 5 % (0-9) Eosinophils (%) (Auto) 2 % (0-3) Basophils (%) (Auto) 1 % (0-3) Neutrophils # (Auto) 8.5 x10^3/uL (1.8-7.7) Lymphocytes # (Auto) 1.7 x10^3/uL (1.0-4.8) Monocytes # (Auto) 0.6 x10^3/uL (0.0-1.1) Eosinophils # (Auto) 0.3 x10^3/uL (0.0-0.7) Basophils # (Auto) 0.1 x10^3/uL (0.0-0.2) Platelet Estimate Adequate (ADEQUATE) Anisocytosis Mod Sodium Level 139 mmol/L (136-145) Potassium Level 3.8 mmol/L (3.5-5.1) Chloride Level 107 mmol/L (98-107) Carbon Dioxide Level 24 mmol/L (21-32) Anion Gap 8 (6-14) Blood Urea Nitrogen 9 mg/dL (7-20) Creatinine 0.9 mg/dL (0.6-1.0) Estimated GFR (Cockcroft-Gault) 74.1 BUN/Creatinine Ratio 10 (6-20) Glucose Level 115 mg/dL (70-99) Calcium Level 7.6 mg/dL (8.5-10.1) Total Bilirubin 0.5 mg/dL (0.2-1.0) Aspartate Amino Transf (AST/SGOT) 17 U/L (15-37) Alanine Aminotransferase (ALT/SGPT) 10 U/L (14-59) Alkaline Phosphatase 87 U/L (46-116) Total Protein 6.8 g/dL (6.4-8.2) Albumin 1.3 g/dL (3.4-5.0) Albumin/Globulin Ratio 0.2 (1.0-1.7) Test 12/30/19 11:27 12/30/19 16:42 12/30/19 21:15 12/31/19 07:12 Glucose (Fingerstick) 150 mg/dL (70-99) 145 mg/dL (70-99) 145 mg/dL (70-99) White Blood Count 9.7 x10^3/uL (4.0-11.0) Red Blood Count 2.97 x10^6/uL (3.50-5.40) Hemoglobin 8.6 g/dL (12.0-15.5) Hematocrit 25.7 % (36.0-47.0) Mean Corpuscular Volume 87 fL (79-100) Mean Corpuscular Hemoglobin 29 pg (25-35) Mean Corpuscular Hemoglobin Concent 33 g/dL (31-37) Red Cell Distribution Width 19.8 % (11.5-14.5) Platelet Count 445 x10^3/uL (140-400) Test 12/31/19 07:52 Glucose (Fingerstick) 103 mg/dL (70-99) Laboratory Tests Test 12/30/19 11:27 12/30/19 16:42 12/30/19 21:15 12/31/19 07:12 Glucose (Fingerstick) 150 mg/dL (70-99) 145 mg/dL (70-99) 145 mg/dL (70-99) White Blood Count 9.7 x10^3/uL (4.0-11.0) Red Blood Count 2.97 x10^6/uL (3.50-5.40) Hemoglobin 8.6 g/dL (12.0-15.5) Hematocrit 25.7 % (36.0-47.0) Mean Corpuscular Volume 87 fL (79-100) Mean Corpuscular Hemoglobin 29 pg (25-35) Mean Corpuscular Hemoglobin Concent 33 g/dL (31-37) Red Cell Distribution Width 19.8 % (11.5-14.5) Platelet Count 445 x10^3/uL (140-400) Test 12/31/19 07:52 Glucose (Fingerstick) 103 mg/dL (70-99) Microbiology 12/16/19 Blood Culture - Final, Complete NO GROWTH AFTER 5 DAYS Medications Current Medications Piperacillin Sod/ Tazobactam Sod 3.375 gm/Sodium Chloride 50 ml @ 100 mls/hr 1X ONCE IV Last administered on 12/16/19at 11:26; Start 12/16/19 at 11:15; Stop 12/16/19 at 11:44; Status DC Sodium Chloride 1,000 ml @ 1,000 mls/hr 1X ONCE IV Last administered on 12/16/19at 11:25; Start 12/16/19 at 11:15; Stop 12/16/19 at 12:14; Status DC Oxycodone/ Acetaminophen (Percocet 5/325) 1 tab Q4HRS PO ; Start 12/16/19 at 16:00; Stop 12/16/19 at 18:36; Status DC Lisinopril (Prinivil) 20 mg DAILY PO ; Start 12/16/19 at 16:00; Stop 12/16/19 at 16:22; Status DC Cetirizine HCl (ZyrTEC) 10 mg DAILY PO ; Start 12/16/19 at 16:00; Stop 12/16/19 at 16:22; Status DC Atorvastatin Calcium (Lipitor) 5 mg QHS PO ; Start 12/16/19 at 21:00; Stop 12/16/19 at 16:22; Status DC Ondansetron HCl (Zofran Odt) 4 mg Q6HRS PO Last administered on 12/19/19at 05:50; Start 12/16/19 at 18:00; Stop 12/19/19 at 14:48; Status DC Non-Formulary Medication (Ranitidine Hcl (Zantac)) 1 tab BID PO ; Start 12/16/19 at 21:00; Stop 12/16/19 at 16:22; Status DC Piperacillin Sod/ Tazobactam Sod (Zosyn Per Pharmacy) 1 each PRN DAILY PRN MC SEE COMMENTS; Start 12/16/19 at 15:15 Sodium Chloride 1,000 ml @ 100 mls/hr 1X ONCE IV Last administered on 12/16/19at 16:43; Start 12/16/19 at 15:15; Stop 12/17/19 at 01:14; Status DC Insulin Human Lispro (HumaLOG) 0-9 UNITS TIDWMEALS SQ Last administered on 12/29/19at 17:00; Start 12/16/19 at 17:00 Dextrose (Dextrose 50%-Water Syringe) 12.5 gm PRN Q15MIN PRN IV SEE COMMENTS; Start 12/16/19 at 15:15 Insulin Glargine (Lantus Syringe) 10 unit QHS SQ Last administered on 12/30/19at 21:44; Start 12/16/19 at 21:00 Piperacillin Sod/ Tazobactam Sod 3.375 gm/Sodium Chloride 50 ml @ 100 mls/hr Q6HRS IV ; Start 12/16/19 at 18:00; Status Cancel Piperacillin Sod/ Tazobactam Sod 2.25 gm/Sodium Chloride 50 ml @ 100 mls/hr Q6HRS IV Last administered on 12/27/19at 06:18; Start 12/16/19 at 18:00; Stop 12/27/19 at 11:00; Status DC Hydrochlorothiazide (Microzide) 12.5 mg DAILY PO ; Start 12/16/19 at 16:00; Stop 12/16/19 at 16:22; Status DC Heparin Sodium (Porcine) (Heparin Sodium) 5,000 unit 1X ONCE SQ Last administered on 12/16/19at 17:50; Start 12/16/19 at 17:45; Stop 12/16/19 at 17:46; Status DC Oxycodone/ Acetaminophen (Percocet 5/325) 1 tab PRN Q4HRS PRN PO MODERATE TO SEVERE PAIN Last administered on 12/26/19at 18:09; Start 12/16/19 at 18:45; Stop 12/27/19 at 12:38; Status DC Morphine Sulfate (Morphine Sulfate) 4 mg PRN Q2HR PRN IV PAIN Last administered on 12/30/19at 09:04; Start 12/16/19 at 19:45 Ringer's Solution 1,000 ml @ 100 mls/hr Q10H IV Last administered on 12/20/19at 08:10; Start 12/17/19 at 10:30; Stop 12/20/19 at 15:47; Status DC Lactobacillus Rhamnosus (Culturelle) 1 cap BID PO Last administered on 12/31/19at 09:07; Start 12/17/19 at 21:00 Ondansetron HCl (Zofran Odt) 4 mg PRN Q6HRS PRN PO NAUSEA; Start 12/19/19 at 15:00 Iohexol (Omnipaque 350 Mg/ml) 80 ml 1X ONCE IV Last administered on 12/19/19at 15:08; Start 12/19/19 at 15:00; Stop 12/19/19 at 15:01; Status DC Lidocaine HCl (Buffered Lidocaine 1%) 3 ml STK-MED ONCE .ROUTE ; Start 12/20/19 at 11:59; Stop 12/20/19 at 11:59; Status DC Iodixanol (Visipaque 320) 100 ml STK-MED ONCE .ROUTE ; Start 12/20/19 at 11:59; Stop 12/20/19 at 11:59; Status DC Heparin Sodium/ Sodium Chloride 1,500 ml @ As Directed STK-MED ONCE .ROUTE ; Start 12/20/19 at 11:59; Stop 12/20/19 at 11:59; Status DC Midazolam HCl (Versed) 2 mg STK-MED ONCE .ROUTE ; Start 12/20/19 at 12:34; Stop 12/20/19 at 12:34; Status DC Fentanyl Citrate (Fentanyl 2ml Vial) 100 mcg STK-MED ONCE .ROUTE ; Start 12/20/19 at 12:34; Stop 12/20/19 at 12:34; Status DC Heparin Sodium (Porcine) (Heparin Sodium) 10,000 unit STK-MED ONCE .ROUTE ; Start 12/20/19 at 12:34; Stop 12/20/19 at 12:34; Status DC Heparin Sodium/ Sodium Chloride (HEPARIN for ARTERIAL LINE FLUSH) 1,000 unit 1X ONCE IART Last administered on 12/20/19at 13:56; Start 12/20/19 at 13:30; Stop 12/20/19 at 13:42; Status DC Heparin Sodium/ Sodium Chloride (HEPARIN for ARTERIAL LINE FLUSH) 1,000 unit 1X ONCE IART Last administered on 12/20/19 13:57; Start 12/20/19 at 13:30; Stop 12/20/19 at 13:42; Status DC Lidocaine HCl (Buffered Lidocaine 1%) 3 ml 1X ONCE IJ Last administered on 12/20/19 13:55; Start 12/20/19 at 13:30; Stop 12/20/19 at 13:42; Status DC Midazolam HCl (Versed) 2 mg 1X ONCE IV Last administered on 12/20/19 13:58; Start 12/20/19 at 13:30; Stop 12/20/19 at 13:42; Status DC Fentanyl Citrate (Fentanyl 2ml Vial) 100 mcg 1X ONCE IV Last administered on 12/20/19 13:58; Start 12/20/19 at 13:30; Stop 12/20/19 at 13:42; Status DC Iodixanol (Visipaque 320) 100 ml 1X ONCE IART Last administered on 12/20/19 13:55; Start 12/20/19 at 13:30; Stop 12/20/19 at 13:42; Status DC Heparin Sodium (Porcine) (Heparin Sodium) 5,000 unit 1X ONCE IV Last administered on 12/20/19 13:59; Start 12/20/19 at 13:30; Stop 12/20/19 at 13:42; Status DC Heparin Sodium/ Sodium Chloride (HEPARIN for ARTERIAL LINE FLUSH) 1,000 unit 1X ONCE IV Last administered on 12/20/19 13:57; Start 12/20/19 at 13:30; Stop 12/20/19 at 13:42; Status DC Info (CONTRAST GIVEN -- Rx MONITORING) 1 each PRN DAILY PRN MC SEE COMMENTS; Start 12/20/19 at 13:45; Stop 12/22/19 at 13:44; Status DC Clopidogrel Bisulfate (Plavix) 75 mg DAILYWBKFT PO Last administered on 12/31/19 09:07; Start 12/21/19 at 08:00 Nystatin (Nystop) 1 maryam BID TP Last administered on 12/31/19 09:07; Start 12/21/19 at 12:00 Multivitamins (Thera M Plus) 1 tab DAILY PO Last administered on 12/31/19 09:07; Start 12/23/19 at 09:00 Insulin Human Lispro (HumaLOG) 3 units 1X ONCE SQ Last administered on 12/22/19at 21:15; Start 12/22/19 at 21:15; Stop 12/22/19 at 21:16; Status DC Acetaminophen (Tylenol) 650 mg PRN Q4HRS PRN PO JACOBS/TEMP > 100.3'F Last administered on 12/28/19at 23:45; Start 12/24/19 at 15:30 Ringer's Solution 1,000 ml @ 30 mls/hr Q24H IV ; Start 12/27/19 at 07:00; Stop 12/27/19 at 18:59; Status DC Prochlorperazine Edisylate (Compazine) 5 mg PACU PRN PRN IV NAUSEA, MRX1 Last administered on 12/27/19at 12:25; Start 12/27/19 at 07:00; Stop 12/28/19 at 06:59; Status DC Bupivacaine HCl/ Epinephrine Bitart (Sensorcaine-Epi 0.25%-1:[id number] Mpf) 30 ml STK-MED ONCE .ROUTE Last administered on 12/27/19at 11:15; Start 12/27/19 at 10:01; Stop 12/27/19 at 10:01; Status DC Fentanyl Citrate (Fentanyl 2ml Vial) 100 mcg STK-MED ONCE .ROUTE ; Start 12/27/19 at 10:31; Stop 12/27/19 at 10:31; Status DC Piperacillin Sod/ Tazobactam Sod 3.375 gm/Sodium Chloride 50 ml @ 100 mls/hr Q6HRS IV Last administered on 12/31/19at 06:30; Start 12/27/19 at 12:00 Propofol (Diprivan) 200 mg STK-MED ONCE IV ; Start 12/27/19 at 10:50; Stop 12/27/19 at 10:51; Status DC Lidocaine HCl (Lidocaine Pf 2% Vial) 5 ml STK-MED ONCE .ROUTE ; Start 12/27/19 at 10:50; Stop 12/27/19 at 10:51; Status DC Ondansetron HCl (Zofran) 4 mg STK-MED ONCE .ROUTE ; Start 12/27/19 at 10:50; Stop 12/27/19 at 10:51; Status DC Phenylephrine HCl (PHENYLEPHRINE in 0.9% NACL PF) 1 mg STK-MED ONCE IV ; Start 12/27/19 at 10:55; Stop 12/27/19 at 10:56; Status DC Sevoflurane (Ultane) 90 ml STK-MED ONCE IH ; Start 12/27/19 at 12:00; Stop 12/27/19 at 12:00; Status DC Fentanyl Citrate (Fentanyl 2ml Vial) 100 mcg STK-MED ONCE .ROUTE ; Start 12/27/19 at 12:21; Stop 12/27/19 at 12:21; Status DC Prochlorperazine Edisylate (Compazine) 10 mg STK-MED ONCE .ROUTE ; Start 12/27/19 at 12:21; Stop 12/27/19 at 12:21; Status DC Oxycodone/ Acetaminophen (Percocet 5/325) 1 tab PRN Q4HRS PRN PO PAIN MILD TO MOD Last administered on 12/31/19at 03:02; Start 12/27/19 at 12:45 Oxycodone/ Acetaminophen (Percocet 5/325) 2 tab PRN Q4HRS PRN PO PAIN SEVERE Last administered on 12/31/19at 09:07; Start 12/27/19 at 12:45 Fentanyl Citrate (Fentanyl 2ml Vial) While in pacu. PRN Q5MIN PRN IVP PAIN Last administered on 12/27/19at 12:24; Start 12/27/19 at 12:45; Stop 12/27/19 at 12:46; Status DC Fentanyl Citrate (Fentanyl 2ml Vial) 25 mcg PRN Q5MIN PRN IVP PAIN MILD TO MOD; Start 12/27/19 at 12:46; Status Cancel Fentanyl Citrate (Fentanyl 2ml Vial) 50 mcg PRN Q5MIN PRN IVP PAIN SEVERE Last administered on 12/27/19at 12:35; Start 12/27/19 at 13:00; Stop 12/30/19 at 09:23; Status DC Risperidone (RisperDAL) 1 mg HS PO Last administered on 12/30/19at 21:36; Start 12/29/19 at 21:00 Active Scripts Active Zofran (Ondansetron Hcl) 4 Mg Tablet 1 Tab PO Q6HRS Percocet 5-325 Mg Tablet (Oxycodone/Acetaminophen) 1 Each Tablet 1-2 Tab PO Q4-6HRS Vitals/I & O Vital Sign - Last 24 Hours 12/30/19 12/30/19 12/30/19 12/30/19 10:59 11:00 12:25 13:45 Temp 98.9 98.9 Pulse 85 Resp 18 B/P (MAP) 115/63 (80) Pulse Ox 97 97 97 97 O2 Delivery Room Air Room Air Room Air Room Air O2 Flow Rate 2.0 2.0 2.0 12/30/19 12/30/19 12/30/19 12/30/19 15:00 19:00 19:45 21:37 Temp 98.6 98.7 98.6 98.7 Pulse 92 93 Resp 18 18 20 B/P (MAP) 122/68 (86) 124/61 (82) Pulse Ox 97 97 O2 Delivery Room Air Room Air Room Air Room Air 12/30/19 12/31/19 12/31/19 12/31/19 22:37 03:00 03:02 04:02 Temp 98.6 98.6 Pulse 91 Resp 20 18 20 20 B/P (MAP) 135/72 (93) Pulse Ox 96 O2 Delivery Room Air Room Air Room Air Room Air 12/31/19 12/31/19 07:00 09:07 Temp 98.7 98.7 Pulse 92 Resp 18 B/P (MAP) 100/73 (82) Pulse Ox 97 O2 Delivery Room Air Room Air Intake and Output 12/30/19 12/30/19 12/31/19 15:00 23:00 07:00 Intake Total 1080 ml 660 ml 200 ml Balance 1080 ml 660 ml 200 ml Justicifation of Admission Dx: Justifications for Admission: Justification of Admission Dx: N/A MARIUM FRITZ MD Dec 31, 2019 10:46
[2019-12-31 11:00] VITALS: BP 124/60
[2019-12-31 15:00] VITALS: BP 121/66
[2019-12-31 19:00] VITALS: BP 118/50
[2019-12-31] MEDS: risperiDONE 1 MG TABLET. PO SCH (22:00)
[2019-12-31] MEDS: INSULIN GLARGINE SYRINGE. SQ SCH (22:00)
[2020-01-01] MEDS: PIPERACILLIN/TAZOBACTAM 3.375 GM in IV NORMAL SALINE 50ML 50 ML IV SCH ×4 (01:17→18:04)
[2020-01-01 03:00] VITALS: BP 145/82
[2020-01-01] MEDS: oxyCODONE/APAP 5/325 1 TAB TABLET PO PRN ×4 (05:37→21:10)
[2020-01-01 07:00] VITALS: BP 106/49
[2020-01-01] MEDS: INSULIN LISPRO 300 UNITS/3 ML VIAL. SQ SCH ×3 (08:00→17:00)
[2020-01-01] MEDS: MULTIVITAMIN with MINERAL TABLET. PO SCH (09:15)
[2020-01-01] MEDS: CLOPIDOGREL BISULFATE 75 MG TABLET PO SCH (09:15)
[2020-01-01] MEDS: LACTOBACILLUS RHAMNOSUS GG 1 CAPSULE. PO SCH ×2 (09:15→21:10)
[2020-01-01] MEDS: NYSTATIN TOPICAL POWDER 15GM BOTTLE. TP SCH ×2 (09:16→21:10)
[2020-01-01 11:00] VITALS: BP 124/65
--- NOTE | 2020-01-01 11:42 | PDOC ---
PROGRESS NOTES Date of Service: DATE: 01/01/20 TIME: 11:42 Chief Complaint Chief Complaint impression falls, worsening weakness, cannot walk, DM2, poor control she is off meds, denies any problem cognitive decline - dementia likely Right below-knee amputation (amputation, leg, through tibia and fibula) eschar foot and toes, ischemic injury, dry gangrene ( needs BKA) SEVERE PVD ,Chronic total occlusion mid right SFA, and at the junction of the SFA and popliteal artery treated with placement of self-expanding stents Balloon angioplasty of the tibial peroneal trunk marked post-op animia, transfues 2 units PRBC'S 12/28 36 MIN PT exam, chart review, > 50% of time spent with exam, chart review, pt care coordination dpoa mother, discussed, reviewed form signed 12 min History of Present Illness History of Present Illness 12/31 Patient was seen and examined Patient had clean, dry dressings on surgical site Patient was in NAD less sleepy Add risperidone 1 mg at bedtime for the resolution of delirium. D/W RN PAIN SLOW TO RESOLVE 12/26/2019 Patient was seen and examined Discussed with nurse Patient was alert and talkative during exam Vitals Vitals Vital Signs Date Time Temp Pulse Resp B/P (MAP) Pulse Ox O2 Delivery O2 Flow Rate FiO2 01/01/20 08:00 Room Air 01/01/20 07:00 97.8 79 18 106/49 (68) 98 97.8 Physical Exam General: Alert, Oriented X3, Cooperative, Other (multiple missing teeth, not quite edentulous) Heart: Regular rate, Normal S1, Normal S2 Lungs: Clear, Wheezing Abdomen: Soft Extremities: Other (The right foot has grossly normal alignment. The second third and fourth toes are completely necrotic with dry gangrene into the midfoot dorsally and plantarly. There is an odor but not severeI dont believe theres wet gangrene or gas. There is some ischemia and discoloration of the great toe and fifth toe and they are also likely nonviable. Despite the lateral malleolus fracture, there is minimal lateral malleolus swelling or tenderness. There is no ankle joint deformity. There is full-thickness dry gangrene along the plantar aspect of the foot with some overlying loose skin, and unfortunately the proximal extent of the dry gangrene on the plantar foot would prevent transmetatarsal amputation. There is a full-thickness ulceration with dry necrotic blackened tissue at the Achilles, possible tendon involvement. Pulses are not palpable. She reports slight light touch sensation. I believe these gangrene and ulcer changes are related more to diabetic ischemia than to diabetic neuropathy.) Skin: No breakdown, Other (distal 1/3, of forefoot is black and complete eschar, and looks like it has been that way for awhile. 3 toes nearly auto amputated, ) Labs LABS . 01 Clinical history: . GANGRENE NECROTIC FOOT, WEAKNESS . 02 Diagnosis: Soft tissue and bone "right leg", below the knee amputation: - Ulceration and gangrenous necrosis involving skin and soft tissue. - Atherosclerosis involving anterior and posterior tibial arteries. - Negative for malignancy. (SARI:ayaz; 12/29/2019) R 12/29/2019 [facility] . 02 Electronically signed: . Demian Trevino MD, Pathologist NPI- [id number] . 01 Gross description: . The specimen is received fresh in a red biohazard bag, labeled "Kaya Nepali, right below knee amputation". Received is a right below the knee amputation measuring 23.8 cm from heel to toe, 13.5 cm from heel to skin margin, 28.6 cm from heel to tibial bone margin, and 29.9 cm from heel to fibular bone margin. The bone margins are blunt in appearance, consistent with transection, and are grossly unremarkable. The skin and soft tissue margins are viable. All 5 toes are present. Toes 1 through 3 are blackened and mummified in appearance. The second toe is loosely attached by a slight amount of skin. The remainder the epidermal surface is pale gomez to dusky tiwari-gomez and flaky to sloughing in appearance. On the posterior aspect of the specimen just proximal to the medial and lateral malleolus, there is a poorly circumscribed necrotic-appearing lesion measuring 5.3 x 2.5 cm. Sectioning through the anterior and posterior tibial vasculatures reveals pinpoint to patent lumens with a slight amount of calcification. The specimen is submitted representatively as follows: . A1 skin and soft tissue margin A2 manufacturer representative sections of mummified tissue from dorsal and plantar aspect of foot A3 manufacturer representative sections from lesion on posterior lower leg between medial and lateral malleolus A4 anterior and posterior tibial vasculatures. (CAA; 12/28/2019) Laboratory Tests Test 12/31/19 11:44 12/31/19 16:57 12/31/19 20:40 01/01/20 07:14 Glucose (Fingerstick) 132 mg/dL (70-99) 121 mg/dL (70-99) 91 mg/dL (70-99) 70 mg/dL (70-99) Test 01/01/20 11:13 Glucose (Fingerstick) 86 mg/dL (70-99) Assessment and Plan Assessmemt and Plan Problems Medical Problems: (1) Necrotic toes Status: Acute (2) Weakness Status: Acute (3) Wound infection Status: Acute Comment Review of Relevant I have reviewed the following items da (where applicable) has been applied. Labs Laboratory Tests Test 12/30/19 16:42 12/30/19 21:15 12/31/19 07:12 12/31/19 07:52 Glucose (Fingerstick) 145 mg/dL (70-99) 145 mg/dL (70-99) 103 mg/dL (70-99) White Blood Count 9.7 x10^3/uL (4.0-11.0) Red Blood Count 2.97 x10^6/uL (3.50-5.40) Hemoglobin 8.6 g/dL (12.0-15.5) Hematocrit 25.7 % (36.0-47.0) Mean Corpuscular Volume 87 fL (79-100) Mean Corpuscular Hemoglobin 29 pg (25-35) Mean Corpuscular Hemoglobin Concent 33 g/dL (31-37) Red Cell Distribution Width 19.8 % (11.5-14.5) Platelet Count 445 x10^3/uL (140-400) Test 12/31/19 11:44 12/31/19 16:57 12/31/19 20:40 01/01/20 07:14 Glucose (Fingerstick) 132 mg/dL (70-99) 121 mg/dL (70-99) 91 mg/dL (70-99) 70 mg/dL (70-99) Test 01/01/20 11:13 Glucose (Fingerstick) 86 mg/dL (70-99) Laboratory Tests Test 12/31/19 11:44 12/31/19 16:57 12/31/19 20:40 01/01/20 07:14 Glucose (Fingerstick) 132 mg/dL (70-99) 121 mg/dL (70-99) 91 mg/dL (70-99) 70 mg/dL (70-99) Test 01/01/20 11:13 Glucose (Fingerstick) 86 mg/dL (70-99) Microbiology 12/16/19 Blood Culture - Final, Complete NO GROWTH AFTER 5 DAYS Medications Current Medications Piperacillin Sod/ Tazobactam Sod 3.375 gm/Sodium Chloride 50 ml @ 100 mls/hr 1X ONCE IV Last administered on 12/16/19at 11:26; Start 12/16/19 at 11:15; Stop 12/16/19 at 11:44; Status DC Sodium Chloride 1,000 ml @ 1,000 mls/hr 1X ONCE IV Last administered on 12/16/19at 11:25; Start 12/16/19 at 11:15; Stop 12/16/19 at 12:14; Status DC Oxycodone/ Acetaminophen (Percocet 5/325) 1 tab Q4HRS PO ; Start 12/16/19 at 16:00; Stop 12/16/19 at 18:36; Status DC Lisinopril (Prinivil) 20 mg DAILY PO ; Start 12/16/19 at 16:00; Stop 12/16/19 at 16:22; Status DC Cetirizine HCl (ZyrTEC) 10 mg DAILY PO ; Start 12/16/19 at 16:00; Stop 12/16/19 at 16:22; Status DC Atorvastatin Calcium (Lipitor) 5 mg QHS PO ; Start 12/16/19 at 21:00; Stop 12/16/19 at 16:22; Status DC Ondansetron HCl (Zofran Odt) 4 mg Q6HRS PO Last administered on 12/19/19at 05:50; Start 12/16/19 at 18:00; Stop 12/19/19 at 14:48; Status DC Non-Formulary Medication (Ranitidine Hcl (Zantac)) 1 tab BID PO ; Start 12/16/19 at 21:00; Stop 12/16/19 at 16:22; Status DC Piperacillin Sod/ Tazobactam Sod (Zosyn Per Pharmacy) 1 each PRN DAILY PRN MC SEE COMMENTS; Start 12/16/19 at 15:15 Sodium Chloride 1,000 ml @ 100 mls/hr 1X ONCE IV Last administered on 12/16/19at 16:43; Start 12/16/19 at 15:15; Stop 12/17/19 at 01:14; Status DC Insulin Human Lispro (HumaLOG) 0-9 UNITS TIDWMEALS SQ Last administered on 12/29/19at 17:00; Start 12/16/19 at 17:00 Dextrose (Dextrose 50%-Water Syringe) 12.5 gm PRN Q15MIN PRN IV SEE COMMENTS; Start 12/16/19 at 15:15 Insulin Glargine (Lantus Syringe) 10 unit QHS SQ Last administered on 12/31/19at 22:00; Start 12/16/19 at 21:00 Piperacillin Sod/ Tazobactam Sod 3.375 gm/Sodium Chloride 50 ml @ 100 mls/hr Q6HRS IV ; Start 12/16/19 at 18:00; Status Cancel Piperacillin Sod/ Tazobactam Sod 2.25 gm/Sodium Chloride 50 ml @ 100 mls/hr Q6HRS IV Last administered on 12/27/19at 06:18; Start 12/16/19 at 18:00; Stop 12/27/19 at 11:00; Status DC Hydrochlorothiazide (Microzide) 12.5 mg DAILY PO ; Start 12/16/19 at 16:00; Stop 12/16/19 at 16:22; Status DC Heparin Sodium (Porcine) (Heparin Sodium) 5,000 unit 1X ONCE SQ Last admin istered on 12/16/19at 17:50; Start 12/16/19 at 17:45; Stop 12/16/19 at 17:46; Status DC Oxycodone/ Acetaminophen (Percocet 5/325) 1 tab PRN Q4HRS PRN PO MODERATE TO SEVERE PAIN Last administered on 12/26/19at 18:09; Start 12/16/19 at 18:45; Stop 12/27/19 at 12:38; Status DC Morphine Sulfate (Morphine Sulfate) 4 mg PRN Q2HR PRN IV PAIN Last administered on 12/30/19at 09:04; Start 12/16/19 at 19:45 Ringer's Solution 1,000 ml @ 100 mls/hr Q10H IV Last administered on 12/20/19at 08:10; Start 12/17/19 at 10:30; Stop 12/20/19 at 15:47; Status DC Lactobacillus Rhamnosus (Culturelle) 1 cap BID PO Last administered on 01/01/20at 09:15; Start 12/17/19 at 21:00 Ondansetron HCl (Zofran Odt) 4 mg PRN Q6HRS PRN PO NAUSEA; Start 12/19/19 at 15:00 Iohexol (Omnipaque 350 Mg/ml) 80 ml 1X ONCE IV Last administered on 12/19/19at 15:08; Start 12/19/19 at 15:00; Stop 12/19/19 at 15:01; Status DC Lidocaine HCl (Buffered Lidocaine 1%) 3 ml STK-MED ONCE .ROUTE ; Start 12/20/19 at 11:59; Stop 12/20/19 at 11:59; Status DC Iodixanol (Visipaque 320) 100 ml STK-MED ONCE .ROUTE ; Start 12/20/19 at 11:59; Stop 12/20/19 at 11:59; Status DC Heparin Sodium/ Sodium Chloride 1,500 ml @ As Directed STK-MED ONCE .ROUTE ; Start 12/20/19 at 11:59; Stop 12/20/19 at 11:59; Status DC Midazolam HCl (Versed) 2 mg STK-MED ONCE .ROUTE ; Start 12/20/19 at 12:34; Stop 12/20/19 at 12:34; Status DC Fentanyl Citrate (Fentanyl 2ml Vial) 100 mcg STK-MED ONCE .ROUTE ; Start 12/20/19 at 12:34; Stop 12/20/19 at 12:34; Status DC Heparin Sodium (Porcine) (Heparin Sodium) 10,000 unit STK-MED ONCE .ROUTE ; Start 12/20/19 at 12:34; Stop 12/20/19 at 12:34; Status DC Heparin Sodium/ Sodium Chloride (HEPARIN for ARTERIAL LINE FLUSH) 1,000 unit 1X ONCE IART Last administered on 12/20/19 13:56; Start 12/20/19 at 13:30; Stop 12/20/19 at 13:42; Status DC Heparin Sodium/ Sodium Chloride (HEPARIN for ARTERIAL LINE FLUSH) 1,000 unit 1X ONCE IART Last administered on 12/20/19 13:57; Start 12/20/19 at 13:30; Stop 12/20/19 at 13:42; Status DC Lidocaine HCl (Buffered Lidocaine 1%) 3 ml 1X ONCE IJ Last administered on 12/20/19 13:55; Start 12/20/19 at 13:30; Stop 12/20/19 at 13:42; Status DC Midazolam HCl (Versed) 2 mg 1X ONCE IV Last administered on 12/20/19 13:58; Start 12/20/19 at 13:30; Stop 12/20/19 at 13:42; Status DC Fentanyl Citrate (Fentanyl 2ml Vial) 100 mcg 1X ONCE IV Last administered on 12/20/19 13:58; Start 12/20/19 at 13:30; Stop 12/20/19 at 13:42; Status DC Iodixanol (Visipaque 320) 100 ml 1X ONCE IART Last administered on 12/20/19 13:55; Start 12/20/19 at 13:30; Stop 12/20/19 at 13:42; Status DC Heparin Sodium (Porcine) (Heparin Sodium) 5,000 unit 1X ONCE IV Last administered on 12/20/19 13:59; Start 12/20/19 at 13:30; Stop 12/20/19 at 13:42; Status DC Heparin Sodium/ Sodium Chloride (HEPARIN for ARTERIAL LINE FLUSH) 1,000 unit 1X ONCE IV Last administered on 12/20/19 13:57; Start 12/20/19 at 13:30; Stop at 13:42; Status DC Info (CONTRAST GIVEN -- Rx MONITORING) 1 each PRN DAILY PRN MC SEE COMMENTS; Start 12/20/19 at 13:45; Stop 12/22/19 at 13:44; Status DC Clopidogrel Bisulfate (Plavix) 75 mg DAILYWBKFT PO Last administered on 01/01/20at 09:15; Start 12/21/19 at 08:00 Nystatin (Nystop) 1 maryam BID TP Last administered on 01/01/20 09:16; Start 12/21/19 at 12:00 Multivitamins (Thera M Plus) 1 tab DAILY PO Last administered on 01/01/20at 09:15; Start 12/23/19 at 09:00 Insulin Human Lispro (HumaLOG) 3 units 1X ONCE SQ Last administered on 12/22/19at 21:15; Start 12/22/19 at 21:15; Stop 12/22/19 at 21:16; Status DC Acetaminophen (Tylenol) 650 mg PRN Q4HRS PRN PO JACOBS/TEMP > 100.3'F Last administered on 12/28/19at 23:45; Start 12/24/19 at 15:30 Ringer's Solution 1,000 ml @ 30 mls/hr Q24H IV ; Start 12/27/19 at 07:00; Stop 12/27/19 at 18:59; Status DC Prochlorperazine Edisylate (Compazine) 5 mg PACU PRN PRN IV NAUSEA, MRX1 Last administered on 12/27/19at 12:25; Start 12/27/19 at 07:00; Stop 12/28/19 at 0 6:59; Status DC Bupivacaine HCl/ Epinephrine Bitart (Sensorcaine-Epi 0.25%-1:915761 Mpf) 30 ml STK-MED ONCE .ROUTE Last administered on 12/27/19at 11:15; Start 12/27/19 at 10:01; Stop 12/27/19 at 10:01; Status DC Fentanyl Citrate (Fentanyl 2ml Vial) 100 mcg STK-MED ONCE .ROUTE ; Start 12/27/19 at 10:31; Stop 12/27/19 at 10:31; Status DC Piperacillin Sod/ Tazobactam Sod 3.375 gm/Sodium Chloride 50 ml @ 100 mls/hr Q6HRS IV Last administered on 01/01/20at 05:36; Start 12/27/19 at 12:00 Propofol (Diprivan) 200 mg STK-MED ONCE IV ; Start 12/27/19 at 10:50; Stop 12/27/19 at 10:51; Status DC Lidocaine HCl (Lidocaine Pf 2% Vial) 5 ml STK-MED ONCE .ROUTE ; Start 12/27/19 at 10:50; Stop 12/27/19 at 10:51; Status DC Ondansetron HCl (Zofran) 4 mg STK-MED ONCE .ROUTE ; Start 12/27/19 at 10:50; Stop 12/27/19 at 10:51; Status DC Phenylephrine HCl (PHENYLEPHRINE in 0.9% NACL PF) 1 mg STK-MED ONCE IV ; Start 12/27/19 at 10:55; Stop 12/27/19 at 10:56; Status DC Sevoflurane (Ultane) 90 ml STK-MED ONCE IH ; Start 12/27/19 at 12:00; Stop 12/27/19 at 12:00; Status DC Fentanyl Citrate (Fentanyl 2ml Vial) 100 mcg STK-MED ONCE .ROUTE ; Start 12/27/19 at 12:21; Stop 12/27/19 at 12:21; Status DC Prochlorperazine Edisylate (Compazine) 10 mg STK-MED ONCE .ROUTE ; Start 12/27/19 at 12:21; Stop 12/27/19 at 12:21; Status DC Oxycodone/ Acetaminophen (Percocet 5/325) 1 tab PRN Q4HRS PRN PO PAIN MILD TO MOD Last administered on 12/31/19at 03:02; Start 12/27/19 at 12:45 Oxycodone/ Acetaminophen (Percocet 5/325) 2 tab PRN Q4HRS PRN PO PAIN SEVERE Last administered on 01/01/20at 05:37; Start 12/27/19 at 12:45 Fentanyl Citrate (Fentanyl 2ml Vial) While in pacu. PRN Q5MIN PRN IVP PAIN Last administered on 12/27/19at 12:24; Start 12/27/19 at 12:45; Stop 12/27/19 at 12:46; Status DC Fentanyl Citrate (Fentanyl 2ml Vial) 25 mcg PRN Q5MIN PRN IVP PAIN MILD TO MOD; Start 12/27/19 at 12:46; Status Cancel Fentanyl Citrate (Fentanyl 2ml Vial) 50 mcg PRN Q5MIN PRN IVP PAIN SEVERE Last administered on 12/27/19at 12:35; Start 12/27/19 at 13:00; Stop 12/30/19 at 09:23; Status DC Risperidone (RisperDAL) 1 mg HS PO Last administered on 12/31/19at 22:00; Start 12/29/19 at 21:00 Active Scripts Active Zofran (Ondansetron Hcl) 4 Mg Tablet 1 Tab PO Q6HRS Percocet 5-325 Mg Tablet (Oxycodone/Acetaminophen) 1 Each Tablet 1-2 Tab PO Q4-6HRS Vitals/I & O Vital Sign - Last 24 Hours 12/31/19 12/31/19 12/31/19 12/31/19 12:00 13:58 14:58 15:00 Temp 98.4 98.4 Pulse 99 Resp 19 B/P (MAP) 121/66 (84) Pulse Ox 96 O2 Delivery Room Air Room Air Room Air Room Air 12/31/19 12/31/19 12/31/19 12/31/19 17:52 18:52 19:00 20:00 Temp 98.5 98.5 Pulse 95 Resp 17 B/P (MAP) 118/50 (72) Pulse Ox 95 O2 Delivery Room Air Room Air Room Air Room Air 12/31/19 12/31/19 01/01/20 01/01/20 22:00 23:00 03:00 05:37 Temp 98.4 98.4 Pulse 87 Resp 16 19 B/P (MAP) 145/82 (103) Pulse Ox 95 95 96 96 O2 Delivery Room Air Room Air Room Air Room Air 01/01/20 01/01/20 01/01/20 06:37 07:00 08:00 Temp 97.8 97.8 Pulse 79 Resp 18 B/P (MAP) 106/49 (68) Pulse Ox 96 98 O2 Delivery Room Air Room Air Room Air Intake and Output 12/31/19 12/31/19 01/01/20 15:00 23:00 07:00 Intake Total 0 ml 200 ml Balance 0 ml 200 ml Justicifation of Admission Dx: Justifications for Admission: Justification of Admission Dx: N/A MARIUM FRITZ MD Jan 01, 2020 11:42
[2020-01-01 15:00] VITALS: BP 128/54
[2020-01-01 16:04] LABS: BASO # 0.1 x10^3/uL (0.0-0.2); BASO % 1 % (0-3); EOS # 0.4 x10^3/uL (0.0-0.7); EOS % 4 % (0-3); HEMOGLOBIN 9.5 g/dL (12.0-15.5); LYMPH # 1.4 x10^3/uL (1.0-4.8); LYMPH % 15 % (24-48); MEAN CORPUSCULAR HEMOGLOBIN 29 pg (25-35); MEAN CORPUSCULAR HGB CONC 33 g/dL (31-37); MEAN CORPUSCULAR VOLUME 87 fL (79-100); MONO # 0.4 x10^3/uL (0.0-1.1); MONO % 4 % (0-9); NEUT # 6.8 x10^3/uL (1.8-7.7); NEUT % 76 % (31-73); PLATELET COUNT 506 x10^3/uL (140-400); RED BLOOD COUNT 3.33 x10^6/uL (3.50-5.40); RED CELL DISTRIBUTION WIDTH 19.7 % (11.5-14.5)
[2020-01-01 16:18] LABS: ALBUMIN 1.2 g/dL (3.4-5.0); ALBUMIN/GLOBULIN RATIO 0.2 (1.0-1.7); CALCIUM 8.2 mg/dL (8.5-10.1); CREATININE 0.7 mg/dL (0.6-1.0); POTASSIUM 3.7 mmol/L (3.5-5.1); TOTAL BILIRUBIN 0.2 mg/dL (0.2-1.0); TOTAL PROTEIN 6.7 g/dL (6.4-8.2)
[2020-01-01 19:00] VITALS: BP 94/64
[2020-01-01] MEDS: risperiDONE 1 MG TABLET. PO SCH (21:10)
[2020-01-01] MEDS: INSULIN GLARGINE SYRINGE. SQ SCH (21:14)
[2020-01-01 23:00] VITALS: BP 143/76
[2020-01-02] MEDS: PIPERACILLIN/TAZOBACTAM 3.375 GM in IV NORMAL SALINE 50ML 50 ML IV SCH ×4 (01:19→17:13)
[2020-01-02] MEDS: oxyCODONE/APAP 5/325 1 TAB TABLET PO PRN ×5 (01:56→20:08)
[2020-01-02 07:00] VITALS: BP 113/52
[2020-01-02] MEDS: INSULIN LISPRO 300 UNITS/3 ML VIAL. SQ SCH ×3 (08:00→17:00)
[2020-01-02] MEDS: CLOPIDOGREL BISULFATE 75 MG TABLET PO SCH (09:36)
[2020-01-02] MEDS: LACTOBACILLUS RHAMNOSUS GG 1 CAPSULE. PO SCH ×2 (09:36→21:55)
[2020-01-02] MEDS: NYSTATIN TOPICAL POWDER 15GM BOTTLE. TP SCH ×2 (09:36→21:57)
[2020-01-02] MEDS: MULTIVITAMIN with MINERAL TABLET. PO SCH (09:36)
--- NOTE | 2020-01-02 10:33 | PDOC ---
ORTHO PROGRESS NOTES DATE: 01/02/20 TIME: 10:30 Subjective Patient states that she is feeling better and is ready to go home. Post-op Day: 6 Procedure Right AKA Vitals Vital Signs Date Time Temp Pulse Resp B/P (MAP) Pulse Ox O2 Delivery O2 Flow Rate FiO2 01/02/20 07:00 97.8 82 17 113/52 (72) 97 Room Air 97.8 Labs Laboratory Tests Test 12/31/19 11:44 12/31/19 16:57 12/31/19 20:40 01/01/20 07:14 Glucose (Fingerstick) 132 mg/dL (70-99) 121 mg/dL (70-99) 91 mg/dL (70-99) 70 mg/dL (70-99) Test 01/01/20 11:13 01/01/20 15:40 01/01/20 16:16 01/01/20 20:56 Glucose (Fingerstick) 86 mg/dL (70-99) 100 mg/dL (70-99) 121 mg/dL (70-99) White Blood Count 9.0 x10^3/uL (4.0-11.0) Red Blood Count 3.33 x10^6/uL (3.50-5.40) Hemoglobin 9.5 g/dL (12.0-15.5) Hematocrit 29.0 % (36.0-47.0) Mean Corpuscular Volume 87 fL (79-100) Mean Corpuscular Hemoglobin 29 pg (25-35) Mean Corpuscular Hemoglobin Concent 33 g/dL (31-37) Red Cell Distribution Width 19.7 % (11.5-14.5) Platelet Count 506 x10^3/uL (140-400) Neutrophils (%) (Auto) 76 % (31-73) Lymphocytes (%) (Auto) 15 % (24-48) Monocytes (%) (Auto) 4 % (0-9) Eosinophils (%) (Auto) 4 % (0-3) Basophils (%) (Auto) 1 % (0-3) Neutrophils # (Auto) 6.8 x10^3/uL (1.8-7.7) Lymphocytes # (Auto) 1.4 x10^3/uL (1.0-4.8) Monocytes # (Auto) 0.4 x10^3/uL (0.0-1.1) Eosinophils # (Auto) 0.4 x10^3/uL (0.0-0.7) Basophils # (Auto) 0.1 x10^3/uL (0.0-0.2) Sodium Level 141 mmol/L (136-145) Potassium Level 3.7 mmol/L (3.5-5.1) Chloride Level 108 mmol/L (98-107) Carbon Dioxide Level 25 mmol/L (21-32) Anion Gap 8 (6-14) Blood Urea Nitrogen 8 mg/dL (7-20) Creatinine 0.7 mg/dL (0.6-1.0) Estimated GFR (Cockcroft-Gault) 99.0 BUN/Creatinine Ratio 11 (6-20) Glucose Level 107 mg/dL (70-99) Calcium Level 8.2 mg/dL (8.5-10.1) Total Bilirubin 0.2 mg/dL (0.2-1.0) Aspartate Amino Transf (AST/SGOT) 18 U/L (15-37) Alanine Aminotransferase (ALT/SGPT) 13 U/L (14-59) Alkaline Phosphatase 87 U/L (46-116) Total Protein 6.7 g/dL (6.4-8.2) Albumin 1.2 g/dL (3.4-5.0) Albumin/Globulin Ratio 0.2 (1.0-1.7) Test 01/02/20 07:12 Glucose (Fingerstick) 64 mg/dL (70-99) Laboratory Tests Test 01/01/20 11:13 01/01/20 15:40 01/01/20 16:16 01/01/20 20:56 Glucose (Fingerstick) 86 mg/dL (70-99) 100 mg/dL (70-99) 121 mg/dL (70-99) White Blood Count 9.0 x10^3/uL (4.0-11.0) Red Blood Count 3.33 x10^6/uL (3.50-5.40) Hemoglobin 9.5 g/dL (12.0-15.5) Hematocrit 29.0 % (36.0-47.0) Mean Corpuscular Volume 87 fL (79-100) Mean Corpuscular Hemoglobin 29 pg (25-35) Mean Corpuscular Hemoglobin Concent 33 g/dL (31-37) Red Cell Distribution Width 19.7 % (11.5-14.5) Platelet Count 506 x10^3/uL (140-400) Neutrophils (%) (Auto) 76 % (31-73) Lymphocytes (%) (Auto) 15 % (24-48) Monocytes (%) (Auto) 4 % (0-9) Eosinophils (%) (Auto) 4 % (0-3) Basophils (%) (Auto) 1 % (0-3) Neutrophils # (Auto) 6.8 x10^3/uL (1.8-7.7) Lymphocytes # (Auto) 1.4 x10^3/uL (1.0-4.8) Monocytes # (Auto) 0.4 x10^3/uL (0.0-1.1) Eosinophils # (Auto) 0.4 x10^3/uL (0.0-0.7) Basophils # (Auto) 0.1 x10^3/uL (0.0-0.2) Sodium Level 141 mmol/L (136-145) Potassium Level 3.7 mmol/L (3.5-5.1) Chloride Level 108 mmol/L (98-107) Carbon Dioxide Level 25 mmol/L (21-32) Anion Gap 8 (6-14) Blood Urea Nitrogen 8 mg/dL (7-20) Creatinine 0.7 mg/dL (0.6-1.0) Estimated GFR (Cockcroft-Gault) 99.0 BUN/Creatinine Ratio 11 (6-20) Glucose Level 107 mg/dL (70-99) Calcium Level 8.2 mg/dL (8.5-10.1) Total Bilirubin 0.2 mg/dL (0.2-1.0) Aspartate Amino Transf (AST/SGOT) 18 U/L (15-37) Alanine Aminotransferase (ALT/SGPT) 13 U/L (14-59) Alkaline Phosphatase 87 U/L (46-116) Total Protein 6.7 g/dL (6.4-8.2) Albumin 1.2 g/dL (3.4-5.0) Albumin/Globulin Ratio 0.2 (1.0-1.7) Test 01/02/20 07:12 Glucose (Fingerstick) 64 mg/dL (70-99) Notes Awake and alert Assessment and Plan Postop day #6 status post right AKA Pain under control at this time. Dressing is dry and intact. Motor and sensation intact distally at the stump. Possibly discharged to SNF today. JOHNNY SWANSON APRN Jan 02, 2020 10:33
[2020-01-02 10:50] VITALS: BP 112/62
--- NOTE | 2020-01-02 11:32 | PDOC ---
PROGRESS NOTES Date of Service: DATE: 01/02/20 TIME: 11:31 Chief Complaint Chief Complaint impression falls, worsening weakness, cannot walk, DM2, poor control she is off meds, denies any problem cognitive decline - dementia likely Right below-knee amputation (amputation, leg, through tibia and fibula) eschar foot and toes, ischemic injury, dry gangrene ( needs BKA) SEVERE PVD ,Chronic total occlusion mid right SFA, and at the junction of the SFA and popliteal artery treated with placement of self-expanding stents Balloon angioplasty of the tibial peroneal trunk marked post-op animia, transfues 2 units PRBC'S 12/28 36 MIN PT exam, chart review, > 50% of time spent with exam, chart review, pt care coordination dpoa mother, discussed, reviewed form signed 12 min History of Present Illness History of Present Illness Patient examined at bedside. Working with physical therapy. She understands t hat she will need prolonged course of inpatient physical therapy. Discussed possible discharge today. Vitals Vitals Vital Signs Date Time Temp Pulse Resp B/P (MAP) Pulse Ox O2 Delivery O2 Flow Rate FiO2 01/02/20 10:48 Room Air 01/02/20 07:00 97.8 82 17 113/52 (72) 97 97.8 Physical Exam General: Alert, Oriented X3, Cooperative, Other (multiple missing teeth, not quite edentulous) Heart: Regular rate, Normal S1, Normal S2 Lungs: Clear, Wheezing Abdomen: Soft Extremities: Other (Right BKA) Skin: No breakdown Labs LABS Laboratory Tests Test 01/01/20 15:40 01/01/20 16:16 01/01/20 20:56 01/02/20 07:12 White Blood Count 9.0 x10^3/uL (4.0-11.0) Red Blood Count 3.33 x10^6/uL (3.50-5.40) Hemoglobin 9.5 g/dL (12.0-15.5) Hematocrit 29.0 % (36.0-47.0) Mean Corpuscular Volume 87 fL (79-100) Mean Corpuscular Hemoglobin 29 pg (25-35) Mean Corpuscular Hemoglobin Concent 33 g/dL (31-37) Red Cell Distribution Width 19.7 % (11.5-14.5) Platelet Count 506 x10^3/uL (140-400) Neutrophils (%) (Auto) 76 % (31-73) Lymphocytes (%) (Auto) 15 % (24-48) Monocytes (%) (Auto) 4 % (0-9) Eosinophils (%) (Auto) 4 % (0-3) Basophils (%) (Auto) 1 % (0-3) Neutrophils # (Auto) 6.8 x10^3/uL (1.8-7.7) Lymphocytes # (Auto) 1.4 x10^3/uL (1.0-4.8) Monocytes # (Auto) 0.4 x10^3/uL (0.0-1.1) Eosinophils # (Auto) 0.4 x10^3/uL (0.0-0.7) Basophils # (Auto) 0.1 x10^3/uL (0.0-0.2) Sodium Level 141 mmol/L (136-145) Potassium Level 3.7 mmol/L (3.5-5.1) Chloride Level 108 mmol/L (98-107) Carbon Dioxide Level 25 mmol/L (21-32) Anion Gap 8 (6-14) Blood Urea Nitrogen 8 mg/dL (7-20) Creatinine 0.7 mg/dL (0.6-1.0) Estimated GFR (Cockcroft-Gault) 99.0 BUN/Creatinine Ratio 11 (6-20) Glucose Level 107 mg/dL (70-99) Calcium Level 8.2 mg/dL (8.5-10.1) Total Bilirubin 0.2 mg/dL (0.2-1.0) Aspartate Amino Transf (AST/SGOT) 18 U/L (15-37) Alanine Aminotransferase (ALT/SGPT) 13 U/L (14-59) Alkaline Phosphatase 87 U/L (46-116) Total Protein 6.7 g/dL (6.4-8.2) Albumin 1.2 g/dL (3.4-5.0) Albumin/Globulin Ratio 0.2 (1.0-1.7) Glucose (Fingerstick) 100 mg/dL (70-99) 121 mg/dL (70-99) 64 mg/dL (70-99) Test 01/02/20 10:10 SARS-CoV-2 Antigen (Rapid) Negative (NEGATIVE) Review of Systems Review of Systems Pain well controlled. Denies fever, denies chest pain, denies shortness of breath Assessment and Plan Assessmemt and Plan Problems Medical Problems: (1) Necrotic toes Status: Acute (2) Weakness Status: Acute (3) Wound infection Status: Acute Comment Review of Relevant I have reviewed the following items da (where applicable) has been applied. Labs Laboratory Tests Test 12/31/19 11:44 12/31/19 16:57 12/31/19 20:40 01/01/20 07:14 Glucose (Fingerstick) 132 mg/dL (70-99) 121 mg/dL (70-99) 91 mg/dL (70-99) 70 mg/dL (70-99) Test 01/01/20 11:13 01/01/20 15:40 01/01/20 16:16 01/01/20 20:56 Glucose (Fingerstick) 86 mg/dL (70-99) 100 mg/dL (70-99) 121 mg/dL (70-99) White Blood Count 9.0 x10^3/uL (4.0-11.0) Red Blood Count 3.33 x10^6/uL (3.50-5.40) Hemoglobin 9.5 g/dL (12.0-15.5) Hematocrit 29.0 % (36.0-47.0) Mean Corpuscular Volume 87 fL (79-100) Mean Corpuscular Hemoglobin 29 pg (25-35) Mean Corpuscular Hemoglobin Concent 33 g/dL (31-37) Red Cell Distribution Width 19.7 % (11.5-14.5) Platelet Count 506 x10^3/uL (140-400) Neutrophils (%) (Auto) 76 % (31-73) Lymphocytes (%) (Auto) 15 % (24-48) Monocytes (%) (Auto) 4 % (0-9) Eosinophils (%) (Auto) 4 % (0-3) Basophils (%) (Auto) 1 % (0-3) Neutrophils # (Auto) 6.8 x10^3/uL (1.8-7.7) Lymphocytes # (Auto) 1.4 x10^3/uL (1.0-4.8) Monocytes # (Auto) 0.4 x10^3/uL (0.0-1.1) Eosinophils # (Auto) 0.4 x10^3/uL (0.0-0.7) Basophils # (Auto) 0.1 x10^3/uL (0.0-0.2) Sodium Level 141 mmol/L (136-145) Potassium Level 3.7 mmol/L (3.5-5.1) Chloride Level 108 mmol/L (98-107) Carbon Dioxide Level 25 mmol/L (21-32) Anion Gap 8 (6-14) Blood Urea Nitrogen 8 mg/dL (7-20) Creatinine 0.7 mg/dL (0.6-1.0) Estimated GFR (Cockcroft-Gault) 99.0 BUN/Creatinine Ratio 11 (6-20) Glucose Level 107 mg/dL (70-99) Calcium Level 8.2 mg/dL (8.5-10.1) Total Bilirubin 0.2 mg/dL (0.2-1.0) Aspartate Amino Transf (AST/SGOT) 18 U/L (15-37) Alanine Aminotransferase (ALT/SGPT) 13 U/L (14-59) Alkaline Phosphatase 87 U/L (46-116) Total Protein 6.7 g/dL (6.4-8.2) Albumin 1.2 g/dL (3.4-5.0) Albumin/Globulin Ratio 0.2 (1.0-1.7) Test 01/02/20 07:12 01/02/20 10:10 Glucose (Fingerstick) 64 mg/dL (70-99) SARS-CoV-2 Antigen (Rapid) Negative (NEGATIVE) Laboratory Tests Test 01/01/20 15:40 01/01/20 16:16 01/01/20 20:56 01/02/20 07:12 White Blood Count 9.0 x10^3/uL (4.0-11.0) Red Blood Count 3.33 x10^6/uL (3.50-5.40) Hemoglobin 9.5 g/dL (12.0-15.5) Hematocrit 29.0 % (36.0-47.0) Mean Corpuscular Volume 87 fL (79-100) Mean Corpuscular Hemoglobin 29 pg (25-35) Mean Corpuscular Hemoglobin Concent 33 g/dL (31-37) Red Cell Distribution Width 19.7 % (11.5-14.5) Platelet Count 506 x10^3/uL (140-400) Neutrophils (%) (Auto) 76 % (31-73) Lymphocytes (%) (Auto) 15 % (24-48) Monocytes (%) (Auto) 4 % (0-9) Eosinophils (%) (Auto) 4 % (0-3) Basophils (%) (Auto) 1 % (0-3) Neutrophils # (Auto) 6.8 x10^3/uL (1.8-7.7) Lymphocytes # (Auto) 1.4 x10^3/uL (1.0-4.8) Monocytes # (Auto) 0.4 x10^3/uL (0.0-1.1) Eosinophils # (Auto) 0.4 x10^3/uL (0.0-0.7) Basophils # (Auto) 0.1 x10^3/uL (0.0-0.2) Sodium Level 141 mmol/L (136-145) Potassium Level 3.7 mmol/L (3.5-5.1) Chloride Level 108 mmol/L (98-107) Carbon Dioxide Level 25 mmol/L (21-32) Anion Gap 8 (6-14) Blood Urea Nitrogen 8 mg/dL (7-20) Creatinine 0.7 mg/dL (0.6-1.0) Estimated GFR (Cockcroft-Gault) 99.0 BUN/Creatinine Ratio 11 (6-20) Glucose Level 107 mg/dL (70-99) Calcium Level 8.2 mg/dL (8.5-10.1) Total Bilirubin 0.2 mg/dL (0.2-1.0) Aspartate Amino Transf (AST/SGOT) 18 U/L (15-37) Alanine Aminotransferase (ALT/SGPT) 13 U/L (14-59) Alkaline Phosphatase 87 U/L (46-116) Total Protein 6.7 g/dL (6.4-8.2) Albumin 1.2 g/dL (3.4-5.0) Albumin/Globulin Ratio 0.2 (1.0-1.7) Glucose (Fingerstick) 100 mg/dL (70-99) 121 mg/dL (70-99) 64 mg/dL (70-99) Test 01/02/20 10:10 SARS-CoV-2 Antigen (Rapid) Negative (NEGATIVE) Microbiology 12/16/19 Blood Culture - Final, Complete NO GROWTH AFTER 5 DAYS Medications Current Medications Piperacillin Sod/ Tazobactam Sod 3.375 gm/Sodium Chloride 50 ml @ 100 mls/hr 1X ONCE IV Last administered on 12/16/19at 11:26; Start 12/16/19 at 11:15; Stop 12/16/19 at 11:44; Status DC Sodium Chloride 1,000 ml @ 1,000 mls/hr 1X ONCE IV Last administered on 12/16/19at 11:25; Start 12/16/19 at 11:15; Stop 12/16/19 at 12:14; Status DC Oxycodone/ Acetaminophen (Percocet 5/325) 1 tab Q4HRS PO ; Start 12/16/19 at 16:00; Stop 12/16/19 at 18:36; Status DC Lisinopril (Prinivil) 20 mg DAILY PO ; Start 12/16/19 at 16:00; Stop 12/16/19 at 16:22; Status DC Cetirizine HCl (ZyrTEC) 10 mg DAILY PO ; Start 12/16/19 at 16:00; Stop 12/16/19 at 16:22; Status DC Atorvastatin Calcium (Lipitor) 5 mg QHS PO ; Start 12/16/19 at 21:00; Stop 12/16/19 at 16:22; Status DC Ondansetron HCl (Zofran Odt) 4 mg Q6HRS PO Last administered on 12/19/19at 05:50; Start 12/16/19 at 18:00; Stop 12/19/19 at 14:48; Status DC Non-Formulary Medication (Ranitidine Hcl (Zantac)) 1 tab BID PO ; Start 12/16/19 at 21:00; Stop 12/16/19 at 16:22; Status DC Piperacillin Sod/ Tazobactam Sod (Zosyn Per Pharmacy) 1 each PRN DAILY PRN MC SEE COMMENTS; Start 12/16/19 at 15:15 Sodium Chloride 1,000 ml @ 100 mls/hr 1X ONCE IV Last administered on 12/16/19at 16:43; Start 12/16/19 at 15:15; Stop 12/17/19 at 01:14; Status DC Insulin Human Lispro (HumaLOG) 0-9 UNITS TIDWMEALS SQ Last administered on 12/29/19at 17:00; Start 12/16/19 at 17:00 Dextrose (Dextrose 50%-Water Syringe) 12.5 gm PRN Q15MIN PRN IV SEE COMMENTS; Start 12/16/19 at 15:15 Insulin Glargine (Lantus Syringe) 10 unit QHS SQ Last administered on 01/01/20at 21:14; Start 12/16/19 at 21:00 Piperacillin Sod/ Tazobactam Sod 3.375 gm/Sodium Chloride 50 ml @ 100 mls/hr Q6HRS IV ; Start 12/16/19 at 18:00; Status Cancel Piperacillin Sod/ Tazobactam Sod 2.25 gm/Sodium Chloride 50 ml @ 100 mls/hr Q6HRS IV Last administered on 12/27/19at 06:18; Start 12/16/19 at 18:00; Stop 12/27/19 at 11:00; Status DC Hydrochlorothiazide (Microzide) 12.5 mg DAILY PO ; Start 12/16/19 at 16:00; Stop 12/16/19 at 16:22; Status DC Heparin Sodium (Porcine) (Heparin Sodium) 5,000 unit 1X ONCE SQ Last administered on 12/16/19at 17:50; Start 12/16/19 at 17:45; Stop 12/16/19 at 17:46; Status DC Oxycodone/ Acetaminophen (Percocet 5/325) 1 tab PRN Q4HRS PRN PO MODERATE TO SEVERE PAIN Last administered on 12/26/19at 18:09; Start 12/16/19 at 18:45; Stop 12/27/19 at 12:38; Status DC Morphine Sulfate (Morphine Sulfate) 4 mg PRN Q2HR PRN IV PAIN Last administered on 12/30/19at 09:04; Start 12/16/19 at 19:45 Ringer's Solution 1,000 ml @ 100 mls/hr Q10H IV Last administered on 12/20/19at 08:10; Start 12/17/19 at 10:30; Stop 12/20/19 at 15:47; Status DC Lactobacillus Rhamnosus (Culturelle) 1 cap BID PO Last administered on 01/02/20at 09:36; Start 12/17/19 at 21:00 Ondansetron HCl (Zofran Odt) 4 mg PRN Q6HRS PRN PO NAUSEA; Start 12/19/19 at 15:00 Iohexol (Omnipaque 350 Mg/ml) 80 ml 1X ONCE IV Last administered on 12/19/19at 15:08; Start 12/19/19 at 15:00; Stop 12/19/19 at 15:01; Status DC Lidocaine HCl (Buffered Lidocaine 1%) 3 ml STK-MED ONCE .ROUTE ; Start 12/20/19 at 11:59; Stop 12/20/19 at 11:59; Status DC Iodixanol (Visipaque 320) 100 ml STK-MED ONCE .ROUTE ; Start 12/20/19 at 11:59; Stop 12/20/19 at 11:59; Status DC Heparin Sodium/ Sodium Chloride 1,500 ml @ As Directed STK-MED ONCE .ROUTE ; Start 12/20/19 at 11:59; Stop 12/20/19 at 11:59; Status DC Midazolam HCl (Versed) 2 mg STK-MED ONCE .ROUTE ; Start 12/20/19 at 12:34; Stop 12/20/19 at 12:34; Status DC Fentanyl Citrate (Fentanyl 2ml Vial) 100 mcg STK-MED ONCE .ROUTE ; Start 12/20/19 at 12:34; Stop 12/20/19 at 12:34; Status DC Heparin Sodium (Porcine) (Heparin Sodium) 10,000 unit STK-MED ONCE .ROUTE ; Start 12/20/19 at 12:34; Stop 12/20/19 at 12:34; Status DC Heparin Sodium/ Sodium Chloride (HEPARIN for ARTERIAL LINE FLUSH) 1,000 unit 1X ONCE IART Last administered on 12/20/19at 13:56; Start 12/20/19 at 13:30; Stop 12/20/19 at 13:42; Status DC Heparin Sodium/ Sodium Chloride (HEPARIN for ARTERIAL LINE FLUSH) 1,000 unit 1X ONCE IART Last administered on 12/20/19at 13:57; Start 12/20/19 at 13:30; Stop 12/20/19 at 13:42; Status DC Lidocaine HCl (Buffered Lidocaine 1%) 3 ml 1X ONCE IJ Last administered on 12/20/19 13:55; Start 12/20/19 at 13:30; Stop 12/20/19 at 13:42; Status DC Midazolam HCl (Versed) 2 mg 1X ONCE IV Last administered on 12/20/19 13:58; Start 12/20/19 at 13:30; Stop 12/20/19 at 13:42; Status DC Fentanyl Citrate (Fentanyl 2ml Vial) 100 mcg 1X ONCE IV Last administered on 12/20/19 13:58; Start 12/20/19 at 13:30; Stop 12/20/19 at 13:42; Status DC Iodixanol (Visipaque 320) 100 ml 1X ONCE IART Last administered on 12/20/19 13:55; Start 12/20/19 at 13:30; Stop 12/20/19 at 13:42; Status DC Heparin Sodium (Porcine) (Heparin Sodium) 5,000 unit 1X ONCE IV Last administered on 12/20/19 13:59; Start 12/20/19 at 13:30; Stop 12/20/19 at 13:42; Status DC Heparin Sodium/ Sodium Chloride (HEPARIN for ARTERIAL LINE FLUSH) 1,000 unit 1X ONCE IV Last administered on 12/20/19 13:57; Start 12/20/19 at 13:30; Stop 12/20/19 at 13:42; Status DC Info (CONTRAST GIVEN -- Rx MONITORING) 1 each PRN DAILY PRN MC SEE COMMENTS; Start 12/20/19 at 13:45; Stop 12/22/19 at 13:44; Status DC Clopidogrel Bisulfate (Plavix) 75 mg DAILYWBKFT PO Last administered on 01/02/20 09:36; Start 12/21/19 at 08:00 Nystatin (Nystop) 1 maryam BID TP Last administered on 01/02/20 09:36; Start 12/21/19 at 12:00 Multivitamins (Thera M Plus) 1 tab DAILY PO Last administered on 01/02/20 09:36; Start 12/23/19 at 09:00 Insulin Human Lispro (HumaLOG) 3 units 1X ONCE SQ Last administered on 12/22/19at 21:15; Start 12/22/19 at 21:15; Stop 12/22/19 at 21:16; Status DC Acetaminophen (Tylenol) 650 mg PRN Q4HRS PRN PO JACOBS/TEMP > 100.3'F Last administered on 12/28/19at 23:45; Start 12/24/19 at 15:30 Ringer's Solution 1,000 ml @ 30 mls/hr Q24H IV ; Start 12/27/19 at 07:00; Stop 12/27/19 at 18:59; Status DC Prochlorperazine Edisylate (Compazine) 5 mg PACU PRN PRN IV NAUSEA, MRX1 Last administered on 12/27/19at 12:25; Start 12/27/19 at 07:00; Stop 12/28/19 at 06:59; Status DC Bupivacaine HCl/ Epinephrine Bitart (Sensorcaine-Epi 0.25%-1:[id number] Mpf) 30 ml STK-MED ONCE .ROUTE Last administered on 12/27/19at 11:15; Start 12/27/19 at 10:01; Stop 12/27/19 at 10:01; Status DC Fentanyl Citrate (Fentanyl 2ml Vial) 100 mcg STK-MED ONCE .ROUTE ; Start 12/27/19 at 10:31; Stop 12/27/19 at 10:31; Status DC Piperacillin Sod/ Tazobactam Sod 3.375 gm/Sodium Chloride 50 ml @ 100 mls/hr Q6HRS IV Last administered on 01/02/20at 05:54; Start 12/27/19 at 12:00 Propofol (Diprivan) 200 mg STK-MED ONCE IV ; Start 12/27/19 at 10:50; Stop 12/27/19 at 10:51; Status DC Lidocaine HCl (Lidocaine Pf 2% Vial) 5 ml STK-MED ONCE .ROUTE ; Start 12/27/19 at 10:50; Stop 12/27/19 at 10:51; Status DC Ondansetron HCl (Zofran) 4 mg STK-MED ONCE .ROUTE ; Start 12/27/19 at 10:50; Stop 12/27/19 at 10:51; Status DC Phenylephrine HCl (PHENYLEPHRINE in 0.9% NACL PF) 1 mg STK-MED ONCE IV ; Start 12/27/19 at 10:55; Stop 12/27/19 at 10:56; Status DC Sevoflurane (Ultane) 90 ml STK-MED ONCE IH ; Start 12/27/19 at 12:00; Stop 12/27/19 at 12:00; Status DC Fentanyl Citrate (Fentanyl 2ml Vial) 100 mcg STK-MED ONCE .ROUTE ; Start 12/27/19 at 12:21; Stop 12/27/19 at 12:21; Status DC Prochlorperazine Edisylate (Compazine) 10 mg STK-MED ONCE .ROUTE ; Start 12/27/19 at 12:21; Stop 12/27/19 at 12:21; Status DC Oxycodone/ Acetaminophen (Percocet 5/325) 1 tab PRN Q4HRS PRN PO PAIN MILD TO MOD Last administered on 01/01/20at 12:04; Start 12/27/19 at 12:45 Oxycodone/ Acetaminophen (Percocet 5/325) 2 tab PRN Q4HRS PRN PO PAIN SEVERE Last administered on 01/02/20at 10:48; Start 12/27/19 at 12:45 Fentanyl Citrate (Fentanyl 2ml Vial) While in pacu. PRN Q5MIN PRN IVP PAIN Last administered on 12/27/19at 12:24; Start 12/27/19 at 12:45; Stop 12/27/19 at 12:46; Status DC Fentanyl Citrate (Fentanyl 2ml Vial) 25 mcg PRN Q5MIN PRN IVP PAIN MILD TO MOD; Start 12/27/19 at 12:46; Status Cancel Fentanyl Citrate (Fentanyl 2ml Vial) 50 mcg PRN Q5MIN PRN IVP PAIN SEVERE Last administered on 12/27/19at 12:35; Start 12/27/19 at 13:00; Stop 12/30/19 at 09:23; Status DC Risperidone (RisperDAL) 1 mg HS PO Last administered on 01/01/20at 21:10; Start 12/29/19 at 21:00 Active Scripts Active Zofran (Ondansetron Hcl) 4 Mg Tablet 1 Tab PO Q6HRS Percocet 5-325 Mg Tablet (Oxycodone/Acetaminophen) 1 Each Tablet 1-2 Tab PO Q4-6HRS Vitals/I & O Vital Sign - Last 24 Hours 01/01/20 01/01/20 01/01/20 01/01/20 12:04 13:05 15:00 18:05 Temp 97.8 97.8 Pulse 82 Resp 18 B/P (MAP) 128/54 (78) Pulse Ox 98 O2 Delivery Room Air Room Air Room Air Room Air 01/01/20 01/01/20 01/01/20 01/01/20 19:00 19:05 20:00 21:10 Temp 98.9 98.9 Pulse 89 Resp 19 16 B/P (MAP) 94/64 (74) Pulse Ox 98 98 98 O2 Delivery Room Air Room Air Room Air Room Air 01/01/20 01/01/20 01/02/20 01/02/20 22:10 23:00 01:56 02:56 Temp 98.8 98.8 Pulse 92 Resp 16 19 16 16 B/P (MAP) 143/76 (98) Pulse Ox 98 96 96 96 O2 Delivery Room Air Room Air Room Air Room Air 01/02/20 01/02/20 01/02/20 01/02/20 05:54 07:00 07:00 10:48 Temp 97.8 97.8 Pulse 82 Resp 16 17 B/P (MAP) 113/52 (72) Pulse Ox 96 97 O2 Delivery Room Air Room Air Room Air Room Air Intake and Output 01/01/20 01/01/20 01/02/20 15:00 23:00 07:00 Intake Total 200 ml 500 ml Balance 200 ml 500 ml Justicifation of Admission Dx: Justifications for Admission: Justification of Admission Dx: N/A KRISHAN GARBER MD Jan 02, 2020 11:32
[2020-01-02] MEDS ORDERED: METF-658 PO (11:53)
--- NOTE | 2020-01-02 11:56 | SNU/HH DC ---
DISCHARGE ORDERS DISCHARGE INFORMATION: DISCHARGE DATE: Jan 02, 2020 FINAL DIAGNOSIS Problems Medical Problems: (1) Necrotic toes Status: Acute (2) Weakness Status: Acute (3) Wound infection Status: Acute CONDITION ON DISCHARGE: Stable CODE STATUS: Code Status: Full HOSPICE: HOSPICE: No HOSPICE EVAL & TREAT: No POST DISCHARGE ORDERS: ACTIVITY ORDERS: Activity as tolerated WEIGHT BEARING STATUS: As tolerated DIET AFTER DISCHARGE: ADA WOUND/INCISION CARE: Change dressing TREATMENT/EQUIPMENT ORDERS: Physical Therapy For: Evalulation/Treatment Occupational Therapy For: Evaluation/Treatment DISCHARGE MEDICATIONS: Home Meds Active Scripts Ondansetron Hcl (ZOFRAN) 4 Mg Tablet, 1 TAB PO Q6HRS, #13 TAB Prov:CAROLZ LEGER MD 11/15/15 Oxycodone/Apap 5-325 (PERCOCET 5-325 MG TABLET ) 1 Each Tablet, 1-2 TAB PO Q4- 6HRS, #23 TAB Prov:CARLOZ LEGER MD 11/15/15 KRISHAN GARBER MD Jan 02, 2020 11:56
--- NOTE | 2020-01-02 12:02 | PDOC3 ---
Discharge Summary Visit Information Date of Admission: Dec 16, 2019 Date of Discharge: Jan 03, 2020 Final Diagnosis Problems Medical Problems: (1) Necrotic toes Status: Acute (2) Weakness Status: Acute (3) Wound infection Status: Acute Brief Hospital Course Allergies Allergies Coded Allergies Type Severity Reaction Last Updated Verified No Known Drug Allergies 01/18/16 No Vital Signs Vital Signs Date Time Temp Pulse Resp B/P (MAP) Pulse Ox O2 Delivery O2 Flow Rate FiO2 01/02/20 10:48 Room Air 01/02/20 07:00 97.8 82 17 113/52 (72) 97 97.8 Lab Results Laboratory Tests Test 12/31/19 16:57 12/31/19 20:40 01/01/20 07:14 01/01/20 11:13 Glucose (Fingerstick) 121 mg/dL (70-99) 91 mg/dL (70-99) 70 mg/dL (70-99) 86 mg/dL (70-99) Test 01/01/20 15:40 01/01/20 16:16 01/01/20 20:56 01/02/20 07:12 White Blood Count 9.0 x10^3/uL (4.0-11.0) Red Blood Count 3.33 x10^6/uL (3.50-5.40) Hemoglobin 9.5 g/dL (12.0-15.5) Hematocrit 29.0 % (36.0-47.0) Mean Corpuscular Volume 87 fL (79-100) Mean Corpuscular Hemoglobin 29 pg (25-35) Mean Corpuscular Hemoglobin Concent 33 g/dL (31-37) Red Cell Distribution Width 19.7 % (11.5-14.5) Platelet Count 506 x10^3/uL (140-400) Neutrophils (%) (Auto) 76 % (31-73) Lymphocytes (%) (Auto) 15 % (24-48) Monocytes (%) (Auto) 4 % (0-9) Eosinophils (%) (Auto) 4 % (0-3) Basophils (%) (Auto) 1 % (0-3) Neutrophils # (Auto) 6.8 x10^3/uL (1.8-7.7) Lymphocytes # (Auto) 1.4 x10^3/uL (1.0-4.8) Monocytes # (Auto) 0.4 x10^3/uL (0.0-1.1) Eosinophils # (Auto) 0.4 x10^3/uL (0.0-0.7) Basophils # (Auto) 0.1 x10^3/uL (0.0-0.2) Sodium Level 141 mmol/L (136-145) Potassium Level 3.7 mmol/L (3.5-5.1) Chloride Level 108 mmol/L (98-107) Carbon Dioxide Level 25 mmol/L (21-32) Anion Gap 8 (6-14) Blood Urea Nitrogen 8 mg/dL (7-20) Creatinine 0.7 mg/dL (0.6-1.0) Estimated GFR (Cockcroft-Gault) 99.0 BUN/Creatinine Ratio 11 (6-20) Glucose Level 107 mg/dL (70-99) Calcium Level 8.2 mg/dL (8.5-10.1) Total Bilirubin 0.2 mg/dL (0.2-1.0) Aspartate Amino Transf (AST/SGOT) 18 U/L (15-37) Alanine Aminotransferase (ALT/SGPT) 13 U/L (14-59) Alkaline Phosphatase 87 U/L (46-116) Total Protein 6.7 g/dL (6.4-8.2) Albumin 1.2 g/dL (3.4-5.0) Albumin/Globulin Ratio 0.2 (1.0-1.7) Glucose (Fingerstick) 100 mg/dL (70-99) 121 mg/dL (70-99) 64 mg/dL (70-99) Test 01/02/20 10:10 01/02/20 11:29 SARS-CoV-2 Antigen (Rapid) Negative (NEGATIVE) Glucose (Fingerstick) 81 mg/dL (70-99) Laboratory Tests Test 01/01/20 15:40 01/01/20 16:16 01/01/20 20:56 01/02/20 07:12 White Blood Count 9.0 x10^3/uL (4.0-11.0) Red Blood Count 3.33 x10^6/uL (3.50-5.40) Hemoglobin 9.5 g/dL (12.0-15.5) Hematocrit 29.0 % (36.0-47.0) Mean Corpuscular Volume 87 fL (79-100) Mean Corpuscular Hemoglobin 29 pg (25-35) Mean Corpuscular Hemoglobin Concent 33 g/dL (31-37) Red Cell Distribution Width 19.7 % (11.5-14.5) Platelet Count 506 x10^3/uL (140-400) Neutrophils (%) (Auto) 76 % (31-73) Lymphocytes (%) (Auto) 15 % (24-48) Monocytes (%) (Auto) 4 % (0-9) Eosinophils (%) (Auto) 4 % (0-3) Basophils (%) (Auto) 1 % (0-3) Neutrophils # (Auto) 6.8 x10^3/uL (1.8-7.7) Lymphocytes # (Auto) 1.4 x10^3/uL (1.0-4.8) Monocytes # (Auto) 0.4 x10^3/uL (0.0-1.1) Eosinophils # (Auto) 0.4 x10^3/uL (0.0-0.7) Basophils # (Auto) 0.1 x10^3/uL (0.0-0.2) Sodium Level 141 mmol/L (136-145) Potassium Level 3.7 mmol/L (3.5-5.1) Chloride Level 108 mmol/L (98-107) Carbon Dioxide Level 25 mmol/L (21-32) Anion Gap 8 (6-14) Blood Urea Nitrogen 8 mg/dL (7-20) Creatinine 0.7 mg/dL (0.6-1.0) Estimated GFR (Cockcroft-Gault) 99.0 BUN/Creatinine Ratio 11 (6-20) Glucose Level 107 mg/dL (70-99) Calcium Level 8.2 mg/dL (8.5-10.1) Total Bilirubin 0.2 mg/dL (0.2-1.0) Aspartate Amino Transf (AST/SGOT) 18 U/L (15-37) Alanine Aminotransferase (ALT/SGPT) 13 U/L (14-59) Alkaline Phosphatase 87 U/L (46-116) Total Protein 6.7 g/dL (6.4-8.2) Albumin 1.2 g/dL (3.4-5.0) Albumin/Globulin Ratio 0.2 (1.0-1.7) Glucose (Fingerstick) 100 mg/dL (70-99) 121 mg/dL (70-99) 64 mg/dL (70-99) Test 01/02/20 10:10 01/02/20 11:29 SARS-CoV-2 Antigen (Rapid) Negative (NEGATIVE) Glucose (Fingerstick) 81 mg/dL (70-99) Brief Hospital Course Ms. Ruano is a 74 old female who presented with necrotic right foot. Consults were placed to orthopedic surgery and infectious disease. Patient was treated with appropriate broad-spectrum antibiotics. She had balloon angioplas ty on the right lower extremity with a self-expanding stent placed to the right SFA and popliteal artery on 12-20-2019. Her hospital course was complicated by patient's refusal initially for surgical intervention. After much discussion with family and patient it was finally decided that she would have a right BKA, which was performed on 12-27-19. She received physical therapy and Occupational Therapy. She was discharged for further inpatient rehab. Discharge Information Condition at Discharge: Improved Follow Up: Weeks Disposition/Orders: D/C to Another Facility Scheduled Clopidogrel Bisulfate (Clopidogrel) 75 Mg Tablet, 75 MG PO DAILYWBKFT for Stent, #30 Ref 3 Prescribed by: KRISHAN GARBER MD on 01/03/20 1016 Lactobacillus Rhamnosus Gg (Culturelle) 1 Each Cap.sprink, 1 CAP PO BID for UTI prevention for 30 Days, #60 Ref 2 Prescribed by: KRISHAN GARBER MD on 01/03/20 1016 Metformin Hcl (Metformin Hcl Er) 500 Mg Tab.er.24h, 500 MG PO DAILYWBKFT for ANTI-DIABETIC, #30 Ref 2 Prescribed by: KRISHAN GARBER MD on 01/02/20 1153 Ondansetron Hcl (Zofran) 4 Mg Tablet, 1 TAB PO Q6HRS, #13 Prescribed by: CARLOZ LEGER on 11/15/15 1414 Last Action: Converted on 12/16/19 1513 by SYED ROSADO Oxycodone/Apap 5-325 (Percocet 5-325 Mg Tablet ) 1 Each Tablet, 1-2 TAB PO Q4- 6HRS, #23 Prescribed by: CARLOZ LEGER on 11/15/15 1414 Last Action: Continued on 12/16/19 1513 by SYED ROSADO Risperidone (Risperdal) 1 Mg Tablet, 1 MG PO HS for Schizophrenia for 30 Days, #30 Ref 2 Prescribed by: KRISHAN GARBER MD on 01/03/20 1016 Scheduled PRN Nystatin (Nyamyc) 15 Gm Powder, 1 RACHEL TP BID PRN for RASH, #1 Prescribed by: KRISHAN GARBER MD on 01/03/20 1016 Justicifation of Admission Dx: Justifications for Admission: Justification of Admission Dx: N/A KRISHAN GARBER MD Jan 02, 2020 12:02
[2020-01-02 14:40] VITALS: BP 125/65
--- NOTE | 2020-01-02 18:01 | PDOC ---
F/U PHYSCH PROG NOTE Subjective: 74-year-old female seen for routine follow-up. Progress is reviewed with nursing staff. She appears cooperative and interactive. She appears in good mood, laughing and cracking jokes at her family and friends. Denies suicidal or homicidal thoughts. Denies overt depression or anxiety. Denies auditory or visual hallucinations. No evidence of alyx or hypomania. Tolerating risperidone denies adverse drug reaction. Objective: 14 point review of system is otherwise negative except for stated above. Vital Signs: Vital Signs Date Time Temp Pulse Resp B/P (MAP) Pulse Ox O2 Delivery O2 Flow Rate FiO2 01/02/20 16:28 Room Air 01/02/20 14:40 98.7 87 16 125/65 (85) 95 98.7 Labs: Laboratory Tests Test 01/01/20 20:56 01/02/20 07:12 01/02/20 10:10 01/02/20 11:29 Glucose (Fingerstick) 121 mg/dL (70-99) H 64 mg/dL (70-99) L 81 mg/dL (70-99) SARS-CoV-2 Antigen (Rapid) Negative (NEGATIVE) Test 01/02/20 16:01 Glucose (Fingerstick) 90 mg/dL (70-99) Medications: Current Medications Medications (Trade) Dose Ordered Sig/Arnaud Start Time Stop Time Status Last Admin Dose Admin Acetaminophen (Tylenol) 650 mg PRN Q4HRS PRN 12/24/19 15:30 12/28/19 23:45 650 MG Atorvastatin Calcium (Lipitor) 5 mg QHS 12/16/19 21:00 12/16/19 16:22 DC Bupivacaine HCl/ Epinephrine Bitart (Sensorcaine-Epi 0.25%-1:556843 Mpf) 30 ml STK-MED ONCE 12/27/19 10:01 12/27/19 10:01 DC 12/27/19 11:15 30 ML Cetirizine HCl (ZyrTEC) 10 mg DAILY 12/16/19 16:00 12/16/19 16:22 DC Clopidogrel Bisulfate (Plavix) 75 mg DAILYWBKFT 12/21/19 08:00 01/02/20 09:36 75 MG Dextrose (Dextrose 50%-Water Syringe) 12.5 gm PRN Q15MIN PRN 12/16/19 15:15 Fentanyl Citrate (Fentanyl 2ml Vial) 50 mcg PRN Q5MIN PRN 12/27/19 13:00 12/30/19 09:23 DC 12/27/19 12:35 50 MCG Heparin Sodium (Porcine) (Heparin Sodium) 5,000 unit 1X ONCE 12/20/19 13:30 12/20/19 13:42 DC 12/20/19 13:59 5,000 UNIT Heparin Sodium/ Sodium Chloride (HEPARIN for ARTERIAL LINE FLUSH) 1,000 unit 1X ONCE 12/20/19 13:30 12/20/19 13:42 DC 12/20/19 13:57 1,000 UNIT Hydrochlorothiazide (Microzide) 12.5 mg DAILY 12/16/19 16:00 12/16/19 16:22 DC Info (CONTRAST GIVEN -- Rx MONITORING) 1 each PRN DAILY PRN 12/20/19 13:45 12/22/19 13:44 DC Insulin Glargine (Lantus Syringe) 10 unit QHS 12/16/19 21:00 01/01/20 21:14 10 UNIT Insulin Human Lispro (HumaLOG) 3 units 1X ONCE 12/22/19 21:15 12/22/19 21:16 DC 12/22/19 21:15 3 UNITS Iodixanol (Visipaque 320) 100 ml 1X ONCE 12/20/19 13:30 12/20/19 13:42 DC 12/20/19 13:55 75 ML Iohexol (Omnipaque 350 Mg/ml) 80 ml 1X ONCE 12/19/19 15:00 12/19/19 15:01 DC 12/19/19 15:08 80 ML Lactobacillus Rhamnosus (Culturelle) 1 cap BID 12/17/19 21:00 01/02/20 09:36 1 CAP Lidocaine HCl (Buffered Lidocaine 1%) 3 ml 1X ONCE 12/20/19 13:30 12/20/19 13:42 DC 12/20/19 13:55 6 ML Lidocaine HCl (Lidocaine Pf 2% Vial) 5 ml STK-MED ONCE 12/27/19 10:50 12/27/19 10:51 DC Lisinopril (Prinivil) 20 mg DAILY 12/16/19 16:00 12/16/19 16:22 DC Midazolam HCl (Versed) 2 mg 1X ONCE 12/20/19 13:30 12/20/19 13:42 DC 12/20/19 13:58 2 MG Morphine Sulfate (Morphine Sulfate) 4 mg PRN Q2HR PRN 12/16/19 19:45 12/30/19 09:04 4 MG Multivitamins (Thera M Plus) 1 tab DAILY 12/23/19 09:00 01/02/20 09:36 1 TAB Non-Formulary Medication (Ranitidine Hcl (Zantac)) 1 tab BID 12/16/19 21:00 12/16/19 16:22 DC Nystatin (Nystop) 1 maryam BID 12/21/19 12:00 01/02/20 09:36 1 MARYAM Ondansetron HCl (Zofran Odt) 4 mg PRN Q6HRS PRN 12/19/19 15:00 Ondansetron HCl (Zofran) 4 mg STK-MED ONCE 12/27/19 10:50 12/27/19 10:51 DC Oxycodone/ Acetaminophen (Percocet 5/325) 2 tab PRN Q4HRS PRN 12/27/19 12:45 01/02/20 15:17 2 TAB Phenylephrine HCl (PHENYLEPHRINE in 0.9% NACL PF) 1 mg STK-MED ONCE 12/27/19 10:55 12/27/19 10:56 DC Piperacillin Sod/ Tazobactam Sod (Zosyn Per Pharmacy) 1 each PRN DAILY PRN 12/16/19 15:15 Piperacillin Sod/ Tazobactam Sod 2.25 gm/Sodium Chloride 50 ml @ 100 mls/hr Q6HRS 12/16/19 18:00 12/27/19 11:00 DC 12/27/19 06:18 100 MLS/HR Piperacillin Sod/ Tazobactam Sod 3.375 gm/Sodium Chloride 50 ml @ 100 mls/hr Q6HRS 12/27/19 12:00 01/02/20 05:54 100 MLS/HR Prochlorperazine Edisylate (Compazine) 10 mg STK-MED ONCE 12/27/19 12:21 12/27/19 12:21 DC Propofol (Diprivan) 200 mg STK-MED ONCE 12/27/19 10:50 12/27/19 10:51 DC Ringer's Solution 1,000 ml @ 30 mls/hr Q24H 12/27/19 07:00 12/27/19 18:59 DC Risperidone (RisperDAL) 1 mg HS 12/29/19 21:00 01/01/20 21:10 1 MG Sevoflurane (Ultane) 90 ml STK-MED ONCE 12/27/19 12:00 12/27/19 12:00 DC Sodium Chloride 1,000 ml @ 100 mls/hr 1X ONCE 12/16/19 15:15 12/17/19 01:14 DC 12/16/19 16:43 100 MLS/HR Physical Exam: Mental Status Exam: Elderly female appears her stated age, fairly groomed fairly nourished Cooperative and interactive Alert and oriented Thought process linear coherent and goal-directed Denies auditory or visual hallucinations No abnormal perception noted Denies suicidal or homicidal thoughts. Mood is fine Affect is euthymic Insight is good Judgment is good Impulse control is good Attention span and concentration good Recent and remote memory intact Physical Exam: Refer to Physician's note. 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 Acute delirium, likely hypoactive , postsurgical 2. Unspecified depression 3. Unspecified anxiety Assessment: Elderly pleasant female who is in agreement to go for below-knee amputation. Her understanding about procedure, risks, benefits, her concern prior to making decision appears to be rational. She made her decision without any pressure and with full understanding. Her thoughts about next phase of life following amputation and preparation, future plans are indicative of her full Capacity to make rational decision regarding her own care as recommended to her by physicians. She does not have any depression or anxiety that are influencing h er decision. 12/29/2019: Today patient appears delirious, difficult to her to open eyes. Delirium has also been reported by her family who was at the bedside. 12/30/2019 today patient appears a lot better than previous days. She is more alert and oriented likely responding to risperidone. Risperidone can be discontinued once patient is at her baseline. 01/02/2020. Patient appears fully alert, oriented, and in good mood and laughing around cracking jokes. Plan: continue risperidone 1 mg at bedtime for the resolution of delirium. Following rehab, her risperidone can be discontinued. Risks, benefits, alternatives of the treatment are discussed. Adverse drug reaction of the medications are also discussed. Psychoeducation provided. Supportive psychotherapy provided. Avoid sedatives and hypnotics. Applied delirium protocol. Avoid sundowning during the day or naps. Thank you for involving inpatient IRA GARCIA MD Jan 02, 2020 18:01
[2020-01-02 19:00] VITALS: BP 121/55
[2020-01-02] MEDS: risperiDONE 1 MG TABLET. PO SCH (21:56)
[2020-01-02] MEDS: INSULIN GLARGINE SYRINGE. SQ SCH (22:01)
[2020-01-02 23:00] VITALS: BP 130/65
[2020-01-03] MEDS: PIPERACILLIN/TAZOBACTAM 3.375 GM in IV NORMAL SALINE 50ML 50 ML IV SCH ×2 (00:12→06:04)
[2020-01-03] MEDS: oxyCODONE/APAP 5/325 1 TAB TABLET PO PRN ×3 (00:16→10:01)
[2020-01-03 03:00] VITALS: BP 148/75
[2020-01-03 07:00] VITALS: BP 119/55
[2020-01-03] MEDS: INSULIN LISPRO 300 UNITS/3 ML VIAL. SQ SCH (08:00)
[2020-01-03] MEDS: MULTIVITAMIN with MINERAL TABLET. PO SCH (09:58)
[2020-01-03] MEDS: CLOPIDOGREL BISULFATE 75 MG TABLET PO SCH (10:00)
[2020-01-03] MEDS: LACTOBACILLUS RHAMNOSUS GG 1 CAPSULE. PO SCH (10:00)
[2020-01-03] MEDS: NYSTATIN TOPICAL POWDER 15GM BOTTLE. TP SCH (10:01)
[2020-01-03] MEDS ORDERED: NYST15PO2 TP (10:16)
[2020-01-03] MEDS ORDERED: LACT1CAP19 PO (10:16)
[2020-01-03] MEDS ORDERED: CLOP75TA PO (10:16)
[2020-01-03] MEDS ORDERED: RISP1TAB43 PO (10:16)
--- NOTE | 2020-01-03 10:20 | SNU/HH DC ---
DISCHARGE ORDERS DISCHARGE INFORMATION: DISCHARGE DATE: Jan 03, 2020 FINAL DIAGNOSIS Problems Medical Problems: (1) Necrotic toes Status: Acute (2) Weakness Status: Acute (3) Wound infection Status: Acute CONDITION ON DISCHARGE: Stable CODE STATUS: Code Status: Full HALF-WAY: SNF STAY <30 DAYS: Yes HOSPICE: HOSPICE: No HOSPICE EVAL & TREAT: No POST DISCHARGE ORDERS: ACTIVITY ORDERS: Activity as tolerated WEIGHT BEARING STATUS: As tolerated DIET AFTER DISCHARGE: ADA WOUND/INCISION CARE: Change dressing TREATMENT/EQUIPMENT ORDERS: ADAPTIVE EQUIPMENT NEEDED: Wheelchair Physical Therapy For: Evalulation/Treatment Occupational Therapy For: Evaluation/Treatment DISCHARGE MEDICATIONS: Home Meds Active Scripts Nystatin (NYAMYC) 15 Gm Powder, 1 RACHEL TP BID PRN for RASH, #1 MISC Prov:KRISHAN GARBER MD 01/03/20 Lactobacillus Rhamnosus Gg (CULTURELLE) 1 Each Cap.sprink, 1 CAP PO BID for UTI prevention for 30 Days, #60 CAP 2 Refills Prov:KRISHAN GARBER MD 01/03/20 Risperidone (RISPERDAL) 1 Mg Tablet, 1 MG PO HS for Schizophrenia for 30 Days, #30 TAB 2 Refills Prov:KRISHAN GARBER MD 01/03/20 Clopidogrel Bisulfate (CLOPIDOGREL) 75 Mg Tablet, 75 MG PO DAILYWBKFT for Stent, #30 TAB 3 Refills Prov:KRISHAN GARBER MD 01/03/20 Metformin Hcl (METFORMIN HCL ER) 500 Mg Tab.er.24h, 500 MG PO DAILYWBKFT for ANTI-DIABETIC, #30 TAB 2 Refills Prov:KRISHAN GARBER MD 01/02/20 Ondansetron Hcl (ZOFRAN) 4 Mg Tablet, 1 TAB PO Q6HRS, #13 TAB Prov:CARLOZ LEGER MD 11/15/15 Oxycodone/Apap 5-325 (PERCOCET 5-325 MG TABLET ) 1 Each Tablet, 1-2 TAB PO Q4- 6HRS, #23 TAB Prov:CARLOZ LEGER MD 11/15/15 KRISHAN GARBER MD Jan 03, 2020 10:20
--- NOTE | 2020-01-03 10:24 | PDOC ---
PROGRESS NOTES Date of Service: DATE: 01/03/20 TIME: 10:20 Chief Complaint Chief Complaint impression falls, worsening weakness, cannot walk, DM2, poor control she is off meds, denies any problem cognitive decline - dementia likely Right below-knee amputation (amputation, leg, through tibia and fibula) eschar foot and toes, ischemic injury, dry gangrene ( needs BKA) SEVERE PVD ,Chronic total occlusion mid right SFA, and at the junction of the SFA and popliteal artery treated with placement of self-expanding stents Balloon angioplasty of the tibial peroneal trunk marked post-op animia, transfues 2 units PRBC'S 12/28 36 MIN PT exam, chart review, > 50% of time spent with exam, chart review, pt care coordination dpoa mother, discussed, reviewed form signed 12 min History of Present Illness History of Present Illness Patient examined at bedside. She will discharge today to SNU. She is resting c omfortably, no complaints. Vitals Vitals Vital Signs Date Time Temp Pulse Resp B/P (MAP) Pulse Ox O2 Delivery O2 Flow Rate FiO2 01/03/20 10:01 Room Air 01/03/20 07:00 98.3 74 16 119/55 (76) 98 98.3 Physical Exam General: Alert, Oriented X3, Cooperative, Other (multiple missing teeth, not quite edentulous) Heart: Regular rate, Normal S1, Normal S2 Lungs: Clear, Wheezing Abdomen: Soft Extremities: Other (Right BKA) Skin: No breakdown Labs LABS Laboratory Tests Test 01/02/20 11:29 01/02/20 16:01 01/02/20 21:18 01/03/20 07:38 Glucose (Fingerstick) 81 mg/dL (70-99) 90 mg/dL (70-99) 103 mg/dL (70-99) 60 mg/dL (70-99) Review of Systems Review of Systems Denies leg pain, denies shortness of breath, denies chest pain, denies fever. Assessment and Plan Assessmemt and Plan Problems Medical Problems: (1) Necrotic toes Status: Acute (2) Weakness Status: Acute (3) Wound infection Status: Acute Plan: Status post right BKA. Patient will discharge to nursing home unit. She understands she will need a prolonged course of physical therapy. Stable for discharge. Greater than 35 minutes was spent managing this patient's discharge. Comment Review of Relevant I have reviewed the following items da (where applicable) has been applied. Labs Laboratory Tests Test 01/01/20 11:13 01/01/20 15:40 01/01/20 16:16 01/01/20 20:56 Glucose (Fingerstick) 86 mg/dL (70-99) 100 mg/dL (70-99) 121 mg/dL (70-99) White Blood Count 9.0 x10^3/uL (4.0-11.0) Red Blood Count 3.33 x10^6/uL (3.50-5.40) Hemoglobin 9.5 g/dL (12.0-15.5) Hematocrit 29.0 % (36.0-47.0) Mean Corpuscular Volume 87 fL (79-100) Mean Corpuscular Hemoglobin 29 pg (25-35) Mean Corpuscular Hemoglobin Concent 33 g/dL (31-37) Red Cell Distribution Width 19.7 % (11.5-14.5) Platelet Count 506 x10^3/uL (140-400) Neutrophils (%) (Auto) 76 % (31-73) Lymphocytes (%) (Auto) 15 % (24-48) Monocytes (%) (Auto) 4 % (0-9) Eosinophils (%) (Auto) 4 % (0-3) Basophils (%) (Auto) 1 % (0-3) Neutrophils # (Auto) 6.8 x10^3/uL (1.8-7.7) Lymphocytes # (Auto) 1.4 x10^3/uL (1.0-4.8) Monocytes # (Auto) 0.4 x10^3/uL (0.0-1.1) Eosinophils # (Auto) 0.4 x10^3/uL (0.0-0.7) Basophils # (Auto) 0.1 x10^3/uL (0.0-0.2) Sodium Level 141 mmol/L (136-145) Potassium Level 3.7 mmol/L (3.5-5.1) Chloride Level 108 mmol/L (98-107) Carbon Dioxide Level 25 mmol/L (21-32) Anion Gap 8 (6-14) Blood Urea Nitrogen 8 mg/dL (7-20) Creatinine 0.7 mg/dL (0.6-1.0) Estimated GFR (Cockcroft-Gault) 99.0 BUN/Creatinine Ratio 11 (6-20) Glucose Level 107 mg/dL (70-99) Calcium Level 8.2 mg/dL (8.5-10.1) Total Bilirubin 0.2 mg/dL (0.2-1.0) Aspartate Amino Transf (AST/SGOT) 18 U/L (15-37) Alanine Aminotransferase (ALT/SGPT) 13 U/L (14-59) Alkaline Phosphatase 87 U/L (46-116) Total Protein 6.7 g/dL (6.4-8.2) Albumin 1.2 g/dL (3.4-5.0) Albumin/Globulin Ratio 0.2 (1.0-1.7) Test 01/02/20 07:12 01/02/20 10:10 01/02/20 11:29 01/02/20 16:01 Glucose (Fingerstick) 64 mg/dL (70-99) 81 mg/dL (70-99) 90 mg/dL (70-99) SARS-CoV-2 Antigen (Rapid) Negative (NEGATIVE) Test 01/02/20 21:18 01/03/20 07:38 Glucose (Fingerstick) 103 mg/dL (70-99) 60 mg/dL (70-99) Laboratory Tests Test 01/02/20 11:29 01/02/20 16:01 01/02/20 21:18 01/03/20 07:38 Glucose (Fingerstick) 81 mg/dL (70-99) 90 mg/dL (70-99) 103 mg/dL (70-99) 60 mg/dL (70-99) Microbiology 12/16/19 Blood Culture - Final, Complete NO GROWTH AFTER 5 DAYS Medications Current Medications Piperacillin Sod/ Tazobactam Sod 3.375 gm/Sodium Chloride 50 ml @ 100 mls/hr 1X ONCE IV Last administered on 12/16/19at 11:26; Start 12/16/19 at 11:15; Stop 12/16/19 at 11:44; Status DC Sodium Chloride 1,000 ml @ 1,000 mls/hr 1X ONCE IV Last administered on 12/16/19at 11:25; Start 12/16/19 at 11:15; Stop 12/16/19 at 12:14; Status DC Oxycodone/ Acetaminophen (Percocet 5/325) 1 tab Q4HRS PO ; Start 12/16/19 at 16:00; Stop 12/16/19 at 18:36; Status DC Lisinopril (Prinivil) 20 mg DAILY PO ; Start 12/16/19 at 16:00; Stop 12/16/19 at 16:22; Status DC Cetirizine HCl (ZyrTEC) 10 mg DAILY PO ; Start 12/16/19 at 16:00; Stop 12/16/19 at 16:22; Status DC Atorvastatin Calcium (Lipitor) 5 mg QHS PO ; Start 12/16/19 at 21:00; Stop 12/16/19 at 16:22; Status DC Ondansetron HCl (Zofran Odt) 4 mg Q6HRS PO Last administered on 12/19/19at 05:50; Start 12/16/19 at 18:00; Stop 12/19/19 at 14:48; Status DC Non-Formulary Medication (Ranitidine Hcl (Zantac)) 1 tab BID PO ; Start 12/16/19 at 21:00; Stop 12/16/19 at 16:22; Status DC Piperacillin Sod/ Tazobactam Sod (Zosyn Per Pharmacy) 1 each PRN DAILY PRN MC SEE COMMENTS; Start 12/16/19 at 15:15 Sodium Chloride 1,000 ml @ 100 mls/hr 1X ONCE IV Last administered on 12/16/19at 16:43; Start 12/16/19 at 15:15; Stop 12/17/19 at 01:14; Status DC Insulin Human Lispro (HumaLOG) 0-9 UNITS TIDWMEALS SQ Last administered on 12/29/19at 17:00; Start 12/16/19 at 17:00 Dextrose (Dextrose 50%-Water Syringe) 12.5 gm PRN Q15MIN PRN IV SEE COMMENTS; Start 12/16/19 at 15:15 Insulin Glargine (Lantus Syringe) 10 unit QHS SQ Last administered on 01/02/20at 22:01; Start 12/16/19 at 21:00 Piperacillin Sod/ Tazobactam Sod 3.375 gm/Sodium Chloride 50 ml @ 100 mls/hr Q6HRS IV ; Start 12/16/19 at 18:00; Status Cancel Piperacillin Sod/ Tazobactam Sod 2.25 gm/Sodium Chloride 50 ml @ 100 mls/hr Q6HRS IV Last administered on 12/27/19at 06:18; Start 12/16/19 at 18:00; Stop 12/27/19 at 11:00; Status DC Hydrochlorothiazide (Microzide) 12.5 mg DAILY PO ; Start 12/16/19 at 16:00; Stop 12/16/19 at 16:22; Status DC Heparin Sodium (Porcine) (Heparin Sodium) 5,000 unit 1X ONCE SQ Last administered on 12/16/19at 17:50; Start 12/16/19 at 17:45; Stop 12/16/19 at 17:46; Status DC Oxycodone/ Acetaminophen (Percocet 5/325) 1 tab PRN Q4HRS PRN PO MODERATE TO SEVERE PAIN Last administered on 12/26/19at 18:09; Start 12/16/19 at 18:45; Stop 12/27/19 at 12:38; Status DC Morphine Sulfate (Morphine Sulfate) 4 mg PRN Q2HR PRN IV PAIN Last administered on 12/30/19at 09:04; Start 12/16/19 at 19:45 Ringer's Solution 1,000 ml @ 100 mls/hr Q10H IV Last administered on 12/20/19at 08:10; Start 12/17/19 at 10:30; Stop 12/20/19 at 15:47; Status DC Lactobacillus Rhamnosus (Culturelle) 1 cap BID PO Last administered on 01/03/20at 10:00; Start 12/17/19 at 21:00 Ondansetron HCl (Zofran Odt) 4 mg PRN Q6HRS PRN PO NAUSEA; Start 12/19/19 at 15:00 Iohexol (Omnipaque 350 Mg/ml) 80 ml 1X ONCE IV Last administered on 12/19/19at 15:08; Start 12/19/19 at 15:00; Stop 12/19/19 at 15:01; Status DC Lidocaine HCl (Buffered Lidocaine 1%) 3 ml STK-MED ONCE .ROUTE ; Start 12/20/19 at 11:59; Stop 12/20/19 at 11:59; Status DC Iodixanol (Visipaque 320) 100 ml STK-MED ONCE .ROUTE ; Start 12/20/19 at 11:59; Stop 12/20/19 at 11:59; Status DC Heparin Sodium/ Sodium Chloride 1,500 ml @ As Directed STK-MED ONCE .ROUTE ; Start 12/20/19 at 11:59; Stop 12/20/19 at 11:59; Status DC Midazolam HCl (Versed) 2 mg STK-MED ONCE .ROUTE ; Start 12/20/19 at 12:34; Stop 12/20/19 at 12:34; Status DC Fentanyl Citrate (Fentanyl 2ml Vial) 100 mcg STK-MED ONCE .ROUTE ; Start 12/20/19 at 12:34; Stop 12/20/19 at 12:34; Status DC Heparin Sodium (Porcine) (Heparin Sodium) 10,000 unit STK-MED ONCE .ROUTE ; Start 12/20/19 at 12:34; Stop 12/20/19 at 12:34; Status DC Heparin Sodium/ Sodium Chloride (HEPARIN for ARTERIAL LINE FLUSH) 1,000 unit 1X ONCE IART Last administered on 12/20/19at 13:56; Start 12/20/19 at 13:30; Stop 12/20/19 at 13:42; Status DC Heparin Sodium/ Sodium Chloride (HEPARIN for ARTERIAL LINE FLUSH) 1,000 unit 1X ONCE IART Last administered on 12/20/19at 13:57; Start 12/20/19 at 13:30; Stop 12/20/19 at 13:42; Status DC Lidocaine HCl (Buffered Lidocaine 1%) 3 ml 1X ONCE IJ Last administered on 12/20/19at 13:55; Start 12/20/19 at 13:30; Stop 12/20/19 at 13:42; Status DC Midazolam HCl (Versed) 2 mg 1X ONCE IV Last administered on 12/20/19at 13:58; Start 12/20/19 at 13:30; Stop 12/20/19 at 13:42; Status DC Fentanyl Citrate (Fentanyl 2ml Vial) 100 mcg 1X ONCE IV Last administered on 12/20/19at 13:58; Start 12/20/19 at 13:30; Stop 12/20/19 at 13:42; Status DC Iodixanol (Visipaque 320) 100 ml 1X ONCE IART Last administered on 12/20/19at 13:55; Start 12/20/19 at 13:30; Stop 12/20/19 at 13:42; Status DC Heparin Sodium (Porcine) (Heparin Sodium) 5,000 unit 1X ONCE IV Last admi nistered on 12/20/19at 13:59; Start 12/20/19 at 13:30; Stop 12/20/19 at 13:42; Status DC Heparin Sodium/ Sodium Chloride (HEPARIN for ARTERIAL LINE FLUSH) 1,000 unit 1X ONCE IV Last administered on 12/20/19at 13:57; Start 12/20/19 at 13:30; Stop 12/20/19 at 13:42; Status DC Info (CONTRAST GIVEN -- Rx MONITORING) 1 each PRN DAILY PRN MC SEE COMMENTS; Start 12/20/19 at 13:45; Stop 12/22/19 at 13:44; Status DC Clopidogrel Bisulfate (Plavix) 75 mg DAILYWBKFT PO Last administered on 01/03/20at 10:00; Start 12/21/19 at 08:00 Nystatin (Nystop) 1 caitie BID TP Last administered on 01/03/20at 10:01; Start 12/21/19 at 12:00 Multivitamins (Thera M Plus) 1 tab DAILY PO Last administered on 01/03/20at 09:58; Start 12/23/19 at 09:00 Insulin Human Lispro (HumaLOG) 3 units 1X ONCE SQ Last administered on 12/22/19at 21:15; Start 12/22/19 at 21:15; Stop 12/22/19 at 21:16; Status DC Acetaminophen (Tylenol) 650 mg PRN Q4HRS PRN PO JACOBS/TEMP > 100.3'F Last administered on 12/28/19at 23:45; Start 12/24/19 at 15:30 Ringer's Solution 1,000 ml @ 30 mls/hr Q24H IV ; Start 12/27/19 at 07:00; Stop 12/27/19 at 18:59; Status DC Prochlorperazine Edisylate (Compazine) 5 mg PACU PRN PRN IV NAUSEA, MRX1 Last administered on 12/27/19at 12:25; Start 12/27/19 at 07:00; Stop 12/28/19 at 06:59; Status DC Bupivacaine HCl/ Epinephrine Bitart (Sensorcaine-Epi 0.25%-1:100150 Mpf) 30 ml STK-MED ONCE .ROUTE Last administered on 12/27/19at 11:15; Start 12/27/19 at 10:01; Stop 12/27/19 at 10:01; Status DC Fentanyl Citrate (Fentanyl 2ml Vial) 100 mcg STK-MED ONCE .ROUTE ; Start 12/27/19 at 10:31; Stop 12/27/19 at 10:31; Status DC Piperacillin Sod/ Tazobactam Sod 3.375 gm/Sodium Chloride 50 ml @ 100 mls/hr Q6HRS IV Last administered on 01/03/20at 06:04; Start 12/27/19 at 12:00 Propofol (Diprivan) 200 mg STK-MED ONCE IV ; Start 12/27/19 at 10:50; Stop 12/27/19 at 10:51; Status DC Lidocaine HCl (Lidocaine Pf 2% Vial) 5 ml STK-MED ONCE .ROUTE ; Start 12/27/19 at 10:50; Stop 12/27/19 at 10:51; Status DC Ondansetron HCl (Zofran) 4 mg STK-MED ONCE .ROUTE ; Start 12/27/19 at 10:50; Stop 12/27/19 at 10:51; Status DC Phenylephrine HCl (PHENYLEPHRINE in 0.9% NACL PF) 1 mg STK-MED ONCE IV ; Start 12/27/19 at 10:55; Stop 12/27/19 at 10:56; Status DC Sevoflurane (Ultane) 90 ml STK-MED ONCE IH ; Start 12/27/19 at 12:00; Stop 12/27/19 at 12:00; Status DC Fentanyl Citrate (Fentanyl 2ml Vial) 100 mcg STK-MED ONCE .ROUTE ; Start 12/27/19 at 12:21; Stop 12/27/19 at 12:21; Status DC Prochlorperazine Edisylate (Compazine) 10 mg STK-MED ONCE .ROUTE ; Start 12/27/19 at 12:21; Stop 12/27/19 at 12:21; Status DC Oxycodone/ Acetaminophen (Percocet 5/325) 1 tab PRN Q4HRS PRN PO PAIN MILD TO MOD Last administered on 01/01/20at 12:04; Start 12/27/19 at 12:45 Oxycodone/ Acetaminophen (Percocet 5/325) 2 tab PRN Q4HRS PRN PO PAIN SEVERE Last administered on 01/03/20at 10:01; Start 12/27/19 at 12:45 Fentanyl Citrate (Fentanyl 2ml Vial) While in pacu. PRN Q5MIN PRN IVP PAIN Last administered on 12/27/19at 12:24; Start 12/27/19 at 12:45; Stop 12/27/19 at 12:46; Status DC Fentanyl Citrate (Fentanyl 2ml Vial) 25 mcg PRN Q5MIN PRN IVP PAIN MILD TO MOD; Start 12/27/19 at 12:46; Status Cancel Fentanyl Citrate (Fentanyl 2ml Vial) 50 mcg PRN Q5MIN PRN IVP PAIN SEVERE Last administered on 12/27/19at 12:35; Start 12/27/19 at 13:00; Stop 12/30/19 at 09:23; Status DC Risperidone (RisperDAL) 1 mg HS PO Last administered on 01/02/20at 21:56; Start 12/29/19 at 21:00 Active Scripts Active Nyamyc (Nystatin) 15 Gm Powder 1 Caitie TP BID PRN Culturelle (Lactobacillus Rhamnosus Gg) 1 Each Cap.sprink 1 Cap PO BID 30 Days Risperdal (Risperidone) 1 Mg Tablet 1 Mg PO HS 30 Days Clopidogrel (Clopidogrel Bisulfate) 75 Mg Tablet 75 Mg PO DAILYWBKFT Metformin Hcl Er (Metformin Hcl) 500 Mg Tab.er.24h 500 Mg PO DAILYWBKFT Zofran (Ondansetron Hcl) 4 Mg Tablet 1 Tab PO Q6HRS Percocet 5-325 Mg Tablet (Oxycodone/Acetaminophen) 1 Each Tablet 1-2 Tab PO Q4-6HRS Vitals/I & O Vital Sign - Last 24 Hours 01/02/20 01/02/20 01/02/20 01/02/20 10:48 10:50 11:59 14:40 Temp 98.7 98.7 98.7 98.7 Pulse 89 87 Resp 16 16 B/P (MAP) 112/62 (79) 125/65 (85) Pulse Ox 97 95 O2 Delivery Room Air Room Air Room Air Room Air 01/02/20 01/02/20 01/02/20 01/02/20 15:17 16:28 19:00 20:05 Temp 98.2 98.2 Pulse 88 Resp 18 B/P (MAP) 121/55 (77) Pulse Ox 97 O2 Delivery Room Air Room Air Room Air 01/02/20 01/02/20 01/02/20 01/03/20 20:08 21:08 23:00 00:16 Temp 98.8 98.8 Pulse 87 Resp B/P (MAP) 130/65 (86) Pulse Ox 98 O2 Delivery Room Air Room Air Room Air Room Air 01/03/20 01/03/20 01/03/20 01/03/20 01:16 03:00 04:49 05:49 Temp 98.2 98.2 Pulse 87 Resp B/P (MAP) 148/75 (99) Pulse Ox 100 O2 Delivery Room Air Room Air Room Air Room Air 01/03/20 01/03/20 07:00 10:01 Temp 98.3 98.3 Pulse 74 Resp 16 B/P (MAP) 119/55 (76) Pulse Ox 98 O2 Delivery Room Air Room Air Intake and Output 01/02/20 01/02/20 01/03/20 15:00 23:00 07:00 Intake Total 60 ml 100 ml Output Total 1 ml Balance 59 ml 100 ml Justicifation of Admission Dx: Justifications for Admission: Justification of Admission Dx: N/A KRISHAN GARBER MD Jan 03, 2020 10:24
[2020-01-03 11:00] VITALS: BP 122/68
--- NOTE | 2020-01-03 11:03 | NUR ---
Called [facility] and gave report to Candice.
--- NOTE | 2020-01-03 11:51 | NUR ---
PT DISCHARGING TO [facility]. WOUND PICS TAKEN. ALL DRESSINGS CHANGED. IV REMOVED. PT BRIEF CHANGED. BELONGINGS WERE PACKED AND SENT WITH PT INCLUDING CELL PHONE, CELL PHONE GYPSUM BLOCK SETTER AND PURSE. ASSISTED EMS WITH TRANSFER TO [facility] ([facility]3].
== END 2020-01-03 11:53 | DRG 239 ==
LOC: ER 10:31 → ED HOLD 12:36 → 4 NORTH 15:00
PROVIDERS: ADMIT Internal Medicine; ATTEND Internal Medicine
PROC: 047K3DZ Dilation of Right Femoral Artery with Intraluminal Device, Percutaneous Approach (ICD-10-PCS; 2019-12-20)
PROC: 047M3DZ Dilation of Right Popliteal Artery with Intraluminal Device, Percutaneous Approach (ICD-10-PCS; 2019-12-20)
PROC: 047T3ZZ Dilation of Right Peroneal Artery, Percutaneous Approach (ICD-10-PCS; 2019-12-20)
PROC: B41D1ZZ Fluoroscopy of Aorta and Bilateral Lower Extremity Arteries using Low Osmolar Contrast (ICD-10-PCS; 2019-12-20)
PROC: 0Y6H0Z1 Detachment at Right Lower Leg, High, Open Approach (ICD-10-PCS; principal; 2019-12-27 10:00)
PROC: 30233N1 Transfusion of Nonautologous Red Blood Cells into Peripheral Vein, Percutaneous Approach (ICD-10-PCS; 2019-12-29)
DX: E11.52 Type 2 diabetes mellitus with diabetic peripheral angiopathy with gangrene (principal); N17.0 Acute kidney failure with tubular necrosis; E43 Unspecified severe protein-calorie malnutrition; M86.9 Osteomyelitis, unspecified; I70.261 Atherosclerosis of native arteries of extremities with gangrene, right leg; L97.309 Non-pressure chronic ulcer of unspecified ankle with unspecified severity; E11.69 Type 2 diabetes mellitus with other specified complication; D72.829 Elevated white blood cell count, unspecified; E11.621 Type 2 diabetes mellitus with foot ulcer; E86.0 Dehydration; F03.90 Unspecified dementia, unspecified severity, without behavioral disturbance, psychotic disturbance, mood disturbance, and anxiety; F32.9 Major depressive disorder, single episode, unspecified; F41.9 Anxiety disorder, unspecified; I10 Essential (primary) hypertension; K59.00 Constipation, unspecified; L08.9 Local infection of the skin and subcutaneous tissue, unspecified; I68.0 Cerebral amyloid angiopathy; W18.39XA Other fall on same level, initial encounter; Z20.828 Contact with and (suspected) exposure to other viral communicable diseases; L97.519 Non-pressure chronic ulcer of other part of right foot with unspecified severity; S82.63XA Displaced fracture of lateral malleolus of unspecified fibula, initial encounter for closed fracture; W27.0XXA Contact with workbench tool, initial encounter; Z51.5 Encounter for palliative care; Z87.891 Personal history of nicotine dependence; Z89.611 Acquired absence of right leg above knee; Z90.710 Acquired absence of both cervix and uterus; Y93.89 Activity, other specified; Y92.89 Other specified places as the place of occurrence of the external cause; Y99.8 Other external cause status; Z90.49 Acquired absence of other specified parts of digestive tract; Z68.33 Body mass index [BMI] 33.0-33.9, adult
CPT/HCPCS: 36415; 37226; 73600; 73630; 75625; 75635; 75716; 76937; 80048; 80053; 81001; 82306; 82550; 82962; 83036; 83605; 84484; 85007; 85025; 85027; 85610; 85730; 86140; 86850; 86900; 86901; 86920; 87040; 87426; 88307; 88311; 93005; 93923; 96365; 96366; 99152; 99153; 99285; A7015; C1713; C1725; C1760; C1769; C1892; C1894; G0269; J0780; J1644; J1815; J2250; J2270; J2370; J2405; J2543; J2704; J3010; J3490; J7030; J7120; P9016; Q9967; 97110-GP; 97530-GO; 97530-GP; 97535-GO; A4461; G0378; U0003-CS